=== PATIENT | female | born 1980 ===

== ENCOUNTER 2021-09-26 10:22 | Outpatient (REF) | payer MEDICAID, SELFPAY ==
--- NOTE | ~2021-09-26 | MM_ITS ---
EXAMINATION: MM SCREENING DIGITAL BREAST TOMOSYNTHESIS, BILATERAL CLINICAL INFORMATION: Screening. Asymptomatic. The lifetime risk of breast cancer based on the Tyrer-Cuzick Model is 7%. COMPARISON: Mammography: 10/28/2018, 10/14/2017 TECHNIQUE: Digital breast tomosynthesis is performed in both the craniocaudal and mediolateral oblique views along with computer-aided detection (CAD). Synthesized 2D images are generated from the tomosynthesis. FINDINGS: There are scattered areas of fibroglandular density (ACR BI-RADS breast composition Category b). There are no significant masses, abnormal calcifications, or other abnormalities. Breast tissue composition borders on heterogeneously dense. The skin contours are smooth. No significant changes. MM/MM tomosynthesis screening BI IMPRESSION: No mammographic evidence of malignancy. ASSESSMENT: BI-RADS 1: Negative RECOMMENDATION: Routine annual mammography screening. This patient's information was entered into a reminder system with a target due date for their next mammogram.
== END 2021-09-26 10:23 | disposition home or self-care (01) ==
LOC: HO.MAMMO 10:22
PROVIDERS: Visit Provider Family Medicine
DX: Z12.31 Encounter for screening mammogram for malignant neoplasm of breast (principal)
CPT/HCPCS: 77063; 77067

== ENCOUNTER 2022-04-20 09:22 | Outpatient (REF) | payer MEDICAID, SELFPAY ==
--- NOTE | ~2022-04-20 | XR_ITS ---
EXAMINATION: RIGHT FOOT AND RIGHT ANKLE. CLINICAL INFORMATION: Pain. COMPARISON: None TECHNIQUE: 3 views right foot and 2 views right ankle: FINDINGS: RIGHT FOOT: There is no visible acute fracture, dislocation or subluxation seen. No bony erosive changes. The soft tissues are normal. RIGHT ANKLE: The ankle mortise and subtalar joints are normal. No visible acute fracture or dislocation seen. The soft tissues are normal. XR/XR ankle RT min 3V IMPRESSION: Unremarkable right foot exam. Unremarkable right ankle exam.
--- NOTE | ~2022-04-20 | XR_ITS ---
EXAMINATION: RIGHT FOOT AND RIGHT ANKLE. CLINICAL INFORMATION: Pain. COMPARISON: None TECHNIQUE: 3 views right foot and 2 views right ankle: FINDINGS: RIGHT FOOT: There is no visible acute fracture, dislocation or subluxation seen. No bony erosive changes. The soft tissues are normal. RIGHT ANKLE: The ankle mortise and subtalar joints are normal. No visible acute fracture or dislocation seen. The soft tissues are normal. XR/XR foot RT min 3V IMPRESSION: Unremarkable right foot exam. Unremarkable right ankle exam.
== END 2022-04-20 09:23 | disposition home or self-care (01) ==
LOC: HO.XRAY 09:22
PROVIDERS: Absent Provider Internal Medicine; PCP Internal Medicine; Visit Provider Family Medicine
DX: M77.41 Metatarsalgia, right foot (principal)
CPT/HCPCS: 73610; 73630

== ENCOUNTER 2022-06-01 15:54 | Outpatient (REF) | payer MEDICAID, SELFPAY ==
--- NOTE | ~2022-06-01 | MR_ITS ---
MR LUMBAR SPINE WITHOUT CONTRAST CLINICAL INFORMATION: Lumbago with right-sided sciatica. COMPARISON: None available. TECHNIQUE: MRI of the lumbar spine was obtained using routine sequences without contrast. FINDINGS: There are 5 nonrib-bearing lumbar-type vertebral bodies. Lumbar alignment is normal. The vertebral body heights are maintained. There is moderate disc volume loss and there is disc desiccation at L5-S1. There is no bone marrow edema. There are no acute fractures. Modic type II endplate signal changes at L5-S1. Small chronic opposing endplate Schmorl's nodes at L1-L2. Conus terminates at the T12-L1 level. No significant extraspinal soft tissue findings. L1-L2: Disc contour is normal. No central canal stenosis and no foraminal stenosis. L2-L3: Disc contour is normal. Mild bilateral facet arthropathy. No central canal stenosis and no foraminal stenosis. L3-L4: Disc contour is normal. Mild bilateral facet arthropathy. No central canal stenosis and no foraminal stenosis. L4-L5: Small annular disc bulge and moderate bilateral facet arthropathy and ligamentum flavum thickening. No central canal stenosis and no foraminal stenosis. L5-S1: Diffuse disc osteophyte complex and mild bilateral hypertrophic facet arthropathy. A shallow right paracentral disc protrusion results in slight posterior deflection of the traversing right S1 nerve root within the right subarticular zone. Disc osteophyte and facet arthropathy result in mild to moderate bilateral foraminal encroachment with disc osteophyte contacting the extraforaminal right L5 nerve root as well. MR/MR lumbar spine wo con IMPRESSION: - At L5-S1, a shallow right paracentral disc protrusion results in slight posterior deflection of the traversing right S1 nerve root within the right subarticular zone. Disc osteophyte and facet arthropathy result in mild to moderate bilateral foraminal encroachment with disc osteophyte contacting the extraforaminal right L5 nerve root as well. - Additional degenerative findings as discussed above.
== END 2022-06-01 15:55 | disposition home or self-care (01) ==
LOC: HO.MRI 15:54
PROVIDERS: Visit Provider Internal Medicine
DX: M54.41 Lumbago with sciatica, right side (principal)
CPT/HCPCS: 72148

== ENCOUNTER 2022-10-21 15:18 | Outpatient (REF) | payer MEDICAID, SELFPAY ==
[2022-10-21 18:00] LABS: Urine Cytology See Pathology rpt
== END 2022-10-21 15:19 | disposition home or self-care (01) ==
LOC: HO.LAB 15:18
PROVIDERS: Visit Provider Nurse Practitioner Family
DX: R31.29 Other microscopic hematuria (principal); N39.0 Urinary tract infection, site not specified
CPT/HCPCS: 88112; 99202

== ENCOUNTER 2022-10-28 11:15 | Outpatient (REF) | payer MEDICAID, SELFPAY | END 2022-10-28 11:16 | disposition home or self-care (01) | LOC: HO.HMGCX 11:15 | PROVIDERS: Visit Provider Nurse Practitioner Family | DX: R31.29 Other microscopic hematuria (principal); N39.0 Urinary tract infection, site not specified | CPT/HCPCS: 76770; 76775 ==

== ENCOUNTER 2022-10-29 08:34 | Emergency (ER) | payer MEDICAID, SELFPAY ==
[2022-10-29 08:41] VITALS: BP 121/81; PULSE 106; RESP 20; TEMP 36.8; O2SAT 95; BMI 30.2
--- NOTE | 2022-10-29 08:51 | ED.GENADULT ---
HPI - General Adult General Chief complaint: Upper Respiratory Symptoms Stated complaint: sore throat, body aches, cough Time Seen by Provider: 10/29/22 08:50 Source: patient Mode of arrival: ambulatory Limitations: no limitations History of Present Illness HPI narrative: Patient is a 42 year old assigned female at with no reported medical history presenting to the emergency department today with a cough and body aches. Patient states that since Wednesday, she has had a cough and body aches. Patient denies any dizziness, lightheadedness, abdominal pain, nausea, vomiting, fever, chills, blurry vision, double vision, loss of vision, chest pain, difficulty breathing, shortness of breath, back pain, night sweats, pain with urination, increased urinary frequency, increased urinary urgency, blood in her urine or stool, syncope or a near syncopal episode, recent trauma or falls, bowel incontinence, bladder incontinence, bowel retention, bladder retention, or any other complaints at this time. Onset (ago): day(s) (3) Severity: mild Severity scale (1-10): 2 Relieving factors: none Exacerbating factors: none Associated symptoms: cough Treatments prior to arrival: none Related Data Home Medications Medication Instructions Recorded Confirmed gabapentin 100 mg capsule 100 mg PO BID 10/21/22 10/21/22 meloxicam 15 mg tablet 15 mg PO DAILY 10/21/22 10/21/22 paroxetine HCl 20 mg tablet 20 mg PO DAILY 10/21/22 10/21/22 Allergies Allergy/AdvReac Type Severity Reaction Status Date / Time Motrin Allergy Unknown Unknown Uncoded 10/21/22 20:57 Review of Systems Constitutional: Constitutional: Reports no additional constitutional complaints, Denies chills, Denies fever(s) and Denies night sweats Eyes: Eyes: Reports no additional eye complaints, Denies blurry vision, Denies change in vision, Denies diplopia, Denies eye discharge, Denies loss of vision and Denies eye pain ENT: Denies dizziness Cardiovascular: Cardiovascular: Reports no additional cardiovascular complaints, Denies chest pain, Denies lightheadedness, Denies Loss of Consciousness and Denies dyspnea Respiratory: Respiratory: Reports no additional respiratory complaints, Reports cough and Denies dyspnea Gastrointestinal: Gastrointestinal: Reports no additional gastrointestinal complaints, Denies abdominal pain, Denies melena, Denies hematochezia, Denies change in bowel habits and Denies change in stool character Genitourinary: Genitourinary: Denies hematuria, Denies urinary frequency, Denies dysuria, Denies urinary incontinence, Denies urinary hesitancy and Denies urinary urgency Musculoskeletal: Musculoskeletal: Reports no additional musculoskeletal complaints, Denies numbness and Denies tingling Neurologic: Denies dizziness, Denies loss of vision, Denies numbness and Denies tingling Psychiatric: Psychiatric: Reports no additional psychiatric complaints Endocrine: Endocrine: Reports no additional endocrine complaints Hematologic/Lymphatic: Hematologic/Lymphatic: Reports no additional hematologic/lymphatic complaints Allergic/Immunologic: Allergic/Immunologic: Reports no additional allergic/immunologic complaints FOR[facility] Past Medical History Attestation statement: The following information was validated with the patient. Source: old records reviewed and nursing notes reviewed Medical History Chronic back pain Recurrent UTI Social History Social History Advance Directives: No Physical Exam ED Vital Signs: Vital Signs - 24 hr 10/29/22 08:41 Temperature 98.3 F Pulse Rate 106 H Respiratory Rate 20 Blood Pressure 121/81 Pulse Oximetry 95 Oxygen Delivery Method Room Air BMI result Body Mass Index 30.2 Const General: cooperative, no acute distress, alert and awake Nutritional Appearance: well nourished Orientation/consciousness: patient oriented x3 Limitations: no limitations [facility] Head: Yes normal to inspection and Yes atraumatic Ears: hearing grossly normal bilaterally and external ears normal General nose exam: Normal external nose present, no nasal discharge noted and no epistaxis Face and sinus: Yes normal facial exam, No abrasion and No laceration Mouth: Normal oral and palatal mucosa present, no drooling and no muffled voice Eyes General: appearance normal, both eyes and all related structures Periorbital: periorbital findings normal Eyelids: Yes eyelids normal Conjunctivae: conjunctivae normal Pupils: Equal, round and reactive pupils present EOM: EOMs intact bilaterally Neck Neck: Yes normal visual inspection, Yes full ROM and Yes no lymphadenopathy Chest Chest palpation & inspection: normal inspection of the chest Resp Effort & Inspection: normal respiratory effort and able to speak in complete sentences Auscultation: clear to auscultation bilaterally Cardio Rate: regular rate Rhythm: regular rhythm GI Inspection: Yes normal to inspection Palpation (GI): Soft to palpation, not firm, nontender and no guarding Neuro General: patient oriented x3 and moves all extremities Cranial nerves: Yes Equal, round and reactive pupils present Cognition (Neuro): normal cognition Motor exam (neuro): 5/5 motor strength present throughout Sensory Exam: Normal double simultaneous stimulation for sensation Coordination: [id number] test normal Extrem General: Yes normal to inspection, Yes full ROM and Yes capillary refill normal Psych Appearance: grossly normal Mental Status: mental status grossly normal Affect: normal affect Attitude: cooperative Thought process: Normal thought process present Thought content: Normal thought content present Insight: Good insight present (Psych) Medical Decision Making Medical Decision Making MDM Narrative: Patient is a 42 year old assigned female at with no reported medical history presenting to the emergency department today with a cough and body aches. Patient's physical exam was unremarkable. Patient's COVID-19 test was positive. I explained my physical exam findings as well as all test results to the patient. I answered all questions asked by the patient. I stressed the importance of the patient taking her medication as prescribed. I stressed the importance of the patient following up with her primary care provider. I stressed the importance of the patient returning to the emergency department immediately if her symptoms were to worsen or if she were to develop any dizziness, shortness of breath, difficulty breathing, chest pain, blurry vision, loss of vision, nausea, vomiting, abdominal pain, fever, chills, back pain, or any other complaints. Patient verbalized agreement and understanding with this treatment plan and discharge, Differential Diagnosis Differential Diagnoses: The differential diagnosis associated with the presentation includes COVID-19 Lab Data [facility] Lab Attestation statement: I reviewed the patient's lab results. Labs: Lab Results 10/29/22 Range/Units 09:22 Influenza Type A (PCR) NEGATIVE (Negative) Influenza Type B (PCR) NEGATIVE (Negative) RSV RNA Qual (PCR) NEGATIVE (Negative) SARS-CoV-2 RNA (RT-PCR) POSITIVE A (Negative) Discharge Plan Discharge Clinical Impression: COVID-19 Patient Disposition: Home, Self-Care Instructions: COVID-19 (Coronavirus Disease 2019) (ED) Additional Instructions: Follow up with your primary care provider. Return to the emergency department immediately if your symptoms worsen or if you develop any dizziness, shortness of breath, difficulty breathing, chest pain, blurry vision, loss of vision, nausea, vomiting, abdominal pain, fever, chills, back pain, or any other complaints. Olaf un seguimiento con thorne proveedor de atenci?n primaria. Regrese al departamento de emergencias de inmediato si jos s?ntomas empeoran o si presenta mareos, falta de aire, dificultad para respirar, dolor de pecho, visi?n borrosa, p?rdida de la visi?n, n?useas, v?mitos, dolor abdominal, fiebre, escalofr?os, dolor de espalda o cualquier otras quejas. Prescriptions: No Action gabapentin 100 mg capsule 100 mg PO BID paroxetine HCl 20 mg tablet 20 mg PO DAILY meloxicam 15 mg tablet 15 mg PO DAILY Referrals: Musa Borges MD [Primary Care Provider] - Stand Alone Forms: Work/School Release Interventions: ED Discharge Assessment Last Done: 10/29/22 10:50 Discharge Date/Time: 10/29/22 10:56 Print Language: Faroese
--- OUTSIDE RECORDS SUMMARY | 2022-10-29 08:59 | XMS_ITS | Continuity of Care Document ---
:1980 Author Organization [facility] Address [address] [place] [address]- Care Team Providers Name Role Phone Lexx Oviedo MD, Musa Primary Care Physician Encounter [facility] Date(s): 07/12/20 - 08/11/20 [facility] [address] [place] [id number] [facility] Allergies, Adverse Reactions, Alerts No Known Medication Allergies Medications Ibuprohm = 200 mg, By Mouth, Every 6 hours, 0 Refills, Maintenance, 07/09/20 16:24:00 EDT Start Date: 07/09/20 Status: OrderedLidoderm 5% film 1 patch, Topically, Daily, # 30 patch, 0 Refills, Maintenance, 11/10/16 10:23:00 Start Date: 11/10/16 Status: Ordered
--- OUTSIDE RECORDS SUMMARY | 2022-10-29 08:59 | XMS_ITS | Continuity of Care Document ---
:1980 Author Organization [facility] Address [address] [place] [address]- Care Team Providers Name Role Phone Lexx Oviedo MD, Musa Primary Care Physician Encounter [facility] Date(s): 09/30/20 - 10/30/20 [facility] [address] [place] [id number] Allergies, Adverse Reactions, Alerts No Known Medication Allergies Medications Ibuprohm = 200 mg, By Mouth, Every 6 hours, 0 Refills, Maintenance, 07/09/20 16:24:00 EDT Start Date: 07/09/20 Status: OrderedLidoderm 5% film 1 patch, Topically, Daily, # 30 patch, 0 Refills, Maintenance, 11/10/16 10:23:00 Start Date: 11/10/16 Status: Ordered
--- OUTSIDE RECORDS SUMMARY | 2022-10-29 08:59 | XMS_ITS | Continuity of Care Document ---
:1980 Author Organization [facility] Address [address] [place] [address]- Care Team Providers Name Role Phone Lexx Oviedo MD, Musa Primary Care Physician Encounter [facility] Date[place]s): 07/09/20 - 08/08/20 [facility] [address] [place] [id number] [facility] Attending Physician: Josefa Saeed Admitting Physician: Josefa Saeed Referring Physician: AdmJosefa lugo Allergies, Adverse Reactions, Alerts No Known Medication Allergies Medications Ibuprohm = 200 mg, By Mouth, Every 6 hours, 0 Refills, Maintenance, 07/09/20 16:24:00 EDT Start Date: 07/09/20 Status: OrderedLidoderm 5% film 1 patch, Topically, Daily, # 30 patch, 0 Refills, Maintenance, 11/10/16 10:23:00 Start Date: 11/10/16 Status: Ordered
--- OUTSIDE RECORDS SUMMARY | 2022-10-29 08:59 | XMS_ITS | Continuity of Care Document ---
:1980 Author Organization [facility] Address [address] [place] [id number]- Care Team Providers Name Role Phone Lexx Oviedo MD, Musa Primary Care Physician [phone] [id number] Date(s): [facility]09[facility]20 - 07[facility]16/20 [facility] [address] [place] [id number] [facility] Encounter Diagnosis Chronic low back pain (Discharge Diagnosis) - 07/09/20 Sacroiliac joint dysfunction of right side (Discharge Diagnosis) - 07/09/20 Strain of right piriformis muscle (Discharge Diagnosis) - 07/09/20 Greater trochanteric bursitis of both hips (Discharge Diagnosis) - 07/09/20 Attending Physician: Omar Ortiz MD Referring Physician: Musa Borges MD Allergies, Adverse Reactions, Alerts No Known Medication Allergies Medications Ibuprohm = 200 mg, By Mouth, Every 6 hours, 0 Refills, Maintenance, 07/09/20 16:24:00 EDT Start Date: 07/09/20 Status: OrderedLidoderm 5% film 1 patch, Topically, Daily, # 30 patch, 0 Refills, Maintenance, 11/10/16 10:23:00 Start Date: 11/10/16 Status: Ordered Problem List Diagnosis Diagnosis Type Effective Dates Health Clinical Infor [facility] Status Service Chronic low back Discharge 07/09/20 pain Diagnosis Sacroiliac joint Discharge 07/09/20 dysfunction of Diagnosis right side Strain of right Discharge 07/09/20 piriformis muscle Diagnosis Greater Discharge 07/09/20 trochanteric Diagnosis bursitis of both hips Vital Signs Most recent to oldest [Reference Range]: 1 Weight 74.4 kg (07/09/20 4:21 PM) Oxygen Saturation [94-100 %] 100 % (07/09/20 4:21 PM) Pulse Rate [55-90 bpm] 86 bpm (07/09/20 4:21 PM) Blood Pressure [90-138/55-84 mm Hg] 106/73 mm Hg (07/09/20 4:21 PM) Temperature [96.8-100.4 DegF] 98.3 DegF (07/09/20 4:21 PM) Blood pressure sites Arm, left (07/09/20 4:21 PM) Temperature Route Temporal (07/09/20 4:21 PM)
[2022-10-29 10:12] LABS: Influenza A PCR NEGATIVE (Negative); Influenza B PCR NEGATIVE (Negative); Resp Syncy Virus RNA Qual PCR NEGATIVE (Negative); SARS COV2 PCR INHOUSE POSITIVE (Negative)
== END 2022-10-29 10:56 | disposition home or self-care (01) ==
PROVIDERS: Emergency Provider Emergency Medicine Emergency Medical Services; PCP Internal Medicine
DX: U07.1 COVID-19 (principal); J02.9 Acute pharyngitis, unspecified
CPT/HCPCS: 0241U; 99283

== ENCOUNTER → 2022-12-23 09:36 | Outpatient (BNVA) | payer MEDICAID, SELFPAY | PROVIDERS: PCP Internal Medicine; Visit Provider Nurse Practitioner Family | DX: N39.0 Urinary tract infection, site not specified (principal); R31.29 Other microscopic hematuria | CPT/HCPCS: 51798; 99212 ==

== ENCOUNTER 2023-01-01 08:16 | Outpatient (REF) | payer MEDICAID, SELFPAY ==
--- NOTE | ~2023-01-01 | MM_ITS ---
EXAMINATION: MM SCREENING DIGITAL BREAST TOMOSYNTHESIS, BILATERAL CLINICAL INFORMATION: Screening. Asymptomatic. The lifetime risk of breast cancer based on the Tyrer-Cuzick Model is 8%. COMPARISON: Mammography: 09/26/2021, 10/28/2018, 10/14/2017 (baseline) TECHNIQUE: Digital breast tomosynthesis is performed in both the craniocaudal and mediolateral oblique views along with computer-aided detection (CAD). Synthesized 2D images are generated from the tomosynthesis. FINDINGS: There are scattered areas of fibroglandular density (ACR BI-RADS breast composition Category b). There are no significant masses, abnormal calcifications, or other abnormalities. Parenchymal pattern is similar to prior studies. There is no developing density or architectural abnormality. The skin contours are unremarkable. No significant changes. MM/MM tomosynthesis screening BI IMPRESSION: No mammographic evidence of malignancy. ASSESSMENT: BI-RADS 1: Negative RECOMMENDATION: Routine annual mammography screening. This patient's information was entered into a reminder system with a target due date for their next mammogram.
== END 2023-01-01 08:17 | disposition home or self-care (01) ==
LOC: HO.MAMMO 08:16
PROVIDERS: PCP Internal Medicine; Visit Provider Internal Medicine
DX: Z12.31 Encounter for screening mammogram for malignant neoplasm of breast (principal)
CPT/HCPCS: 77063; 77067

== ENCOUNTER 2023-04-13 13:25 | Outpatient (REF) | payer MEDICAID, SELFPAY ==
--- NOTE | ~2023-04-13 | XR_ITS ---
EXAMINATION: XR CHEST CLINICAL INFORMATION: 1 week productive cough. COMPARISON: None available. TECHNIQUE: 2 views of the chest were obtained. FINDINGS: No significant abnormality is noted involving the heart, lungs, mediastinum, bony thorax or soft tissues. XR/XR chest 2V IMPRESSION: No acute cardiopulmonary process.
== END 2023-04-13 13:26 | disposition home or self-care (01) ==
LOC: HO.HHCX 13:25
PROVIDERS: Visit Provider Emergency Medicine
DX: R68.89 Other general symptoms and signs (principal)
CPT/HCPCS: 71046

== ENCOUNTER 2023-05-26 16:11 | Emergency (ER) | payer MEDICAID, SELFPAY ==
[2023-05-26 16:33] VITALS: BP 110/73; PULSE 95; RESP 18; TEMP 36.3; O2SAT 98; BMI 29.9
--- NOTE | 2023-05-26 16:35 | ED.ABDPAIN ---
HPI - Abdominal Pain General Chief Complaint: Nausea/Vomiting/Diarrhea Stated Complaint: body aches, abd. pain, D/V t-1, weakness Time Seen by Provider: 05/26/23 18:33 Source: patient, RN notes reviewed and employment educational coord Mode of arrival: ambulatory Limitations: language barrier History of Present Illness HPI narrative: 42-year-old female presents for evaluation of weakness. She reports that she had some vomiting and diarrhea yesterday that has since subsided. She reports some generalized body aches. Denies any fevers or chills. She reports that her granddaughter had similar symptoms. Reports a history of tubal ligation but no other abdominal surgeries She reports not eating or drinking today due to the vomiting and diarrhea she had yesterday No other complaints or concerns at this time Related Data Home Medications Medication Instructions Recorded Confirmed gabapentin 100 mg capsule 100 mg PO BID 10/21/22 10/21/22 meloxicam 15 mg tablet 15 mg PO DAILY 10/21/22 10/21/22 paroxetine HCl 20 mg tablet 20 mg PO DAILY 10/21/22 10/21/22 Previous Rx's Medication Instructions Recorded ondansetron 4 mg disintegrating 4 mg PO Q8H PRN nausea and 05/26/23 tablet vomiting #20 tabs Allergies Allergy/AdvReac Type Severity Reaction Status Date / Time No Known Allergies Allergy Verified 05/26/23 16:33 Review of Systems Constitutional: Reports as per HPI, Denies chills, Denies fever(s), Denies headache(s) and Reports weakness Denies headache(s) Cardiovascular: Denies chest pain and Denies dyspnea Respiratory: Denies cough and Denies dyspnea Gastrointestinal: Denies abdominal pain, Denies constipation, Reports diarrhea, Reports nausea and Reports vomiting Genitourinary: Denies dysuria Denies headache(s), Denies focal weakness and Reports weakness PMFSH Past Medical History Medical History Chronic back pain Recurrent UTI Social History Social History Advance Directives: No Advance Directives Information Provided: Yes Physical Exam ED Vital Signs: Vital Signs - 24 hr 05/26/23 16:33 05/26/23 19:24 Temperature 97.3 F 97.1 F Pulse Rate 95 83 Respiratory Rate 18 17 Blood Pressure 110/73 114/72 Pulse Oximetry 98 98 Oxygen Delivery Method Room Air Room Air BMI result Body Mass Index 29.9 Const General: healthy appearing, comfortable, no acute distress, alert and awake Nutritional Appearance: well nourished Orientation/consciousness: patient oriented x3 HENMT Head: Yes normocephalic and Yes atraumatic Eyes Eyelids: Yes eyelids normal Conjunctivae: conjunctivae normal Sclerae: sclerae normal Corneas: corneas normal Pupils: Equal, round and reactive pupils present EOM: EOMs intact bilaterally Neck Neck: Yes full ROM Resp Effort & Inspection: normal respiratory effort, able to speak in complete sentences and not labored Cardio Rate: regular rate Rhythm: regular rhythm GI Inspection: No distended Palpation (GI): Soft to palpation, not firm, nontender, no guarding and not rigid Skin General skin exam: no rashes or lesions noted and elasticity normal Neuro General: patient oriented x3 Cranial nerves: Yes Equal, round and reactive pupils present and Yes Bilaterally intact EOM present Cognition (Neuro): normal cognition Extrem Other: Moving all extremities well without any obvious deformities Course Course Course Narrative: RME - 42 yo Bulgarian speaking female presenting to the ER for evaluation of epigastric abdominal pain, N/V/D and generalized weakness since last night. VSS. Epigastgric tenderness only on exam, no RUQ tenderness. Plan: basic lab workup Medical Decision Making Medical Decision Making [facility] Narrative: 42-year-old female presents for evaluation of generalized weakness. She had some nausea and vomiting yesterday but no abdominal pain nausea or vomiting today. Her physical exam is benign. Labs are without any significant abnormalities. The patient likely has a viral gastroenteritis as her granddaughter had similar symptoms. Will treat her symptomatically with Zofran and sucralfate. The patient can be discharged to follow-up with PCP Differential Diagnosis Gastroenteritis Peptic ulcer disease Gastritis Cholelithiasis Acute cholecystitis Lab Data [facility] Lab Attestation statement: I reviewed the patient's lab results. (No leukocytosis or significant anemia. Patient's electrolytes are within normal limits. BUN is slightly low at 8 but a creatinine is normal at 0.79. LFTs within normal limits) UA does not show any evidence of infection 05/26/23 16:44 05/26/23 16:44 Labs: Lab Results 05/26/23 05/26/2305/26/23 Range/Units 16:44 16:44 16:47 WBC 6.7 (4.8-10.8) X10*3/uL RBC 4.18 L (4.20-5.50) X10*6/uL Hgb 12.9 (12.0-16.0) g/dl Hct 39.3 (37.0-47.0) % MCV 94.0 (80.0-98.0) fL MCH 30.9 (27.0-33.0) pg MCHC 32.8 (31.0-35.0) g/dl RDW 12.6 (11.0-16.0) % Plt Count 168 (160-400) X10*3/uL MPV 12.1 (9.4-12.3) fL Immature Gran % (Auto) 0.5 H (0.0-0.4) % Neut % (Auto) 86.2 H (45-73) % Lymph % (Auto) 8.7 L (20-40) % Custer % (Auto) 4.1 (2-11) % Eos % (Auto) 0.2 (0-4) % Baso % (Auto) 0.3 (0-2) % Lymph # (Auto) 0.6 L (1.2-4.9) X10*3/uL Custer # (Auto) 0.3 (0.1-1.2) X10*3/uL Eos # (Auto) 0.0 (0.0-0.4) X10*3/uL Baso # (Auto) 0.0 (0.0-0.2) X10*3/uL Abs Immat Gran (auto) 0.03 (0.00-0.03) X10*3/uL Absolute Neuts (auto) 5.8 (2.0-8.3) x10*3/uL Absolute Nucleated RBC 0.000 (0.0-0.012) X10*3/uL Nucleated RBC % (auto) 0.0 (0.0-0.2) /100WBC Sodium 140 (135-145) mmol/L Potassium 3.4 (3.3-5.1) mmol/L Chloride 107 (96-108) mmol/L BUN 8 L (9-16) mg/dL Creatinine 0.79 (0.5-1.4) mg/dL Estim Creat Clear Calc 90.0 Estimated GFR > 60 Random Glucose 93 (60-115) mg/dL Calcium 8.6 (8.4-10.2) mg/dL Magnesium 1.8 (1.6-2.6) mg/dL Total Bilirubin 0.2 (0.0-1.0) mg/dL Direct Bilirubin < 0.2 (0.0-0.5) mg/dL AST 16 (5-31) U/L ALT 10 (0-31) U/L Alkaline Phosphatase 79 (39-117) U/L Total Protein 7.1 (6.5-8.0) g/dL Albumin 4.0 (3.5-5.0) g/dL Lipase 15 (8-78) U/L Urine Color Yellow Urine Appearance Clear Urine pH 5.5 (5.0-9.0) Ur Specific Fountain 1.010 (1.005-1.025) Urine Protein Negative (Neg-Trace) mg/dL Urine Glucose (UA) Negative (Negative) mg/dL Urine Ketones Negative (Negative) mg/dL Urine Blood Negative (Negative) Urine Nitrite Negative (Negative) Ur Leukocyte Esterase Small (1+) H (Negative) Urine RBC 0-2 (0-2) /HPF Urine WBC 0-5 (0-5) /HPF Ur Squamous Epith Cells 0-2 (0-2) /HPF Urine Bacteria None Seen (None Seen) Hyaline Casts 3-5 (0-2) /LPF Urine Test (NEGATIVE) COVID-19 (LINDA) (Negative) COVID-19 Clin Com Influenza Type A (GABRIELLE) (Negative) Influenza Type B (GABRIELLE) (Negative) Influenza A & B Note S. pyogenes GrpA GABRIELLE (Negative) 05/26/23 05/26/23 05/26/23 Range/Units 16:47 17:56 17:56 WBC (4.8-10.8) X10*3/uL RBC (4.20-5.50) X10*6/uL Hgb (12.0-16.0) g/dl Hct (37.0-47.0) % MCV (80.0-98.0) fL MCH (27.0-33.0) pg MCHC (31.0-35.0) g/dl RDW (11.0-16.0) % Plt Count (160-400) X10*3/uL MPV (9.4-12.3) fL Immature Gran % (Auto) (0.0-0.4) % Neut % (Auto) (45-73) % Lymph % (Auto) (20-40) % Custer % (Auto) (2-11) % Eos % (Auto) (0-4) % Baso % (Auto) (0-2) % Lymph # (Auto) (1.2-4.9) X10*3/uL Custer # (Auto) (0.1-1.2) X10*3/uL Eos # (Auto) (0.0-0.4) X10*3/uL Baso # (Auto) (0.0-0.2) X10*3/uL Abs Immat Gran (auto) (0.00-0.03) X10*3/uL Absolute Neuts (auto) (2.0-8.3) x10*3/uL Absolute Nucleated RBC (0.0-0.012) X10*3/uL Nucleated RBC % (auto) (0.0-0.2) /100WBC Sodium (135-145) mmol/L Potassium (3.3-5.1) mmol/L Chloride (96-108) mmol/L BUN (9-16) mg/dL Creatinine (0.5-1.4) mg/dL Estim Creat Clear Calc Estimated GFR Random Glucose (60-115) mg/dL Calcium (8.4-10.2) mg/dL Magnesium (1.6-2.6) mg/dL Total Bilirubin (0.0-1.0) mg/dL Direct Bilirubin (0.0-0.5) mg/dL AST (5-31) U/L ALT (0-31) U/L Alkaline Phosphatase (39-117) U/L Total Protein (6.5-8.0) g/dL Albumin (3.5-5.0) g/dL Lipase (8-78) U/L Urine Color Urine Appearance Urine pH (5.0-9.0) Ur Specific Fountain (1.005-1.025) Urine Protein (Neg-Trace) mg/dL Urine Glucose (UA) (Negative) mg/dL Urine Ketones (Negative) mg/dL Urine Blood (Negative) Urine Nitrite (Negative) Ur Leukocyte Esterase (Negative) Urine RBC (0-2) /HPF Urine WBC (0-5) /HPF Ur Squamous Epith Cells (0-2) /HPF Urine Bacteria (None Seen) Hyaline Casts (0-2) /LPF Urine Test NEGATIVE (NEGATIVE) COVID-19 (LINDA) (Negative) COVID-19 Clin Com Influenza Type A (GABRIELLE) Negative (Negative) Influenza Type B (GABRIELLE) Negative (Negative) Influenza A & B Note See Note S. pyogenes GrpA GABRIELLE Negative (Negative) 05/26/23 Range/Units 17:56 WBC (4.8-10.8) X10*3/uL RBC (4.20-5.50) X10*6/uL Hgb (12.0-16.0) g/dl Hct (37.0-47.0) % MCV (80.0-98.0) fL MCH (27.0-33.0) pg MCHC (31.0-35.0) g/dl RDW (11.0-16.0) % Plt Count (160-400) X10*3/uL MPV (9.4-12.3) fL Immature Gran % (Auto) (0.0-0.4) % Neut % (Auto) (45-73) % Lymph % (Auto) (20-40) % Custer % (Auto) (2-11) % Eos % (Auto) (0-4) % Baso % (Auto) (0-2) % Lymph # (Auto) (1.2-4.9) X10*3/uL Custer # (Auto) (0.1-1.2) X10*3/uL Eos # (Auto) (0.0-0.4) X10*3/uL Baso # (Auto) (0.0-0.2) X10*3/uL Abs Immat Gran (auto) (0.00-0.03) X10*3/uL Absolute Neuts (auto) (2.0-8.3) x10*3/uL Absolute Nucleated RBC (0.0-0.012) X10*3/uL Nucleated RBC % (auto) (0.0-0.2) /100WBC Sodium (135-145) mmol/L Potassium (3.3-5.1) mmol/L Chloride (96-108) mmol/L BUN (9-16) mg/dL Creatinine (0.5-1.4) mg/dL Estim Creat Clear Calc Estimated GFR Random Glucose (60-115) mg/dL Calcium (8.4-10.2) mg/dL Magnesium (1.6-2.6) mg/dL Total Bilirubin (0.0-1.0) mg/dL Direct Bilirubin (0.0-0.5) mg/dL AST (5-31) U/L ALT (0-31) U/L Alkaline Phosphatase (39-117) U/L Total Protein (6.5-8.0) g/dL Albumin (3.5-5.0) g/dL Lipase (8-78) U/L Urine Color Urine Appearance Urine pH (5.0-9.0) Ur Specific Fountain (1.005-1.025) Urine Protein (Neg-Trace) mg/dL Urine Glucose (UA) (Negative) mg/dL Urine Ketones (Negative) mg/dL Urine Blood (Negative) Urine Nitrite (Negative) Ur Leukocyte Esterase (Negative) Urine RBC (0-2) /HPF Urine WBC (0-5) /HPF Ur Squamous Epith Cells (0-2) /HPF Urine Bacteria (None Seen) Hyaline Casts (0-2) /LPF Urine Test (NEGATIVE) COVID-19 (LINDA) Negative (Negative) COVID-19 Clin Com See Note Influenza Type A (GABRIELLE) (Negative) Influenza Type B (GABRIELLE) (Negative) Influenza A & B Note S. pyogenes GrpA GABRIELLE (Negative) Independent Interpretation I performed an independent interpretation of an: Plain X-Ray (No acute pathology) Medications Administered Discontinued Medications Generic Name Dose Route Start Last Admin Trade Name Freq PRN Reason Stop Dose Admin Lidocaine/Diphenhydr/Alum/Mg/Simeth 10 ml 05/26/23 18:55 05/26/23 19:23 Mag&Al/Sim/Diphenhyd/Lidocaine 10 Ml Oral.Susp PO 05/26/23 18:56 10 ml ONCE ONE Administration Protocol Ondansetron HCl 4 mg 05/26/23 18:55 05/26/23 19:23 Ondansetron Odt 4 Mg Tab.Rapdis TRANSLINGU 05/26/23 18:56 4 mg ONCE ONE Administration Sucralfate 1 gm 05/26/23 18:55 05/26/23 19:23 Sucralfate Oral Suspension 1 Gm/10 Ml Oral.Susp PO 05/26/23 18:56 1 gm ONCE ONE Administration Discharge Plan Discharge Clinical Impression: Gastroenteritis Patient Disposition: Home, Self-Care Instructions: Gastroenteritis (ED) Additional Instructions: Your workup in the emergency department today was reassuring. Your symptoms are most likely related to a stomach virus Drink lots of fluids, small sips at a time due to the nausea. Take Zofran as needed for nausea or vomiting Follow-up with your primary doctor Prescriptions: New ondansetron 4 mg tablet,disintegrating 4 mg PO Q8H PRN (Reason: nausea and vomiting) Qty: 20 0RF No Action gabapentin 100 mg capsule 100 mg PO BID paroxetine HCl 20 mg tablet 20 mg PO DAILY meloxicam 15 mg tablet 15 mg PO DAILY Stand Alone Forms: Work/School Release
[2023-05-26 16:50] LABS: MANUAL DIFF FLAG NO
[2023-05-26 16:56] LABS: Basophils Percent Auto 0.3 % (0-2); Eosinophils Percent Auto 0.2 % (0-4); Hematocrit 39.3 % (37.0-47.0); Hemoglobin 12.9 g/dl (12.0-16.0); Imm Gran Abs Auto 0.03 X10*3/uL (0.00-0.03); Imm Gran Pct Auto 0.5 % (0.0-0.4); Lymphocytes Absolute Auto 0.6 X10*3/uL (1.2-4.9); Lymphocytes Percent Auto 8.7 % (20-40); Mean Corpuscular HGB Conc 32.8 g/dl (31.0-35.0); Mean Corpuscular Hemoglobin 30.9 pg (27.0-33.0); Mean Platelet Volume 12.1 fL (9.4-12.3); Monocytes Absolute Auto 0.3 X10*3/uL (0.1-1.2); Monocytes Percent Auto 4.1 % (2-11); Neutrophils Absolute Auto 5.8 x10*3/uL (2.0-8.3); Neutrophils Percent Auto 86.2 % (45-73); Platelet Count 168 X10*3/uL (160-400); Red Blood Count 4.18 X10*6/uL (4.20-5.50); Red Cell Distribution Width 12.6 % (11.0-16.0); White Blood Count 6.7 X10*3/uL (4.8-10.8)
[2023-05-26 16:58] LABS: UPreg QC Valid YES; Urine Pregnancy NEGATIVE (NEGATIVE)
[2023-05-26 17:00] LABS: Appearance Urine Clear; Color Urine Yellow; Glucose Urine UA Negative (Negative); Leukocyte Esterase Urine Small (1+) (Negative); Nitrite Urine Negative (Negative); PH 5.5 (5.0-9.0); UMIC TRIGGER UACC YES; Urine Blood Negative (Negative); Urine Ketones Negative (Negative); Urine Protein Negative (Neg-Trace)
[2023-05-26 17:13] LABS: Bacteria Urine None Seen (None Seen); RBC Urine 0-2 /HPF (0-2); Squamous Epithelial Cell Urine 0-2 /HPF (0-2); UACC Culture Trigger YES; WBC Urine 0-5 /HPF (0-5)
[2023-05-26 17:27] LABS: Alanine Aminotransferase 10 U/L (0-31); Alkaline Phosphatase 79 U/L (39-117); Aspartate Amino Transferase 16 U/L (5-31); Bilirubin Direct < 0.2 mg/dL (0.0-0.5); Bilirubin Total 0.2 mg/dL (0.0-1.0); Blood Urea Nitrogen 8 mg/dL (9-16); Calcium 8.6 mg/dL (8.4-10.2); Chloride 107 mmol/L (96-108); Estimated Glomerular Filt Rate > 60; Glucose Random 93 mg/dL (60-115); Lipase 15 U/L (8-78); Magnesium 1.8 mg/dL (1.6-2.6); Potassium 3.4 mmol/L (3.3-5.1); Sodium 140 mmol/L (135-145); Total Protein 7.1 g/dL (6.5-8.0)
[2023-05-26 18:27] LABS: IDNOW Serial# 08D9AD1C; Influenza A Negative (Negative); Influenza B2 Negative (Negative)
[2023-05-26 18:30] LABS: COVID-19 Test Negative (Negative); IDNOW Serial# 9DB6401D
[2023-05-26 18:32] LABS: IDNOW Serial# 08D9AD1C; Strep A Nucleic Acid Negative (Negative)
[2023-05-26] MEDS: Sucralfate Oral Suspension 1 GM/10 ML ORAL.SUSP PO (19:23)
[2023-05-26] MEDS: Ondansetron ODT 4 MG TAB.RAPDIS TRANSLINGU (19:23)
[2023-05-26] MEDS: Mag&Al/Sim/Diphenhyd/Lidocaine 10 ML ORAL.SUSP PO (19:23)
--- NOTE | 2023-05-26 19:23 | PC.NURSE ---
pt medicated per MAR
[2023-05-26 19:24] VITALS: BP 114/72; PULSE 83; RESP 17; TEMP 36.2; O2SAT 98
[2023-05-27 05:33] LABS: Carbon Dioxide 25 mmol/L (22-29)
[2023-05-27 05:34] LABS: Anion Gap 11 (12-20)
== END 2023-05-26 20:26 | disposition home or self-care (01) ==
PROVIDERS: Physician Assistant; Physician Assistant Medical; Emergency Provider Internal Medicine; PCP Internal Medicine
DX: K52.9 Noninfective gastroenteritis and colitis, unspecified (principal); R11.2 Nausea with vomiting, unspecified; Z20.822 Contact with and (suspected) exposure to COVID-19; Z79.899 Other long term (current) drug therapy; Z87.440 Personal history of urinary (tract) infections
CPT/HCPCS: 36415; 80048; 80076; 81001; 81003; 81025; 83690; 83735; 85025; 87086; 87502; 87635; 87651; 99283

== ENCOUNTER 2023-07-09 10:43 | Outpatient (AMB) | payer MEDICAID, SELFPAY ==
--- NOTE | 2023-07-09 10:46 | A.OFFVIS_ITS ---
Intake Intake Visit Reasons: 6m follow up/PVR Intake Note: Patient is present for follow up recurrent uti/microscopic hematuria Urology Medications: none Blood Thinner: none PVR: 0ml's Fiber Technician Required: Yes Fiber Technician Name: Gregg Accompanied by: Self / Same As Patient Allergies No Known Allergies Allergy (Verified 07/09/23 11:13) Medication List - Last Reconciled 07/09/23 by Yoanna Thurston, [employer]-BC gabapentin 100 mg PO BID meloxicam 15 mg PO DAILY ondansetron 4 mg PO Q8H PRN paroxetine HCl 20 mg PO DAILY HPI HPI Comments History of Present Illness Details Shira is a 43-year-old Korean-speaking female patient of Dr. Hallman. She presents to the office today for a follow up of her recurrent UTIs. When asked reports to be doing well. She denies any UTI like symptoms or having had any UTI since her last visit in office here 6 months ago. She discusses her recent vacation to [place]. When asked she denies urinary urgency, urinary frequency, incontinence, hematuria, flank pain, dysuria, fever and or chills. She reports an endorses to drinking adequate amount of fluid da olive since her last visit and has found this to be helpful for her. She offers no complaints or concerns at this time. In office urinalysis results reviewed with the patient today. PVR 0 mL. She does report noting abnormal menses. Discussed at length potentially premenopausal. However, she does report she would like to be referred to cq developer for further assessment evaluation. She otherwise offers no other issues or concerns at this time. [facility] Medical History Chronic back pain Recurrent UTI Review of Systems Const All systems reviewed & are unremarkable except as noted in HPI and below Reports as per HPI Eyes Reports as per HPI ENT Reports no additional complaints Card Reports as per HPI Resp Reports as per HPI GI Reports as per HPI Reports as per HPI Musc Reports back pain (chronic) Skin/Breast Reports system reviewed and no additional complaints, except as documented Neuro Reports no additional complaints Psych Reports no additional complaints Endo Reports no additional complaints Alvarez/Lymph Reports no additional complaints Aller/Immun Reports no additional complaints Physical Exam Const General: cooperative, healthy appearing, comfortable, no acute distress, well developed, alert and awake Nutritional Appearance: well nourished Orientation/consciousness: patient oriented x3 Limitations: no limitations HEENT Head: Yes normal to inspection and Yes normocephalic Eyes General: appearance normal, both eyes and all related structures Neck Neck: Yes normal visual inspection and Yes trachea midline Chest Chest palpation & inspection: normal inspection of the chest Resp Effort & Inspection: normal respiratory effort and able to speak in complete sentences Cardio Jugular venous distension: no JVD GI Inspection: Yes normal to inspection General: Yes no CVA tenderness Back/Spine/Pelvis Back: no CVA tenderness Skin General skin exam: no rashes or lesions noted Neuro General: patient oriented x3 Extrem General: Yes normal to inspection and Yes full ROM Psych Appearance: grossly normal and well kempt Mental Status: mental status grossly normal Speech and movement: Normal speech and movement present and Clear speech present Affect: normal affect Attitude: cooperative Thought process: Normal thought process present Thought content: Normal thought content present Insight: Good insight present (Psych) Judgement: Good judgement present (Psych) Office Procedures Post Void Residual Post Residual Void Post Void Residual (PVR): 0 [id number] Void Residual by ultrasound Results AMB Urinalysis, Automated UA Leukoctes 0 Jaren/uL Last Edit by [email or web address] on 07/09/23 11:05 UA Nitrite Last Edit by [email or web address] on 07/09/23 11:05 UA Urobilinogen 0.2 mg/dL Last Edit by [email or web address] on 07/09/23 11:05 UA Protein 0 mg/dL Last Edit by [email or web address] on 07/09/23 11:05 UA pH 7.0 Last Edit by [email or web address] on 07/09/23 11:05 UA Blood 0 Yariel/uL Last Edit by [email or web address] on 07/09/23 11:05 UA Specific Wolford 1.015 Last Edit by [email or web address] on 07/09/23 11:05 UA Ketone Last Edit by [email or web address] on 07/09/23 11:05 UA Bilirubin 0 mg/dL Last Edit by [email or web address] on 07/09/23 11:05 UA Glucose 0 mg/dL Last Edit by [email or web address] on 07/09/23 11:05 Results Reviewed Results Reviewed: Laboratory Last Values Urine pH (Auto) 7.0 07/09/23 10:50 Specific Wolford (Auto) 1.015 07/09/23 10:50 Urine Protein (Auto) 0 mg/dL 07/09/23 10:50 Glucose (UA)(Auto) 0 mg/dL 07/09/23 10:50 Urine Blood (Auto) 0 Yariel/uL 07/09/23 10:50 Urine Bilirubin (Auto) 0 mg/dL 07/09/23 10:50 Urine Urobilinogen (Auto) 0.2 mg/dL 07/09/23 10:50 Leukocyte Esterase (Auto) 0 Jaren/uL 07/09/23 10:50 Assessment & Plan Assessment & Plan (1) Recurrent UTI: Code(s): N39.0 - Urinary tract infection, site not specified (2) Microscopic hematuria: Code(s): R31.29 - Other microscopic hematuria Plan In office urinalysis results reviewed with the patient today; as noted above. PVR 0 mL. Patient denies any bothersome urinary issues or concerns at this time. Discussed and educated on the importance of continuing to drink plenty of water daily. Discussed UTI prevention with D mannose supplement, vitamin-C, increasing fluid intake, behavioral therapy with timed voiding, perineal hygiene and postcoital voiding, and management of constipation with stool softeners and increased fiber intake. Will refer to cq developer as requested by patient Follow-up in 1 year with PVR; or sooner with any issues, concenrs, or questions. Orders: Orders AMB Urinalysis Automated Today Z13.9 - Encounter for screening, unspecified AMB Post Void Residual by ultrasound Today N39.0 - Urinary tract infection, site not specified Referrals [facility] Referral N93.9 - Abnormal uterine and vaginal bleeding, unspecified Patient Instructions: The patient had an opportunity to ask questions regarding the treatment plan. All questions were answered. Physical exam, labs, and imaging were discussed and reviewed in detail. As well as risks, benefits, and discussion of treatment choices. No major barriers to understanding were identified. The patient expressed understanding and agreement with the above treatment plan. The patient was made aware they should contact our office by phone for worsening of their current condition, the appearance of new symptoms, or with any questions or concerns. Compliance is encouraged with any medications and follow up testing that is ordered. It is a privilege to be allowed the opportunity to participate in? your urological care.? Again, if you have any questions or concerns If you have any questions or concerns please do not hesitate to contact me. The office is [phone]. This note is constructed using voice recognition software. While every effort has been made to ensure accuracy shade classifier errors may have been included. Yours sincerely, SANTA Asencio-CHEPE Coding Level of Care Code Est Pt Level 3 (59484) Diagnoses Recurrent UTI N39.0 Microscopic hematuria R31.29 CPT Codes Post Residual Void - PVR CPT Code: 11277-Ncqa Void Residual by ultrasound ([id number])
== END 2023-07-09 11:15 | disposition home or self-care (01) ==
PROVIDERS: PCP Internal Medicine; Visit Provider Nurse Practitioner Family
DX: N39.0 Urinary tract infection, site not specified (principal); R31.29 Other microscopic hematuria; Z13.9 Encounter for screening, unspecified
CPT/HCPCS: 99213

== ENCOUNTER → 2023-07-09 10:43 | Outpatient (BNVA) | payer MEDICAID, SELFPAY | PROVIDERS: Visit Provider Nurse Practitioner Family | DX: N39.0 Urinary tract infection, site not specified (principal); R31.29 Other microscopic hematuria | CPT/HCPCS: 51798; 81003; 99212 ==

== ENCOUNTER 2023-09-01 10:39 | Outpatient (AMB) | payer MEDICAID, SELFPAY ==
--- NOTE | 2023-09-01 11:06 | A.OFFVIS_ITS ---
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 Required: Yes Structural Steel Engineer Language: Divehi Information Interpreted: non-clinical & clinical High Frequency Mill Operator: High Frequency Mill Operator Present Allergies No Known Allergies Allergy (Verified 09/01/23 11:07) Medication List - Last Reconciled 09/01/23 by Karen Holbrook CNM gabapentin 100 mg PO BID meloxicam 15 mg PO DAILY ondansetron 4 mg PO Q8H PRN paroxetine HCl 20 mg PO DAILY Is last menstrual period known: Yes Last menstrual period: 08/23/23 HPI INSTALLER AUB/PCP Ref HPI Details Patient states she is here to discuss irregular bleeding and urinary issues and was referred here from Urology to discuss both of these. She said her primary care provider referred her to urology she says she has been having periods a little bit more irregular and sometimes skipping a month and sometimes heavier with clots. Her last menstrual period came on August 23 but she did not get 1 in July and the previous period was in June. She had a tubal ligation done 23 years ago when she was 18 years old she has 3 children she does not think she ever had an abnormal Pap smear but she is very worried about cervical cancer because family members have come down with it. [facility] Medical History Chronic back pain Recurrent UTI Family History (Updated 09/01/23 @ 11:11 by VIDAL Leigh) Maternal Grandfather Throat cancer Social History (Updated 09/01/23 @ 11:11 by VIDAL Leigh) Alcohol intake: never Patient Tobacco Use Status: Never used Tobacco Female Reproductive History Menstrual Duration of menses: 6-7 days Date of last menstrual period: 08/23/23 Total pregnancies: 3 Full term: 3 Number of Living Children: 3 Physical Exam Vital Signs: Last Vital Signs BP 110/70 09/01/23 11:12 Const General: healthy appearing, comfortable, no acute distress, well developed and alert Nutritional Appearance: average body habitus Orientation/consciousness: patient oriented x3 Limitations: no limitations HEENT Head: Yes normocephalic Neck Neck: Yes normal visual inspection Chest Chest palpation & inspection: normal inspection of the chest Breast/axilla inspection: normal inspection of the breasts and normal inspection of the axillae Breast/axilla palpation: normal palpation of the breasts and normal palpation of the axillae Resp Effort & Inspection: normal respiratory effort GI Inspection: Yes normal to inspection, No Abdominal wall edema and No distended Palpation (GI): Soft to palpation and nontender Other: There are some areas of epithelium that are slightly deep pigmented consistent with concerns cyst and use of panty liners which she does wear. Vagina is pink and moist and healthy cervix pink moist tightly closed at os consistent with previous procedures to cervix slightly friable with Pap patient denies previous abnormals or procedures uterus is small firm mobile nontender cervix is also nontender and mobile. Adnexa nontender and mobile. Good tone with Kegel. Patient has of pink swollen tender lesion right groin consistent with a folliculitis that is coming to a head-recommend warm soaks General: Yes bladder normal to palpation External Female Exam: normal external appearance and normal appearance of the urethra Speculum Exam - Vagina: normal appearance of the vagina, normal palpation and normal vaginal discharge Speculum Exam - Cervix: normal appearance of the cervix, normal palpation and nontender Bimanual exam- vagina & uterus: normal bimanual exam, normal palpation, uterine size normal, bladder normal to palpation, consistency normal, normal palpation, uterine mobility normal, uterine shape normal, No Cervical tenderness present, non-tender and no cervical motion tenderness Bimanual Exam- Adnexa, other: normal adnexae, no masses, normal and No adnexal tenderness Neuro General: patient oriented x3 Results AMB Test Urine AMB Test Urine Negative Last Edit by Destinee Prasad CMA on 11:53 Results Reviewed Results Reviewed: Laboratory Last Values Tst Clinic Negative 09/01/23 11:53 Assessment & Plan Assessment & Plan (1) Abnormal vaginal bleeding: Code(s): N93.9 - Abnormal uterine and vaginal bleeding, unspecified (2) Cervical cancer screening: Code(s): Z12.4 - Encounter for screening for malignant neoplasm of cervix (3) History of irregular menstrual cycles: Code(s): Z87.42 - Personal history of other diseases of the female genital tract Plan -----Discussed in this visit the following: healthy balanced diet, regular and consistent exercise, getting recommended health screens, doing the best she can for her particular health concerns, kegel exercises, pap smear screening and followup recommendations, mammography screening and SBE, normal changes in cycles in her life stage--- . Says her primary care provider did a breast exam so is deferred . she also says she just had a mammogram . Discussed that for any urinary tract concerns or urinary it in she is she should continue with Urology and that this was not necessarily the focus for this visit here Additionally she should continue with primary care for primary care issues but in terms of evaluating her abnormal bleeding pattern I asked her to keep a close record of exactly when she bled how long and the characterization of the bleeding and clots etc.. I am ordering a pelvic ultrasound and she and I will have a visit to review both her menstrual record and the bleeding pattern additionally I did a Pap smear. And testing for gonorrhea chlamydia trichomoniasis Gardnerella and Hattie she declined blood work for STIs. Orders: Orders CT NG by PCR Today N93.9 - Abnormal uterine and vaginal bleeding, unspecified AMB HCG Urine Test Today Z32.02 - Encounter for test, result negative Pap Smear Today N93.9 - Abnormal uterine and vaginal bleeding, unspecified Bacterial Vaginosis Panel Today N93.9 - Abnormal uterine and vaginal bleeding, unspecified US pelvic and transvaginal Today N93.9 - Abnormal uterine and vaginal bleeding, unspecified, Z12.4 - Encounter for screening for malignant neoplasm of cervix, Z87.42 - Personal history of other diseases of the female genital tract Coding Level of Care Code New Pt Prev Care 40-64y(42897) Diagnoses Abnormal vaginal bleeding N93.9 Cervical cancer screening Z12.4 History of irregular menstrual cycles Z87.42
[2023-09-01 11:12] VITALS: BP 110/70
== END 2023-09-01 12:13 | disposition home or self-care (01) ==
PROVIDERS: PCP Internal Medicine; Visit Provider Advanced Practice Midwife
DX: N93.9 Abnormal uterine and vaginal bleeding, unspecified (principal); Z12.4 Encounter for screening for malignant neoplasm of cervix; Z87.42 Personal history of other diseases of the female genital tract; Z32.02 Encounter for pregnancy test, result negative
CPT/HCPCS: 99386

== ENCOUNTER 2023-09-01 10:39 | Outpatient (REF) | payer MEDICAID, SELFPAY ==
[2023-09-02 13:38] LABS: BV Int Neg Control Negative (Negative); BV Int Pos Control Positive (Positive)
[2023-09-02 16:35] LABS: CT PCR NOT DETECTED (Not Detect.); NG PCR NOT DETECTED (Not Detect.)
[2023-09-03 21:13] LABS: HPV mRNA E6/E7 rflx Not Detected (Not Detected)
== END 2023-09-01 10:40 | disposition home or self-care (01) ==
LOC: HO.LNP 10:39
PROVIDERS: PCP Internal Medicine; Visit Provider Advanced Practice Midwife
DX: N93.9 Abnormal uterine and vaginal bleeding, unspecified (principal); Z87.42 Personal history of other diseases of the female genital tract; Z32.02 Encounter for pregnancy test, result negative; Z12.4 Encounter for screening for malignant neoplasm of cervix; Z79.899 Other long term (current) drug therapy
CPT/HCPCS: 0353U; 81025; 87480; 87510; 87624; 87660; 88142; 99386

== ENCOUNTER 2023-09-03 11:04 | Outpatient (REF) | payer MEDICAID, SELFPAY ==
[2023-09-03 15:02] LABS: Appearance Urine Clear; Color Urine Yellow; Glucose Urine UA Negative (Negative); Leukocyte Esterase Urine Trace (Negative); Nitrite Urine Negative (Negative); PH 6.5 (5.0-9.0); Specific Gravity - Urine <= 1.005 (1.005-1.025); UMIC TRIGGER UA YES; Urine Blood Negative (Negative); Urine Ketones Negative (Negative); Urine Protein Negative (Neg-Trace)
[2023-09-03 15:05] LABS: Bacteria Urine Trace (None Seen); Hyaline Casts Urine 0-2 /LPF (0-2); RBC Urine 0-2 /HPF (0-2); Squamous Epithelial Cell Urine 0-2 /HPF (0-2); WBC Urine 0-5 /HPF (0-5)
== END 2023-09-03 11:05 | disposition home or self-care (01) ==
LOC: HO.CHCLDS 11:04
PROVIDERS: Visit Provider Internal Medicine
DX: R30.0 Dysuria (principal)
CPT/HCPCS: 81001; 81003; 87086

== ENCOUNTER 2023-10-15 11:03 | Outpatient (REF) | payer MEDICAID, SELFPAY ==
--- NOTE | ~2023-10-15 | US_ITS ---
EXAMINATION: US PELVIS CLINICAL INFORMATION: Pelvic pain. COMPARISON: None available. TECHNIQUE: Ultrasound of the pelvis is performed using both transabdominal and transvaginal transducers along with Doppler. Transvaginal imaging is performed due to inadequate visualization transabdominally. FINDINGS: The uterus measures 7.5 x 4.4 x 5.0 cm. Uterus is heterogeneous. A 2.1 x 1.4 x 1.6 cm complex lesion of mixed echogenicity within the myometrium, possibly representing an atypical fibroid. Endometrial thickness is 0.8 cm. No significant free fluid. Right ovary measures 2.0 x 2.1 x 1.6 cm, volume 3.5 mL. Right ovarian 1.5 x 1.2 x 1.7 cm cyst is likely physiologic, possibly a dominant follicle. There is no indication for follow-up imaging. Left ovary measures 3.7 x 2.6 x 2.1 cm, volume 10.6 mL. Left ovarian 1.9 x 1.7 x 1.6 cm complex cyst with multiple septations and complex internal echoes. Left ovarian 1.3 x 1.4 x 1.3 cm cyst is likely simple. US/US pelvic and transvaginal IMPRESSION: 1. A 2.1 cm complex lesion of mixed echogenicity within the myometrium, possibly representing an atypical fibroid. 2. Left ovarian 1.9 cm complex cyst with multiple septations and complex internal echoes. Recommend follow-up ultrasound in 6-8 weeks. 3. Endometrial thickness is 0.8 cm.
== END 2023-10-15 11:04 | disposition home or self-care (01) ==
LOC: HO.US 11:03
PROVIDERS: PCP Internal Medicine; Visit Provider Advanced Practice Midwife
DX: N93.9 Abnormal uterine and vaginal bleeding, unspecified (principal); Z87.42 Personal history of other diseases of the female genital tract
CPT/HCPCS: 76830; 76856

== ENCOUNTER 2023-10-26 09:48 | Outpatient (AMB) | payer MEDICAID, SELFPAY ==
--- NOTE | 2023-10-26 09:48 | MHC.OFFVIS ---
Intake Intake Visit Reasons: US follow up Exterior Interior Specialist Required: No Information Interpreted: clinical only Allergies No Known Allergies Allergy (Verified 10/26/23 09:49) Medication List - Last Reconciled 10/26/23 by Karen Holbrook CNM gabapentin 100 mg PO BID meloxicam 15 mg PO DAILY ondansetron 4 mg PO Q8H PRN paroxetine HCl 20 mg PO DAILY Is last menstrual period known: Yes Last menstrual period: 10/22/23 (Patient told JAYRO Andrade 8, but she told the CNM ) [facility] US follow up HPI Details This is a tele visit to review patient's ultrasound results. Please see the results of the ultrasound which I reviewed with the patient in detail the patient is in [place] and was able to do of video visit though there was a delay on the signal at times. She tells me she did not get a period in September at all and she got a period in October on October 22 and she still has a little bit it is a heavier period Than her usual. [facility] Medical History Chronic back pain Recurrent UTI Family History (Updated 09/01/23 @ 11:11 by VIDAL Leigh) Maternal Grandfather Throat cancer Social History (Updated 09/01/23 @ 11:11 by VIDAL Leigh) Alcohol intake: never Patient Tobacco Use Status: Never used Tobacco Female Reproductive History Menstrual Date of last menstrual period: 10/22/23 (Patient told JAYRO 12 8, but she told the TYRONE ) Date of last pap smear: 09/01/23 Results Reviewed Results Reviewed: [address] [address] Ultrasound Report Signed Patient: Shira Aragon MR#: [id number] : 1980 Acct:[id number] Age/Sex: 43 / F ADM Date: 10/15/23 Loc: HO. Attending Dr: Karen Holbrook CNM Ordering Physician: Karen Holbrook CNM Date of Service: 10/15/23 Procedure(s): US pelvic and transvaginal Accession Number(s): [id number] cc: Musa Borges MD; Karen Holbrook CNM~ EXAMINATION: US PELVIS CLINICAL INFORMATION: Pelvic pain. COMPARISON: None available. TECHNIQUE: Ultrasound of the pelvis is performed using both transabdominal and transvaginal transducers along with Doppler. Transvaginal imaging is performed due to inadequate visualization transabdominally. FINDINGS: The uterus measures 7.5 x 4.4 x 5.0 cm. Uterus is heterogeneous. A 2.1 x 1.4 x 1.6 cm complex lesion of mixed echogenicity within the myometrium, possibly representing an atypical fibroid. Endometrial thickness is 0.8 cm. No significant free fluid. Right ovary measures 2.0 x 2.1 x 1.6 cm, volume 3.5 mL. Right ovarian 1.5 x 1.2 x 1.7 cm cyst is likely physiologic, possibly a dominant follicle. There is no indication for follow-up imaging. Left ovary measures 3.7 x 2.6 x 2.1 cm, volume 10.6 mL. Left ovarian 1.9 x 1.7 x 1.6 cm complex cyst with multiple septations and complex internal echoes. Left ovarian 1.3 x 1.4 x 1.3 cm cyst is likely simple. US/US pelvic and transvaginal IMPRESSION: 1. A 2.1 cm complex lesion of mixed echogenicity within the myometrium, possibly representing an atypical fibroid. 2. Left ovarian 1.9 cm complex cyst with multiple septations and complex internal echoes. Recommend follow-up ultrasound in 6-8 weeks. 3. Endometrial thickness is 0.8 cm. Dictated By: Betzaida Frank MD Signed By: <Electronically signed by Betzaida Frank MD in OV> 10/19/23 0657 DD/ 1132 TD/TT: Hourly Shift Manager: me: Shira Aragon Age/Sex: 43/F Attending: Karen Holbrook CNM : 1980 Submitted by: Karen Holbrook CNM Copies to: Musa Borges MD MR #: [id number] Status: DEP REF Collected: 09/01/23 Location: [facility] Received: 09/02/23 Interpretation Satisfactory for evaluation. Coccobacilli consistent with shift in vaginal bushra. Negative for intraepithelial lesion or malignancy. HPV mRNA E6/E7: NOT DETECTED This assay detects E6/E7 viral messenger RNA (mRNA) from 14 high-risk HPV types (16, 18, 31, 33, 35, 39, 45, 51, 52, 56, 58, 59, 66, 68) HPV testing performed by [facility], [place], [place]. See reference laboratory pion of the EMR for entire report. Clinical Information LMP: 07/21/23 Previous PAP test: Unknown date/findings Other history: Abnormal uterine and vaginal bleeding, unspecified. Material Received ThinPrep-Cervical Copies To Musa Borges MD [address] [place] [address] [id number] Karen Holbrook [address] Woo [address] [place] [address] [phone] Electronically Signed By: Claudia David MD 09/07/23 2506 The Pap Test is a screening procedure with the inherent possibility of both false negative and false positive results. Results should be interpreted in the context of historic and current clinical findings. Reliability of the Pap Test is enhanced by performing the test on a regular repetitive basis. Patient: Shira Aragon Age/Sex: 43/F MR#: [id number] Page 1 of 1 Assessment & Plan Assessment & Plan (1) Ovarian cyst, complex: Code(s): N83.299 - Other ovarian cyst, unspecified side (2) History of irregular menstrual cycles: Code(s): Z87.42 - Personal history of other diseases of the female genital tract (3) Fibroid uterus: Comment: 'atypical' Code(s): D25.9 - Leiomyoma of uterus, unspecified (4) Cervical cancer screening: Comment: 09/01/23 pap = neg w neg hpv. Code(s): Z12.4 - Encounter for screening for malignant neoplasm of cervix Plan Reviewed the ultrasound with her including the fibroid and a simple cyst likely a follicle and the more complex cyst on the left-hand side I have ordered a repeat ultrasound and she already has it scheduled in December and we will have a visit after that to review the results I asked her to keep careful track of her periods until then. She is feeling fine now finishing up her. In [place] and is enjoying her visit there and will be returning after the new year. Coding Level of Care Code Tele Est Pt Level 3 (07511) Diagnoses Ovarian cyst, complex N83.299 History of irregular menstrual cycles Z87.42 Fibroid uterus D25.9 Cervical cancer screening Z12.4 Time Spent (min) 16 Comment 1cr/9 video w pt/6 CHARTING
== END 2023-10-26 10:31 | disposition home or self-care (01) ==
LOC: HO.HWSM 09:48
PROVIDERS: PCP Internal Medicine; Visit Provider Advanced Practice Midwife
DX: N83.299 Other ovarian cyst, unspecified side (principal); Z87.42 Personal history of other diseases of the female genital tract; D25.9 Leiomyoma of uterus, unspecified; Z12.4 Encounter for screening for malignant neoplasm of cervix
CPT/HCPCS: 99213

== ENCOUNTER → 2023-10-26 09:48 | Outpatient (BNVA) | payer MEDICAID, SELFPAY | PROVIDERS: PCP Internal Medicine; Visit Provider Advanced Practice Midwife ==

== ENCOUNTER 2023-12-02 11:24 | Outpatient (REF) | payer MEDICAID, SELFPAY ==
[2023-12-02 13:53] LABS: Appearance Urine Clear; Color Urine Yellow; Glucose Urine UA Negative (Negative); Leukocyte Esterase Urine Negative (Negative); Nitrite Urine Negative (Negative); Specific Gravity - Urine 1.025 (1.005-1.025); UMIC TRIGGER UA YES; Urine Blood Trace (Negative); Urine Ketones Negative (Negative); Urine Protein Negative (Neg-Trace)
[2023-12-02 13:56] LABS: Bacteria Urine None Seen (None Seen); Hyaline Casts Urine 0-2 /LPF (0-2); RBC Urine 0-2 /HPF (0-2); Squamous Epithelial Cell Urine 0-2 /HPF (0-2); WBC Urine 0-5 /HPF (0-5)
== END 2023-12-02 11:25 | disposition home or self-care (01) ==
LOC: HO.10HDLNP 11:24
PROVIDERS: Visit Provider Nurse Practitioner Family
DX: N39.0 Urinary tract infection, site not specified (principal)
CPT/HCPCS: 81001; 87086

== ENCOUNTER 2024-01-07 08:27 | Outpatient (REF) | payer MEDICAID, SELFPAY | END 2024-01-07 08:28 | disposition home or self-care (01) | LOC: HO.MAMMO 08:27 | PROVIDERS: PCP Internal Medicine; Visit Provider Internal Medicine | DX: Z12.31 Encounter for screening mammogram for malignant neoplasm of breast (principal) | CPT/HCPCS: 77063; 77067 ==

== ENCOUNTER → 2024-01-07 08:30 | Outpatient (BNV) | payer MEDICAID, SELFPAY | PROVIDERS: PCP Internal Medicine; Visit Provider Radiology Diagnostic Radiology | DX: Z12.31 Encounter for screening mammogram for malignant neoplasm of breast (principal) | CPT/HCPCS: 77063; 77067 ==

== ENCOUNTER 2024-01-26 12:34 | Outpatient (REF) | payer MEDICAID, SELFPAY ==
--- NOTE | 2024-01-26 12:37 | EMG_ITS ---
Chief complaint: Bilateral hand numbness Reason for referral: Evaluate for Carpal Tunnel Syndrome Referred by: Dr. Oviedo Procedure done: Bilateral upper extremities NCS/EMG Precautions and/or limitations: None Seen with open developer operator. The limb temperature was monitored continuously and remained between 32-36 degrees C during the performance of the NCS. Nerve Conduction Studies Anti Sensory Summary Table ?Stim Site NR Onset (ms) Norm Onset (ms) Peak (ms) Norm Peak (ms) O-P Amp (?V) Norm O-P Amp Site1 Site2 Delta-0 (ms) Dist (cm) Jose Antonio (m/s) Norm Jose Antonio (m/s) Left Median Anti Sensory (2nd Digit) Wrist ? 2.3 2.9 <3.6 77.3 >10 Wrist 2nd Digit 2.3 14.0 61 Right Median Anti Sensory (2nd Digit) Wrist ? 2.3 3.0 <3.6 71.0 >10 Wrist 2nd Digit 2.3 14.0 61 Left Ulnar Anti Sensory (5th Digit) Wrist ? 2.2 2.9 <3.7 82.7 >15.0 Wrist 5th Digit 2.2 14.0 64 Right Ulnar Anti Sensory (5th Digit) Wrist ? 2.1 2.8 <3.7 52.5 >15.0 Wrist 5th Digit 2.1 14.0 67 Motor Summary Table ?Stim Site NR Onset (ms) Norm Onset (ms) O-P Amp (mV) Norm O-P Amp iAmp (mV) Amp (1st) (%) Site1 Site2 Delta-0 (ms) Dist (cm) Jose Antonio (m/s) Norm Jose Antonio (m/s) Left Median Motor (Abd Poll Brev) Wrist ? 3.3 <3.9 9.5 >4.5 11.5 100.0 Elbow Wrist 3.3 22.0 67 >45 Elbow ? 6.6 8.6 10.7 90.5 Right Median Motor (Abd Poll Brev) Wrist ? 2.7 <3.9 13.1 >4.5 15.8 100.0 Elbow Wrist 4.6 24.0 52 >45 Elbow ? 7.3 14.8 17.9 113.0 Left Ulnar Motor (Abd Dig Minimi) Wrist ? 2.5 <3.0 8.4 >5 9.9 100.0 B Elbow Wrist 3.4 20.0 59 >45 B Elbow ? 5.9 7.5 8.8 89.3 A Elbow B Elbow 1.2 0.0 >45 A Elbow ? 7.1 7.1 8.1 84.5 Right Ulnar Motor (Abd Dig Minimi) Wrist ? 2.8 <3.0 9.1 >5 10.8 100.0 B Elbow Wrist 3.5 21.0 60 >45 B Elbow ? 6.3 9.5 11.1 104.4 A Elbow B Elbow 1.2 10.0 83 >45 A Elbow ? 7.5 9.5 11.3 104.4 Comparison Summary Table ?Stim Site NR Peak (ms) Norm Peak (ms) P-T Amp (?V) Site1 Site2 Delta-P (ms) Norm Delta (ms) Right Median/Radial Dig I Comparison (Digit 1 - 10cm) Median ? 2.6 <2.9 38.2 Median Radial 0.2 Radial ? 2.8 <2.8 19.1 EMG ?Side Muscle Nerve Root Ins Act Fibs Psw Amp Dur Poly Recrt Int Pat Comment Right 1stDorInt Ulnar C8-T1 Nml Nml Nml Nml Nml 0 Nml Complete Right FlexCarRad Median C6-7 Nml Nml Nml Nml Nml 0 Nml Complete Right Biceps Musculocut C5-6 Nml Nml Nml Nml Nml 0 Nml Complete Right Triceps Radial C6-7-8 Nml Nml Nml Nml Nml 0 Nml Complete Right Deltoid Axillary C5-6 Nml Nml Nml Nml Nml 0 Nml Complete Left 1stDorInt Ulnar C8-T1 Nml Nml Nml Nml Nml 0 Nml Complete Left FlexCarRad Median C6-7 Nml Nml Nml Nml Nml 0 Nml Complete Left Biceps Musculocut C5-6 Nml Nml Nml Nml Nml 0 Nml Complete Left Triceps Radial C6-7-8 Nml Nml Nml Nml Nml 0 Nml Complete Left Deltoid Axillary C5-6 Nml Nml Nml Nml Nml 0 Nml Complete FINDINGS: All motor and sensory nerves tested showed normal latencies, amplitudes and conduction velocities. Concentric needle EMG was performed in selected muscles of the bilateral upper extremities. Study did not reveal signs of electric abnormalities as shown in the table below. IMPRESSION: 1. This is a normal study. 2. There is no electrodiagnostic evidence for median neuropathy, ulnar neuropathy, brachial plexopathy, or cervical radiculopathy. Thank you for your kind referral. Debra Law MD, DUNIA Board Certified, [place] Board [employer] and Rehabilitation (ABPMR) Board Certified, [place] Board of Electrodiagnostic Medicine (ABEM) CODIN 33303 x 2 MTDD
== END 2024-01-26 12:35 | disposition home or self-care (01) ==
LOC: HO.NEURO 12:34
PROVIDERS: PCP Internal Medicine; Visit Provider Internal Medicine
DX: G56.03 Carpal tunnel syndrome, bilateral upper limbs (principal)
CPT/HCPCS: 95886; 95911

== ENCOUNTER → 2024-01-26 12:37 | Outpatient (BNV) | payer MEDICAID, SELFPAY | PROVIDERS: PCP Internal Medicine; Visit Provider Physical Medicine & Rehabilitation | DX: M79.641 Pain in right hand (principal); M79.642 Pain in left hand; R20.2 Paresthesia of skin | CPT/HCPCS: 95886; 95911 ==

== ENCOUNTER 2024-02-08 10:39 | Outpatient (REF) | payer MEDICAID, SELFPAY ==
--- NOTE | ~2024-02-08 | US_ITS ---
EXAMINATION: US PELVIS CLINICAL INFORMATION: Follow-up left ovarian cyst; the last menstrual period was on 01/24/2024. COMPARISON: Pelvic ultrasound dated 10/15/2023. TECHNIQUE: Ultrasound of the pelvis is performed using both transabdominal and transvaginal transducers along with Doppler. Transvaginal imaging is performed due to inadequate visualization transabdominally. FINDINGS: The uterus is of normal size and echogenicity, measuring 7.3 x 4.4 x 5.5 cm. The uterus is anteverted and anteflexed. A regular homogeneous endometrium is identified measuring 0.7 cm. Nabothian cysts are seen within the cervix FIBROIDS: There is 1 fibroid seen. 1. Location: Anterior upper body, myometrial. Size: 1.2 x 1.3 x 1.4 cm. Prior: 2.1 x 1.4 x 1.6 cm. Fibroid characteristics: Heterogeneously hypoechoic. Both ovaries are of normal size and echogenicity. The ovaries show normal doppler flow. The right ovary measures 2.1 x 1.6 x 1.2 cm for a volume of 2.1 mL. The left ovary measures 2.6 x 1.7 x 1.6 cm for a volume of 3.6 mL. The left ovary contains a 1.5 x 1.3 x 1.3 cm corpus luteum cyst. There is a small amount of simple pelvic free fluid. No adnexal mass is seen. US/US pelvic and transvaginal IMPRESSION: 1. The previously noted 1.9 cm complex left ovarian cyst is not presently appreciated. A 1.5 cm left ovarian corpus luteum cyst is presently seen, for which no imaging follow-up is recommended. 2. A uterine fibroid is seen, as detailed. 3. Nabothian cysts are seen within the cervix. 4. There is a small amount nonspecific free fluid in the cul-de-sac.
== END 2024-02-08 10:40 | disposition home or self-care (01) ==
LOC: HO.US 10:39
PROVIDERS: PCP Internal Medicine; Visit Provider Advanced Practice Midwife
DX: N83.299 Other ovarian cyst, unspecified side (principal); N93.9 Abnormal uterine and vaginal bleeding, unspecified; Z87.42 Personal history of other diseases of the female genital tract
CPT/HCPCS: 76830; 76856

== ENCOUNTER 2024-02-25 10:18 | Outpatient (REF) | payer MEDICAID, SELFPAY ==
[2024-02-26 13:08] LABS: BV Int Neg Control Negative (Negative); BV Int Pos Control Positive (Positive)
== END 2024-02-25 10:19 | disposition home or self-care (01) ==
LOC: HO.LNP 10:18
PROVIDERS: PCP Internal Medicine; Visit Provider Advanced Practice Midwife
DX: N89.8 Other specified noninflammatory disorders of vagina (principal); D25.9 Leiomyoma of uterus, unspecified; N83.299 Other ovarian cyst, unspecified side; B37.9 Candidiasis, unspecified; L73.9 Follicular disorder, unspecified; Z87.42 Personal history of other diseases of the female genital tract; Z12.4 Encounter for screening for malignant neoplasm of cervix
CPT/HCPCS: 87480; 87510; 87660; 99212

== ENCOUNTER 2024-02-25 10:18 | Outpatient (AMB) | payer MEDICAID, SELFPAY ==
[2024-02-25 10:26] VITALS: BP 112/68; BMI 30.1
--- NOTE | 2024-02-25 10:26 | A.OFFVIS_ITS ---
Vital Signs 3 02/25/24 10:26 Height 5 ft 3 in Weight 170 lb BMI 30.1 BP 112/68 Intake Visit Reasons: Ultrasound follow up Intake Note: Has been having vaginal itching Lead Vulcanizing Operator Required: No Information Interpreted: non-clinical & clinical Sales Estimator: Sales Estimator Present (Noy) Allergies No Known Allergies Allergy (Verified 02/25/24 10:29) Is last menstrual period known: Yes Last menstrual period: 02/11/24 Post menopausal: No HPI HPI Ultrasound follow up: Details: Patient is here for an ultrasound follow-up but she also has vaginal itching she uses pads she does not like tampons periods also she has babs nacido that she saw her doctor for at the she could be [facility] and she was given an antibiotic until to use warm soaks for she gets them periodically. She has not currently sexually active for the last 2 years she had her tubes tied so she would need control. She does note her periods a little heavier. She has been putting warm soaks the cysts they are improving and she was given antibiotic cream to put on it. [facility] Medical History Recurrent UTI Chronic back pain Family History Maternal Grandfather Throat cancer Social History Alcohol intake: never Patient Tobacco Use Status: Never used Tobacco Female Reproductive History Menstrual Date of last menstrual period: 02/11/24 control method: none Physical Exam Vital Signs: Last Vital Signs BP 112/68 02/25/24 10:26 BMI result Body Mass Index 30.1 Other: External and speculum exam normal vulva however there is dusky pink appearance to the vulva and introitus consistent with had use I did show this to the patient in addition in right groin area she has a reddened epithelialized 2 cm oblong healing folliculitis as well as a fairly well healed swollen folliculitis at mons pubis near clitoris. Female genitals images: 2 1. One inflamed [id number] cm 2. Swollen area from previous folliculitis. 3. Dusky pink area from chronic moisture from pad use. 4. 1 cm round large inclusion cyst which patient states is from an obstetrical tear years ago in [place]. non tender. Results Reviewed Results Reviewed: Patient: Shira Aragon MR#: [id number] : 1980 Acct:[id number] Age/Sex: 43 / F ADM Date: 02/08/24 Loc: HO.US Attending Dr: Karen Holbrook CNM Ordering Physician: Karen Holbrook CNM Date of Service: 02/08/24 Procedure(s): US pelvic and transvaginal Accession Number(s): [id number] cc: Musa Borges MD; Karen Holbrook CNM~ EXAMINATION: US PELVIS CLINICAL INFORMATION: Follow-up left ovarian cyst; the last menstrual period was on 01/24/2024. COMPARISON: Pelvic ultrasound dated 10/15/2023. TECHNIQUE: Ultrasound of the pelvis is performed using both transabdominal and transvaginal transducers along with Doppler. Transvaginal imaging is performed due to inadequate visualization transabdominally. FINDINGS: The uterus is of normal size and echogenicity, measuring 7.3 x 4.4 x 5.5 cm. The uterus is anteverted and anteflexed. A regular homogeneous endometrium is identified measuring 0.7 cm. Nabothian cysts are seen within the cervix FIBROIDS: There is 1 fibroid seen. 1. Location: Anterior upper body, myometrial. Size: 1.2 x 1.3 x 1.4 cm. Prior: 2.1 x 1.4 x 1.6 cm. Fibroid characteristics: Heterogeneously hypoechoic. Both ovaries are of normal size and echogenicity. The ovaries show normal doppler flow. The right ovary measures 2.1 x 1.6 x 1.2 cm for a volume of 2.1 mL. The left ovary measures 2.6 x 1.7 x 1.6 cm for a volume of 3.6 mL. The left ovary contains a 1.5 x 1.3 x 1.3 cm corpus luteum cyst. There is a small amount of simple pelvic free fluid. No adnexal mass is seen. US/US pelvic and transvaginal IMPRESSION: 1. The previously noted 1.9 cm complex left ovarian cyst is not presently appreciated. A 1.5 cm left ovarian corpus luteum cyst is presently seen, for which no imaging follow-up is recommended. 2. A uterine fibroid is seen, as detailed. 3. Nabothian cysts are seen within the cervix. 4. There is a small amount nonspecific free fluid in the cul-de-sac. Dictated By: Chuy Hernandez MD Signed By: <Electronically signed by Chuy Hernandez MD in [place]> 02/14/24 1512 DD/ 1058 Name: Shira Aragon Age/Sex: 43/F Attending: Karen Holbrook CNM : 1980 Submitted by: Karen Holbrook CNM Copies to: Musa Borges MD MR #: [id number] Status: DEP REF Collected: 09/01/23 Location: [facility] Received: 09/02/23 Interpretation Satisfactory for evaluation. Coccobacilli consistent with shift in vaginal bushra. Negative for intraepithelial lesion or malignancy. HPV mRNA E6/E7: NOT DETECTED This assay detects E6/E7 viral messenger RNA (mRNA) from 14 high-risk HPV types (16, 18, 31, 33, 35, 39, 45, 51, 52, 56, 58, 59, 66, 68) HPV testing performed by [facility], [place], [place]. See reference laboratory pion of the EMR for entire report. Clinical Information LMP: 07/21/23 Previous PAP test: Unknown date/findings Other history: Abnormal uterine and vaginal bleeding, unspecified. Material Received ThinPrep-Cervical Copies To Musa Borges MD [address] [place] [id number] Karen Holbrook [address] [place] [address] Electronically Signed By: Claudia David MD 09/07/23 4389 The Pap Test is a screening procedure with the inherent possibility of both false negative and false positive results. Results should be interpreted in the context of historic and current clinical findings. Reliability of the Pap Test is enhanced by performing the test on a regular repetitive basis. Patient: Shira Aragon Age/Sex: 43/F MR#: [id number] Page 1 of 1 Assessment & Plan Assessment & Plan (1) Fibroid uterus: Comment: Most recent ultrasound shows that it is now smaller. Code(s): D25.9 - Leiomyoma of uterus, unspecified Category: Medical (2) Ovarian cyst, complex: Comment: No longer seen. Normal physiological findings currently. Code(s): N83.299 - Other ovarian cyst, unspecified side Category: Medical (3) History of irregular menstrual cycles: Code(s): Z87.42 - Personal history of other diseases of the female genital tract Category: Medical (4) Cervical cancer screening: Comment: 09/01/23 pap = neg w neg hpv. Code(s): Z12.4 - Encounter for screening for malignant neoplasm of cervix Category: Medical (5) Yeast infection: Code(s): B37.9 - Candidiasis, unspecified Category: Medical (6) Folliculitis: Code(s): L73.9 - Follicular disorder, unspecified Category: Medical Plan Will treat yeast with Monistat cream that she can use p.r.n. recommend that she use some inside and thereafter she can just use a little bit externally more importantly though I invited her to think about switching from pad use which is encouraging moisture at her vulva and perineum and therefore promotes growth of yeast I showed her dusky areas of pink which were resultant from chronic covering of the skin mucosa discussed that it almost does not matter too much what brand she switches to from. Discussed tampons and menstrual cups. Recommend that she continue exactly what her nurse practitioner told her to do the health center which is used a warm soaks to her perineum where the folliculitis is. Discussed that when they get really really that she would need to call her primary and if they recommend that she go to urgent care or a surgeon for further treatment to follow their advice. She has not sexually active and has not shaved recently so that does not appear to be contributing factors but this largest newest inflamed 1 which is resolving with her treatment is right in the panty line. Discussed that these are extremely common unfortunately end any where there is pressure on hair follicles they can appear because of bacteria in the hair follicle. I reviewed her ultrasound which now shows a smaller fibroid and the previously seen complex cyst was no longer seen as complex and essentially other normal physiological findings. Orders: Orders 2 Bacterial Vaginosis Panel Today N89.8 - Other specified noninflammatory disorders of vagina Medications: New 2 miconazole nitrate 2% (Miconazole-7) use prn for yeast infections 1 appful vaginal BEDTIME 7 days 45 grams 2RF
== END 2024-02-25 11:11 | disposition home or self-care (01) ==
LOC: HO.HWSM 10:18
PROVIDERS: PCP Internal Medicine; Visit Provider Advanced Practice Midwife
DX: D25.9 Leiomyoma of uterus, unspecified (principal); N83.299 Other ovarian cyst, unspecified side; Z87.42 Personal history of other diseases of the female genital tract; Z12.4 Encounter for screening for malignant neoplasm of cervix; B37.9 Candidiasis, unspecified; L73.9 Follicular disorder, unspecified
CPT/HCPCS: 99213

== ENCOUNTER 2024-05-17 09:08 | Outpatient (REF) | payer MEDICAID, SELFPAY ==
[2024-05-17 14:41] LABS: Alanine Aminotransferase 14 U/L (0-31); Albumin Level 3.9 g/dL (3.5-5.0); Alkaline Phosphatase 73 U/L (39-117); Anion Gap 11 (12-20); Aspartate Amino Transferase 18 U/L (5-31); Bilirubin Total 0.5 mg/dL (0.0-1.0); Blood Urea Nitrogen 11 mg/dL (9-16); Carbon Dioxide 25 mmol/L (22-29); Chloride 108 mmol/L (96-108); Cholesterol 151 mg/dL (<200); Estimated Glomerular Filt Rate > 60; Glucose Random 82 mg/dL (60-115); HDL Cholesterol 52 mg/dL (>40); LDL Cholesterol Calculated 88 mg/dL (<100); Potassium 3.6 mmol/L (3.3-5.1); Sodium 140 mmol/L (135-145); Total Protein 7.1 g/dL (6.5-8.0); Triglycerides 58 mg/dL (<150)
== END 2024-05-17 09:09 | disposition home or self-care (01) ==
LOC: HO.CHCLDS 09:08
PROVIDERS: Visit Provider Internal Medicine
DX: R03.0 Elevated blood-pressure reading, without diagnosis of hypertension (principal)
CPT/HCPCS: 36415; 80053; 80061

== ENCOUNTER 2024-07-14 13:06 | Outpatient (AMB) | payer MEDICAID, SELFPAY ==
--- NOTE | 2024-07-14 13:20 | A.OFFVIS_ITS ---
Intake Visit Reasons: 1 yr follow up Intake Note: Patient is present for follow up recurrent uti/microscopic hematuria Urology Medications: none Blood Thinner: none PVR: 0ml's Director Funeral Required: Yes Director Funeral Services: Director Funeral Present Director Funeral Name: BROWN [id number] Accompanied by: Self / Same As Patient Allergies No Known Allergies Allergy (Verified 07/14/24 13:59) Medication List - Last Reconciled 07/14/24 by TORRI Asencio gabapentin 100 mg PO BID gabapentin 300 mg PO BEDTIME meloxicam 15 mg PO DAILY metronidazole 0.75%(37.5mg/5gram) 1 appful vaginal BEDTIME 5 days miconazole nitrate 2% (Miconazole-7) 1 appful vaginal BEDTIME 7 days ondansetron 4 mg PO Q8H PRN paroxetine HCl 20 mg PO DAILY HPI Comments Details: Shira is a 44-year-old Divehi-speaking female patient of Dr. Hallman. She presents to the office today for a follow up of her recurrent UTIs. In discuss ion with the patient today she reports since her last office visit here 1 year ago she continues to experience episodes of urinary urgency, urinary frequency, and bladder pressure. She otherwise denies incontinence, hematuria, flank pain, dysuria, fever and or chills. She reports having followed up with field service technician poultry and having a pelvic ultrasound done and was noted to have fibroids. We discussed at length potential causes of lower urinary tract symptoms she is experiencing. In office urinalysis results reviewed with the patient today 1+ leukocytes negative nitrates negative microscopic hematuria. PH 6.0. We discussed importance of adequate hydration in relation to lower urinary tract symptoms as well as overall health and well-being. PVR 0 mL. Previous workup has included a retroperitoneal ultrasound 10/29 noting bilateral kidneys no calculi, lesions, and or hydronephrosis. The bladder was within normal limits. She otherwise offers no other issues or concerns at this time. [facility] Medical History Recurrent UTI Chronic back pain Family History Maternal Grandfather Throat cancer Social History Alcohol intake: never Patient Tobacco Use Status: Never used Tobacco Review of Systems Const All systems reviewed & are unremarkable except as noted in HPI and below Reports as per HPI Eyes Reports as per HPI ENT Reports no additional complaints Card Reports as per HPI Resp Reports as per HPI GI Reports as per HPI Reports as per HPI Musc Reports back pain (chronic) Skin/Breast Reports system reviewed and no additional complaints, except as documented Neuro Reports no additional complaints Psych Reports no additional complaints Endo Reports no additional complaints Alvarez/Lymph Reports no additional complaints Aller/Immun Reports no additional complaints Physical Exam Const General: cooperative, healthy appearing, comfortable, no acute distress, well developed, alert and awake Nutritional Appearance: well nourished Orientation/consciousness: patient oriented x3 Limitations: no limitations HEENT Head: Yes normal to inspection and Yes normocephalic Eyes General: appearance normal, both eyes and all related structures Neck Neck: Yes normal visual inspection and Yes trachea midline Chest Chest palpation & inspection: normal inspection of the chest Resp Effort & Inspection: normal respiratory effort and able to speak in complete sentences Cardio Jugular venous distension: no JVD GI Inspection: Yes normal to inspection General: Yes no CVA tenderness Back/Spine/Pelvis Back: no CVA tenderness Skin General skin exam: no rashes or lesions noted Neuro General: patient oriented x3 Extrem General: Yes normal to inspection and Yes full ROM Psych Appearance: grossly normal and well kempt Mental Status: mental status grossly normal Speech and movement: Normal speech and movement present and Clear speech present Affect: normal affect Attitude: cooperative Thought process: Normal thought process present Thought content: Normal thought content present Insight: Fair insight present (Psych) Judgement: Fair judgement present (Psych) Office Procedures Post Void Residual Post Residual Void Post Void Residual (PVR): 0 [id number] Void Residual by ultrasound Results AMB Urinalysis, Automated UA Leukoctes 15 Jaren/uL Last Edit by weipass on 07/14/24 13:34 UA Nitrite Negative Last Edit by weipass on 07/14/24 13:34 UA Urobilinogen 0.2 mg/dL Last Edit by weipass on 07/14/24 13:34 UA Protein 15 mg/dL Last Edit by weipass on 07/14/24 13:34 UA pH 6.0 Last Edit by weipass on 07/14/24 13:34 UA Blood 0 Yariel/uL Last Edit by Aurelio Pradosharif on 07/14/24 13:34 UA Specific [place]enda 1.015 Last Edit by Aurelio Pradosharif on 07/14/24 13:34 UA Ketone Negative Last Edit by Aurelio Pradosharif on 07/14/24 13:34 UA Bilirubin 0 mg/dL Last Edit by Aurelio Pradosharif on 07/14/24 13:34 UA Glucose 0 mg/dL Last Edit by Alejandrosamaria Evesharif on 07/14/24 13:34 Results Reviewed Results Reviewed: Laboratory Last Values Urine pH (Auto) 6.0 07/14/24 13:33 Specific Agenda (Auto) 1.015 07/14/24 13:33 Urine Protein (Auto) 15 mg/dL 07/14/24 13:33 Glucose (UA)(Auto) 0 mg/dL 07/14/24 13:33 Urine Ketones (Auto) Negative 07/14/24 13:33 Urine Blood (Auto) 0 Yariel/uL 07/14/24 13:33 Urine Nitrite (Auto) Negative 07/14/24 13:33 Urine Bilirubin (Auto) 0 mg/dL 07/14/24 13:33 Urine Urobilinogen (Auto) 0.2 mg/dL 07/14/24 13:33 Leukocyte Esterase (Auto) 15 Jaren/uL 07/14/24 13:33 Assessment & Plan Assessment & Plan (1) Recurrent UTI: Code(s): N39.0 - Urinary tract infection, site not specified Category: Medical (2) Dysuria: Code(s): R30.0 - Dysuria Category: Medical Plan In office urinalysis results reviewed with the patient today; as noted above. PVR 0 mL. Discussed at length potential causes of dysuria. Discussed bladder triggers/irritants. Discussed, educated, and stressed the importance of adequate hydration relation to dysuria as well as overall health and well-being. Discussed possible near future microgen and or in office cystoscopy for further assessment evaluation. Will continue with lifestyle modifications at this time per patient request. Follow-up in 3 months with PVR; or sooner with any issues, concerns, and or questions. Orders: Orders AMB Urinalysis Automated Today Z13.9 - Encounter for screening, unspecified AMB Post Void Residual by ultrasound Today N39.0 - Urinary tract infection, site not specified Patient Instructions: The patient had an opportunity to ask questions regarding the treatment plan. All questions were answered. Physical exam, labs, and imaging were discussed and reviewed in detail. As well as risks, benefits, and discussion of treatment choices. No major barriers to understanding were identified. The patient expressed understanding and agreement with the above treatment plan. The patient was made aware they should contact our office by phone for worsening of their current condition, the appearance of new symptoms, or with any questions or concerns. Compliance is encouraged with any medications and follow up testing that is ordered. It is a privilege to be allowed the opportunity to participate in? your urological care.? Again, if you have any questions or concerns If you have any questions or concerns please do not hesitate to contact me. The office is [phone]. This note is constructed using voice recognition software. While every effort has been made to ensure accuracy forming press operator errors may have been included. Yours sincerely, TORRI Asencio Coding Level of Care Code Est Pt Level 4 (40827) Diagnoses Recurrent UTI N39.0 Dysuria R30.0 CPT Codes Post Residual Void - PVR CPT Code: 36235-Owzo Void Residual by ultrasound ([id number]) Time Spent (min) 25
== END 2024-07-14 14:02 | disposition home or self-care (01) ==
PROVIDERS: PCP Internal Medicine; Visit Provider Nurse Practitioner Family
DX: N39.0 Urinary tract infection, site not specified (principal); R30.0 Dysuria; Z13.9 Encounter for screening, unspecified
CPT/HCPCS: 99214

== ENCOUNTER → 2024-07-14 13:06 | Outpatient (BNVA) | payer MEDICAID, SELFPAY | PROVIDERS: PCP Internal Medicine; Visit Provider Nurse Practitioner Family | DX: R31.29 Other microscopic hematuria (principal); N39.0 Urinary tract infection, site not specified; R30.0 Dysuria | CPT/HCPCS: 51798; 81003; 99212 ==

== ENCOUNTER 2024-08-14 08:08 | Outpatient (REF) | payer MEDICAID, SELFPAY ==
[2024-08-14 11:23] LABS: MANUAL DIFF FLAG NO
[2024-08-14 11:32] LABS: Basophils Percent Auto 0.6 % (0-2); Eosinophils Absolute Auto 0.2 X10*3/uL (0.0-0.4); Eosinophils Percent Auto 3.2 % (0-4); Hematocrit 38.2 % (37.0-47.0); Hemoglobin 12.7 g/dl (12.0-16.0); Imm Gran Abs Auto 0.02 X10*3/uL (0.00-0.03); Imm Gran Pct Auto 0.3 % (0.0-0.4); Lymphocytes Absolute Auto 2.2 X10*3/uL (1.2-4.9); Lymphocytes Percent Auto 31.3 % (20-40); Mean Corpuscular HGB Conc 33.2 g/dl (31.0-35.0); Mean Corpuscular Hemoglobin 30.7 pg (27.0-33.0); Mean Corpuscular Volume 92.3 fL (80.0-98.0); Mean Platelet Volume 13.3 fL (9.4-12.3); Monocytes Absolute Auto 0.4 X10*3/uL (0.1-1.2); Monocytes Percent Auto 6.1 % (2-11); Neutrophils Percent Auto 58.5 % (45-73); Platelet Count 193 X10*3/uL (160-400); Red Blood Count 4.14 X10*6/uL (4.20-5.50); Red Cell Distribution Width 12.7 % (11.0-16.0); White Blood Count 6.9 X10*3/uL (4.8-10.8)
[2024-08-14 12:13] LABS: TSH reflex Free T4 3.28 uIU/mL (0.32-4.0)
== END 2024-08-14 08:09 | disposition home or self-care (01) ==
LOC: HO.HHCL 08:08
PROVIDERS: Visit Provider Internal Medicine
DX: Z00.00 Encounter for general adult medical examination without abnormal findings (principal)
CPT/HCPCS: 36415; 84443; 85025

== ENCOUNTER 2024-10-19 10:05 | Outpatient (AMB) | payer MEDICAID, SELFPAY ==
--- NOTE | 2024-10-19 10:14 | MHC.OFFVIS ---
Intake Visit Reasons: 3 month follow up Intake Note: Patient is present for follow up recurrent uti/microscopic hematuria Urology Medications: none Blood Thinner: none PVR: 0ml's Ruby On Rails Consultant Required: Yes Ruby On Rails Consultant Name: BRENT QUINONESMONIKA Accompanied by: Self / Same As Patient Allergies No Known Allergies Allergy (Verified 10/19/24 10:50) Medication List - Last Reconciled 10/19/24 by TORRI Asencio gabapentin 100 mg PO BID gabapentin 300 mg PO BEDTIME meloxicam 15 mg PO DAILY ondansetron 4 mg PO Q8H PRN paroxetine HCl 20 mg PO DAILY solifenacin (Vesicare) 5 mg PO DAILY 30 days HPI Comments Details: Shira is a 44-year-old [place] Korean-speaking female patient of Dr. Hallman. She presents to the office today for a follow up of her ongoing lower urinary tract symptoms. In discussion with the patient today she continues to report episodes of urinary urgency, urinary frequency, and bladder pressure. She also discusses feeling lower urinary tract symptoms are exacerbated when she is on her menses. In office urinalysis results reviewed with the patient today pH 5.5. We discussed again at length importance of adequate hydration relation to lower urinary tract symptoms. Previous workup has included a retroperitoneal ultrasound 10/29 noting bilateral kidneys no calculi, lesions, and or hydronephrosis. The bladder was within normal limits. She denies incontinence, nocturia, hematuria, foul smelling urine, changes to urinary stream, flank pain, fever, and or chills. We discussed further treatment options to include pelvic floor therapy and or trial of medication. We also discussed in office cystoscopy versus urodynamics for further assessment evaluation. PVR 0 mL. She otherwise offers no other issues or concerns at this time. [facility] Medical History Recurrent UTI Chronic back pain Family History Maternal Grandfather Throat cancer Social History Alcohol intake: never Patient Tobacco Use Status: Never used Tobacco Review of Systems Const All systems reviewed & are unremarkable except as noted in HPI and below Physical Exam Const General: cooperative, healthy appearing, comfortable, no acute distress, well developed, alert and awake Nutritional Appearance: well nourished Orientation/consciousness: patient oriented x3 Limitations: no limitations HEENT Head: Yes normal to inspection and Yes normocephalic Eyes General: appearance normal, both eyes and all related structures Neck Neck: Yes normal visual inspection and Yes trachea midline Chest Chest palpation & inspection: normal inspection of the chest Resp Effort & Inspection: normal respiratory effort and able to speak in complete sentences Cardio Jugular venous distension: no JVD GI Inspection: Yes normal to inspection General: Yes no CVA tenderness Back/Spine/Pelvis Back: no CVA tenderness Skin General skin exam: no rashes or lesions noted Neuro General: patient oriented x3 Extrem General: Yes normal to inspection and Yes full ROM Psych Appearance: grossly normal and well kempt Mental Status: mental status grossly normal Speech and movement: Normal speech and movement present and Clear speech present Affect: normal affect Attitude: cooperative Thought process: Normal thought process present Thought content: Normal thought content present Insight: Fair insight present (Psych) Judgement: Fair judgement present (Psych) Office Procedures Post Void Residual Post Residual Void Post Void Residual (PVR): 0 [id number] Void Residual by ultrasound Results AMB Urinalysis, Automated UA Leukoctes 0 Jaren/uL Last Edit by [employer] on 10/19/24 10:50 UA Nitrite Last Edit by [employer] on 10/19/24 10:50 UA Urobilinogen 0.2 mg/dL Last Edit by [employer] on 10/19/24 10:50 UA Protein 15 mg/dL Last Edit by [employer] on 10/19/24 10:50 UA pH 5.5 Last Edit by [employer] on 10/19/24 10:50 UA Blood 0 Yariel/uL Last Edit by [employer] on 10/19/24 10:50 UA Specific [place] 1.030 Last Edit by [employer] on 10/19/24 10:50 UA Ketone Negative Last Edit by [employer] on 10/19/24 10:50 UA Bilirubin 0 mg/dL Last Edit by [employer] on 10/19/24 10:50 UA Glucose 0 mg/dL Last Edit by [employer] on 10/19/24 10:50 Assessment & Plan Assessment & Plan (1) Sensation of pressure in bladder area: Code(s): R39.89 - Other symptoms and signs involving the genitourinary system Category: Medical (2) Urinary urgency: Code(s): R39.15 - Urgency of urination Category: Medical (3) Dysuria: Code(s): R30.0 - Dysuria Category: Medical Plan In office urinalysis results reviewed with the patient today; as noted above. We discussed at length importance of adequate hydration relation to lower urinary tract symptoms as pH today 5.5. We discussed further workup to include pelvic floor therapy, in office cystoscopy and or urodynamics for further assessment evaluation. Discussed bladder triggers/irritants. Start VESIcare as discussed and prescribed. Follow-up in 1-3 months with PVR; or sooner with any issues, concerns, and or questions. Orders: Orders AMB Urinalysis Automated Today Z13.9 - Encounter for screening, unspecified AMB Post Void Residual by ultrasound Today N39.0 - Urinary tract infection, site not specified Medications: New solifenacin (Vesicare) 5 mg PO DAILY 30 days 30 tabs 3RF Patient Instructions: The patient had an opportunity to ask questions regarding the treatment plan. All questions were answered. Physical exam, labs, and imaging were discussed and reviewed in detail. As well as risks, benefits, and discussion of treatment choices. No major barriers to understanding were identified. The patient expressed understanding and agreement with the above treatment plan. The patient was made aware they should contact our office by phone for worsening of their current condition, the appearance of new symptoms, or with any questions or concerns. Compliance is encouraged with any medications and follow up testing that is ordered. It is a privilege to be allowed the opportunity to participate in? your urological care.? Again, if you have any questions or concerns If you have any questions or concerns please do not hesitate to contact me. The office is [phone]. This note is constructed using voice recognition software. While every effort has been made to ensure accuracy administrative support associate errors may have been included. Yours sincerely, TORRI Asencio Coding Level of Care Code Est Pt Level 4 (77653) Diagnoses Sensation of pressure in bladder area R39.89 Urinary urgency R39.15 Dysuria R30.0 CPT Codes Post Residual Void - PVR CPT Code: 16687-Udun Void Residual by ultrasound ([id number])
== END 2024-10-19 10:45 | disposition home or self-care (01) ==
PROVIDERS: PCP Internal Medicine; Visit Provider Nurse Practitioner Family
DX: R39.89 Other symptoms and signs involving the genitourinary system (principal); R39.15 Urgency of urination; R30.0 Dysuria; Z13.9 Encounter for screening, unspecified
CPT/HCPCS: 99214

== ENCOUNTER → 2024-10-19 10:05 | Outpatient (BNVA) | payer MEDICAID, SELFPAY | PROVIDERS: PCP Internal Medicine; Visit Provider Nurse Practitioner Family | DX: R39.89 Other symptoms and signs involving the genitourinary system (principal); R39.15 Urgency of urination; R30.0 Dysuria | CPT/HCPCS: 51798; 81003; 99212 ==

== ENCOUNTER 2025-02-10 09:59 | Outpatient (REF) | payer MEDICAID, SELFPAY ==
--- OUTSIDE RECORDS SUMMARY | 2025-02-10 10:01 | XMS_ITS | Encounter Summary ---
Author Organization [employer] Address [address] [facility] 7t [place] [address] Care Team Providers Care Lunchroom Worker Name Role Phone Musa Borges MD Primary Care Prov ider Reason for Visit * Reason Onset Date Comments Medication Question 10/08/2023 Encounter Details Date Type Department Care Team ([facility] st Contact Info) Description 10/08/2023 Telephone [facility] MEDICINE [address] [place] [address] Musa Borges MD [address] [place] [phone] Medication Question Social History Tobacco Use Types Packs/Day Years Used Date Smoking Tobacco: Never Smokeless Tobacco: Never Depression Answer Date Recorded Patient Health Questionnaire-9 Score 0 12/23/2022 Housing Stability Answer Date Recorded What is your housing situation today? I have alex hernández 08/31/[address] you li ve. Do you have problems with any of the following? None of the above 08/31/2023 Food Insecurity Answer Date Recorded Within the past 12 months, y ou worried that your food would run out before you got money to buy more: Never True 08/31/2023 Within the past 12 months,th e food you bought just didn't last and you didn't have enough money to get more: Never True Transportation Answer Date Recorded In the past 12 months, has l ack of transportation kept you from medical appts, meetings, work or from getting things needed for daily living? No 08/31/2023 Utilities Answer Date Recorded In the past 12 months, has t he electric, gas, oil or water [employer] threatened to shut off services in your home? No 08/31/2023 Depression Answer Date Recorded Patient Health Questionnaire-2 Score 0 12/23/2022 Comments Unknown Sex and Gender Information Value Date Recorded Sex Assigned at Female 09/07/2022 10:19 AM EDT Legal Sex Female 10:19 AM EDT Gender Identity Female 09/07/2022 10:19 AM EDT Sexual Orientation Straight 09/07/2022 10 :19 AM EDT documented as of this encounter Miscellaneous Notes * Telephone Encounter - Carl Rosenthal - 10/08/2023 8:32 AM EST TC from patient calling in regards to tele appt on 10/05 states PCP was suppose to prescribe medication for neck pain however freelance copywriter does not see anything on file please clarify. documented in this encounter Plan of Treatment Upcoming Encounters Date Type Department Care Team (Late st Contact Info) Description 05/24/2025 8:00 AM EDT Office Visit [facility] DENTAL [address] [place], [place] [phone] Elaina Che [address] [place], [place] [phone] documented as of this encounter Visit Diagnoses Not on filedocumented in this encounter Additional Health Concerns Assessment Noted Time PHQ-9 Depression Total Score: 0 12/23/19 23 8:59 AM EST documented as of this encounter Care Teams Lunchroom Worker Relationship Specialty Start Date End Date Musa Borges MD [address] [place] [id number] PCP - General Internal Medicine 04/02/20 documented as of this encounter
--- OUTSIDE RECORDS SUMMARY | 2025-02-10 10:01 | XMS_ITS | Encounter Summary ---
Author Organization [employer] Address [address] [facility] [address] 7t [place] [address] Care Team Providers Care Drafter Directional Survey Name Role Phone Musa Borges MD Primary Care Prov ider Encounter Details Date Type Department Care Team (Late st Contact Info) Description 12/01/2023 Orders Only [facility]C MED & PEDS [address] [place], [place] [phone] Musa Borges MD [address] [place] [address] Social History Tobacco Use Types Packs/Day Years [...] t he electric, gas, oil or water company threatened to shut off services in your home? No 08/31/2023 Depression Answer Date Recorded Patient Health Questionnaire-2 Score 0 12/23/2022 Comments Unknown Sex and Gender Information Value Date Recorded Sex Assigned at Female 09/07/2022 10:19 AM EDT Legal Sex Female 10:19 AM EDT Gender Identity Female 09/07/2022 10:19 AM EDT Sexual Orientation Straight 09/07/2022 10 :19 AM EDT documented as of this encounter Plan of Treatment Upcoming Encounters Date Type Department Care Team (Late st Contact Info) Description 05/24/2025 8:00 AM EDT Office Visit [facility] DENTAL [address] [place], [place] [phone] Elaina Che [address] [place], [place] [phone] documented as of this encounter Visit Diagnoses Not on filedocumented in this encounter Additional Health Concerns Assessment Noted Time PHQ-9 Depression Total Score: 0 12/23/19 23 8:59 AM EST documented as of this encounter Care Teams Drafter Directional Survey Relationship Specialty Start Date End Date Musa Borges MD [address] [place] [id number] PCP - General Internal Medicine 04/02/20 documented as of this encounter
--- OUTSIDE RECORDS SUMMARY | 2025-02-10 10:02 | XMS_ITS | Encounter Summary ---
Author Organization [employer] Address 75 [facility] 7t [place] [address] Care Team Providers Care Maintenance Mechanic Supervisor Name Role Phone Musa Borges MD Primary Care Prov ider Reason for Visit * Reason Onset Date Comments Nurse Triage 02/23/2024 Encounter Details Date Type Department Care Team ([facility] st Contact Info) Description 02/23/2024 Telephone C [facility] MED & PEDS [address] [place], [place] [phone] Musa Borges MD [address] [place] [address] Nurse Triage Social History Tobacco Use Types Packs/Day Years [...] encounter Miscellaneous Notes * Telephone Encounter - Stefany Hernandez RN - 02/23/2024 10:22 AM EDT Triage call with [employer] [id number] Pt reports skin lump in area between right upper thigh and vulva. Pt reports this started 2 months ago. Pt popped it the first time just using hand. Pt reports it has returned, reddened , painful. Pt is given home care advice and agrees. Pt is advised to come to [facility] if unable to find relief with home care advised. Pt agrees with this plan and disposition. Hours of [facility] given, open till 8pm today , tomorrow 830am-400pm. Insurance is verified as active . Protocol Used: Boil (Skin Abscess) (Adult) Protocol-Based Disposition: See in Office or Video Visit Today or Tomorrow Video visit not offered Positive Triage Question: * Patient wants to be seen * All higher-acuity triage questions were negative Care Advice Discussed: * Reassurance and Education - Boil * Treatment - General * Treatment for a Boil - Apply Moist Heat * Treatment - Apply Antibiotic Ointment * Treatment for a Boil - Incision and Drainage by a Healthcare Provider * Pain Medicines * Preventing Spread to Yourself and Others * Reasons To Call Back - Severe pain or fever occurs - Widespread rash occurs - You become worse * Telephone Encounter - Matilde Powell - 02/23/2024 9:32 AM EDT Symptom: Skin Lump Outcome: Schedule an appointment to be seen within 3 days Reason: Caller denied all higher acuity questions The caller accepted this outcome Please contact pt at [phone] (Polish) documented in this encounter Plan of Treatment Upcoming Encounters Date Type Department Care Team (Late st Contact Info) Description 05/24/2025 8:00 AM EDT Office Visit [facility] DENTAL [address] [place] [address] Elaina Che [address] [place] [address] documented as of this encounter Visit Diagnoses Not on filedocumented in this encounter Additional Health Concerns Assessment Noted Time PHQ-9 Depression Total Score: 0 12/23/19 23 8:59 AM EST documented as of this encounter Care Teams Maintenance Mechanic Supervisor Relationship Specialty Start Date End Date Musa Borges MD [address] [place] [address] PCP - General Internal Medicine 04/02/20 documented as of this encounter
--- OUTSIDE RECORDS SUMMARY | 2025-02-10 10:02 | XMS_ITS | Encounter Summary ---
Author Organization [facility] Address [address] [facility] 7t [place] [address] Care Team Providers Care Print Decorator Name Role Phone Musa Borges MD Primary Care Prov ider Encounter Details Date Type Department Care Team (Late st Contact Info) Description 10/13/2022 Telephone [facility] ADULT DENTAL [address] [place] [address] Dental, Provider, DDS Social History Tobacco Use Types Packs/Day Years Used Date Smoking Tobacco: Never Assessed Comments Unknown Sex and Gender Information Value [...] Description 05/24/2025 8:00 AM EDT Office Visit [facility] [address] [place] [address] Elaina Che [address] [place] [address] documented as of this encounter Visit Diagnoses Not on filedocumented in this encounter Care Teams Print Decorator Relationship Specialty Start Date End Date Musa Borges MD [address] [place] [id number] PCP - General Internal Medicine 04/02/20 documented as of this encounter
--- OUTSIDE RECORDS SUMMARY | 2025-02-10 10:02 | XMS_ITS | Encounter Summary ---
Author Organization [facility] Address [address] [facility] 7 [place] [address] Care Team Providers Care Customer Servicer Name Role Phone Musa Borges MD Primary Care Prov ider Encounter Details Date Type Department Care Team (Latest Contact Info) Description 08/04/2021 Abstract [facility] CONVERSIONS Dental, Provider, DDS Social History Tobacco Use [...] Description 05/24/2025 8:00 AM EDT Office Visit [facility] DENTAL [address] [place], [place] [phone] Elaina Che [address] [place], [place] [phone] documented as of this encounter Visit Diagnoses Not on filedocumented in this encounter Care Teams Customer Servicer Relationship Specialty Start Date End Date Musa Borges MD [address] [place] [address] PCP - General Internal Medicine 04/02/20 documented as of this encounter
--- OUTSIDE RECORDS SUMMARY | 2025-02-10 10:02 | XMS_ITS | Encounter Summary ---
Author Organization [employer] Address 75 [facility] 7t [place] [address] Care Team Providers Care Smoke And Flame Specialist Name Role Phone Musa Borges MD Primary Care Prov ider Encounter Details Date Type Department Care Team ([facility] st Contact Info) Description 12/06/2024 Telephone [facility] CHC MED & PEDS [address] [place], [place] [phone] Musa Borges MD [address] [place] [address] Social History Tobacco Use Types Packs/Day Years Used Date Smoking Tobacco: Never Passive Smoke Exposure: Never Smokeless Tobacco: Never Depression Answer Date Recorded Patient Health Questionnaire-9 Score 4 08/24/2024 Patient Health Questionnaire-9 Score 4 08/24/2024 Last PHQ-9: Questionnaire Data Not on file 1 Housing Stability Answer Date Recorded What is your housing situation today? I have alex hernández 04/05/[address] you li ve. Do you have problems with any of the following? None of the above 04/05/2024 Food Insecurity Answer Date Recorded Within the past 12 months, y ou worried that your food would run out before you got money to buy more: Never True 04/05/2024 Within the past 12 months,th e food you bought just didn't last and you didn't have enough money to get more: Never True Transportation Answer Date Recorded In the past 12 months, has l ack of transportation kept you from medical appts, meetings, work or from getting things needed for daily living? No 04/05/2024 Utilities Answer Date Recorded In the past 12 months, has t he electric, gas, oil or water company threatened to shut off services in your home? No 04/05/2024 Depression Answer Date Recorded Patient Health Questionnaire-2 Score 1 08/24/2024 Comments Unknown Sex and Gender Information Value Date Recorded Sex Assigned at Female 09/07/2022 10:19 AM EDT Legal Sex Female 10:19 AM EDT Gender Identity Female 09/07/2022 10:19 AM EDT Sexual Orientation Straight 09/07/2022 10 :19 AM EDT documented as of this encounter Miscellaneous Notes * Telephone Encounter - Joanie Piper - 12/06/2024 9:02 AM EST Tc from pt requesting to switch pcp. States feels like her medical needs are not being exceeded. documented in this encounter Plan of Treatment Upcoming Encounters Date Type Department Care Team (Late st Contact Info) Description 05/24/2025 8:00 AM EDT Office Visit [facility] DENTAL [address] [place], [place] [phone] Elaina Che [address] [place], [place] [phone] documented as of this encounter Visit Diagnoses Not on filedocumented in this encounter Additional Health Concerns Assessment Noted Time PHQ-9 Depression Total Score: 4 08/24/20 24 1:09 PM EDT documented as of this encounter Care Teams Smoke And Flame Specialist Relationship Specialty Start Date End Date Musa Borges MD [address] [place] [address] PCP - General Internal Medicine 04/02/20 documented as of this encounter
--- OUTSIDE RECORDS SUMMARY | 2025-02-10 10:02 | XMS_ITS | Encounter Summary ---
Author Organization [employer] Address 75 [facility] 7t [place] [address] Care Team Providers Care Machine Design Teacher Name Role Phone Musa Borges MD Primary Care Prov ider Encounter Details Date Type Department Care Team ([facility] st Contact Info) Description 02/09/2025 11:15 AM EDT Office Visit [facility] [address] [place], [place] [phone] TarkaMary, OD [address] [place] [address] Regular astigmatism, bilateral (Primary Dx); Dry eyes, bilateral Social History Tobacco Use Types Packs/Day Years Used Date Smoking Tobacco: Never Passive Smoke Exposure: Never Smokeless Tobacco: Never Alcohol Use Standard Drinks/Week Comments Yes 0 (1 standard drink = 0.6 oz pur e alcohol) Depression Answer Date Recorded Patient Health Questionnaire-9 Score 4 08/24/2024 Patient Health Questionnaire-9 Score 4 08/24/2024 Last PHQ-9: Questionnaire Data Not on file 1 Housing Stability Answer Date Recorded What is your housing situation today? I have alexrosio hernández 04/05/[address] you [...] AM EDT documented as of this encounter Progress Notes * Mary Abreu, OD - 02/09/2025 11:15 AM EDT Eye Care Progress Note Patient ID: Shira Aragon is a 44 y.o. female. HPI Patient reports blurry vision both eyes (OU) at distance and near. Patient feels she has to force vision for near and gets headaches from reading. Patient used to have glasses but lost them. Patient complains of itching both eyes (OU). Patient has not used any eyedrops. DONAVAN: 2011 Last edited by Mary Abreu, OD on 02/09/2025 11:24 AM. Current Outpatient Medications Medication Sig Dispense Refill albuterol 108 (90 Base) MCG/ACT inhaler Inhale 2 puffs every 4 (four) hours if needed for wheezing.18 g 0 dextran 70-hypromellose (artificial tears) 0.1-0.3 % ophthalmic solution Administer 1 drop into both eyes if needed in the morning, at noon, and at bedtime for dry eyes. 15 mL 6 Fluocinolone Acetonide Scalp ([place]-Smoothe/FS Scalp) 0.01 % oil To apply to the affected area onceor twice a week. 118 mL 1 gabapentin (Neurontin) 300 MG capsule Take 1 capsule (300 mg) by mouth at bedtime. 90 capsule 3 ketoconazole (Nizoral) 2 % shampoo Apply topically 2 (two) times a week. 120 mL 3 meloxicam (Mobic) 15 MG tablet Take 1 tablet (15 mg) by mouth Once per day. 30 tablet 1 solifenacin (VESIcare) 5 MG tablet Take 5 mg by mouth Once per day. Spacer/Aero-Holding Chambers (OptiChamber Elsa) misc 1 each every 4 (four) hours if needed (asthma). 1 each 0 No current facility-administered medications for this visit. Past Medical History: Diagnosis Date Back problem Chronic back pain 11/30/2018 Elevated BP without diagnosis of hypertension 10/26/2023 Knee pain 11/30/2018 Past Surgical History: Procedure Laterality Date PROSTHODONTIC PROCEDURE Family History Problem Relation Name Age of Onset Diabetes Father Tobacco Use: Low Risk (02/09/2025) Tobacco Smoking Tobacco Use: Never Smokeless Tobacco Use: Never Passive Exposure: Never No Known Allergies ROS Positive for: Eyes Negative for: Constitutional, Gastrointestinal, Neurological, Skin, Genitourinary, Musculoskeletal,HENT, Endocrine, Cardiovascular, Respiratory, Psychiatric, Allergic/Imm, Heme/Lymph Last edited by Mary Abreu OD on 02/09/2025 11:09 AM. Base Eye Exam Visual Acuity (Snellen - Linear) Right Left Dist sc 20/25-2 20/40 Tonometry ([facility] , 11:20 AM) Right Left Pressure 16 15 Pupils Pupils APD Right PERRL None Left PERRL None Visual Ryan (Counting fingers) Left Right Full Full Extraocular Movement Right Left Full Full Neuro/Psych Oriented x3: Yes Mood/Affect: Normal Dilation Both eyes: 1.0% tropicamide @ 11:23 AM Slit Lamp and Fundus Exam External Exam Right Left External Normal Normal Slit Lamp Exam Right Left Lids/Lashes Clean and clear Clean and clear Conjunctiva/Sclera White and quiet White and quiet Cornea Clear Clear Anterior Chamber Deep and quiet, angles open gr 3 T&N Deep and quiet, angles open gr 3 T&N Iris Flat, round Flat, round Lens Clear Clear Fundus Exam Right Left Vitreous Clear Clear Disc [place] and healthy [place] and healthy C/D Ratio Vertical 0.30 0.20 C/D Ratio Horizontal 0.30 0.20 Macula Flat, even pigmentation Flat, even pigmentation Vessels AV 2/3, normal course and caliber AV 2/3, normal course and caliber Periphery No holes/tears/detachments 360 No holes/tears/detachments 360 Refraction Manifest Refraction (Subjective) Sphere Cylinder [place] Dist VA Add Right +0.25 -0.50 070 20/20 +1.25 Left +0.25 -1.25 114 20/20 +1.25 Near VA Both: 20/20 Comments: Trial frame demo'd Rx, pt reports clear and comfortable vision Final Rx Sphere Cylinder [place] Add Right +0.25 -0.50 070 +1.25 Left +0.25 -1.25 114 +1.25 Expiration Date: 02/09/2027 Assessment and Plan Diagnoses and all orders for this visit: Regular astigmatism, bilateral - Dispensed updated spec Rx Dry eyes, bilateral - Recommended the use of artificial tears in both eyes 1gtt 2-4x/day - dextran 70-hypromellose (artificial tears) 0.1-0.3 % ophthalmic solution; Administer 1 drop into both eyes if needed in the morning, at noon, and at bedtime for dry eyes. RTC in 2 years for comprehensive eye exam or sooner as needed Mary Abreu, ELIJAH 02/09/2025, 11:46 AM Spinning Lathe Operator Source: __ None _x_ Bilingual Staff __ Qualified Staff Strainer Tender __ Telephone Spinning Lathe Operator; ID# __ Spinning Lathe Operator brought by patient (family member, friend, TELEVISION PICTURE TUBE REBUILDER, etc) __ In person library clerk talking books __ Ipad Spinning Lathe Operator; ID#: Language Spoken During Exam: Italian documented in this encounter Plan of Treatment Upcoming Encounters Date Type Department Care Team (Late st Contact Info) Description 05/24/2025 8:00 AM EDT Office Visit [facility] DENTAL [address] [place] [address] Elaina Che [address] [place] [address] documented as of this encounter Visit Diagnoses Diagnosis Regular astigmatism, bilateral- Primary Dry eyes, bilateral documented in this encounter Additional Health Concerns Assessment Noted Time PHQ-9 Depression Total Score: 4 08/24/20 24 1:09 PM EDT documented as of this encounter Care Teams Machine Design Teacher Relationship Specialty Start Date End Date Musa Borges MD [address] [place] [id number] PCP - General Internal Medicine 04/02/20 documented as of this encounter
--- OUTSIDE RECORDS SUMMARY | 2025-02-10 10:02 | XMS_ITS | Clinical Summary ---
Author Organization [employer] Address [address] [facility] [address] [place] [address] Care Team Providers Care Fur Feeder Name Role Phone Musa Borges MD Primary Care Prov ider Allergies No known active allergies Medications * This document contains information received from the source organization and may not represent a complete record from that organization. Fluocinolone Acetonide Scalp (Harlem-Smoothe/F S Scalp) 0.01 % oilIndications:S eborrheic dermatitis To apply to the affected area once or twice a week. 118 mL 1 03/30/20 23 Active ketoconazole (Nizoral) 2 % shampooIndicatio ns:Seborrheic dermatitis Apply topically 2 (two) times a week. 120 mL 3 04/01/20 23 Active Spacer/Aero-Hold ing Chambers (OptiChamber Elsa) miscIndications: Influenza-like symptoms 1 each every 4 (four) hours if needed (asthma). 1 each 04/13/20 23 Active albuterol 108 (90 Base) MCG/ACT inhaler Inhale 2 puffs every 4 (four) hours if needed for wheezing. 18 g 12/27/19 25 2025 Active solifenacin (VESIcare) 5 MG tablet Take 5 mg by mouth Once per day. 12/19/19 25 Active meloxicam (Mobic) 15 MG tabletIndication s:Right lateral epicondylitis Take 1 tablet (15 mg) by mouth Once per day. 30 tablet 1 01/17/20 25 Active gabapentin (Neurontin) 300 MG capsule Take 1 capsule (300 mg) by mouth at bedtime. 90 capsule 3 01/17/20 25 2025 Active dextran 70-hypromellose (artificial tears) 0.1-0.3 % ophthalmic solutionIndicati ons:Dry eyes, bilateral Administer 1 drop into both eyes if needed in the morning, at noon, and at bedtime for dry eyes. 15 mL 6 02/10/20 25 2025 Active gabapentin (Neurontin) 300 MG capsule Take 1 capsule (300 mg) by mouth at bedtime. 90 capsule 3 04/12/20 24 2024 Discontinued(R eorder (will not trigger notification to Pharmacy)) cyclobenzaprine (Flexeril) 10 MG tablet Take 1 tablet (10 mg) by mouth 3 times daily for 10 days. 30 tablet 10/20/20 24 2024 Discontinued(T herapy completed) meloxicam (Mobic) 15 MG tabletIndication s:Right lateral epicondylitis TAKE ONE TABLET ONCE DAILY 30 tablet 1 12/19/19 25 2024 Discontinued(R eorder (will not trigger notification to Pharmacy)) azithromycin (Zithromax) 250 MG tablet Take 2 tabs day and then 1 tab daily 6 tablet 12/27/19 25 2024 Discontinued(T herapy completed) cefadroxil (Duricef) 500 MG capsule Take 1 capsule (500 mg) by mouth 2 times daily for 7 days. 14 capsule 02/01/20 25 2024 Active Problems Problem Noted Date Diagnosed Date Dermoid cyst 01/31/2025 Assessment & Plan (01/31/2025 7:14 PM EDT): On pubic area, recurrent infection Rx Duricef x 7 days and referred to general surgeon for excision. Advised to avoid shaving of the pubic area, apply Vaseline or Desitin ointment to affected area Reconsult as needed until she is seen by surgeon Major depressive disorder with single episode Assessment & Plan (01/16/2025 10:35 AM EDT): Patient lost follow up with therapist, she has her phone number told to follow up, no suicidal/homicidal ideas Assessment & Plan (08/24/2024 1:18 PM EDT): During [facility] Consult Shira presenting with depressed mood, irritable mood, loss of interests/pleasure , sense of isolation/loneliness , isolating, change in appetite or weight reduce appetite, fatigue/loss of energy; for a period of 18+ mo, for most or all symptoms in the context of divorce/separation. Shira has been living with depression over the last years on and off. She prefers to be alone and isolates from others. Positive support received from family and friend. Due to current symptoms pt avoids social events. clinician provided emphatic listening and used open-ended questions through session. Pt explored activities that can be incorporated into her daily routine. Reviewed and assessed for risk, current stressors and protective factors. Pt declined OP referral at this time. Information given for [facility] programs; pt prefers to be self-referred in the future. clinician will be available if needed to provide additional support. Assessment & Plan (07/26/2024 9:04 AM EDT): During IBH Consult Shira presenting with depressed mood, crying spells , hopelessness, loss of interests/pleasure , sense of isolation/loneliness , isolating, changes in sleep difficulty falling asleep and difficulty staying asleep , psychomotor retardation, fatigue/loss of energy, difficulty concentrating; for a period of 18+ mo, for most or all symptoms in the context of divorce/separation. Shira has been living with depression over the last years on and off. She is now reporting her depression is stopping her from doing regular activities. She prefers to be alone and isolates from others. Positive support receive from family and friends and due to her symptoms she avoids social events. clinician provided emphatic listening and used open-ended questions through session. Pt explored activities that can be incorporated into her daily routine. Reviewed and assessed for risk, current stressors and protective factors. Pt prefers to utilize same-day appointments due to increase of sxs. clinician will be available if needed to provide additional support. Assessment & Plan (07/18/2024 1:13 PM EDT): Patient seen during today visit by therapist, no suicidal/homicidal ideas Assessment & Plan (04/21/2023 9:54 AM EDT): Resolved, no suicidal/homicidal ideas Assessment & Plan (02/24/2023 12:47 PM EDT): Symptoms improved, denied suicidal/homicidal ideas, she refer not taking paroxetine for over a month, will discontinue Assessment & Plan (12/23/2022 9:31 AM EST): Patient on Paxil, followed by therapist, refers feeling much better, PHq-9 score improved, no suicidal/homicidal ideas, will leave on current medication for additional 3 months and will reevaluate Screening for colon cancer 07/18/2024 Assessment & Plan (01/16/2025 10:34 AM EDT): Scheduled for February, will follow up results Assessment & Plan (07/18/2024 1:07 PM EDT): Will place referral for screening colonoscopy Vaginal cyst 07/18/2024 Assessment & Plan (07/18/2024 1:10 PM EDT): Will refer to jason, she prefers to be seen at [facility] Ear itching 07/18/2024 Assessment & Plan (07/18/2024 1:13 PM EDT): Will prescribe drop to aid with iching, told to aviod using q-tips Bilateral carpal tunnel syndrome 12/15/2023 Assessment & Plan (12/15/2023 3:14 PM EST): Will order a EMG to evaluate severity Elevated BP without diagnosis of hypertension Assessment & Plan (07/18/2024 1:06 PM EDT): Slightly elevated, continue low sodium diet and exercise, keep bp log, target <140/90 Assessment & Plan (03/01/2024 11:58 AM EDT): Controlled, today was 125/85, oral medications not needed, continue low sodium diet and exercise as tolerated Assessment & Plan (12/15/2023 3:13 PM EST): Controlled, reinforced low sodium diet and exercise as tolerated, continue bp monitoring, target <140/90 Assessment & Plan (10/26/2023 7:19 AM EST): Blood pressure has remained stable, <140/90, reinforced low sodium diet and exercise as tolerated, keep daily bp monitoring, encouraged weight loss BV (bacterial vaginosis) 09/04/2023 Assessment & Plan (09/04/2023 2:47 PM EDT): Found on pap smear done by ob-printer apprentice on 09/01 with bv, complains of itching, no discharge, will treat with metronidazole x 7 days Dysuria 09/04/2023 Assessment & Plan (09/04/2023 2:45 PM EDT): Patient complains of dysuria, no fever/chills, hematuria, could be related to bv, will order u/a with culture if >100,000 colonies will treat Gastroenteritis 06/25/2023 Assessment & Plan (06/25/2023 11:41 AM EDT): Patient seen at er, found with gastroenteritis, she is feeling much better, told to maintain well hydrated, avoid spicy/greasy food, watch for bleeding, abdominal distention, nausea/vomiting. Annual physical exam 02/24/2023 Assessment & Plan (02/24/2023 12:48 PM EDT): Physical examination was unremarkable, Patient had her mammogram done which was negative, pap smear done in 2020 good for 5 years, will place order for new labs. Itching 02/24/2023 Assessment & Plan (02/24/2023 12:52 PM EDT): Patient with facial itching, refers gets red rash when active, mostly around her eyes, will refer to dermatology for evaluation Chronic back pain 11/30/2018 Assessment & Plan (01/16/2025 10:34 AM EDT): Home remedies have not improved pain, she has a upcoming appointment with ortho, will follow up reccomendations Assessment & Plan (10/20/2024 2:23 PM EST): Patient has tried pt and home remedies without improvement in symtoms will refer to ortho for evaluation, will provide prednisone and cyclobenzaprine, er precautions discussed Assessment & Plan (04/21/2023 9:54 AM EDT): Followed by pain management, continue meloxicam PRN, encouraged stretching exercises, avoid heavy lifting Knee pain 11/30/2018 12/15/2023 Encounters Date Type Department Care Team Description 02/09/2025 11:15 AM EDT Office Visit [facility] [address] [place] [address] Tarka, Mary, OD Regular astigmatism, bilateral (Primary Dx); Dry eyes, bilateral 02/09/2025 Travel 02/06/2025 8:30 AM EDT Office Visit [facility] [address] [place] [address] Peewee Juarez DMD 02/06/2025 Travel 01/31/2025 6:20 PM EDT Office Visit [facility] [address] [place] [address] Joyce Kwong MD Dermoid cyst (Primary Dx) 01/23/2025 8:30 AM EDT Office Visit [facility] [address] [place] [address] Peewee Juarez DMD 01/22/2025 Travel 01/19/2025 Population Health Risk Score [facility] [address] [phone] Provider, Population Health Generic 01/18/2025 Telephone [facility] [address] [place] [address] Musa Borges MD Referral 01/16/2025 9:00 AM EDT Telemedicine [facility] [address] [place], [place] [phone] Musa Borges MD 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); Right lateral epicondylitis; Screening for colon cancer; Major depressive disorder with single episode, remission status unspecified 01/16/2025 Travel 01/15/2025 Telephone [facility] [address] [place] [address] Musa Borges MD chart prep 01/09/2025 11:00 AM EST Office Visit [facility] [address] [place] [phone] Peewee Juarez DMD 01/08/2025 Travel 12/27/2024 9:00 AM EST Office Visit [facility] [address] [place] [phone] Lily Stokes MD Influenza A 12/15/2024 Refill [facility] [address] [place] [phone] Musa Borges MD Right lateral epicondylitis 12/07/2024 Orders Only [facility] [address] [place] [address] Musa Borges MD 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); Right lateral epicondylitis 12/06/2024 Telephone [facility] [address] [place] [address] Musa Borges MD 12/06/2024 Telephone [facility] [address] [place] [address] Musa Borges MD Nurse Triage 11/22/2024 8:00 AM EST Office Visit [facility] [address] [place] [phone] Elaina Che 11/21/2024 Travel from Last 3 Months Immunizations Name Administration Dates Next Due Hep A, Adult 05/03/2008,12/13/2007 Hep B, adult 03/19/2009,05/03/2008,12/13/2007 Influenza injectable quadriv alent IIV4 with preservative 09/28/2017 Influenza injectable quadriv alent preservative free 08/14/2021 Influenza, seasonal, injecta ble, preservative free 08/04/2011 MMR 12/13/2007 TD (adult), 2 Lf tetanus tox oid, preservative free, adsorbed 12/13/2007 Tdap 09/28/2017 Family History Medical History Relation Name Comments Diabetes Father Relation Name Status Comments Father Social History Tobacco Use Types Packs/Day Years Used Date Smoking Tobacco: Never Passive Smoke Exposure: Never Smokeless Tobacco: Never Tobacco Cessation:Counseling Given: Not Answered Alcohol Use Standard Drinks/Week Comments Yes 0 [...] Orientation Straight 09/07/2022 10 :19 AM EDT Last Filed Vital Signs Vital Sign Reading Time Taken Comments Blood Pressure 130/88 02/06/2025 9:05 AM EDT Pulse 64 02/06/2025 9:05 AM EDT Temperature 37.8 ??C (100.1 ??F) 12/27/2024 8:[address] Respiratory Rate 16 01/31/2025 6:36 PM EDT Oxygen Saturation 98% 12/27/2024 8:58 AM EST Inhaled Oxygen Concentration - - Weight 84.4 kg (186 lb) 01/31/2025 6:36 PM EDT Height 167.6 cm (5' 6 ) 01/31/2025 6:36 PM EDT Body Mass Index 30.02 01/31/2025 6:36 PM EDT Plan of Treatment Upcoming Encounters Date Type Department Care Team (Late st Contact Info) Description 05/24/2025 8:00 AM EDT Office Visit [facility] [address] [place] [phone] Elaina Che [address] [place] [address] Health Maintenance Due Date Last Done Comments CT Colonography 1979 Colonoscopy 1979 Colorectal Cancer Screening 1979 Dental X-Ray: Full Mouth 1979 FIT DNA/Cologuard 1979 FIT 1979 FOBT 1979 Sigmoidoscopy 1979 Alcohol/Substance Use Screening 1991 Family Planning (PISQ) 1994 COVID-19 Vaccine ( season) 2024 09/26/2021, 02/17/2021, 01/20/2021 Influenza Vaccine (#1) 2024 , 09/28/2017, 08/04/2011 Dental Oral Exam 10/08/2024 04/06/2024 SDOH Screening 04/05/2025 04/05/2024 Dental X-Ray: Bitewings 04/07/2025 04/06/2024 Dental Prophylaxis 05/23/2025 11/22/2024, 0 04/06/2024, 03/08/2023 Depression Screening 08/24/2025 08/24/2024, 08/24/20 24 Mammogram 01/06/2026 01/07/2024, 02/02/2023, 09/26/2021, Additional history exists Tobacco Screening 02/09/2026 02/09/2025 Pap Smear 09/01/2026 09/01/2023, 08/14/2021 DTaP/Tdap/Td Vaccines (2 - Td or Tdap) 09/28/2027 09/28/2017, 12/13/2007 Cervical Cancer Screening 09/01/2028 HPV/Cotest 09/01/2028 09/01/2023, 08/14/2021 Zoster Vaccines (1 of 2) 2029 RSV Patients and Patients Aged 60 years or older (1 - 1-dose 75+ series) 2054 Hepatitis A Vaccines Aged Out 05/03/2008, 12/13/19 08 No longer eligible based on patient's age to complete this topic Hepatitis B Vaccines Completed 03/19/2009, 05/03/2008, 12/13/2007 HIV Screening Completed 04/12/2023 Hepatitis C Screening Completed 04/12/2023 HIB Vaccines Aged Out No longer eligi ble based on patient's age to complete this topic HPV Vaccines Aged Out No longer eligi ble based on patient's age to complete this topic IPV Vaccines Aged Out No longer eligi ble based on patient's age to complete this topic Meningococcal Vaccine Aged Out No kelsie solomon eligible based on patient's age to complete this topic Pneumococcal Vaccine: Pediatrics (0 to 5 Years) and At-Risk Patients (6 to 49) Years) Aged Out No longer eligible based on patient's age to complete this topic RSV under 20 months Aged Out No longe r eligible based on patient's age to complete this topic Rotavirus Vaccines Aged Out No longer eligible based on patient's age to complete this topic Procedures Procedure Name Priority Date/Time Associated Diagnosis Comments CASE PRESENTATION, DETAILED AND EXTENSIVE TREATMENT PLANNING Routine 02/06/2025 8:30 AM EDT 7,8,9,10,13,14 MAXILLARY PARTIAL DENTURE - RESIN BASE (INCLUDING, RETENTIVE/CLASPING MATERIALS, RESTS, AND TEETH) Routine 02/06/2025 8:30 AM EDT WAX TRY IN Routine 01/23/2025 8:30 AM EDT DENTURE IMPRESSION Routine 01/09/2025 11 :00 AM EST POCT INFLUENZA B (ID NOW RAPID MOLECULAR) Routine 12/27/2024 9:08 AM EST Influenza A POCT INFLUENZA A (ID NOW RAPID MOLECULAR) Routine 12/27/2024 9:08 AM EST Influenza A AMB REFERRAL TO ORTHOPAEDIC SURGERY Routine 12/05/2024 Chronic midline low back pain with right-sided sciatica CASE PRESENTATION, DETAILED AND EXTENSIVE TREATMENT PLANNING Routine 11/22/2024 8:00 AM EST PROPHYLAXIS - ADULT Routine 11/22/2024 8 :00 AM EST BITEWINGS - 4 RADIOGRAPHIC IMAGES Routine 04/06/2024 10:00 AM EDT PERIODIC ORAL EVALUATION - ESTABLISHED PATIENT Routine 04/06/2024 10:00 AM EDT BI MAMMOGRAM SCREENING TOMOSYNTHESIS BILATERAL Routine 01/07/2024 8:41 AM EST HPV MRNA E6/E7 REFLEX TO HPV 16, 18/45 Routine 09/01/2023 12:12 PM EDT PAP SMEAR Routine 09/01/2023 12:12 PM EDT HEPATITIS C AB W/REFL TO HCV RNA, QN, PCR Routine 04/12/2023 8:32 AM EDT Annual physical exam HIV 1 RNA, QN PCR W/RFL RAMESH (RTI,PI,INTEGRASE) Routine 04/12/2023 8:32 AM EDT Annual physical exam from Last 3 Months or Most Recently Relevant to Health Maintenance Results * POCT Rapid Influenza B JONES ID NOW (12/27/2024 9:08 AM EST) Influenza B Negative Negative, Indeterminate [facility] Swab 12/27/2024 9:08 AM EST Lily Stokes MD POINT OF CARE TEST ENTER/EDIT OR DERABLES Final Result [facility] [address] [place] [phone] * (ABNORMAL) POCT Rapid Influenza A JONES ID NOW (12/27/2024 9:08 AM EST) Influenza A Positive( A) Negative, Indeterminate [facility] Swab 12/27/2024 9:08 AM EST us Lily Stokes MD POINT OF CARE TEST ENTER/EDIT OR DERABLES Final Result [facility] [address] [facility] [place] [address] [phone] * Referral to Orthopaedic Surgery (12/05/2024) us Musa Oviedo MD OUTPATIENT REFERRA L ORDERABLES Final Result * BI Mammogram Screening Tomosynthesis Bilateral (01/07/2024 8:41 AM EST) Anatomical Region Laterality Modality Breast Bilateral Mammography 01/07/2024 8:41 AM EST Narrative 01/24/2024 4:00 AM EDT ? [facility] ? [address] ?[place] [address] ? Mammography Report ? Signed ? Patient: Shira Aragon ?MR#: [id number] ?? 14 ? : 1980 ?Acct:[id number] ? Age/Sex: 43 / F ?ADM Date: 01/07/24 ? Loc: HO.MAMMO ? Attending Dr: Musa Oviedo MD ? Ordering Physician: Musa Borges MD ?Res ?? ults: 1Negative ? Date of Service: 01/07/24 ?Follow Up: 1 Year From Orig ?? inal Mammogram ? Procedure(s): MM tomosynthesis screening BI ?? Accession Number(s): [id number] ? cc: Musa Borges MD ? EXAMINATION: ?? MM SCREENING DIGITAL BREAST TOMOSYNTHESIS, BILATERAL ? CLINICAL INFORMATION: ? Screening. Asymptomatic. ? COMPARISON: ?? Mammography: This study is compared with prior exams dating back to ?? 2018. ? TECHNIQUE: ?? Digital breast tomosynthesis is performed in both the craniocaudal and ?? mediolateral oblique views along with computer-aided detection (CAD). ?? Synthesized 2D images are generated from the tomosynthesis. ? FINDINGS: ?? The breasts are heterogeneously dense, which may obscure small masses ?? (ACR BI-RADS breast composition Category c). ? There are no significant masses, abnormal calcifications, or other ?? abnormalities. ? MM/MM tomosynthesis screening BI ?? IMPRESSION: ?? No mammographic evidence of malignancy. ? ASSESSMENT: ? BI-RADS BI-RADS 1 - Negative ? RECOMMENDATION: ?? Routine annual mammography screening. ? 1 year F/U ? This examination should not preclude the clinical evaluation of a ?? suspicious palpable abnormality. ? This patient's information was entered into a reminder system with a ?? target due date for their next mammogram. ? Dictated By: ?Nicolasa Maxwell MD ? Signed By: ?<Electronically signed by Nicolasa Maxwell MD in OV> ? 01/24/24 0356 ? DD/ 0841 ? TD/TT: ? Inbound Call Center Agent: ? Procedure Note Josué, Glo - 01/24/2024 [facility] [address] [place] [address] Mammography Report Signed Patient: Shira Aragon#: [id number] 14 : 1980Acct:[id number] Age/Sex: 43 / FADM Date: 01/07/24 Loc: HO.MAMMO Attending Dr: Musa Oviedo MD Ordering Physician: Musa Borges ults: 1Negative Date of Service: 01/07/24Follow Up: 1 Year From Orig inal Mammogram Procedure(s): MM tomosynthesis screening BI Accession Number(s): [id number] cc: Musa Borges MD EXAMINATION: MM SCREENING DIGITAL BREAST TOMOSYNTHESIS, BILATERAL CLINICAL INFORMATION: Screening. Asymptomatic. COMPARISON: Mammography: This study is compared with prior exams dating back to 2018. TECHNIQUE: Digital breast tomosynthesis is performed in both the craniocaudal and mediolateral oblique views along with computer-aided detection (CAD). Synthesized 2D images are generated from the tomosynthesis. FINDINGS: The breasts are heterogeneously dense, which may obscure small masses (ACR BI-RADS breast composition Category c). There are no significant masses, abnormal calcifications, or other abnormalities. MM/MM tomosynthesis screening BI IMPRESSION: No mammographic evidence of malignancy. ASSESSMENT: BI-RADS BI-RADS 1 - Negative RECOMMENDATION: Routine annual mammography screening. 1 year F/U This examination should not preclude the clinical evaluation of a suspicious palpable abnormality. This patient's information was entered into a reminder system with a target due date for their next mammogram. Dictated By: Nicolasa Maxwell MD Signed By: <Electronically signed by Nicolasa Maxwell MD in OV> 01/24/24 0356 DD/ 0841 TD/TT: Inbound Call Center Agent: Musa Oviedo MD IMG BI PROCEDURES Final Result * HPV mRNA E6/E7 w/Reflex to HPV Genotypes 16, 18/45 (09/01/2023 12:12 PM EDT) HPV nRNA E6/E7 Not Detected Not Detected [facility] Comment:Methodology: Transcr iption-Mediated AmplificationThis assay detects E6/E7 viral messenger RNA (mRNA) from 14high-risk HPV types (16,18,31,33,35,39,45,51,52,56,58,59,66,68).Cervical sources are required for HPV testing.If a vaginal source from a patient who has had atotal hysterectomy with removal of cervix wassubmitted, please contact the testing laboratoryfor alternative testing options.For additional information, please refer [email or web address].[email or web address]/faq/VFR934d2(This link if provided for information/educational purposes only.)THIS TEST WAS PERFORMED AT:[facility] [place] [phone] WOODY MD HPV mRNA E6/E7 [facility] HPV 16 RNA [facility] HPV 18/45 RNA [facility] 09/01/2023 12:1 2 PM EDT 09/02/2023 7:00 AM EDT [facility] External Provider LAB CYT OLOGY ORDERABLES Final Result [facility] [address] [place] [address] [phone] * Pap Smear (09/01/2023 12:12 PM EDT) 09/01/2023 12:1 2 PM EDT 09/02/2023 7:00 AM EDT Narrative [facility] - 09/07/2023 2:16 PM EDT ----- ------- Name: AragonShira ? Age/Sex: 43/F ? : 1980 Unit#: [id number] ?? Attend Dr: Karen Holbrook CNM ?Re09/01/23 ?Status: DEP REF ? Location: HO.LNP ?Disch: ? ----- ------- SPEC : [id number] ?RECD: 09/02/23 ? STATUS: ??SOUT ? REQ NUM: [id number] ? HERMILO: 09/01/23-1211 ? SUBM DR: Karen Holbrook CNM ? ENTERED: ??09/02/23 ?SP TYPE: Pap Smr ?OTHR DR: Musa Borges MD ORDERED: ??Pap Smear ? Interpretation ?? Satisfactory for evaluation. ?? Coccobacilli consistent with shift in vaginal bushra. ?? Negative for intraepithelial lesion or malignancy. ?HPV mRNA E6/E7: ?NOT DETECTED ? This assay detects E6/E7 viral messenger RNA (mRNA) from 14 high-risk HPV types (16, 18, ?? 31, 33, 35, 39, 45, 51, 52, 56, 58, 59, 66, 68) ?? HPV testing performed by [employer], [place], [place]. ??See reference laboratory ?? pion of the EMR for entire report. ?Clinical Information LMP: 07/21/23 Previous PAP test: Unknown date/findings Other history: Abnormal uterine and vaginal bleeding, unspecified. ? Material Received ?? ThinPrep-Cervical Copies To: ?? Musa Borges MD ?? [address] ?? [place] [address] ?? [phone] ?? Karen Holbrook ?? [address] ?? [place] [address] ?? [phone] ----- ------- Signed (signature on file) Claudia David MD 09/07/23 1416 ? ----- ------- ? END OF REPORT ? us [facility] External Provider LAB CYT OLOGY ORDERABLES Final Result Performing Organization Address City/[facility]/ZIP Co de Phone Number [facility] [address] [place] [address] [phone] * HIV-1 RNA, Quantitative, Real-Time PCR with Reflex to Genotype (RTI, PI, Integrase) (04/12/2023 8:32 AM EDT) Pathologist [facility] HIV 1 RNA, QN PCR NOT DETECTED copies/mL [facility], HIV 1 RNA, QN PCR NOT DETECTED Log copies/mL [facility], Comment: REFERENCE RANGE: NOT DETECTED copies/mL ?NOT DETECTED ??Log copies/mL This test was performed using Real-Time Polymerase Chain Reaction. Reportable range is 20 to 10,000,000 copies/mL (1.30-7.00 Log copies/mL). 04/12/2023 8:32 AM EDT 04/12/2023 8:32 AM EDT Narrative [facility] - 04/16/2023 3:00 PM EDT FASTING:YES FASTING: YES Result [facility] Musa Oviedo MD LAB BLOOD ORDERABL ES Final Result Performing Organization Address City/[facility] Co de Phone Number [facility] [address], [place] [address] [facility], [address] [place] [address] * Hepatitis C Antibody with Reflex to HCV, RNA, Quantitative, Real-Time PCR (04/12/2023 8:32 AM EDT) Pathologist [facility] Hepatitis C Antibody NON-REACT SARABJIT NON-REACT SARABJIT [employer] [place] [employer] Index 0.15 <1.00 [employer] [place] Immediately Comment: HCV antibody was non-reactive. There is no laboratory evidence of HCV infection. In most cases, no further action is required. However, if recent HCV exposure is suspected, a test for HCV RNA (test code 96219) is suggested. For additional information please refer to http://education.Sproutkin/faq/BUT33p4 (This link is being provided for informational/ educational purposes only.) Blood Venous blood specimen / Unknown 04/12/2023 8:32 AM EDT 04/12/2023 8:32 AM EDT Narrative [facility] - 04/16/2023 3:00 PM EDT FASTING:YES FASTING: YES us Musa Oviedo MD LAB BLOOD ORDERABL ES Final Result [facility] [address], [place] [address] [employer] [facility] [address] [place] [address] from Last 3 Months or Most Recently Relevant to Health Maintenance Insurance [facility] C[facility] DENTAL-[facility] MEDICAID STAND ADULT Care Teams Fur Feeder Relationship Specialty Start Date End Date Musa Borges MD [address] [place] [address] PCP - General Internal Medicine 04/02/20
--- OUTSIDE RECORDS SUMMARY | 2025-02-10 10:02 | XMS_ITS | Encounter Summary ---
Author Organization [employer] Address 75 [facility] 7t [place] [address] Care Team Providers Care Brick Wheeler Name Role Phone Musa Borges MD Primary Care Prov ider Encounter Details Date Type Department Care Team (Latest Contact Info) Description 02/09/2025 Travel Social History Tobacco Use Types Packs/Day Years [...] Description 05/24/2025 8:00 AM EDT Office Visit [facility] DENTAL 91 [place], [place] [phone] Elaina Che 91 [place], [place] [phone] documented as of this encounter Visit Diagnoses Not on filedocumented in this encounter Additional Health Concerns Assessment Noted Time PHQ-9 Depression Total Score: 4 08/24/20 24 1:09 PM EDT documented as of this encounter Care Teams Brick Wheeler Relationship Specialty Start Date End Date Musa Borges MD [address] [place] [address] PCP - General Internal Medicine 04/02/20 documented as of this encounter
--- OUTSIDE RECORDS SUMMARY | 2025-02-10 10:02 | XMS_ITS | Encounter Summary ---
Author Organization [employer] Address [address] [facility] 7t [place] [address] Care Team Providers Care Chemist Steroids Name Role Phone Musa Borges MD Primary Care Prov ider Reason for Visit * Reason Comments Dentures Encounter Details Date Type Department Care Team ([facility] st Contact Info) Description 02/06/2025 8:30 AM EDT Office Visit [facility] DENTAL 91 [place], [place] [phone] Peewee Juarez, DMD [address] [place] [address] Social History Tobacco Use Types Packs/Day Years [...] AM EDT documented as of this encounter Last Filed Vital Signs Vital Sign Reading Time Taken Comments Blood Pressure 130/88 02/06/2025 9:05 AM EDT Pulse 64 02/06/2025 9:05 AM EDT Temperature - - Respiratory Rate - - Oxygen Saturation - - Inhaled Oxygen Concentration - - Weight - - Height - - Body Mass Index - - documented in this encounter Progress Notes * Peewee Juarez DMD - 02/06/2025 8:30 AM EDT Delivery of P/. Pt likes it and feels fine NV: adjustment if needed Javy documented in this encounter Plan of Treatment Upcoming Encounters Date Type Department Care Team (Late st Contact Info) Description 05/24/2025 8:00 AM EDT Office Visit [facility] DENTAL [address] [place] [address] Elaina Che 91 [place] [address] documented as of this encounter Procedures Procedure Name Priority Date/Time Associated Diagnosis Comments 7,8,9,10,13,14 MAXILLARY PARTIAL DENTURE - RESIN BASE (INCLUDING, RETENTIVE/CLASPING MATERIALS, RESTS, AND TEETH) Routine 02/06/2025 8:30 AM EDT CASE PRESENTATION, DETAILED AND EXTENSIVE TREATMENT PLANNING Routine 02/06/2025 8:30 AM EDT documented in this encounter Visit Diagnoses Not on filedocumented in this encounter Additional Health Concerns Assessment Noted Time PHQ-9 Depression Total Score: 4 10/17/20 24 1:09 PM EDT documented as of this encounter Care Teams Chemist Steroids Relationship Specialty Start Date End Date Musa Borges MD [address] [place] [address] PCP - General Internal Medicine 04/02/20 documented as of this encounter
--- OUTSIDE RECORDS SUMMARY | 2025-02-10 10:02 | XMS_ITS | Encounter Summary ---
Author Organization [employer] Address 75 [facility] 7 [place] [address] Care Team Providers Care Sewer Contractor Name Role Phone Musa Borges MD Primary Care Prov ider Reason for Visit * Reason Comments Med Refill Encounter Details Date Type Department Care Team (Late st Contact Info) Description 11/14/2022 Refill [facility] MEDICINE [address] [place], [place] [phone] Musa Borges MD [address] [place] [address] Current mild episode of major depressive disorder without prior episode (CMS/HCC) (Primary Dx) Social History Tobacco Use Types Packs/Day Years [...] Description 05/24/2025 8:00 AM EDT Office Visit [facility] D[facility] 91 [place], [place] [phone] Eliana Che 91 [place], [place] [phone] documented as of this encounter Visit Diagnoses Diagnosis Current mild episode of major depressive disorder without prior episode (CMS/HCC)- Primary documented in this encounter Care Teams Sewer Contractor Relationship Specialty Start Date End Date Musa Borges MD [address] [place] [address] PCP - General Internal Medicine 04/02/20 documented as of this encounter
--- OUTSIDE RECORDS SUMMARY | 2025-02-10 10:02 | XMS_ITS | Encounter Summary ---
Author Organization [facility] [employer] Address 75 [facility] 7t [place] [address] Care Team Providers Care Claim Manager Name Role Phone Musa Borges MD Primary Care Prov ider Encounter Details Date Type Department Care Team (Latest Contact Info) Description 02/06/2025 Travel Social History Tobacco Use Types Packs/Day [...] Description 05/24/2025 8:00 AM EDT Office Visit [facility] DENTAL 91 [place], [place] [phone] Elaina Che 91 [place], [place] [phone] documented as of this encounter Visit Diagnoses Not on filedocumented in this encounter Additional Health Concerns Assessment Noted Time PHQ-9 Depression Total Score: 4 08/24/20 24 1:09 PM EDT documented as of this encounter Care Teams Claim Manager Relationship Specialty Start Date End Date Musa Borges MD [address] [place] [address] PCP - General Internal Medicine 04/02/20 documented as of this encounter
--- OUTSIDE RECORDS SUMMARY | 2025-02-10 10:02 | XMS_ITS | Encounter Summary ---
Author Organization [employer] Address 75 [facility] 7t [place] [address] Care Team Providers Care Re Etcher Name Role Phone Musa Borges MD Primary Care Prov ider Reason for Visit * Reason Onset Date Comments Med Refill 04/10/2024 Encounter Details Date Type Department Care Team ([facility] st Contact Info) Description 04/10/2024 Refill [facility] CHC MED & PEDS [address] [place], [place] [phone] Dyan Miller MD [address] [place] [address] Social History Tobacco Use Types Packs/Day Years Used Date Smoking Tobacco: Never Passive Smoke Exposure: Never Smokeless Tobacco: Never Depression Answer Date Recorded Patient Health Questionnaire-9 Score 0 04/12/2024 Patient Health Questionnaire-9 Score 0 04/12/2024 Last PHQ-9: Questionnaire Data Not on file 0 04/12/2024 Housing Stability Answer Date Recorded What is [...] Date Recorded Patient Health Questionnaire-2 Score 0 04/12/2024 Comments Unknown Sex and Gender Information Value [...] Description 05/24/2025 8:00 AM EDT Office Visit [facility] DENTAL 91 [place], [place] [phone] Elaina Che 91 [place], [place] [phone] documented as of this encounter Visit Diagnoses Not on filedocumented in this encounter Additional Health Concerns Assessment Noted Time PHQ-9 Depression Total Score: 0 12/23/19 23 8:59 AM EST documented as of this encounter Care Teams Re Etcher Relationship Specialty Start Date End Date Musa Borges MD [address] [place] [address] PCP - General Internal Medicine 04/02/20 documented as of this encounter
== END 2025-02-10 10:00 | disposition home or self-care (01) ==
LOC: HO.MAMMO 09:59
PROVIDERS: PCP Internal Medicine; Visit Provider Internal Medicine
DX: Z12.31 Encounter for screening mammogram for malignant neoplasm of breast (principal)
CPT/HCPCS: 77063; 77067

== ENCOUNTER → 2025-02-10 10:15 | Outpatient (BNV) | payer MEDICAID, SELFPAY | PROVIDERS: PCP Internal Medicine; Visit Provider Internal Medicine | DX: Z12.31 Encounter for screening mammogram for malignant neoplasm of breast (principal) | CPT/HCPCS: 77063; 77067 ==

== ENCOUNTER 2025-02-15 13:22 | Outpatient (AMB) | payer MEDICAID, SELFPAY ==
--- NOTE | 2025-02-15 13:23 | A.OFFVIS_ITS ---
Vital Signs 3 02/15/25 13:31 Height 5 ft 3 in Weight 184 lb BMI 32.6 BP 131/73 Blood Pressure Location Lt brachial Position Sitting Pulse 88 Intake Visit Reasons: Dermoid cyst Intake Note: Patient is seen in office for evaluation of a dermoid cyst of the right inguinal area. Pt c/o: onset 2 yrs, increase/decrease, was on antibiotics 2 wks ago did not discharge but decrease in size, currently a bit red, painful to the touch Clinic Physician Director Required: Yes Clinic Physician Director Language: Load Out Supervisor Services: Clinic Physician Director Present Clinic Physician Director Name: Mary DRAKE Information Interpreted: non-clinical & clinical Chart Calculator: Chart Calculator Present Accompanied by: Self / Same As Patient Allergies No Known Allergies Allergy (Verified 02/15/25 13:24) Medication List - Last Reviewed 02/15/25 by VIDAL Alaniz gabapentin 300 mg PO BEDTIME HPI Comments Details: 44-year-old female patient presenting with a recurring history of an infected cyst in the right pubic area. She reports multiple episodes of infection most recently occurring within the past week. She was able to squeeze the lesion and produce some bloody purulent material. The lesion has decreased to some degree in size and pain since then. She presents today to discuss possible excision. She denies any fever or chills. She denies any previous surgical excision at this site. [facility] Medical History Recurrent UTI Chronic back pain Surgical History Hx of tubal ligation Family History Maternal Grandfather Throat cancer Social History Alcohol intake: never Patient Tobacco Use Status: Never used Tobacco Review of Systems Const All systems reviewed & are unremarkable except as noted in HPI and below Physical Exam Vital Signs: Last Vital Signs Pulse 88 02/15/25 13:31 BP 131/73 02/15/25 13:31 BMI result Body Mass Index 32.6 Const General: cooperative and no acute distress Nutritional Appearance: well nourished Orientation/consciousness: patient oriented x3 Limitations: no limitations HEENT Head: Yes normocephalic and Yes atraumatic Ears: hearing grossly normal bilaterally Resp Effort & Inspection: normal respiratory effort, no audible wheezes, no cough and no respiratory distress Cardio Jugular venous distension: no JVD GI Inspection: Yes normal to inspection Female genitals images: 2 1. 1 cm right labial cyst which is red and tender to palpation. No discharge is noted. Lesion is not fluctuant to palpation. Skin Other: Warm, dry, no rash Neuro General: patient oriented x3 Extrem General: Yes no clubbing, cyanosis or edema Office Procedures Excision Details: Preoperative diagnosis: Right labial cyst Postoperative diagnosis: Same Procedure: Excision of right labial cyst Surgeon: Chuy Quesada MD Dairy Store Manager: None Anesthesia: Lidocaine 1% with epinephrine Indications for procedure: 44-year-old female with a recurring infected right labial cyst Operative findings: 1.5 cm right labial cyst Specimen: Cyst right labia Estimated blood loss: Less than 2 mL Complications: None Procedure details: Patient was brought to the procedure room placed in a supine position. The patient confirmed the site of surgery in the right labia. After assuring informed consent the skin was prepped with Betadine and draped in a sterile fashion. Local anesthesia was then infiltrated around the lesion. Elliptical incision was then oriented longitudinally and carried out through subcutaneous tissue and around the cyst wall. The lesion was passed off the table and sent to pathology for further examination. Hemostasis was assured using light pressure. Skin was then closed using interrupted 4-0 nylon sutures. Sterile dressings consisting of 4 x 4 gauze and paper tape was then applied. The patient tolerated the procedure well was discharged to home in stable condition. [id number] scalp/neck/hands/feet/genitalia 1.1cm-2cm Procedure code (CPT) selection complete Assessment & Plan Assessment & Plan (1) Epidermoid cyst of labia majora: Code(s): N90.7 - Vulvar cyst Category: Medical Plan Patient underwent excision of the right labial cyst in the office today. She tolerated the procedure well. She will return in the office approximately 1 week for suture removal. Orders: Orders 2 Surgical Today D36.9 - Benign neoplasm, unspecified site Coding Level of Care Code Est Pt Level 3 (85480) Diagnoses Epidermoid cyst of labia majora N90.7 CPT Codes Scalp/Neck/Hands/Feet/Genetalia - CPT: 38536-Iplwfkux scalp/neck/hands/feet/genitalia 1.1cm-2cm ([id number])
[2025-02-15 13:31] VITALS: BP 131/73; PULSE 88; BMI 32.6
--- OUTSIDE RECORDS SUMMARY | 2025-02-15 16:10 | XMS_ITS | Encounter Summary ---
Author Organization [employer] Address 75 [facility] 7t [place] [address] Care Team Providers Care Aerosol Supervisor Name Role Phone Musa Borges MD Primary Care Prov ider Encounter Details Date Type Department Care Team ([facility] st Contact Info) Description 12/06/2024 Telephone [facility] CHC MED & PEDS [address] [place], [place] [phone] Musa Borges MD 505 [place] [address] Social History Tobacco Use Types Packs/Day Years [...] Description 05/24/2025 8:00 AM EDT Office Visit [facility] DENTAL 91 [place], [place] [phone] Elaina Che 91 [place], [place] [phone] documented as of this encounter Visit Diagnoses Not on filedocumented in this encounter Additional Health Concerns Assessment Noted Time PHQ-9 Depression Total Score: 4 08/24/20 24 1:09 PM EDT documented as of this encounter Care Teams Aerosol Supervisor Relationship Specialty Start Date End Date Musa Borges MD [address] [place] [address] PCP - General Internal Medicine 04/02/20 documented as of this encounter
--- OUTSIDE RECORDS SUMMARY | 2025-02-15 16:10 | XMS_ITS | Encounter Summary ---
Author Organization [employer] Address 75 [facility] 7t [place] [address] Care Team Providers Care Admissions Clerk Name Role Phone Musa Borges MD Primary Care Prov ider Reason for Visit * Reason Onset Date Comments Nurse Triage 02/23/2024 Encounter Details Date Type Department Care Team ([facility] st Contact Info) Description 02/23/2024 Telephone [facility] MED [facility] PEDS 505 [place], [place] [phone] Musa Borges MD 505 [place] [address] Nurse Triage Social History Tobacco Use Types [...] 02/23/2024 10:22 AM EDT Triage call with [address] Education Intern [place] [id number] Pt reports skin lump in area between right upper thigh and vulva. Pt reports this started 2 months ago. Pt popped it the first time just using hand. Pt reports it has returned, reddened , painful. Pt is given home care advice and agrees. Pt is advised to come to [facility] if unable to find relief with home care advised. Pt agrees with this plan and disposition. Hours of [facility] given, open till 8pm today , [...] accepted this outcome Please contact pt at [phone] (Kyrgyz) documented in this encounter Plan of Treatment Upcoming Encounters Date Type Department Care Team (Late st Contact Info) Description 05/24/2025 8:00 AM EDT Office Visit [facility] DENTAL 91 [place] [address] Elaina Che 91 [place] [address] documented as of this encounter Visit Diagnoses Not on filedocumented in this encounter Additional Health Concerns Assessment Noted Time PHQ-9 Depression Total Score: 0 12/23/19 23 8:59 AM EST documented as of this encounter Care Teams Admissions Clerk Relationship Specialty Start Date End Date Musa Borges MD [address] [place] [address] PCP - General Internal Medicine 04/02/20 documented as of this encounter
--- OUTSIDE RECORDS SUMMARY | 2025-02-15 16:10 | XMS_ITS | Encounter Summary ---
Author Organization [employer] [facility] Address 75 [facility] 7 [place] [address] Care Team Providers Care Manager Product Name Role Phone Musa Borges MD Primary Care Prov ider Encounter Details Date Type Department Care Team (Latest Contact Info) Description 08/04/2021 Abstract [facility] CONVERSIONS Dental, Provider, DDS Social History Tobacco [...] Description 05/24/2025 8:00 AM EDT Office Visit [facility] DENTAL 91 [place], [place] [phone] Elaina Che 91 [place], [place] [phone] documented as of this encounter Visit Diagnoses Not on filedocumented in this encounter Care Teams Manager Product Relationship Specialty Start Date End Date Musa Borges MD [address] [place] [address] PCP - General Internal Medicine 04/02/20 documented as of this encounter
--- OUTSIDE RECORDS SUMMARY | 2025-02-15 16:10 | XMS_ITS | Encounter Summary ---
Author Organization [employer] Address [address] [facility] [address] 7t [place] [address] Care Team Providers Care Sap Ppm Consultant Name Role Phone Musa Borges MD Primary Care Prov ider Encounter Details Date Type Department Care Team (Late st Contact Info) Description 12/01/2023 Orders Only [facility] CHC MED & PEDS [address] [place], [place] [phone] Musa Borges MD [address] [place] [address] Social History Tobacco Use Types Packs/Day Years [...] Description 05/24/2025 8:00 AM EDT Office Visit [facility] DENTAL 91 [place], [place] [phone] Elaina Che 91 [place], [place] [phone] documented as of this encounter Visit Diagnoses Not on filedocumented in this encounter Additional Health Concerns Assessment Noted Time PHQ-9 Depression Total Score: 0 12/23/19 23 8:59 AM EST documented as of this encounter Care Teams Sap Ppm Consultant Relationship Specialty Start Date End Date Musa Borges MD [address] [place] [address] PCP - General Internal Medicine 04/02/20 documented as of this encounter
--- OUTSIDE RECORDS SUMMARY | 2025-02-15 16:10 | XMS_ITS | Encounter Summary ---
Author Organization [employer] [facility] Address 75 [facility] 7t [place] [address] Care Team Providers Care Five Piece Expansion Maker Hand Name Role Phone Musa Borges MD Primary Care Prov ider Encounter Details Date Type Department Care Team (Late st Contact Info) Description 10/13/2022 Telephone [facility] DENTAL [address] [place] [address] Dental, Provider, DDS Social History Tobacco Use [...] Description 05/24/2025 8:00 AM EDT Office Visit [facility] 91 [place] [address] Elaina Che 91 [place] [address] documented as of this encounter Visit Diagnoses Not on filedocumented in this encounter Care Teams Five Piece Expansion Maker Hand Relationship Specialty Start Date End Date Musa Borges MD [address] [place] [address] PCP - General Internal Medicine 04/02/20 documented as of this encounter
--- OUTSIDE RECORDS SUMMARY | 2025-02-15 16:10 | XMS_ITS | Encounter Summary ---
Author Organization [employer] Address 75 [facility] 7t [place] [address] Care Team Providers Care Machine Tracer Name Role Phone Musa Borges MD Primary Care Prov ider Reason for Visit * Reason Onset Date Comments Medication Question 10/08/2023 Encounter Details Date Type Department Care Team ([facility] st Contact Info) Description 10/08/2023 Telephone [facility] MEDICINE [address] [place] [address] Musa Borges MD [address] [place] [address] Medication Question Social History Tobacco Use Types [...] t he electric, gas, oil or water [employer] threatened to shut off services in your [...] to prescribe medication for neck pain however typewriter ribbon winder does not see anything on file please clarify. documented in this encounter Plan of Treatment Upcoming Encounters Date Type Department Care Team (Late st Contact Info) Description 05/24/2025 8:00 AM EDT Office Visit [facility] 91 [place], [place] [phone] Elaina Che 91 [place], [place] [phone] documented as of this encounter Visit Diagnoses Not on filedocumented in this encounter Additional Health Concerns Assessment Noted Time PHQ-9 Depression Total Score: 0 12/23/19 23 8:59 AM EST documented as of this encounter Care Teams Machine Tracer Relationship Specialty Start Date End Date Musa Borges MD [address] [place] [address] PCP - General Internal Medicine 04/02/20 documented as of this encounter
--- OUTSIDE RECORDS SUMMARY | 2025-02-15 16:10 | XMS_ITS | Clinical Summary ---
Author Organization [employer] Address [address] [facility] [address] [place] [address] Care Team Providers Care Specimen Accessioner Name Role Phone Musa Borges MD Primary Care Prov ider Allergies No known active allergies Medications * This document contains information received from the source organization and may not represent a complete record from that organization. Fluocinolone Acetonide Scalp (Ladd-Smoothe/FS Scalp) 0.01 % oilIndications:Se borrheic dermatitis To apply to the affected area once or twice a week. 118 mL 1 3 Active ketoconazole (Nizoral) 2 % shampooIndication s:Seborrheic dermatitis Apply topically 2 (two) times a week. 120 mL 3 3 Active Spacer/Aero-Holdi ng Chambers (OptiChamber Elsa) miscIndications:I nfluenza-like symptoms 1 each every 4 (four) hours if needed (asthma). 1 each 3 Active albuterol 108 (90 Base) MCG/ACT inhaler Inhale 2 puffs every 4 (four) hours if needed for wheezing. 18 g 5 026 Active solifenacin (VESIcare) 5 MG tablet Take 5 mg by mouth Once per day. 5 Active meloxicam (Mobic) 15 MG tabletIndications :Right lateral epicondylitis Take 1 tablet (15 mg) by mouth Once per day. 30 tablet 1 5 Active gabapentin (Neurontin) 300 MG capsule Take 1 capsule (300 mg) by mouth at bedtime. 90 capsule 3 5 026 Active dextran 70-hypromellose (artificial tears) 0.1-0.3 % ophthalmic solutionIndicatio ns:Dry eyes, bilateral Administer 1 drop into both eyes if needed in the morning, at noon, and at bedtime for dry eyes. 15 mL 6 5 026 Active cefadroxil (Duricef) 500 MG capsule Take 1 capsule (500 mg) by mouth 2 times daily for 7 days. 14 capsule 5 025 Active Problems Problem Noted Date Diagnosed Date [...] (07/18/2024 1:10 PM EDT): Will refer to obgykirt, she prefers to be seen at [facility] Ear itching 07/18/2024 Assessment & Plan (07/18/2024 [...] EDT): Found on pap smear done by ob-billing analyst on 09/01 with bv, complains of itching, [...] Description 02/09/2025 11:15 AM EDT Office Visit [facility] [address] [place] [phone] Mary Abreu, OD Regular astigmatism, bilateral (Primary Dx); Dry eyes, bilateral 02/09/2025 Travel 02/06/2025 8:30 AM EDT Office Visit [facility] [address] [place] [phone] Peewee Juarez DMD 02/06/2025 Travel 01/31/2025 6:20 PM EDT Office Visit [facility] [address] [place] [address] Joyce Kwong MD Dermoid cyst (Primary Dx) 01/23/2025 8:30 AM EDT Office Visit [address] [address] Peewee Juarez DMD 01/22/2025 Travel 01/19/2025 Population Health Risk Score Community Care [facility] () [address] [phone] Provider, Population Health Generic 01/18/2025 Telephone [facility] [address] [place] [address] Musa Borges MD Referral 01/16/2025 9:00 AM EDT Telemedicine [facility] [address] [place] [address] Musa Borges MD 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 [address] [place], [place] [phone] Elaina Che 11/21/2024 Travel from Last 3 [...] Description 05/24/2025 8:00 AM EDT Office Visit [facility] [address] [place] [address] Elaina Che [address] [place] [address] Health Maintenance Due Date Last Done Comments [...] 08/24/2025 08/24/2024, 08/24/20 24 Mammogram 01/06/2026 01/07/2024, 12/10, 09/26/2021, Additional history exists Tobacco Screening 02/09/2026 [...] AM EST) Influenza B Negative Negative, Indeterminate [facility] Swab 12/27/2024 9:08 AM EST Lily Stokes MD POINT OF CARE TEST ENTER/EDIT OR DERABLES Final Result Performing Organization Address [facility]/ZIP Co de Phone Number [facility] [address] [place] [address] [phone] * (ABNORMAL) POCT Rapid Influenza A JONES ID NOW (12/27/2024 9:08 AM EST) Influenza A Positive( A) Negative, Indeterminate [facility] Swab 12/27/2024 9:08 AM EST Lily Stokes MD POINT OF CARE TEST ENTER/EDIT OR DERABLES Final Result Performing Organization Address [facility]/ZIP Co de Phone Number [facility] [address] [place] [phone] * Referral to Orthopaedic Surgery (12/05/2024) Musa Oivedo MD OUTPATIENT REFERRA L ORDERABLES Final Result * BI Mammogram Screening Tomosynthesis Bilateral (01/07/2024 8:41 AM EST) Anatomical Region Laterality Modality Breast Bilateral Mammography 01/07/2024 8:41 AM EST Narrative 01/24/2024 4:00 AM EDT ? [facility] ? [address] ?[place] [address] ? Mammography Report ? Signed ? Patient: Aragon,Shira ?MR#: [id number] ?? 14 ? : 1980 ?Acct:[id number] ? Age/Sex: 43 / F ?ADM Date: 01/07/24 ? Loc: HO.MAMMO ? Attending Dr: Musa Oviedo MD ? Ordering Physician: Musa Borges MD ?Res ?? ults: 1Negative ? Date of Service: 01/07/24 ?Follow Up: 1 Year From Orig ?? inal Mammogram ? Procedure(s): MM tomosynthesis screening BI ?? Accession Number(s): [id number] ? cc: Musa Borges MD ? EXAMINATION: [...] 0356 ? DD/ 0841 ? TD/TT: ? Shift Leader: ? Procedure Note Donnayater, Image - 01/24/2024 [facility] [address] [place] [address] Mammography Report Signed Patient: Kenia Aragon#: [id number] 14 : 1980Acct:[id number] Age/Sex: 43 / FADM Date: 01/07/24 Loc: HO.MAMMO Attending Dr: Musa Oviedo MD Ordering Physician: Musa Borges ults: 1Negative Date of Service: 01/07/24Follow Up: 1 Year From Orig inal Mammogram Procedure(s): MM tomosynthesis screening BI Accession Number(s): [id number] cc: Musa Borges MD EXAMINATION: MM SCREENING [...] in OV> 01/24/24 0356 DD/ 0841 TD/TT: Shift Leader: [facility] Lexx Oviedo MD IM BI PROCEDURES Final Result * HPV mRNA E6/E7 w/Reflex to HPV Genotypes 16, 18/45 (09/01/2023 12:12 PM EDT) HPV nRNA E6/E7 Not Detected Not Detected [facility] Comment:Methodology: Transcr iption-Mediated AmplificationThis assay detects E6/E7 viral messenger RNA (mRNA) from 14high-risk HPV types (16,18,31,33,35,39,45,51,52,56,58,59,66,68).Cervical sources are required for HPV testing.If a vaginal source from a patient who has had atotal hysterectomy with removal of cervix wassubmitted, please contact the testing laboratoryfor alternative testing options.For additional information, please refer tohttp://education.Eneedo/faq/CYH313m6(This link if provided for information/educational purposes only.)THIS TEST WAS PERFORMED AT:[facility] [place] [phone] WOODY MD HPV mRNA E6/E7 [facility] HPV 16 RNA [facility] HPV 18/45 RNA [facility] 09/01/2023 12:1 2 PM EDT 09/02/2023 7:00 AM EDT [facility] External Provider LAB CYT OLOGY ORDERABLES Final Result [facility] [address] [place] [address] [phone] * Pap Smear (09/01/2023 12:12 PM EDT) 09/01/2023 12:1 2 PM EDT 09/02/2023 7:00 AM EDT Narrative [facility] - 09/07/2023 2:16 PM EDT ----- ------- Name: Shira Aragon ? Age/Sex: 43/F ? : 1980 Unit#: [id number] ?? Attend Dr: Karen Holbrook CNM ?Re09/01/23 ?Status: DEP REF ? Location: HO.LNP ?Disch: ? ----- ------- SPEC : [id number] ?RECD: 09/02/23 ? STATUS: ??SOUT ? REQ NUM: [id number] ? HERMILO: 09/01/23 ? SUBM DR: Karen Holbrook CNM ? [...] 66, 68) ?? HPV testing performed by [facility], [place], [place]. ??See reference laboratory ?? pion of the EMR for entire report. ?Clinical Information LMP: 07/21/23 Previous PAP test: Unknown date/findings Other history: Abnormal uterine and vaginal bleeding, unspecified. ? Material Received ?? ThinPrep-Cervical Copies To: ?? Musa Borges MD ?? [address] ?? [place] [address] ?? [phone] ?? Karen Holbrook CNM ?? [address] [facility] ?? [place] [address] ?? [phone] ----- ------- Signed (signature on file) Claudia David MD 09/07/23 1186 ? ----- ------- ? END OF REPORT ? [facility] External Provider LAB CYT [facility] ORDERABLES Final Result [facility] [address] [facility] [place] [phone] * HIV-1 RNA, Quantitative, Real-Time PCR with Reflex to Genotype (RTI, PI, Integrase) (04/12/2023 8:32 AM EDT) Pathologist [facility] HIV 1 RNA, QN PCR NOT DETECTED copies/mL [facility], HIV 1 RNA, QN PCR NOT DETECTED Log copies/mL [facility], Comment: REFERENCE RANGE: NOT DETECTED copies/mL ?NOT DETECTED ??Log copies/mL This test was performed using Real-Time Polymerase Chain Reaction. Reportable range is 20 to 10,000,000 copies/mL (1.30-7.00 Log copies/mL). 04/12/2023 8:32 AM EDT 04/12/2023 8:32 AM EDT Narrative [facility] - 04/16/2023 3:00 PM EDT FASTING:YES FASTING: YES Musa Oviedo MD LAB BLOOD ORDERABL ES Final Result Performing Organization Address [facility] Co de Phone Number [facility] [address] [place] [address], [facility] [place] [phone] [facility], [phone] [place] [phone] * Hepatitis C Antibody with Reflex to HCV, RNA, Quantitative, Real-Time PCR (04/12/2023 8:32 AM EDT) Hepatitis C Antibody NON-REACT SARABJIT NON-REACT SARABJIT [facility] Index 0.15 <1.00 [facility] Comment: HCV antibody was non-reactive. There is no laboratory evidence of HCV infection. In most cases, no further action is required. However, if recent HCV exposure is suspected, a test for HCV RNA (test code 71865) is suggested. For additional information please refer to http://education.Plango.BizBrag/faq/ZRW03n7 (This link is being provided for informational/ educational purposes only.) Blood Venous blood specimen / Unknown 04/12/2023 8:32 AM EDT 04/12/2023 8:32 AM EDT Narrative [facility] - 04/16/2023 3:00 PM EDT FASTING:YES FASTING: YES Musa Oviedo MD LAB BLOOD ORDERABL ES Final Result Performing Organization Address [facility] Co de Phone Number [address], [place] [address] [facility] [address] [place] [phone] from Last 3 Months or Most Recently Relevant to Health Maintenance Insurance [place] [facility] MEDICAID STAND ADULT Care Teams Specimen Accessioner Relationship Specialty Start Date End Date Musa Borges, MD [address] [place] [phone] PCP - General Internal Medicine 04/02/20
--- OUTSIDE RECORDS SUMMARY | 2025-02-15 16:10 | XMS_ITS | Encounter Summary ---
Author Organization [employer] Address [address] [facility] 7 [place] [address] Care Team Providers Care Metal Hardener Name Role Phone Musa Borges MD Primary Care Prov ider Reason for Visit * Reason Comments Med Refill Encounter Details Date Type Department Care Team (Late st Contact Info) Description 11/14/2022 Refill [facility] [address] [place], [place] [phone] Musa Borges MD [address] [place] [phone] Current mild episode of major depressive disorder [...] Description 05/24/2025 8:00 AM EDT Office Visit [facility] [address] [place], [place] [phone] Elaina Che [address] [place], [place] [phone] documented as of this encounter Visit Diagnoses Diagnosis Current mild episode of major depressive disorder without prior episode (CMS/HCC)- Primary documented in this encounter Care Teams Metal Hardener Relationship Specialty Start Date End Date Musa Borges MD [address] [place] [phone] PCP - General Internal Medicine 04/02/20 documented as of this encounter
--- OUTSIDE RECORDS SUMMARY | 2025-02-15 16:10 | XMS_ITS | Encounter Summary ---
Author Organization [employer] Address [address] [facility] [address]t [place] [address] Care Team Providers Care Plate Put In Worker Name Role Phone Musa Borges MD Primary Care Prov ider Reason for Visit * Reason Onset Date Comments Med Refill 04/10/2024 Encounter Details Date Type Department Care Team ([facility] st Contact Info) Description 04/10/2024 Refill [facility] [address] [place], [place] [phone] Dyan Miller MD [address] [place] [address] Social History Tobacco Use Types Packs/Day Years [...] Description 05/24/2025 8:00 AM EDT Office Visit [facility] [address] [place], [place] [phone] Elaina Che [address] [place], [place] [phone] documented as of this encounter Visit Diagnoses Not on filedocumented in this encounter Additional Health Concerns Assessment Noted Time PHQ-9 Depression Total Score: 0 12/23/19 23 8:59 AM EST documented as of this encounter Care Teams Plate Put In Worker Relationship Specialty Start Date End Date Musa Borges MD [address] [place] [address] PCP - General Internal Medicine 04/02/20 documented as of this encounter
== END 2025-02-15 14:02 | disposition home or self-care (01) ==
LOC: HO.HGS 13:23
PROVIDERS: PCP Internal Medicine; Referring Provider Internal Medicine; Visit Provider Surgery
DX: N90.7 Vulvar cyst (principal)
CPT/HCPCS: 11422; 99213

== ENCOUNTER 2025-02-15 13:22 | Outpatient (REF) | payer MEDICAID, SELFPAY ==
--- OUTSIDE RECORDS SUMMARY | 2025-02-15 17:04 | XMS_ITS | Clinical Summary ---
Author Organization [employer] Address 75 [facility] 7t [place] [address] Care Team Providers Care Desktop Administrator Name Role Phone Musa Borges MD Primary Care Prov ider Allergies No known active allergies Medications * This document contains information received from the source organization and may not represent a complete record from that organization. Fluocinolone Acetonide Scalp ([place]-Smoothe/FS Scalp) 0.01 % oilIndications:Se borrheic dermatitis To [...] obgykirt, she [facility] Ear itching 07/18/2024 Assessment & Plan (07/18/2024 [...] EDT): Found on pap smear done by ob-integrated circuits inspector on 09/01 with bv, complains of itching, [...] Description 02/09/2025 11:15 AM EDT Office Visit [facility] [address] [place] [address] Mary Abreu, OD Regular astigmatism, bilateral (Primary Dx); Dry eyes, bilateral 02/09/2025 Travel 02/06/2025 8:30 AM EDT Office Visit [facility] [address] [place] [address] Peewee Juarez DMD 02/06/2025 Travel 01/31/2025 6:20 PM EDT Office Visit [facility] [address] [place] [address] Joyce Kwong MD Dermoid cyst (Primary Dx) 01/23/2025 8:30 AM EDT Office Visit [address] [address] Peewee Juarez DMD 01/22/2025 Travel 01/19/2025 Population Health Risk Score Community [facility] () [address] [phone] Provider, Population Health Generic 01/18/2025 Telephone [facility] [address] [place] [address] Musa Borges MD Referral 01/16/2025 9:00 AM EDT Telemedicine [facility] [address] [place] [address] Musa Borges MD 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); Right lateral epicondylitis; Screening for colon cancer; Major depressive disorder with single episode, remission status unspecified 01/16/2025 Travel 01/15/2025 Telephone [facility] [address] [place] [address] Musa Borges MD chart prep 01/09/2025 11:00 AM EST Office Visit [facility] [address] [place] [address] Peewee Juarez DMD 01/08/2025 Travel 12/27/2024 9:00 AM EST Office Visit [facility] [address] [place] [address] Lily Stokes MD Influenza A 12/15/2024 Refill [facility] [address] [place] [address] Musa Borges MD Right lateral epicondylitis 12/07/2024 Orders Only [facility] [address] [place], [place] [phone] Musa Borges MD 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); Right lateral epicondylitis 12/06/2024 Telephone [facility] [address] [place], [place] [phone] Musa Borges MD 12/06/2024 Telephone [facility] [address] [place], [place] [phone] Musa Borges MD Nurse Triage 11/22/2024 8:00 AM EST Office Visit [facility] [address] [place], [place] [phone] Elaina Che 11/21/2024 Travel from Last 3 [...] Description 05/24/2025 8:00 AM EDT Office Visit [facility] [address] [place] [address] Elaina Che [address] [place] [address] Health Maintenance Due Date Last Done Comments [...] AM EST) Influenza B Negative Negative, Indeterminate [facility] Swab 12/27/2024 9:08 AM EST Lily Stokes MD POINT OF CARE TEST ENTER/EDIT OR DERABLES Final Result Performing Organization Address [facility]/ZIP Co de Phone Number [facility] [address] [place] [phone] * (ABNORMAL) POCT Rapid Influenza A JONES ID NOW (12/27/2024 9:08 AM EST) Influenza A Positive( A) Negative, Indeterminate [facility] Swab 12/27/2024 9:08 AM EST Lily Stokes MD POINT OF CARE TEST ENTER/EDIT OR DERABLES Final Result Performing Organization Address [facility]/ZIP Co de Phone Number [facility] [address] [place] [phone] * Referral to Orthopaedic Surgery (12/05/2024) Musa Oviedo MD OUTPATIENT REFERRA L ORDERABLES Final Result * BI Mammogram Screening Tomosynthesis Bilateral (01/07/2024 8:41 AM EST) Anatomical Region Laterality Modality Breast Bilateral Mammography 01/07/2024 8:41 AM EST Narrative 01/24/2024 4:00 AM EDT ? [facility] ? [address] ?[place] [address] ? Mammography Report ? Signed ? Patient: Aragon,Shira ?MR#: [id number] ?? 14 ? : 1980 ?Acct:[id number] ? Age/Sex: 43 / F ?ADM Date: 01/07/24 ? Loc: HO.MAMMO ? Attending Dr: Musa Oviedo MD ? Ordering Physician: Musa Borges MD ?Res ?? ults: 1Negative ? Date of Service: 01/07/24 ?Follow Up: 1 Year From Orig ?? inal Mammogram ? Procedure(s): MM tomosynthesis screening BI ?? Accession Number(s): [id number] ? cc: Musa Borges MD ? EXAMINATION: [...] 0356 ? DD/ 0841 ? TD/TT: ? Fsr: ? Procedure Note Donnayater, Image - 01/24/2024 [facility] [address] [place] [address] Mammography Report Signed Patient: Kenia Aragon#: [id number] 14 : 1980Acct:[id number] Age/Sex: 43 / FADM Date: 01/07/24 Loc: HO.MAMMO Attending Dr: Musa Oviedo MD Ordering Physician: Musa Borges ults: 1Negative Date of Service: 01/07/24Follow Up: 1 Year From Orig inal Mammogram Procedure(s): MM tomosynthesis screening BI Accession Number(s): [id number] cc: Musa Borges MD EXAMINATION: MM SCREENING [...] in OV> 01/24/24 0356 DD/ 0841 TD/TT: Fsr: [facility] Lexx Oviedo MD IM BI PROCEDURES Final Result * HPV mRNA E6/E7 w/Reflex to HPV Genotypes 16, 18/45 (09/01/2023 12:12 PM EDT) HPV nRNA E6/E7 Not Detected Not Detected [facility] Comment:Methodology: Transcr iption-Mediated AmplificationThis assay detects E6/E7 viral messenger RNA (mRNA) from 14high-risk HPV types (16,18,31,33,35,39,45,51,52,56,58,59,66,68).Cervical sources are required for HPV testing.If a vaginal source from a patient who has had atotal hysterectomy with removal of cervix wassubmitted, please contact the testing laboratoryfor alternative testing options.For additional information, please refer tohttp://education.RTF Logic/faq/CEN625x3(This link if provided for information/educational purposes only.)THIS TEST WAS PERFORMED AT:[facility] [place] [phone] WOODY MD HPV mRNA E6/E7 [facility] HPV 16 RNA [facility] HPV 18/45 RNA [facility] 09/01/2023 12:1 2 PM EDT 09/02/2023 7:00 AM EDT [facility] External Provider LAB CYT OLOGY ORDERABLES Final Result [facility] [address] [place] [address] [phone] * Pap Smear (09/01/2023 12:12 PM EDT) 09/01/2023 12:1 2 PM EDT 09/02/2023 7:00 AM EDT Narrative [facility] - 09/07/2023 2:16 PM EDT ----- ------- Name: Shira Aragon ? Age/Sex: 43/F ? : 1980 Unit#: [id number] ?? Attend Dr: Karen Holbrook CNM ?Re09/01/23 ?Status: DEP REF ? Location: HO.LNP ?Disch: ? ----- ------- SPEC : [id number] ?RECD: 09/02/23 ? STATUS: ??SOUT ? REQ NUM: [id number] ? HERMILO: 09/01/23 ? SUBM DR: Karen [...] 66, 68) ?? HPV testing performed by [facility], [place], [place]. ??See reference laboratory ?? pion of the EMR for entire report. ?Clinical Information LMP: 07/21/23 Previous PAP test: Unknown date/findings Other history: Abnormal uterine and vaginal bleeding, unspecified. ? Material Received ?? ThinPrep-Cervical Copies To: ?? Musa Borges MD ?? [address] ?? [place] [address] ?? [phone] ?? Karen Holbrook CNM ?? [address] [facility] [address] [facility] ?? [place] [address] ?? [phone] ----- ------- Signed (signature on file) Claudia David MD 09/07/23 0986 ? ----- ------- ? END OF REPORT ? [facility] External Provider LAB CYT [facility] ORDERABLES Final Result [facility] [address] [facility] [place] [phone] * HIV-1 RNA, Quantitative, Real-Time PCR with Reflex to Genotype (RTI, PI, Integrase) (04/12/2023 8:32 AM EDT) Pathologist [facility] HIV 1 RNA, QN PCR NOT DETECTED copies/mL [facility], HIV 1 RNA, QN PCR NOT DETECTED Log copies/mL [facility], Comment: REFERENCE RANGE: NOT DETECTED copies/mL ?NOT DETECTED ??Log copies/mL This test was performed using Real-Time Polymerase Chain Reaction. Reportable range is 20 to 10,000,000 copies/mL (1.30-7.00 Log copies/mL). 04/12/2023 8:32 AM EDT 04/12/2023 8:32 AM EDT Narrative [facility] - 04/16/2023 3:00 PM EDT FASTING:YES FASTING: YES Musa Oviedo MD LAB BLOOD ORDERABL ES Final Result Performing Organization Address [facility] Co de Phone Number [facility] [address] [place] [address], [facility] [place] [address] [facility], [address] [place] [phone] * Hepatitis C Antibody with Reflex to HCV, RNA, Quantitative, Real-Time PCR (04/12/2023 8:32 AM EDT) Hepatitis C Antibody NON-REACT SARABJIT NON-REACT SARABJIT [facility] Index 0.15 <1.00 [facility] Comment: HCV antibody was non-reactive. There is no laboratory evidence of HCV infection. In most cases, no further action is required. However, if recent HCV exposure is suspected, a test for HCV RNA (test code 45083) is suggested. For additional information please refer to http://education.gdgt.Localler/faq/JGS72a6 (This link is being provided for informational/ educational purposes only.) Blood Venous blood specimen / Unknown 04/12/2023 8:32 AM EDT 04/12/2023 8:32 AM EDT Narrative [facility] - 04/16/2023 3:00 PM EDT FASTING:YES FASTING: YES Musa Oviedo MD LAB BLOOD ORDERABL ES Final Result Performing Organization Address [facility] Co de Phone Number [address], [place] [address] [facility] [address] [place] [address] from Last 3 Months or Most Recently Relevant to Health Maintenance Insurance [place] [facility] MEDICAID STAND ADULT Care Teams Desktop Administrator Relationship Specialty Start Date End Date Musa Borges, MD [address] [place] [phone] PCP - General Internal Medicine 04/02/20
--- OUTSIDE RECORDS SUMMARY | 2025-02-15 17:04 | XMS_ITS | Encounter Summary ---
Author Organization [employer] Address 75 [facility] 7t [place] [address] Care Team Providers Care Coin Machine Supervisor Name Role Phone Musa Borges MD Primary Care Prov ider Reason for Visit * Reason Onset Date Comments Medication Question 10/08/2023 Encounter Details Date Type Department Care Team ([facility] st Contact Info) Description 10/08/2023 Telephone [facility] [address] [place] [address] Musa Borges MD [address] [place] [address] Medication Question Social History Tobacco Use Types [...] t he electric, gas, oil or water [employer] threatened to shut off services in your [...] to prescribe medication for neck pain however business writer does not see anything on file please clarify. documented in this encounter Plan of Treatment Upcoming Encounters Date Type Department Care Team (Late st Contact Info) Description 05/24/2025 8:00 AM EDT Office Visit [facility] [address] [place], [place] [phone] Elaina Che [address] [place], [place] [phone] documented as of this encounter Visit Diagnoses Not on filedocumented in this encounter Additional Health Concerns Assessment Noted Time PHQ-9 Depression Total Score: 0 12/23/19 23 8:59 AM EST documented as of this encounter Care Teams Coin Machine Supervisor Relationship Specialty Start Date End Date Musa Borges MD [address] [place] [address] PCP - General Internal Medicine 04/02/20 documented as of this encounter
--- OUTSIDE RECORDS SUMMARY | 2025-02-15 17:04 | XMS_ITS | Encounter Summary ---
Author Organization [employer] Address 75 [facility] 7t [place] [address] Care Team Providers Care Intelligence Clerk Name Role Phone Musa Borges MD Primary Care Prov ider Reason for Visit * Reason Onset Date Comments Med Refill 04/10/2024 Encounter Details Date Type Department Care Team ([facility] st Contact Info) Description 04/10/2024 Refill [facility] [address] [place], [place] [phone] Dyan Miller MD [address] [place] [address] Social History Tobacco Use Types Packs/Day Years [...] Description 05/24/2025 8:00 AM EDT Office Visit [facility] [address] [place], [place] [phone] Elaina Che [address] [place], [place] [phone] documented as of this encounter Visit Diagnoses Not on filedocumented in this encounter Additional Health Concerns Assessment Noted Time PHQ-9 Depression Total Score: 0 12/23/19 23 8:59 AM EST documented as of this encounter Care Teams Intelligence Clerk Relationship Specialty Start Date End Date Musa Borges MD [address] [place] [address] PCP - General Internal Medicine 04/02/20 documented as of this encounter
--- OUTSIDE RECORDS SUMMARY | 2025-02-15 17:04 | XMS_ITS | Encounter Summary ---
Author Organization [employer] Address 75 [facility] 7t [place] [address] Care Team Providers Care Burring Wheel Operator Name Role Phone Musa Borges MD Primary Care Prov ider Encounter Details Date Type Department Care Team ([facility] st Contact Info) Description 12/06/2024 Telephone [facility] [address] [place], [place] [phone] Musa Borges MD [address] [place] [address] Social History Tobacco Use Types Packs/Day Years [...] Description 05/24/2025 8:00 AM EDT Office Visit [facility] [address] [place], [place] [phone] Elaina Che [address] [place], [place] [phone] documented as of this encounter Visit Diagnoses Not on filedocumented in this encounter Additional Health Concerns Assessment Noted Time PHQ-9 Depression Total Score: 4 08/24/20 24 1:09 PM EDT documented as of this encounter Care Teams Burring Wheel Operator Relationship Specialty Start Date End Date Musa Borges MD [address] [place] [phone] PCP - General Internal Medicine 04/02/20 documented as of this encounter
--- OUTSIDE RECORDS SUMMARY | 2025-02-15 17:04 | XMS_ITS | Encounter Summary ---
Author Organization [employer] Address 75 [facility] 7 [place] [address] Care Team Providers Care Outsole Cutter Machine Name Role Phone Musa Borges MD Primary Care Prov ider Reason for Visit * Reason Comments Med Refill Encounter Details Date Type Department Care Team (Late st Contact Info) Description 11/14/2022 Refill [facility] [address] [place], [place] [phone] Musa Borges MD [address] [place] [phone] Current mild episode of major depressive disorder [...] 8:00 AM EDT Office Visit [facility] [address] [place], [place] [phone] Elaina Che [address] [place], [place] [phone] documented as of this encounter Visit Diagnoses Diagnosis Current mild episode of major depressive disorder without prior episode (CMS/HCC)- Primary documented in this encounter Care Teams Outsole Cutter Machine Relationship Specialty Start Date End Date Musa Borges MD [address] [place] [phone] PCP - General Internal Medicine 04/02/20 documented as of this encounter
--- OUTSIDE RECORDS SUMMARY | 2025-02-15 17:04 | XMS_ITS | Encounter Summary ---
Author Organization [employer] Address 75 [facility] 7t [place] [address] Care Team Providers Care Hoisting Engineer Pile Driving Name Role Phone Musa Borges MD Primary Care Prov ider Reason for Visit * Reason Onset Date Comments Nurse Triage 02/23/2024 Encounter Details Date Type Department Care Team ([facility] st Contact Info) Description 02/23/2024 Telephone [facility] [address] [place], [place] [phone] Musa Borges MD [address] [place] [address] Nurse Triage Social History Tobacco Use Types [...] 02/23/2024 10:22 AM EDT Triage call with [employer] C[employer] [place] [id number] Pt reports skin lump in area between right upper thigh and vulva. Pt reports this started 2 months ago. Pt popped it the first time just using hand. Pt reports it has returned, reddened , painful. Pt is given home care advice and agrees. Pt is advised to come to [facility] if unable to find relief with home care advised. Pt agrees with this plan and disposition. Hours of [facility] given, open till 8pm today , tomorrow [...] accepted this outcome Please contact pt at [phone] (Filipino) documented in this encounter Plan of Treatment Upcoming Encounters Date Type Department Care Team (Late st Contact Info) Description 05/24/2025 8:00 AM EDT Office Visit [facility] [address] [place] [address] Elaina Che [address] [place] [address] documented as of this encounter Visit Diagnoses Not on filedocumented in this encounter Additional Health Concerns Assessment Noted Time PHQ-9 Depression Total Score: 0 12/23/19 23 8:59 AM EST documented as of this encounter Care Teams Hoisting Engineer Pile Driving Relationship Specialty Start Date End Date Musa Borges MD [address] [place] [address] PCP - General Internal Medicine 04/02/20 documented as of this encounter
--- OUTSIDE RECORDS SUMMARY | 2025-02-15 17:04 | XMS_ITS | Encounter Summary ---
Author Organization [employer] Address [address] [facility] [address] 7t [place] [address] Care Team Providers Care Greens Cutter Name Role Phone Musa Borges MD Primary Care Prov ider Encounter Details Date Type Department Care Team (Late st Contact Info) Description 12/01/2023 Orders Only [facility] [address] [place], [place] [phone] Musa Borges MD [address] [place] [address] Social History Tobacco Use Types Packs/Day Years [...] Description 05/24/2025 8:00 AM EDT Office Visit [facility] [address] [place], [place] [phone] Elaina Che 91 [place], [place] [phone] documented as of this encounter Visit Diagnoses Not on filedocumented in this encounter Additional Health Concerns Assessment Noted Time PHQ-9 Depression Total Score: 0 12/23/19 23 8:59 AM EST documented as of this encounter Care Teams Greens Cutter Relationship Specialty Start Date End Date Musa Borges MD [address] [place] [address] PCP - General Internal Medicine 04/02/20 documented as of this encounter
--- OUTSIDE RECORDS SUMMARY | 2025-02-15 17:05 | XMS_ITS | Encounter Summary ---
Author Organization [employer] [facility] Address 75 [facility] 7 [place] [address] Care Team Providers Care Tape Recording Machine Operator Name Role Phone Musa Borges MD Primary Care Prov ider Encounter Details Date Type Department Care Team (Latest Contact Info) Description 08/04/[address] [facility] Dental, Provider, DDS Social History [...] Description 05/24/2025 8:00 AM EDT Office Visit [facility] [address] [place], [place] [phone] Elaina Che 91 [place], [place] [phone] documented as of this encounter Visit Diagnoses Not on filedocumented in this encounter Care Teams Tape Recording Machine Operator Relationship Specialty Start Date End Date Musa Borges MD [address] [place] [address] PCP - General Internal Medicine 04/02/20 documented as of this encounter
--- OUTSIDE RECORDS SUMMARY | 2025-02-15 17:05 | XMS_ITS | Encounter Summary ---
Author Organization [employer] [facility] Address [address] [facility] 7t [place] [address] Care Team Providers Care Spot Man Name Role Phone Musa Borges MD Primary Care Prov ider Encounter Details Date Type Department Care Team (Late st Contact Info) Description 10/13/2022 Telephone [facility] [address] [place] [address] Dental, Provider, DDS Social History Tobacco Use [...] Description 05/24/2025 8:00 AM EDT Office Visit [facility] [address] [place] [address] Elaina Che [address] [place] [address] documented as of this encounter Visit Diagnoses Not on filedocumented in this encounter Care Teams Spot Man Relationship Specialty Start Date End Date Musa Borges MD [address] [place] [address] PCP - General Internal Medicine 04/02/20 documented as of this encounter
== END 2025-02-15 13:23 | disposition home or self-care (01) ==
LOC: HO.LAB 13:22
PROVIDERS: PCP Internal Medicine; Referring Provider Internal Medicine; Visit Provider Surgery
DX: N90.7 Vulvar cyst (principal); D36.9 Benign neoplasm, unspecified site
CPT/HCPCS: 11422; 88304; 88305; 99212

== ENCOUNTER 2025-02-22 15:41 | Outpatient (AMB) | payer MEDICAID, SELFPAY ==
--- NOTE | 2025-02-22 15:43 | A.OFFVIS_ITS ---
Vital Signs 02/22/25 15:51 Height 5 ft 3 in Weight 184 lb 1.376 oz BMI 32.6 BP 120/70 Blood Pressure Location Lt brachial Position Sitting Intake Visit Reasons: post dermoid cyst Intake Note: Patient is seen in office for follow up visit, post excision of cyst. Pt c/o:admits to some minimal discharge in the area, denies any other concerns Section Leader Screen Printing Required: Yes Section Leader Screen Printing Language: [employer] Entertainer Services: Section Leader Screen Printing Present Section Leader Screen Printing Name: Mary DRAKE Information Interpreted: non-clinical & clinical Finance Business Partner: Finance Business Partner Present Accompanied by: Self / Same As Patient Allergies No Known Allergies Allergy (Verified 02/15/25 13:24) HPI Comments Details: 44-year-old female patient with a right labial cyst, status post excision 1 week ago returning today for wound check and suture removal. She denies any problems after the surgery but does have some soreness from the sutures. [facility] Medical History Recurrent UTI Chronic back pain Surgical History Hx of tubal ligation Family History Maternal Grandfather Throat cancer Social History Alcohol intake: never Patient Tobacco Use Status: Never used Tobacco Physical Exam Vital Signs: Last Vital Signs BP 120/70 02/22/25 15:51 BMI result Body Mass Index 32.6 Const General: comfortable Nutritional Appearance: well nourished Orientation/consciousness: patient oriented x3 Limitations: no limitations Resp Effort & Inspection: normal respiratory effort Other: Right labial incision is clean, dry, and intact. Three sutures removed and the wounds found to be well healed. Neuro General: patient oriented x3 Extrem Other: No edema Assessment & Plan Assessment & Plan (1) Epidermoid cyst of labia majora: Code(s): N90.7 - Vulvar cyst Category: Medical Plan Patient returns 1 week following excision of a right labial cyst. She tolerated the procedure well and her wounds are healing nicely. She should follow up as needed. Coding Level of Care Code Global (73610) Diagnoses Epidermoid cyst of labia majora N90.7
[2025-02-22 15:51] VITALS: BP 120/70; BMI 32.6
--- OUTSIDE RECORDS SUMMARY | 2025-02-22 18:09 | XMS_ITS | Encounter Summary ---
Author Organization [employer] Address [address] [facility] 7t [place] [address] Care Team Providers Care Hydraulic Jack Adjuster Name Role Phone Musa Borges MD Primary Care Prov ider Encounter Details Date Type Department Care Team ([facility] st Contact Info) Description 02/10/2025 Orders Only [facility] CHC MED & PEDS [address] [place], [place] [phone] Musa Borges MD [address] [place] [address] Social History Tobacco Use Types Packs/Day Years [...] Description 05/24/2025 8:00 AM EDT Office Visit [facility] ADULT DENTAL [address] [facility] [place] [address] Elaina Che [address] [place] [address] [phone] documented as of this encounter Procedures Procedure Name Priority Date/Time Associated Diagnosis Comments BI MAMMOGRAM SCREENING TOMOSYNTHESIS BILATERAL Routine 02/10/2025 10:01 AM EDT documented in this encounter Results * BI Mammogram Screening Tomosynthesis Bilateral (02/10/2025 10:01 AM EDT) Anatomical Region Laterality Modality Breast Bilateral Mammography 02/10/2025 10:0 1 AM EDT Narrative 02/17/2025 7:16 PM EDT ? [facility]'s [place] ? [address] ?[place] [address] ?[phone] ? Mammography Report ? Signed ? Patient: Aragon,Shira ?MR#: [id number] ?? 14 ? : 1980 ?Acct:[id number] ? Age/Sex: 44 / F ?ADM Date: 04/05/25 ? Loc: HO.MAMMO ? Attending Dr: Musa Oviedo MD ? Ordering Physician: Musa Borges MD ?Res ?? ults: 1Negative ? Date of Service: 02/10/25 ?Follow Up: 1 Year From Orig ?? inal Mammogram ? Procedure(s): MM tomosynthesis screening BI ?? Accession Number(s): [id number] ? cc: Musa Borges MD ? EXAMINATION: ?? MM SCREENING DIGITAL BREAST TOMOSYNTHESIS, BILATERAL ? CLINICAL INFORMATION: ? Screening. Asymptomatic. ? COMPARISON: ?? Mammography: Comparison is made with available priors ? TECHNIQUE: ?? Digital breast mammography with tomosynthesis is performed in both the ?? craniocaudal and mediolateral oblique views along with computer-aided ?? detection (CAD). ? FINDINGS: ?? The breasts are heterogeneously [...] due date for their next mammogram. ? Electronically signed by: ??Irais Hodge DO ??02/17/2025 07:13 PM EDT ?? RP ? Dictated By: ?Irais Hodge DO ? Signed By: ?<Electronically signed by Irais Hodge, DO in OV> ? 02/17/25 1913 ? DD/ 1001 ? TD/TT: 02/10/25 1015 ? Dynamics Ax Solution Architect: ? Procedure Note Donotuseinterpreter, Image - 02/17/2025 [place] [facility]'s [address] [place] [address] Mammography Report Signed Patient: Shira AragonMR#: [id number] 14 : 1980Acct:[id number] Age/Sex: 44 / FADM Date: 02/10/25 Loc: HO.MAMMO Attending Dr: Musa Oviedo MD Ordering Physician: Musa Borges ults: 1Negative Date of Service: 02/10/25Follow Up: 1 Year From Orig ina Mammogram Procedure(s): MM tomosynthesis screening BI Accession Number(s): [id number] cc: Musa Borges MD EXAMINATION: MM SCREENING DIGITAL BREAST TOMOSYNTHESIS, BILATERAL CLINICAL INFORMATION: Screening. Asymptomatic. COMPARISON: Mammography: Comparison is made with available priors TECHNIQUE: Digital breast mammography with tomosynthesis is performed in both the craniocaudal and mediolateral oblique views along with computer-aided detection (CAD). FINDINGS: The breasts are heterogeneously dense, which [...] target due date for their next mammogram. Electronically signed by: Irais Hodge DO 02/17/2025 07:13 PM EDT Dictated By: Tyminski,Irais DO Signed By: <Electronically signed by Irais Hodge DO in OV> 02/17/25 1913 DD/ 1001 TD/TT: 02/10/25 1015 Dynamics Ax Solution Architect: us Musa Oviedo MD IMG BI PROCEDURES Final Result documented in this encounter Visit Diagnoses Not on filedocumented in this encounter Additional Health Concerns Assessment Noted Time PHQ-9 Depression Total Score: 4 08/24/20 24 1:09 PM EDT documented as of this encounter Care Teams Hydraulic Jack Adjuster Relationship Specialty Start Date End Date Musa Borges MD [address] [place] [phone] PCP - General Internal Medicine 04/02/20 documented as of this encounter
--- OUTSIDE RECORDS SUMMARY | 2025-02-22 18:09 | XMS_ITS | Encounter Summary ---
Author Organization [employer] Address [address] [facility] [address] 7t [place] [address] Care Team Providers Care Gravity Prospecting Observer Name Role Phone Musa Borges MD Primary Care Prov ider Encounter Details Date Type Department Care Team (Late st Contact Info) Description 12/01/2023 Orders Only [facility] CHC MED & PEDS [address] [place], [place] [phone] Musa Borges MD 505 [place] [address] Social History Tobacco Use Types Packs/Day Years [...] 8:00 AM EDT Office Visit [facility] ADULT DENTAL [address] [place] [address] Elaina Che [address] [place] [address] [phone] documented as of this encounter Visit Diagnoses Not on filedocumented in this encounter Additional Health Concerns Assessment Noted Time PHQ-9 Depression Total Score: 0 12/23/19 23 8:59 AM EST documented as of this encounter Care Teams Gravity Prospecting Observer Relationship Specialty Start Date End Date Musa Borges MD [address] [place] [phone] PCP - General Internal Medicine 04/02/20 documented as of this encounter
--- OUTSIDE RECORDS SUMMARY | 2025-02-22 18:09 | XMS_ITS | Encounter Summary ---
Author Organization [employer] Address [address] [facility] 7t [place] [address] Care Team Providers Care Programmer Analyst Health It Name Role Phone Musa Borges MD Primary Care Prov ider Reason for Visit * Reason Onset Date Comments Medication Question 10/08/2023 Encounter Details Date Type Department Care Team ([facility] st Contact Info) Description 10/08/2023 Telephone [facility] [address] [place] [address] Musa Borges MD [address] [place] [phone] Medication Question Social History Tobacco Use Types [...] t he electric, gas, oil or water [employer] threatened to shut off services in your [...] to prescribe medication for neck pain however fiction and nonfiction writer prose does not see anything on file please clarify. documented in this encounter Plan of Treatment Upcoming Encounters Date Type Department Care Team (Late st Contact Info) Description 05/24/2025 8:00 AM EDT Office Visit [facility] ADULT DENTAL [address] [place] [address] Elaina Che [address] [place], [place] [phone] documented as of this encounter Visit Diagnoses Not on filedocumented in this encounter Additional Health Concerns Assessment Noted Time PHQ-9 Depression Total Score: 0 12/23/19 23 8:59 AM EST documented as of this encounter Care Teams Programmer Analyst Health It Relationship Specialty Start Date End Date Musa Borges MD [address] [place] [phone] PCP - General Internal Medicine 04/02/20 documented as of this encounter
--- OUTSIDE RECORDS SUMMARY | 2025-02-22 18:09 | XMS_ITS | Clinical Summary ---
Author Organization [employer] Address [address] [facility] 7t [place] [address] Care Team Providers Care Sunday [employer] Missionary Name Role Phone Musa Borges MD Primary Care Prov ider Allergies No known active allergies Medications * This document contains information received from the source organization and may not represent a complete record from that organization. Fluocinolone Acetonide Scalp ([place]-Smoothe/FS Scalp) 0.01 % oilIndications:Se borrheic dermatitis To [...] obgykirt, she prefers to be seen at [facility] Ear itching 07/18/2024 Assessment & Plan [...] EDT): Found on pap smear done by ob-deburring and tooling machine operator on 09/01 with bv, complains of itching, [...] Encounters Date Type Department Care Team Description 02/15/2025 Orders Only GENERIC EXTERNAL DATA DEPARTMENT Provider, Generic External Data 02/10/2025 Orders Only [facility] MED [facility] PEDS [address] [place] [address] Musa Borges MD 02/09/2025 11:15 AM EDT Office Visit [facility] [address] [place] [address] Mary Abreu, OD Regular astigmatism, bilateral (Primary Dx); Dry eyes, bilateral 02/09/2025 Travel 02/06/2025 8:30 AM EDT Office Visit [facility] DENTAL [address] [place] [address] Peewee Juarez DMD 02/06/2025 Travel 01/31/2025 6:20 PM EDT Office Visit [facility] [address] [place] [address] Joyce Kwong MD Dermoid cyst (Primary Dx) 01/23/2025 8:30 AM EDT Office Visit [facility] DENTAL [address] [place] [phone] Peewee Juarez DMD 01/22/2025 Travel 01/19/2025 Population Health Risk Score [facility] Department [address] [place] [phone] Provider, Population Health Generic 01/18/2025 Telephone [facility] MED & PEDS [address] [place] [address] Musa Borges MD Referral 01/16/2025 9:00 AM EDT Telemedicine [facility] MED & PEDS [address] [place] [address] Musa Borges MD 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); Right lateral epicondylitis; Screening for colon cancer; Major depressive disorder with single episode, remission status unspecified 01/16/2025 Travel 01/15/2025 Telephone [facility] MED & PEDS [address] [place] [address] Musa Borges MD chart prep 01/09/2025 11:00 AM EST Office Visit [facility] DENTAL [address] [place] [address] Peewee Juarez DMD 01/08/2025 Travel 12/27/2024 9:00 AM EST Office Visit [facility] [address] [place] [address] Lily Stokes MD Influenza A 12/15/2024 Refill [facility] [address] [place] [address] Musa Borges MD Right lateral epicondylitis 12/07/2024 Orders Only [facility] MED & PEDS [address] [place] [address] Musa Borges MD 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 I have alex sing 04/05/[address] you li [...] Description 05/24/2025 8:00 AM EDT Office Visit [facility] ADULT DENTAL [address] [place] [address] Elaina Che [address] [place] [phone] Health Maintenance Due Date Last Done Comments [...] 04/06/2024, 03/08/2023 Depression Screening 08/24/2025 08/24/2024, 08/24/20 Tobacco Screening 02/09/2026 02/09/2025 Pap Smear 09/01/2026 09/01/2023, 08/14/2021 Mammogram 02/10/2027 02/10/2025, 03/0 11/2023, 01/01/2023, Additional history exists DTaP/Tdap/Td Vaccines (2 - Td or Tdap) [...] Procedure Name Priority Date/Time Associated Diagnosis Comments GROSS AND MICROSCOPIC LEVEL 3 Routine 02/15/2025 1:30 PM EDT BI MAMMOGRAM SCREENING TOMOSYNTHESIS BILATERAL Routine 02/10/2025 10:01 AM EDT CASE PRESENTATION, DETAILED AND EXTENSIVE [...] midline low back pain with right-sided sciatica PROPHYLAXIS - ADULT Routine 11/22/2024 8 :00 AM EST BITEWINGS - 4 RADIOGRAPHIC IMAGES Routine 04/06/2024 10:00 AM EDT PERIODIC ORAL EVALUATION - ESTABLISHED PATIENT Routine 04/06/2024 10:00 AM EDT HPV MRNA E6/E7 REFLEX TO HPV 16, [...] Recently Relevant to Health Maintenance Results * Gross and Microscopic Level 3 (02/15/2025 1:30 PM EDT) 02/15/2025 1:30 PM EDT 02/16/2025 8:17 AM EDT [facility] - 02/19/2025 11:07 AM EDT ----- ------- Name: Shira Aragon ? Age/Sex: 44/F ? : 1980 Unit#: [id number] ?? Attend Dr: Chuy Quesada MD ?Re02/15/25 ?Status: DEP REF ? Location: .LAB ?Disch: ? ----- ------- SPEC : [id number] ? RECD: 02/16/25 ? STATUS: ??SOUT ? REQ NUM: [id number] ? HERMILO: 02/15/25 ? SUBM DR: Chuy Quesada MD ? ENTERED: ??02/16/25 ?SP TYPE: Surgical ? OTHR DR: Musa Borges MD ORDERED: ??Gross Micro L3 ? Diagnosis ?? Skin, right inguinal cyst, excision: ??Benign skin with epidermal hyperplasia, ?? inflammation and abscess, granulation tissue, fibrosis, and foreign body giant cell ?? reaction to fragments of hair shaft. ?Clinical History Dermoid cyst of the right inguinal area ?Microscopic Description Microscopic sections reviewed. ? Material Received ?? Dermoid cyst of the right inguinal area ? Gross Description Received in formalin labeled ?dermoid cyst of the right inguinal area? is an unoriented ellipse of skin measuring 1.8 x 1.2 cm in greatest dimension which has been excised to a depth of 0.9 cm. ??The skin surface is meza and wrinkled. ??There is a raised, meza-white area on the skin surface measuring 0.7 x 0.5 cm in greatest dimension. ??The underside is white and unremarkable with yellow adipose tissue at the deep margin measuring 0.2-0.4 cm in thickness. ??The margins of excision are inked blue. ??The longitudinal poles are submitted for microscopic examination, 2 pieces in cassette A1. ??The remainder of the specimen is serially sectioned across the short axis revealing a white cut surface with a cavity measuring 0.7 cm in diameter that is filled with firm yellow meza material. ??The specimen is entirely submitted for microscopic examination, 4 pieces in cassette A2 and 3 pieces in cassette A3. ??([facility]) Copies To: ?? Musa Borges MD ?? [facility] ?? [address] [place] [address] ?? [place] [address] ?? [phone] ?? Chuy Quesada MD ?? [facility] ?? [address] [place] [address] ??[address] ?? [place] [address] ?? [phone] ? CONTINUED ON NEXT PAGE ----- ------- Name: Shira Aragon ? Age/Sex: 44/F ? : 1980 Unit#: [id number] ?? Attend Dr: Chuy Quesada MD ?Re02/15/25 ?Status: DEP REF ? Location: .LAB ?Disch: ? ----- ------- SPEC : [id number] ? RECD: 02/16/25 ? STATUS: ??SOUT ? REQ NUM: [id number] ? HERMILO: 02/15/25-1329 ? SUBM DR: Chuy Quesada MD ? ENTERED: ??02/16/25 ?SP TYPE: Surgical ? OTHR : Musa Borges MD ORDERED: ??Gross Micro L3 ? ----- ------- Signed (signature on file) Brandy Soto 02/19/25 8688 ? ----- ------- ? END OF REPORT ? us Generic External Data Provider LAB CYTOLOGY BALTAE DOMINIQUE Final Result [facility] [address] [place] [address] [phone] * BI Mammogram Screening Tomosynthesis Bilateral (02/10/2025 10:01 AM EDT) Anatomical Region Laterality Modality Breast Bilateral Mammography 02/10/2025 10:0 1 AM EDT Narrative 02/17/2025 7:16 PM EDT ? [facility]'s [place] ? [address] ?[place] [address] ?[phone] ? Mammography Report ? Signed ? Patient: Shira Aragon ?MR#: [id number] ?? 14 ? : 1980 ?Acct:[id number] ? Age/Sex: 44 / F ?ADM Date: 04/05/25 ? Loc: HO.MAMMO ? Attending Dr: Musa Oviedo MD ? Ordering Physician: Musa Borges MD ?Res ?? ults: 1Negative ? Date of Service: 02/10/25 ?Follow Up: 1 Year From Orig ?? inal Mammogram ? Procedure(s): MM tomosynthesis screening BI ?? Accession Number(s): [id number] ? cc: Musa Borges MD ? EXAMINATION: [...] by Irais Hodge, DO in OV> ? 02/17/253 ? DD/ 1001 ? TD/TT: 02/10/25 1015 ? Nutrition Internship: ? Procedure Note Josué, Image - 02/17/2025 [place] [facility]'s [address] [place] [address] Mammography Report Signed Patient: Shira Aragon#: [id number] 14 : 1980Acct:[id number] Age/Sex: 44 / FADM Date: 02/10/25 Loc: HO.MAMMO Attending Dr: Musa Oviedo MD Ordering Physician: Musa Borges ults: 1Negative Date of Service: 02/10/25Follow Up: 1 Year From Orig ina Mammogram Procedure(s): MM tomosynthesis screening BI Accession Number(s): [id number] cc: Musa Borges MD EXAMINATION: MM SCREENING [...] DO 02/17/2025 07:13 PM EDT Dictated By: Irais Hodge DO Signed By: <Electronically signed by Irais Hodge DO in OV> 02/17/25 1913 DD/ 1001 TD/TT: 02/10/25 1015 Nutrition Internship: Musa Oviedo MD IMG BI PROCEDURES Final Result * POCT Rapid Influenza B JONES ID NOW (12/27/2024 9:08 AM EST) Influenza B Negative Negative, Indeterminate [facility] Swab 12/27/2024 9:08 AM EST Lily Stokes MD POINT OF CARE TEST ENTER/EDIT OR DERABLES Final Result Performing Organization Address City/[facility]/ZIP Co de Phone Number [facility] [address] [place] [address] [phone] * (ABNORMAL) POCT Rapid Influenza A JONES ID NOW (12/27/2024 9:08 AM EST) Influenza A Positive( A) Negative, Indeterminate [facility] Swab 12/27/2024 9:08 AM EST Lily Stokes MD POINT OF CARE TEST ENTER/EDIT OR DERABLES Final Result Performing Organization Address [facility] Co de Phone Number [facility] [address] [place] [address] [phone] * Referral to Orthopaedic Surgery (12/05/2024) Musa Oviedo MD OUTPATIENT REFERRA L ORDERABLES Final Result * HPV mRNA E6/E7 w/Reflex to HPV Genotypes 16, 18/45 (09/01/2023 12:12 PM EDT) HPV nRNA E6/E7 Not Detected Not Detected [facility] Comment:Methodology: Transcr iption-Mediated AmplificationThis assay detects E6/E7 viral messenger RNA (mRNA) from 14high-risk HPV types (16,18,31,33,35,39,45,51,52,56,58,59,66,68).Cervical sources are required for HPV testing.If a vaginal source from a patient who has had atotal hysterectomy with removal of cervix wassubmitted, please contact the testing laboratoryfor alternative testing options.For additional information, please refer tohttp://education.[employer] Learn/faq/AWS648x7(This link if provided for information/educational purposes only.)THIS TEST WAS PERFORMED AT:[facility] [address] [phone] WOODY MD HPV mRNA E6/E7 TNP [facility] HPV 16 RNA TNP [facility] HPV 18/45 RNA TNP [facility] 09/01/2023 12:1 2 PM EDT 09/02/2023 7:00 AM EDT us [facility] External Provider LAB CYT OLOGY ORDERABLES Final Result [facility] [address] [place] [address] [phone] * Pap Smear (09/01/2023 12:12 PM EDT) 09/01/2023 12:1 2 PM EDT 09/02/2023 7:00 AM EDT Narrative [facility] - 09/07/2023 2:16 PM EDT ----- ------- Name: Shira Aragon ? Age/Sex: 43/F ? : 1980 Unit#: [id number] ?? Attend Dr: Karen Holbrook CNM ?Re09/01/23 ?Status: DEP REF ? Location: HO.LNP ?Disch: ? ----- ------- SPEC : [id number] ?RECD: 09/02/23 ? STATUS: ??SOUT ? REQ NUM: [id number] ? HERMILO: 09/01/23 ? SUBM DR: Karen [...] 66, 68) ?? HPV testing performed by [facility], [place], [place]. ??See reference laboratory ?? pion of the EMR for entire report. ?Clinical Information LMP: 07/21/23 Previous PAP test: Unknown date/findings Other history: Abnormal uterine and vaginal bleeding, unspecified. ? Material Received ?? ThinPrep-Cervical Copies To: ?? Musa Borges MD ?? [address] ?? [place] [address] ?? [phone] ?? [facility] ?? [address] [place] ?? [place] [address] ?? [phone] ----- ------- Signed (signature on file) Claudia David MD 09/07/23 1416 ? ----- ------- ? END OF REPORT ? us [facility] External Provider LAB [facility] ORDERABLES Final Result [facility] [address] [place] [address] [phone] * HIV-1 RNA, Quantitative, Real-Time PCR with Reflex to Genotype (RTI, PI, Integrase) (04/12/2023 8:32 AM EDT) HIV 1 RNA, QN PCR NOT DETECTED copies/mL [facility]/Kirt pérez [facility], HIV 1 RNA, QN PCR NOT DETECTED Log copies/mL [facility], Comment: REFERENCE RANGE: NOT DETECTED copies/mL ?NOT DETECTED ??Log copies/mL This test was performed using Real-Time Polymerase Chain Reaction. Reportable range is 20 to 10,000,000 copies/mL (1.30-7.00 Log copies/mL). 04/12/2023 8:32 AM EDT 04/12/2023 8:32 AM EDT Narrative [facility] - 04/16/2023 3:00 PM EDT FASTING:YES FASTING: YES Musa Oviedo MD LAB BLOOD ORDERABL ES Final Result [facility] [address], [place] [address] [facility], [address] [place] [address] * Hepatitis C Antibody with Reflex to HCV, RNA, Quantitative, Real-Time PCR (04/12/2023 8:32 AM EDT) Hepatitis C Antibody NON-REACT SARABJIT NON-REACT SARABJIT [facility] Index 0.15 <1.00 [facility] Comment: HCV antibody was non-reactive. There is no laboratory evidence of HCV infection. In most cases, no further action is required. However, if recent HCV exposure is suspected, a test for HCV RNA (test code 84874) is suggested. For additional information please refer to http://education.[employer]/faq/PEX35r7 (This link is being provided for informational/ educational purposes only.) Blood Venous blood specimen / Unknown 04/12/2023 8:32 AM EDT 04/12/2023 8:32 AM EDT Narrative [facility] - 04/16/2023 3:00 PM EDT FASTING:YES FASTING: YES us Musa Oviedo MD LAB BLOOD ORDERABL ES Final Result [facility] [address] [facility], [place] [address] [facility] [address] [place] [address] from Last 3 Months or Most Recently Relevant to Health Maintenance Insurance [facility] C3 DENTAL-[facility] MEDICAID STAND ADULT Care Teams Sunday [employer] Missionary Relationship Specialty Start Date End Date Musa Borges MD [address] [place] [address] PCP - General Internal Medicine 04/02/20
--- OUTSIDE RECORDS SUMMARY | 2025-02-22 18:09 | XMS_ITS | Encounter Summary ---
Author Organization [employer] Address [address] [facility] 7t [place] [address] Care Team Providers Care Speech Language Pathologist Name Role Phone Musa Borges MD Primary Care Prov ider Reason for Visit * Reason Onset Date Comments Nurse Triage 02/23/2024 Encounter Details Date Type Department Care Team ([facility] st Contact Info) Description 02/23/2024 Telephone [facility] MED & PEDS [address] [place], [place] [phone] Musa Borges MD [address] [place] [address] Nurse Triage Social History Tobacco Use Types [...] 02/23/2024 10:22 AM EDT Triage call with [facility] Rn ID [id number] Pt reports skin lump in area between right upper thigh and vulva. Pt reports this started 2 months ago. Pt popped it the first time just using hand. Pt reports it has returned, reddened , painful. Ptis given home care advice and agrees. Pt is advised to come to [facility] if unable to find relief with home care advised. Pt agrees with this plan and disposition. Hours of [facility] given, open till 8pm today [...] accepted this outcome Please contact pt at [phone] (Romansh) documented in this encounter Plan of Treatment Upcoming Encounters Date Type Department Care Team (Late st Contact Info) Description 05/24/2025 8:00 AM EDT Office Visit [facility] ADULT DENTAL [address] [place] [address] Elaina Che [address] [place], [place] [phone] documented as of this encounter Visit Diagnoses Not on filedocumented in this encounter Additional Health Concerns Assessment Noted Time PHQ-9 Depression Total Score: 0 12/23/19 23 8:59 AM EST documented as of this encounter Care Teams Speech Language Pathologist Relationship Specialty Start Date End Date Musa Borges MD [address] [place] [phone] PCP - General Internal Medicine 04/02/20 documented as of this encounter
--- OUTSIDE RECORDS SUMMARY | 2025-02-22 18:09 | XMS_ITS | Encounter Summary ---
Author Organization [employer] Address [address] 7t [place] [address] Care Team Providers Care Engine Buildup Mechanic Name Role Phone Musa Borges MD Primary Care Prov ider Encounter Details Date Type Department Care Team (Late st Contact Info) Description 02/15/2025 Orders Only GENERIC EXTERNAL DATA DEPARTMENT Provider, Generic External Data Social History Tobacco Use Types Packs/Day Years [...] Description 05/24/2025 8:00 AM EDT Office Visit [facility]ULT [facility] [address] [place], [place] [phone] Elaina Che [address] [place] [address] [phone] documented as of this encounter Procedures Procedure Name Priority Date/Time Associated Diagnosis Comments GROSS AND MICROSCOPIC LEVEL 3 Routine 02/15/2025 1:30 PM EDT documented in this encounter Results * Gross and Microscopic Level 3 (02/15/2025 1:30 PM EDT) 02/15/2025 1:30 PM EDT 02/16/2025 8:17 AM EDT [facility] LABS - 02/19/2025 11:07 AM EDT ----- ------- Name: Shira Aragon ? Age/Sex: 44/F ? : 1980 Unit#: [id number] ?? Attend Dr: Chuy Quesada MD ?Re02/15/25 ?Status: DEP REF ? Location: HO.LAB ?Disch: ? ----- ------- SPEC : [id number] ? RECD: 02/16/25 ? STATUS: ??SOUT ? REQ NUM: [id number] ? HERMILO: 02/15/25 ? SUBM DR: Chuy [...] A2 and 3 pieces in cassette A3. ??([facility]) Copies To: ?? Musa Borges MD ?? [facility] ?? [address] [place] [address] ?? [place] [address] ?? [phone] ?? Chuy Quesada MD ?? [facility] ?? [address] [place] [address] ??Drive ?? [place] [address] ?? [phone] ? CONTINUED ON NEXT PAGE ----- ------- Name: Shira Aragon ? Age/Sex: 44/F ? : 1980 Unit#: [id number] ?? Attend Dr: Chuy Quesada MD ?Re02/15/25 ?Status: DEP REF ? Location: HO.LAB ?Disch: ? ----- ------- SPEC : [id number] ? RECD: 02/16/25 ? STATUS: ??SOUT ? REQ NUM: [id number] ? HERMILO: 02/15/25 ? SUBM DR: Chuy Quesada MD ? ENTERED: ??02/16/25 ?SP TYPE: Surgical ? OTHR : Musa Borges MD ORDERED: ??Gross Micro L3 ? ----- ------- Signed (signature on file) Brandy Soto 02/19/25 1107 ? ----- ------- ? END OF REPORT ? us Generic External Data Provider LAB CYTOLOGY ORDE DOMINIQUE Final Result [facility] [address] [place] [address] [phone] documented in this encounter Visit Diagnoses Not on filedocumented in this encounter Additional Health Concerns Assessment Noted Time PHQ-9 Depression Total Score: 4 08/24/20 24 1:09 PM EDT documented as of this encounter Care Teams Engine Buildup Mechanic Relationship Specialty Start Date End Date Musa Borges MD [address] [place] [phone] PCP - General Internal Medicine 04/02/20 documented as of this encounter
--- OUTSIDE RECORDS SUMMARY | 2025-02-22 18:10 | XMS_ITS | Encounter Summary ---
Author Organization [employer] Address [address] [facility] 7t [place] [address] Care Team Providers Care Missile And Missile Checkout Technician Name Role Phone Musa Borges MD Primary Care Prov ider Reason for Visit * Reason Onset Date Comments Med Refill 04/10/2024 Encounter Details Date Type Department Care Team ([facility] st Contact Info) Description 04/10/2024 Refill [facility] [address] [place], [place] [phone] Dyan Miller MD [address] [place] [address] Social History Tobacco Use Types Packs/Day Years [...] 8:00 AM EDT Office Visit [facility] [address] [place] [address] Elaina Che [address] [place], [place] [phone] documented as of this encounter Visit Diagnoses Not on filedocumented in this encounter Additional Health Concerns Assessment Noted Time PHQ-9 Depression Total Score: 0 12/23/19 23 8:59 AM EST documented as of this encounter Care Teams Missile And Missile Checkout Technician Relationship Specialty Start Date End Date Musa Borges MD [address] [place] [address] PCP - General Internal Medicine 04/02/20 documented as of this encounter
--- OUTSIDE RECORDS SUMMARY | 2025-02-22 18:10 | XMS_ITS | Encounter Summary ---
Author Organization [facility] Address [address] [facility] 7 [place] [address] Care Team Providers Care Lpn Home Health Name Role Phone Musa Borges MD Primary Care Prov ider Encounter Details Date Type Department Care Team (Latest Contact Info) Description 08/04/2021 Abstract [facility] CONVERSIONS Dental, Provider, DDS Social History [...] Description 05/24/2025 8:00 AM EDT Office Visit [facility] ADULT DENTAL [address] [place] [address] Elaina Che [address] [place] [address] documented as of this encounter Visit Diagnoses Not on filedocumented in this encounter Care Teams Lpn Home Health Relationship Specialty Start Date End Date Musa Borges MD [address] [place] [address] PCP - General Internal Medicine 04/02/20 documented as of this encounter
--- OUTSIDE RECORDS SUMMARY | 2025-02-22 18:10 | XMS_ITS | Encounter Summary ---
Author Organization [facility] Address [address] [place] [address] 7 [place] [address] Care Team Providers Care Counselor Aid Name Role Phone Musa Borges MD Primary Care Prov ider Encounter Details Date Type Department Care Team (Late st Contact Info) Description 10/13/2022 Telephone [facility] ADULT DENTAL [address] [place] [address] Dental, Provider, DDS Social History Tobacco Use [...] Description 05/24/2025 8:00 AM EDT Office Visit [facility] ADULT DENT[facility] [address] [place] [address] Elaina Che [address] [place] [address] documented as of this encounter Visit Diagnoses Not on filedocumented in this encounter Care Teams Counselor Aid Relationship Specialty Start Date End Date Musa Borges MD [address] [place] [address] PCP - General Internal Medicine 04/02/20 documented as of this encounter
--- OUTSIDE RECORDS SUMMARY | 2025-02-22 18:10 | XMS_ITS | Encounter Summary ---
Author Organization [employer] Address [address] [facility] 7t [place] [address] Care Team Providers Care Log Hauler Name Role Phone Musa Borges MD Primary Care Prov ider Encounter Details Date Type Department Care Team ([facility] st Contact Info) Description 12/06/2024 Telephone [facility] MED & PEDS [address] [place], [place] [phone] Musa Borges MD [address] [place] [address] Social History Tobacco Use Types Packs/Day Years [...] Description 05/24/2025 8:00 AM EDT Office Visit [facility] ADULT DENTAL [address] [place] [address] Elaina Che [address] [place], [place] [phone] documented as of this encounter Visit Diagnoses Not on filedocumented in this encounter Additional Health Concerns Assessment Noted Time PHQ-9 Depression Total Score: 4 08/24/20 24 1:09 PM EDT documented as of this encounter Care Teams Log Hauler Relationship Specialty Start Date End Date Musa Borges MD [address] [place] [phone] PCP - General Internal Medicine 04/02/20 documented as of this encounter
--- OUTSIDE RECORDS SUMMARY | 2025-02-22 18:10 | XMS_ITS | Encounter Summary ---
Author Organization [employer] Address [address] [facility] 7 [place] [address] Care Team Providers Care Shale Processing Technician Name Role Phone Musa Borges MD Primary Care Prov ider Reason for Visit * Reason Comments Med Refill Encounter Details Date Type Department Care Team (Late st Contact Info) Description 11/14/2022 Refill [facility] MEDICINE [address] [place], [place] [phone] Musa Borges MD [address] [place] [phone] Current mild episode of major depressive disorder [...] 05/24/2025 8:00 AM EDT Office Visit [facility] ADULT D[facility] [address] [place] [address] Elaina Che [address] [place] [address] [phone] documented as of this encounter Visit Diagnoses Diagnosis Current mild episode of major depressive disorder without prior episode (CMS/HCC)- Primary documented in this encounter Care Teams Shale Processing Technician Relationship Specialty Start Date End Date Musa Borges MD [address] [place] [address] PCP - General Internal Medicine 04/02/20 documented as of this encounter
== END 2025-02-22 15:59 | disposition home or self-care (01) ==
LOC: HO.HGS 15:41
PROVIDERS: PCP Internal Medicine; Visit Provider Surgery
DX: N90.7 Vulvar cyst (principal)
CPT/HCPCS: 99024

== ENCOUNTER → 2025-02-22 15:41 | Outpatient (BNVA) | payer MEDICAID, SELFPAY | PROVIDERS: PCP Internal Medicine; Visit Provider Surgery | DX: Z09 Encounter for follow-up examination after completed treatment for conditions other than malignant neoplasm (principal); Z87.2 Personal history of diseases of the skin and subcutaneous tissue; Z98.890 Other specified postprocedural states | CPT/HCPCS: 99212 ==

== ENCOUNTER 2025-02-27 10:25 | Outpatient (AMB) | payer MEDICAID, SELFPAY ==
--- NOTE | 2025-02-27 10:29 | MHC.OFFVIS ---
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 She has a history of tubal ligation so she does not need to worry about control. (I noted that in my dictated note of last year, the word not was omitted, altering the meaning of the sentence. Nevertheless she was not sexually active last year.) She has become sexually active in his last year she has no particular worries about STIs, but welcomes testing the exam today but declines blood work testing. She sees a primary care provider the [facility] I asked her to review blood work with me and we reviewed results that she had in her phone of her most recent CBC which indicated no anemia normal thyroid level and in addition serum glucose that was within normal limits. She had her mammogram done recently. She had an MRI for back pain recently and is awaiting a follow-up visit to discuss the results of that. She was on gabapentin for the back pain, and also another medication prescribed by the urologist to deal with urinary urgency with voiding small amounts. She said it is sort of helps but she has not been taking it too much because she wanted to have a discussion with them at the next appointment more about side effects. [facility] Medical History (Updated 02/27/25 @ 11:09 by Karen Holbrook CNM) Recurrent UTI Chronic back pain Surgical History (Updated 02/27/25 @ 11:09 by Karen Holbrook CNM) Hx of tubal ligation Family History Maternal Grandfather Throat cancer Social History Alcohol intake: never Patient Tobacco Use Status: Never used Tobacco Female Reproductive History Menstrual Age of Menarche: 11 Duration of menses: other (irregular) Date of last menstrual period: 01/25/25 control method: permanent sterilization Total pregnancies: 3 Full term: 3 Date of last pap smear: 09/01/23 (negative) Date of Mammogram: 02/10/25 (negative) Physical Exam Vital Signs: Last Vital Signs BP 120/80 02/27/25 10:34 BMI result Body Mass Index 32.8 Const General: healthy appearing, comfortable, no acute distress, well developed and alert Nutritional Appearance: average body habitus Orientation/consciousness: patient oriented x3 Limitations: no limitations HEENT Head: Yes normocephalic Neck Neck: Yes normal visual inspection Chest Chest palpation & inspection: normal inspection of the chest Breast/axilla inspection: normal inspection of the breasts and normal inspection of the axillae Breast/axilla palpation: normal palpation of the breasts and normal palpation of the axillae Resp Effort & Inspection: normal respiratory effort GI Inspection: Yes normal to inspection, No Abdominal wall edema and No distended Palpation (GI): Soft to palpation and nontender General: Yes bladder normal to palpation External Female Exam: normal external appearance and normal appearance of the urethra Speculum Exam - Vagina: normal appearance of the vagina, normal palpation and normal vaginal discharge Speculum Exam - Cervix: normal appearance of the cervix, normal palpation and nontender Bimanual exam- vagina & uterus: normal bimanual exam, normal palpation, uterine size normal, bladder normal to palpation, consistency normal, normal palpation, uterine mobility normal, uterine shape normal, No Cervical tenderness present, non-tender and no cervical motion tenderness Bimanual Exam- Adnexa, other: normal adnexae, no masses, normal and No adnexal tenderness Neuro General: patient oriented x3 Results Reviewed Results Reviewed: Name: Shira Aragon Age/Sex: 44/F : 1980 Unit#: [id number] Attend Dr: Musa Borges MD Re08/14/24 Status: DEP REF Location: [facility] Disch: SPEC : [id number] HERMILO: 08/14/24 STATUS: COMP REQ : [id number] RECD: 08/14/24-[address]: Musa Borges MD COMP: 08/14/24 ENTERED: 08/14/[address]: ORDERED: CBC Auto Diff Test Result Flag Reference WBC 6.9 4.8-10.8 X10*3/uL RBC 4.14 L 4.20-5.50 X10*6/uL HGB 12.7 12.0-16.0 g/dl HCT 38.2 37.0-47.0 % MCV 92.3 80.0-98.0 fL MCH 30.7 27.0-33.0 pg MCHC 33.2 31.0-35.0 g/dl RDW 12.7 11.0-16.0 % PLT 193 160-400 X10*3/uL MPV 13.3 H 9.4-12.3 fL Neut Pct Auto 58.5 45-73 % ImGran Pct Auto 0.3 0.0-0.4 % Lymp Pct Auto 31.3 20-40 % [place] Pct Auto 6.1 2-11 % Eos Pct Auto 3.2 0-4 % Baso Pct Auto 0.6 0-2 % NRBC Pct Auto 0.0 0.0-0.2 /100WBC ANC Neut Abs # 4.0 2.0-8.3 x10*3/uL ImGran Abs Auto 0.02 0.00-0.03 X10*3/uL Lymph Abs Auto 2.2 1.2-4.9 X10*3/uL [place] Abs Auto 0.4 0.1-1.2 X10*3/uL Eos Abs Auto 0.2 0.0-0.4 X10*3/uL Baso Abs Auto 0.0 0.0-0.2 X10*3/uL NRBC Abs Auto 0.000 0.0-0.012 X10*3/uL Name: Shira Aragon Age/Sex: 43/F : 1980 Unit#: [id number] Attend Dr: Musa Borges MD Re05/17/24 Status: DEP REF Location: [facility] Disch: SPEC : [id number] HERMILO: 05/17/24 STATUS: COMP REQ : [id number] RECD: 05/17/24-[address]: Musa Borges MD COMP: 05/17/24 ENTERED: 05/17/[address] [facility] DR: ORDERED: CMP, Lipid Panel Test Result Flag Reference Sodium 140 135-145 mmol/L Potassium 3.6 3.3-5.1 mmol/L CL 108 96-108 mmol/L CO2 25 22-29 mmol/L Gap 11 L 12-20 BUN 11 9-16 mg/dL Creat 0.75 0.5-1.4 mg/dL EGFR > 60 NOTE: For -German individuals, multiply the result by 1.210. Chronic Kidney Disease: Estimated GFR < 60 mL/min/1.73m2 Severe Kidney Disease: Estimated GFR < 15 mL/min/1.73m2 Glucose, Random 82 60-115 mg/dL CA 9.0 8.4-10.2 mg/dL Total Bili 0.5 0.0-1.0 mg/dL AST (GOT) 18 5-31 U/L ALT (GPT) 14 0-31 U/L Protein, Total 7.1 6.5-8.0 g/dL Alb 3.9 3.5-5.0 g/dL Triglyceride 58 <150 mg/dL Desirable Triglyceride: less than 150 mg/dL Borderline High Triglyceride 150-199 mg/dL High Triglyceride: 200-499 mg/dL Very High Triglyceride: greater than or equal to 5OO mg/dL Cholesterol 151 <200 mg/dL Desirable Cholesterol: less than 200 mg/dL Borderline High Cholesterol: 200-239 mg/dL High Cholesterol: greater than 239 mg/dL LDL Calculated 88 <100 mg/dL Desirable LDL: less than 100 mg/dL Near Optimal/Above Optimal LDL: 110-129 mg/dL Borderline High LDL: 130-159 mg/dL High LDL: 160-189 mg/dL Very High LDL: greater than or equal to 190 mg/dL HDL 52 >40 mg/dL Desirable HDL: greater than 40 mg/dL Note: This HDL assay may give artificially low results in patients with liver disease. Alk Phos 73 39-117 U/L Name: Shira Aragon Age/Sex: 44/F : 1980 Unit#: [id number] Attend Dr: Musa Borges MD Re08/14/24 Status: DEP REF Location: [facility] Disch: SPEC : [id number] HERMILO: 08/14/24 STATUS: COMP REQ : [id number] RECD: 08/14/24-[address]: Musa Borges MD COMP: 08/14/24 ENTERED: 08/14/[address]: ORDERED: TSH Rflx Test Result Flag Reference TSH [facility]'[address] [place] [address] Mammography Report Signed Patient: Shira Aragon MR#: [id number] : 1980 Acct:[id number] Age/Sex: 44 / F ADM Date: 02/10/25 [facility] Dr: Musa Oviedo MD Ordering Physician: Musa Borges MD Results: 1Negative Date of Service: 02/10/25 Follow Up: 1 Year From Original Mammogram Procedure(s): MM tomosynthesis screening BI Accession Number(s): [id number] cc: Musa Borges MD~ EXAMINATION: MM SCREENING DIGITAL BREAST TOMOSYNTHESIS, BILATERAL CLINICAL INFORMATION: Screening. Asymptomatic. COMPARISON: Mammography: Comparison is made with available priors TECHNIQUE: Digital breast mammography with tomosynthesis is performed in both the craniocaudal and mediolateral oblique views along with computer-aided detection (CAD). FINDINGS: The breasts are heterogeneously dense, which may obscure small masses (ACR BI-RADS breast composition Category c). There are no significant masses, abnormal calcifications, or other abnormalities. MM/MM tomosynthesis screening BI IMPRESSION: No mammographic evidence of malignancy. ASSESSMENT: BI-RADS BI-RADS 1 - Negative RECOMMENDATION: Routine annual mammography screening. 1 year F/U This examination should not preclude the clinical evaluation of a suspicious palpable abnormality. This patient's information was entered into a reminder system with a target due date for their next mammogram. Electronically signed by: Irais Hodge DO 02/17/2025 07:13 PM EDT Dictated By: Irais Hodge DO Signed By: <Electronically signed by Irais Hodge DO in OV> 02/17/25 1913 DD/ 1001 TD/TT: 02/10/25 1015 Cold Roll Inspector: nicole: Shira Aragon Age/Sex: 44/F Attending: Chuy Quesada MD : 1980 Submitted by: Chuy Quesada MD Copies to: Musa Borges MD MR #: [id number] Status: DEP REF Collected: 02/15/25 Location: .LAB Received: 02/16/25 Diagnosis Skin, right inguinal cyst, excision: Benign skin with epidermal hyperplasia, inflammation and abscess, granulation tissue, fibrosis, and foreign body giant cell reaction to fragments of hair shaft. Clinical History Dermoid cyst of the right inguinal area Microscopic Description Microscopic sections reviewed. Material Received Dermoid cyst of the right inguinal area Gross Description Received in formalin labeled ?dermoid cyst of the right inguinal area? is an unoriented ellipse of skin measuring 1.8 x 1.2 cm in greatest dimension which has been excised to a depth of 0.9 cm. The skin surface is meza and wrinkled. There is a raised, meza-white area on the skin surface measuring 0.7 x 0.5 cm in greatest dimension. The underside is white and unremarkable with yellow adipose tissue at the deep margin measuring 0.2-0.4 cm in thickness. The margins of excision are inked blue. The longitudinal poles are submitted for microscopic examination, 2 pieces in cassette A1. The remainder of the specimen is serially sectioned across the short axis revealing a white cut surface with a cavity measuring 0.7 cm in diameter that is filled with firm yellow meza material. The specimen is entirely submitted for microscopic examination, 4 pieces in cassette A2 and 3 pieces in cassette A3. ([facility]) Copies To Musa Borges MD [address] [address] Chuy Quesada MDName: Shira Aragon Age/Sex: 43/F Attending: Karen Holbrook CNM : 1980 Submitted by: Karen Holbrook CNM Copies to: Musa Borges MD MR #: [id number] Status: DEP REF Collected: 09/01/23 Location: [facility] Received: 09/02/23 Interpretation Satisfactory for evaluation. Coccobacilli consistent with shift in vaginal bushra. Negative for intraepithelial lesion or malignancy. HPV mRNA E6/E7: NOT DETECTED This assay detects E6/E7 viral messenger RNA (mRNA) from 14 high-risk HPV types (16, 18, 31, 33, 35, 39, 45, 51, 52, 56, 58, 59, 66, 68) HPV testing performed by [employer], [place], [place]. See reference laboratory pion of the EMR for entire report. Clinical Information LMP: 07/21/23 Previous PAP test: Unknown date/findings Other history: Abnormal uterine and vaginal bleeding, unspecified. Material Received ThinPrep-Cervical Copies To Musa Borges MD [address] [place] [phone] Karen Holbrook [address] [place] [phone] Electronically Signed By: Claudia David MD 09/07/23 9341 The Pap Test is a screening procedure with the inherent possibility of both false negative and false positive results. Results should be interpreted in the context of historic and current clinical findings. Reliability of the Pap Test is enhanced by performing the test on a regular repetitive basis. Patient: Shira Aragon Age/Sex: 43/F MR#: [id number] Page 1 of 1 [facility] [address] [place] [address] [place] [id number] Patient: Shira Aragon Age/Sex: 44/F MR#: [id number] Page 1 of 2 Assessment & Plan Assessment & Plan (1) Cervical cancer screening: Comment: 09/01/23 pap = neg w neg hpv. Code(s): Z12.4 - Encounter for screening for malignant neoplasm of cervix Category: Medical (2) History of irregular menstrual cycles: Code(s): Z87.42 - Personal history of other diseases of the female genital tract Category: Medical (3) Fibroid uterus: Comment: Most recent ultrasound shows that it is now smaller. Code(s): D25.9 - Leiomyoma of uterus, unspecified Category: Medical (4) Urinary urgency: Comment: sees urology.... Code(s): R39.15 - Urgency of urination Category: Medical (5) Well woman exam with routine gynecological exam: Code(s): Z01.419 - Encounter for gynecological examination (general) (routine) without abnormal findings Category: Medical (6) Encounter for screening examination for sexually transmitted disease: Code(s): Z11.3 - Encounter for screening for infections with a predominantly sexual mode of transmission Category: Medical (7) Epidermoid cyst of labia majora: Comment: 02/27/25- appears to be healing well p procedure... Code(s): N90.7 - Vulvar cyst Category: Medical Plan -----Discussed in this visit the following: healthy balanced diet, regular and consistent exercise, getting recommended health screens, doing the best she can for her particular health concerns, kegel exercises, pap smear screening and followup recommendations, mammography screening and SBE, normal changes in cycles in her life stage--- . Reviewed everything that we talked about in HPI including her menses which have some quality of irregularity to them discussed that this is common as 1 approaches menopause. Reviewed her blood work with her which indicates no anemia despite heavy periods and some blood clots with them. Discussed her other normal regular labs reviewed her negative mammogram past negative Pap smear. She is now sexually active declines blood work for STIs but accepted the the pelvic exam blood tests I reviewed that we did today testing for gonorrhea chlamydia trichomoniasis as well as bacterial vaginosis and yeast. Review that the last 2 are not of the too much consequence, but the 1st 3 are STIs in the event of positive finding, she and her partner would both need treatment, and I would recommend blood tests for STIs at that point. She will be speaking with urology again about the urinary issues and medication. She had a an excision of a lesion on her groin about 2 weeks ago and it appears to be healing very well. Discussed her overall good health. RTC 1 year ,This note is constructed using voice recognition software. While every effort has been made to ensure accuracy, offal roller errors may have been included. Orders: Orders CT NG by PCR Today N89.8 - Other specified noninflammatory disorders of vagina, Z20.2 - Contact with and (suspected) exposure to infections with a predominantly sexual mode of transmission Bacterial Vaginosis Panel Today Z20.2 - Contact with and (suspected) exposure to infections with a predominantly sexual mode of transmission Coding Level of Care Code Est Pt Prev Care 40-64y(46937) Diagnoses Cervical cancer screening Z12.4 History of irregular menstrual cycles Z87.42 Fibroid uterus D25.9 Urinary urgency R39.15 Well woman exam with routine gynecological exam Z01.419 Encounter for screening examination for sexually transmitted disease Z11.3 Epidermoid cyst of labia majora N90.7
[2025-02-27 10:34] VITALS: BP 120/80; BMI 32.8
--- OUTSIDE RECORDS SUMMARY | 2025-02-27 12:08 | XMS_ITS | Encounter Summary ---
Author Organization [employer] Address 75 [facility] 7t [place] [address] Care Team Providers Care Contact Center Analyst Name Role Phone Musa Borges MD Primary Care Prov ider Encounter Details Date Type Department Care Team ([facility] st Contact Info) Description 12/06/2024 Telephone [facility] CHC MED & PEDS [address] [place], [place] [phone] Musa Borges MD [address] [place] [address] Social History Tobacco Use Types Packs/Day Years [...] 05/24/2025 8:00 AM EDT Office Visit [facility] ADULT DENTAL [address] [place] [address] Elaina Che [address] [place], [place] [phone] documented as of this encounter Visit Diagnoses Not on filedocumented in this encounter Additional Health Concerns Assessment Noted Time PHQ-9 Depression Total Score: 4 08/24/20 24 1:09 PM EDT documented as of this encounter Care Teams Contact Center Analyst Relationship Specialty Start Date End Date Musa Borges MD [address] [place] [address] PCP - General Internal Medicine 04/02/20 documented as of this encounter
--- OUTSIDE RECORDS SUMMARY | 2025-02-27 12:08 | XMS_ITS | Clinical Summary ---
Author Organization [employer] Address 75 [facility] 7t [place] [address] Care Team Providers Care Environmental Test Technician Name Role Phone Musa Borges MD Primary Care Prov ider Allergies No known active allergies Medications * This document contains information received from the source organization and may not represent a complete record from that organization. Fluocinolone Acetonide Scalp ([place]-Smoothe/FS Scalp) 0.01 % oilIndications:Se borrheic dermatitis To [...] obgykirt, she prefers to be seen at [facility] Ear itching 07/18/2024 Assessment & Plan [...] EDT): Found on pap smear done by ob-lockstitch machine operator on 09/01 with bv, complains [...] CH[facility] MED & PEDS [address] [place] [address] Musa Borges MD 02/09/2025 11:15 AM EDT Office Visit [facility] OPTOM[facility] [address] [place] [address] Mary Abreu, OD Regular astigmatism, bilateral (Primary Dx); Dry eyes, bilateral 02/09/2025 Travel 02/06/2025 8:30 AM EDT Office Visit [facility] DENTAL [address] [place] [address] Peewee Juarez DMD 02/06/2025 Travel 01/31/2025 6:20 PM EDT Office Visit [facility] [address] [place] [address] Joyce Kwong MD Dermoid cyst (Primary Dx) 01/23/2025 8:30 AM EDT Office Visit [facility] DENTAL [address] [place] [address] Peewee Juarez DMD 01/22/2025 Travel 01/19/2025 Population Health Risk Score [facility] Department [address] [place] [address] [phone] Provider, Population Health Generic 01/18/2025 Telephone [facility] MED & PEDS [address] [place] [address] Musa Borges MD Referral 01/16/2025 9:00 AM EDT Telemedicine [facility] MED & PEDS [address] [place] [address] Musa Borges MD 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); Right lateral epicondylitis; Screening for colon cancer; Major depressive disorder with single episode, remission status unspecified 01/16/2025 Travel 01/15/2025 Telephone [facility] MED & PEDS [address] [place] [address] Musa Borges MD chart prep 01/09/2025 11:00 AM EST Office Visit [facility] DENTAL [address] [place] [address] Peewee Juarez DMD 01/08/2025 Travel 12/27/2024 9:00 AM EST Office Visit [facility] [address] [place] [address] Lily Stokes MD Influenza A 12/15/2024 Refill [facility] [address] [place] [address] Musa Borges MD Right lateral epicondylitis 12/07/2024 Orders Only [facility] MED & PEDS [address] [place] [address] Musa Borges MD 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); Right lateral epicondylitis 12/06/2024 Telephone [facility] MED & PEDS [address] [place] [address] Musa Borges MD 12/06/2024 Telephone [facility] MED & PEDS [address] [place] [address] Musa Borges MD Nurse Triage from Last [...] Description 05/24/2025 8:00 AM EDT Office Visit [facility] ADULT DENTAL [address] [place] [address] Elaina Che [address] [place] [address] Health Maintenance Due Date Last Done Comments [...] 1:30 PM EDT 02/16/2025 8:17 AM EDT [facility] LABS - 02/19/2025 11:07 AM EDT ----- ------- Name: Shira Aragon ? Age/Sex: 44/F ? : 1980 Unit#: [id number] ?? Attend Dr: Chuy Quesada MD ?Re02/15/25 ?Status: DEP REF ? Location: .LAB ?Disch: ? ----- ------- SPEC : [id number] ? RECD: 02/16/25 ? STATUS: ??SOUT ? REQ NUM: [id number] ? HERMILO: 02/15/25 ? SUBM DR: Chuy [...] A2 and 3 pieces in cassette A3. ??([facility]) Copies To: ?? Musa Borges MD ?? [facility] ?? [address] [place] [address] ?? [place] [address] ?? [phone] ?? Chuy Quesada MD ?? [facility] ?? [address] [place] [address] ??Drive ?? [place] [address] ?? [phone] ? CONTINUED ON NEXT PAGE ----- ------- Name: Shira Aragon ? Age/Sex: 44/F ? : 1980 Unit#: [id number] ?? Attend Dr: Chuy Quesada MD ?Re02/15/25 ?Status: DEP REF ? Location: .LAB ?Disch: ? ----- ------- SPEC : [id number] ? RECD: 02/16/25 ? STATUS: ??SOUT ? REQ NUM: [id number] ? HERMILO: 02/15/25-1329 ? SUBM DR: Chuy Quesada MD ? ENTERED: ??02/16/25 ?SP TYPE: Surgical ? OTHR : Musa Borges MD ORDERED: ??Gross Micro L3 ? ----- ------- Signed (signature on file) Brandy Soto 02/19/25 4587 ? ----- ------- ? END OF REPORT ? us Generic External Data Provider LAB CYTOLOGY BALTAE DOMINIQUE Final Result [facility] [address] [place] [address] [phone] * BI Mammogram Screening Tomosynthesis Bilateral (02/10/2025 10:01 AM EDT) Anatomical Region Laterality Modality Breast Bilateral Mammography 02/10/2025 10:0 1 AM EDT Narrative 02/17/2025 7:16 PM EDT ? [facility] ? [address] ?[place] [address] ?[phone] ? Mammography Report ? Signed ? Patient: Shira Aragon ?MR#: [id number] ?? 14 ? : 1980 ?Acct:[id number] ? Age/Sex: 44 / F ?ADM Date: 04/05/25 ? Loc: HO.MAMMO ? Attending Dr: Musa Oviedo MD ? Ordering Physician: Musa Borges MD ?Res ?? ults: 1Negative ? Date of Service: 02/10/25 ?Follow Up: 1 Year From Orig ?? inal Mammogram ? Procedure(s): MM tomosynthesis screening BI ?? Accession Number(s): [id number] ? cc: Musa Borges MD ? EXAMINATION: [...] DD/ 1001 ? TD/TT: 02/10/25 1015 ? Palliative Care Nurse: ? Procedure Note Josué, Image - 02/17/2025 [place] [facility] [address] [place] [address] Mammography Report Signed Patient: Shira Aragon#: [id number] 14 : 1980Acct:[id number] Age/Sex: 44 / FADM Date: 02/10/25 Loc: HO.MAMMO Attending Dr: Musa Oviedo MD Ordering Physician: Musa Borges ults: 1Negative Date of Service: 02/10/25Follow Up: 1 Year From Orig ina Mammogram Procedure(s): MM tomosynthesis screening BI Accession Number(s): [id number] cc: Musa Borges MD EXAMINATION: MM SCREENING [...] 02/17/25 1913 DD/ 1001 TD/TT: 02/10/25 1015 Palliative Care Nurse: Musa Oviedo MD IMG BI PROCEDURES Final Result * POCT Rapid Influenza B JONES ID NOW (12/27/2024 9:08 AM EST) Influenza B Negative Negative, Indeterminate [facility] Swab 12/27/2024 9:08 AM EST Lily Sotkes MD POINT OF CARE TEST ENTER/EDIT OR DERABLES Final Result Performing Organization Address City/[facility]/ZIP Co de Phone Number [facility] [address] [place] [address] [phone] * (ABNORMAL) POCT Rapid Influenza A JONES ID NOW (12/27/2024 9:08 AM EST) Influenza A Positive( A) Negative, Indeterminate [facility] Swab 12/27/2024 9:08 AM EST Lily Stokes MD POINT OF CARE TEST ENTER/EDIT OR DERABLES Final Result Performing Organization Address [facility] Co de Phone Number [facility] [address] [place] [address] [phone] * Referral to Orthopaedic Surgery (12/05/2024) Musa Oviedo MD OUTPATIENT REFERRA L ORDERABLES Final Result * HPV mRNA E6/E7 w/Reflex to HPV Genotypes 16, 18/45 (09/01/2023 12:12 PM EDT) HPV nRNA E6/E7 Not Detected Not Detected [facility] Comment:Methodology: Transcr iption-Mediated AmplificationThis assay detects E6/E7 viral messenger RNA (mRNA) from 14high-risk HPV types (16,18,31,33,35,39,45,51,52,56,58,59,66,68).Cervical sources are required for HPV testing.If a vaginal source from a patient who has had atotal hysterectomy with removal of cervix wassubmitted, please contact the testing laboratoryfor alternative testing options.For additional information, please refer tohttp://education.IDverge/faq/GPM386d5(This link if provided for information/educational purposes only.)THIS TEST WAS PERFORMED AT:[facility] [address] [phone] WOODY MD HPV mRNA E6/E7 TNP [facility] HPV 16 RNA TNP [facility] HPV 18/45 RNA TNP [facility] 09/01/2023 12:1 2 PM EDT 09/02/2023 7:00 AM EDT [facility] External [facility] LAB CYT OLOGY ORDERABLES Final Result [facility] [address] [place] [address] [phone] * Pap Smear (09/01/2023 12:12 PM EDT) 09/01/2023 12:1 2 PM EDT 09/02/2023 7:00 AM EDT Narrative [facility] - 09/07/2023 2:16 PM EDT ----- ------- Name: Shira Aragon ? Age/Sex: 43/F ? : 1980 Unit#: [id number] ?? Attend Dr: Karen Holbrook CNM ?Re09/01/23 ?Status: DEP REF ? Location: HO.LNP ?Disch: ? ----- ------- SPEC : [id number] ?RECD: 09/02/23 ? STATUS: ??SOUT ? REQ NUM: [id number] ? HERMILO: 09/01/23 ? SUBM DR: Karen [...] 66, 68) ?? HPV testing performed by [facility], [place], [place]. ??See reference laboratory ?? pion of the EMR for entire report. ?Clinical Information LMP: 07/21/23 Previous PAP test: Unknown date/findings Other history: Abnormal uterine and vaginal bleeding, unspecified. ? Material Received ?? ThinPrep-Cervical Copies To: ?? Musa Borges MD ?? [address] ?? [place] [address] ?? [phone] ?? YusefKaren [facility] ?? [address] [facility] ?? [place] [address] ?? [phone] ----- ------- Signed (signature on file) Claudia David MD 09/07/23 1416 ? ----- ------- ? END OF REPORT ? [facility] External [facility] LAB [facility] ORDERABLES Final Result [facility] [address] [place] [address] [phone] * HIV-1 RNA, Quantitative, Real-Time PCR with Reflex to Genotype (RTI, PI, Integrase) (04/12/2023 8:32 AM EDT) HIV 1 RNA, QN PCR NOT DETECTED copies/mL [facility]/Kirt p[facility]rez [facility], HIV 1 RNA, QN PCR NOT DETECTED Log copies/mL [facility], Comment: REFERENCE RANGE: NOT DETECTED copies/mL ?NOT DETECTED ??Log copies/mL This test was performed using Real-Time Polymerase Chain Reaction. Reportable range is 20 to 10,000,000 copies/mL (1.30-7.00 Log copies/mL). 04/12/2023 8:32 AM EDT 04/12/2023 8:32 AM EDT Narrative [facility] - 04/16/2023 3:00 PM EDT FASTING:YES FASTING: YES Musa Oviedo MD LAB BLOOD ORDERABL ES Final Result [facility] [address], [place] [address] [facility], [address] [place] [address] * Hepatitis C Antibody with Reflex to HCV, RNA, Quantitative, Real-Time PCR (04/12/2023 8:32 AM EDT) Hepatitis C Antibody NON-REACT SARABJIT NON-REACT SARABJIT [facility] Index 0.15 <1.00 [facility] Comment: HCV antibody was non-reactive. There is no laboratory evidence of HCV infection. In most cases, no further action is required. However, if recent HCV exposure is suspected, a test for HCV RNA (test code 61752) is suggested. For additional information please refer to http://education.Xoft.Streamix/faq/YQU98x8 (This link is being provided for informational/ educational purposes only.) Blood Venous blood specimen / Unknown 04/12/2023 8:32 AM EDT 04/12/2023 8:32 AM EDT Narrative [facility] - 04/16/2023 3:00 PM EDT FASTING:YES FASTING: YES us Musa Oviedo MD LAB BLOOD ORDERABL ES Final Result [facility] [address] [facility], [place] [address] [facility] [address] [place] [address] from Last 3 Months or Most Recently Relevant to Health Maintenance Insurance [facility] C3 DENTAL-[facility] MEDICAID STAND ADULT Care Teams Environmental Test Technician Relationship Specialty Start Date End Date Musa Borges MD [address] [place] [address] PCP - General Internal Medicine 04/02/20
--- OUTSIDE RECORDS SUMMARY | 2025-02-27 12:08 | XMS_ITS | Encounter Summary ---
Author Organization [employer] [facility] Address [address] [facility] 7 [place] [address] Care Team Providers Care Crts Name Role Phone Musa Borges MD Primary Care Prov ider Encounter Details Date Type Department Care Team (Latest Contact Info) Description 08/04/2021 Abstract [facility] CONVERSIONS Dental, Provider, DDS Social History [...] Description 05/24/2025 8:00 AM EDT Office Visit [facility] ADULT DENTAL [address] [place] [address] Elaina Che [address] [place] [address] documented as of this encounter Visit Diagnoses Not on filedocumented in this encounter Care Teams Crts Relationship Specialty Start Date End Date Musa Borges MD [address] [place] [address] PCP - General Internal Medicine 04/02/20 documented as of this encounter
--- OUTSIDE RECORDS SUMMARY | 2025-02-27 12:08 | XMS_ITS | Encounter Summary ---
Author Organization [employer] Address [address] 7t [place] [address] Care Team Providers Care Word Processor Technician Name Role Phone Musa Borges MD Primary Care Prov ider Encounter Details Date Type Department Care Team (Late st Contact Info) Description 12/01/2023 Orders Only [facility] CHC MED & PEDS [address] [place], [place] [phone] Musa Borges MD [address] [place] [address] Social History Tobacco Use Types Packs/Day Years [...] Description 05/24/2025 8:00 AM EDT Office Visit [facility] ADULT DENTAL [address] [place] [address] Elaina Che [address] [place] [address] [phone] documented as of this encounter Visit Diagnoses Not on filedocumented in this encounter Additional Health Concerns Assessment Noted Time PHQ-9 Depression Total Score: 0 12/23/19 23 8:59 AM EST documented as of this encounter Care Teams Word Processor Technician Relationship Specialty Start Date End Date Musa Borges MD [address] [place] [address] PCP - General Internal Medicine 04/02/20 documented as of this encounter
--- OUTSIDE RECORDS SUMMARY | 2025-02-27 12:08 | XMS_ITS | Encounter Summary ---
Author Organization [employer] Address [address] [facility] 7t [place] [address] Care Team Providers Care Want Ad Receiver Name Role Phone Musa Borges MD Primary Care Prov ider Reason for Visit * Reason Onset Date Comments Med Refill 04/10/2024 Encounter Details Date Type Department Care Team ([facility] st Contact Info) Description 04/10/2024 Refill [facility] CHC MED & PEDS [address] [place], [place] [phone] Dyan Miller MD [address] [place] [address] Social History Tobacco Use Types Packs/Day Years [...] Description 05/24/2025 8:00 AM EDT Office Visit [facility] ADULT DENTAL [address] [place] [address] Elaina Che [address] [place], [place] [phone] documented as of this encounter Visit Diagnoses Not on filedocumented in this encounter Additional Health Concerns Assessment Noted Time PHQ-9 Depression Total Score: 0 12/23/19 23 8:59 AM EST documented as of this encounter Care Teams Want Ad Receiver Relationship Specialty Start Date End Date Musa Borges MD [address] [place] [address] PCP - General Internal Medicine 04/02/20 documented as of this encounter
--- OUTSIDE RECORDS SUMMARY | 2025-02-27 12:08 | XMS_ITS | Encounter Summary ---
Author Organization [employer] [facility] Address [address] [place] [address] 7 [place] [address] Care Team Providers Care Guest Service Representative Name Role Phone Musa Borges MD Primary Care Prov ider Encounter Details Date Type Department Care Team (Late st Contact Info) Description 10/13/2022 Telephone [facility]ULT D[facility] [address] [place] [address] Dental, Provider, DDS Social History Tobacco Use [...] 8:00 AM EDT Office Visit [facility] [address] [place] [address] Elaina Che [address] [place] [address] documented as of this encounter Visit Diagnoses Not on filedocumented in this encounter Care Teams Guest Service Representative Relationship Specialty Start Date End Date Musa Borges MD [address] [place] [address] PCP - General Internal Medicine 04/02/20 documented as of this encounter
--- OUTSIDE RECORDS SUMMARY | 2025-02-27 12:08 | XMS_ITS | Encounter Summary ---
Author Organization [employer] Address 75 [facility] 7 [place] [address] Care Team Providers Care Glassware Maker Demonstrator Name Role Phone Musa Borges MD Primary Care Prov ider Reason for Visit * Reason Comments Med Refill Encounter Details Date Type Department Care Team (Late st Contact Info) Description 11/14/2022 Refill [facility] MEDICINE [address] [place], [place] [phone] Musa Borges MD [address] [place] [address] Current mild episode of major depressive disorder [...] 8:00 AM EDT Office Visit [facility] ADULT DENTAL [address] [place] [address] Elaina Che [address] [place] [address] [phone] documented as of this encounter Visit Diagnoses Diagnosis Current mild episode of major depressive disorder without prior episode (CMS/HCC)- Primary documented in this encounter Care Teams Glassware Maker Demonstrator Relationship Specialty Start Date End Date Musa Borges MD [address] [place] [address] PCP - General Internal Medicine 04/02/20 documented as of this encounter
--- OUTSIDE RECORDS SUMMARY | 2025-02-27 12:08 | XMS_ITS | Encounter Summary ---
Author Organization [email or web address] Address 75 [facility] 7t [place] [address] Care Team Providers Care Taxicab Starter Name Role Phone Musa Borges MD Primary Care Prov ider Reason for Visit * Reason Onset Date Comments Nurse Triage 02/23/2024 Encounter Details Date Type Department Care Team ([facility] st Contact Info) Description 02/23/2024 Telephone [facility] MED & PEDS [address] [place], [place] [phone] Musa Borges MD [address] [place] [address] Nurse Triage Social History Tobacco Use Types [...] 02/23/2024 10:22 AM EDT Triage call with [employer] [place] Technologist [place] [id number] Pt reports skin lump in area between right upper thigh and vulva. Pt reports this started 2 months ago. Pt popped it the first time just using hand. Pt reports it has returned, reddened , painful. Ptis given home care advice and agrees. Pt is advised to come to [facility] if unable to find relief with home care advised. Pt agrees with this plan and disposition. Hours of [facility] given, open till 8pm today , [...] accepted this outcome Please contact pt at [phone] (Syriac) documented in this encounter Plan of Treatment Upcoming Encounters Date Type Department Care Team (Late st Contact Info) Description 05/24/2025 8:00 AM EDT Office Visit [facility] ADULT DENTAL [address] [place] [address] Elaina Che [address] [place], [place] [phone] documented as of this encounter Visit Diagnoses Not on filedocumented in this encounter Additional Health Concerns Assessment Noted Time PHQ-9 Depression Total Score: 0 12/23/19 23 8:59 AM EST documented as of this encounter Care Teams Taxicab Starter Relationship Specialty Start Date End Date Musa Borges MD [address] [place] [address] PCP - General Internal Medicine 04/02/20 documented as of this encounter
--- OUTSIDE RECORDS SUMMARY | 2025-02-27 12:08 | XMS_ITS | Encounter Summary ---
Author Organization [employer] Address 75 [facility] 7t [place] [address] Care Team Providers Care Weight Reducing Technician Name Role Phone Musa Borges MD Primary Care Prov ider Reason for Visit * Reason Onset Date Comments Medication Question 10/08/2023 Encounter Details Date Type Department Care Team ([facility] st Contact Info) Description 10/08/2023 Telephone [facility] MEDICINE [address] [place] [address] Musa Borges MD [address] [place] [phone] Medication Question Social History Tobacco Use Types [...] t he electric, gas, oil or water [employer] threatened to shut off services in your [...] to prescribe medication for neck pain however ticket writer does not see anything on file please clarify. documented in this encounter Plan of Treatment Upcoming Encounters Date Type Department Care Team (Late st Contact Info) Description 05/24/2025 8:00 AM EDT Office Visit [facility] ADULT DENTAL [address] [place] [address] Elaina Che [address] [place], [place] [phone] documented as of this encounter Visit Diagnoses Not on filedocumented in this encounter Additional Health Concerns Assessment Noted Time PHQ-9 Depression Total Score: 0 12/23/19 23 8:59 AM EST documented as of this encounter Care Teams Weight Reducing Technician Relationship Specialty Start Date End Date Musa Borges MD [address] [place] [address] PCP - General Internal Medicine 04/02/20 documented as of this encounter
== END 2025-02-27 11:10 | disposition home or self-care (01) ==
LOC: HO.HWSM 10:25
PROVIDERS: PCP Internal Medicine; Visit Provider Advanced Practice Midwife
DX: Z01.419 Encounter for gynecological examination (general) (routine) without abnormal findings (principal); Z87.42 Personal history of other diseases of the female genital tract; D25.9 Leiomyoma of uterus, unspecified; R39.15 Urgency of urination; N90.7 Vulvar cyst
CPT/HCPCS: 99396; 99459

== ENCOUNTER 2025-02-27 10:25 | Outpatient (REF) | payer MEDICAID, SELFPAY ==
--- OUTSIDE RECORDS SUMMARY | 2025-02-27 13:12 | XMS_ITS | Encounter Summary ---
Author Organization [employer] Address 75 [facility] 7 [place] [address] Care Team Providers Care As400 Analyst Name Role Phone Musa Borges MD Primary Care Prov ider Reason for Visit * Reason Comments Med Refill Encounter Details Date Type Department Care Team (Late st Contact Info) Description 11/14/2022 Refill [facility] MEDICINE 230 [place], [place] [phone] Musa Borges MD [address] [place] [address] Current mild episode of major depressive disorder [...] Description 05/24/2025 8:00 AM EDT Office Visit [facility] ADULT DENTAL 230 [place] [address] Elaina Che [address] [place] [address] [phone] documented as of this encounter Visit Diagnoses Diagnosis Current mild episode of major depressive disorder without prior episode (CMS/HCC)- Primary documented in this encounter Care Teams As400 Analyst Relationship Specialty Start Date End Date Musa Borges MD [address] [place] [address] PCP - General Internal Medicine 04/02/20 documented as of this encounter
--- OUTSIDE RECORDS SUMMARY | 2025-02-27 13:12 | XMS_ITS | Encounter Summary ---
Author Organization [employer] Address [address] [facility] 7t [place] [address] Care Team Providers Care Code Enforcement Inspector Name Role Phone Musa Borges MD Primary Care Prov ider Reason for Visit * Reason Onset Date Comments Nurse Triage 02/23/2024 Encounter Details Date Type Department Care Team ([facility] st Contact Info) Description 02/23/2024 Telephone C [facility] [address] [place], [place] [phone] Musa Borges MD 505 [place] [address] Nurse Triage Social History Tobacco Use Types [...] 02/23/2024 10:22 AM EDT Triage call with [email or web address] Plant Attendant ID [id number] Pt reports skin lump in area between right upper thigh and vulva. Pt reports this started 2 months ago. Pt popped it the first time just using hand. Pt reports it has returned, reddened , painful. Ptis given home care advice and agrees. Pt is advised to come to [facility] if unable to find relief with home care advised. Pt agrees with this plan and disposition. Hours of [facility] given, open till 8pm today [...] accepted this outcome Please contact pt at [phone] (Amharic) documented in this encounter Plan of Treatment Upcoming Encounters Date Type Department Care Team (Late st Contact Info) Description 05/24/2025 8:00 AM EDT Office Visit [facility] ADULT DENTAL [address] [place] [address] Elaina Che [address] [place], [place] [phone] documented as of this encounter Visit Diagnoses Not on filedocumented in this encounter Additional Health Concerns Assessment Noted Time PHQ-9 Depression Total Score: 0 12/23/19 23 8:59 AM EST documented as of this encounter Care Teams Code Enforcement Inspector Relationship Specialty Start Date End Date Musa Borges MD [address] [place] [address] PCP - General Internal Medicine 04/02/20 documented as of this encounter
--- OUTSIDE RECORDS SUMMARY | 2025-02-27 13:12 | XMS_ITS | Clinical Summary ---
Author Organization [employer] Address [address] [facility] 7t [place] [address] Care Team Providers Care Door To Door Selling Distributor Name Role Phone Musa Borges MD Primary Care Prov ider Allergies No known active allergies Medications * This document contains information received from the source organization and may not represent a complete record from that organization. Fluocinolone Acetonide Scalp ([place]-Smoothe/FS Scalp) 0.01 % oilIndications:Se borrheic dermatitis To [...] obgykirt, she prefers to be seen at [facility] Ear itching 07/18/2024 Assessment & Plan [...] EDT): Found on pap smear done by ob-learning officer on 09/01 with bv, complains of itching, [...] [facility] [address] [place] [address] Musa Borges MD 02/09/2025 11:15 AM EDT Office Visit [facility] OPTOMETRY [address] [place] [address] Mary Abreu, OD Regular astigmatism, bilateral (Primary Dx); Dry eyes, bilateral 02/09/2025 Travel 02/06/2025 8:30 AM EDT Office Visit [facility] DENTAL [address] [place] [address] Peewee Juarez DMD 02/06/2025 Travel 01/31/2025 6:20 PM EDT Office Visit [facility] WALK[facility]IN CENTER [address] [place] [address] Joyce Kwong MD Dermoid cyst (Primary Dx) 01/23/2025 8:30 AM EDT Office Visit [facility] DENTAL [address] [place] [address] Peewee Juarez DMD 01/22/2025 Travel 01/19/2025 Population Health Risk Score [facility] Department [address] [place] [address] [phone] Provider, Population Health Generic 01/18/2025 Telephone [facility] [address] [place] [address] Musa Borges MD Referral 01/16/2025 9:00 AM EDT Telemedicine [facility] [address] [place] [address] Musa Borges MD 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); Right lateral epicondylitis; Screening for colon cancer; Major depressive disorder with single episode, remission status unspecified 01/16/2025 Travel 01/15/2025 Telephone [facility] [address] [place] [address] Musa Borges MD chart prep 01/09/2025 11:00 AM EST Office Visit [facility] DENTAL [address] [place] [address] Peewee Juarez DMD 01/08/2025 Travel 12/27/2024 9:00 AM EST Office Visit [facility] [address] [place] [address] Lily Stokes MD Influenza A 12/15/2024 Refill [facility] [address] [place] [address] Musa Borges MD Right lateral epicondylitis 12/07/2024 Orders Only [facility] [address] [place] [address] Musa Borges MD 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 Age/Sex: 44/F ? : 1980 Unit#: [id number] ?? Attend Dr: Chuy Quesada MD ?Re02/15/25 ?Status: DEP REF ? Location: .LAB ?Disch: ? ----- ------- SPEC : [id number] ? RECD: 02/16/25 ? STATUS: ??SOUT ? REQ NUM: [id number] ? HERMILO: 02/15/25 ? SUBM DR: Chuy [...] A2 and 3 pieces in cassette A3. ??([facility]) Copies To: ?? Musa Borges MD ?? [facility] ?? [address] [place] [address] ?? [place] [address] ?? [phone] ?? Chuy Quesada MD ?? [facility] ?? [address] [place] [address] ??Drive ?? [place] [address] ?? [phone] ? CONTINUED ON NEXT PAGE ----- ------- Name: Shira Aragon ? Age/Sex: 44/F ? : 1980 Unit#: [id number] ?? Attend Dr: Chuy Quesada MD ?Re02/15/25 ?Status: DEP REF ? Location: .LAB ?Disch: ? ----- ------- SPEC : [id number] ? RECD: 02/16/25 ? STATUS: ??SOUT ? REQ NUM: [id number] ? HERMILO: 02/15/25-1329 ? SUBM DR: Chuy Quesada MD ? ENTERED: ??02/16/25 ?SP TYPE: Surgical ? OTHR : Musa Borges MD ORDERED: ??[employer] L3 ? ----- ------- Signed (signature on file) Brandy Soto 02/19/25 1125 ? ----- ------- ? END OF REPORT ? us Generic External Data Provider LAB CYTOLOGY BALTAE DOMINIQUE Final Result [facility] [address] [place] [address] [phone] * BI Mammogram Screening Tomosynthesis Bilateral (02/10/2025 10:01 AM EDT) Anatomical Region Laterality Modality Breast Bilateral Mammography 02/10/2025 10:0 1 AM EDT Narrative 02/17/2025 7:16 PM EDT ? [facility] [place] ? [address] ?[place] [address] ?[phone] ? Mammography Report ? Signed ? Patient: Shira Aragon ?MR#: [id number] ?? 14 ? : 1980 ?Acct:[id number] ? Age/Sex: 44 / F ?ADM Date: 04/05/25 ? Loc: HO.MAMMO ? Attending Dr: Musa Oviedo MD ? Ordering Physician: Musa Borges MD ?Res ?? ults: 1Negative ? Date of Service: 02/10/25 ?Follow Up: 1 Year From Orig ?? inal Mammogram ? Procedure(s): MM tomosynthesis screening BI ?? Accession Number(s): [id number] ? cc: Musa Borges MD ? EXAMINATION: [...] DD/ 1001 ? TD/TT: 02/10/25 1015 ? Asphalt Still Operator: ? Procedure Note Josué, Image - 02/17/2025 [place] [facility] [address] [place] [address] Mammography Report Signed Patient: Shira Aragon#: [id number] 14 : 1980Acct:[id number] Age/Sex: 44 / FADM Date: 02/10/25 Loc: HO.MAMMO Attending Dr: Musa Oviedo MD Ordering Physician: Musa Borges ults: 1Negative Date of Service: 02/10/25Follow Up: 1 Year From Orig ina Mammogram Procedure(s): MM tomosynthesis screening BI Accession Number(s): [id number] cc: Musa Borges MD EXAMINATION: MM SCREENING [...] 02/17/25 1913 DD/ 1001 TD/TT: 02/10/25 1015 Asphalt Still Operator: Musa Oviedo MD IMG BI PROCEDURES Final Result * POCT Rapid Influenza B JONES ID NOW (12/27/2024 9:08 AM EST) Influenza B Negative Negative, Indeterminate [facility] Swab 12/27/2024 9:08 AM EST Lily Stokes MD POINT OF CARE TEST ENTER/EDIT OR DERABLES Final Result Performing Organization Address City/[facility]/ZIP Co de Phone Number [facility] [address] [place] [address] [phone] * (ABNORMAL) POCT Rapid Influenza A JONES ID NOW (12/27/2024 9:08 AM EST) Influenza A Positive( A) Negative, Indeterminate [facility] Swab 12/27/2024 9:08 AM EST Lily Stokes MD POINT OF CARE TEST ENTER/EDIT OR DERABLES Final Result Performing Organization Address [facility] Co de Phone Number [facility] [address] [place] [address] [phone] * Referral to Orthopaedic Surgery (12/05/2024) Musa Oviedo MD OUTPATIENT REFERRA L ORDERABLES Final Result * HPV mRNA E6/E7 w/Reflex to HPV Genotypes 16, 18/45 (09/01/2023 12:12 PM EDT) HPV nRNA E6/E7 Not Detected Not Detected [facility] Comment:Methodology: Transcr iption-Mediated AmplificationThis assay detects E6/E7 viral messenger RNA (mRNA) from 14high-risk HPV types (16,18,31,33,35,39,45,51,52,56,58,59,66,68).Cervical sources are required for HPV testing.If a vaginal source from a patient who has had atotal hysterectomy with removal of cervix wassubmitted, please contact the testing laboratoryfor alternative testing options.For additional information, please refer tohttp://education.Zoomaal/faq/WWC008m2(This link if provided for information/educational purposes only.)THIS TEST WAS PERFORMED AT:[facility] [address] [phone] WOODY MD HPV mRNA E6/E7 TNP [facility] HPV 16 RNA TNP [facility] HPV 18/45 RNA TNP [facility] 09/01/2023 12:1 2 PM EDT 09/02/2023 7:00 AM EDT us [facility] External Provider LAB CYT OLOGY ORDERABLES Final Result [facility] [address] [place] [address] [phone] * Pap Smear (09/01/2023 12:12 PM EDT) 09/01/2023 12:1 2 PM EDT 09/02/2023 7:00 AM EDT Narrative [facility] - 09/07/2023 2:16 PM EDT ----- ------- Name: Shira Aragon ? Age/Sex: 43/F ? : 1980 Unit#: [id number] ?? Attend Dr: Karen Holbrook CNM ?Re09/01/23 ?Status: DEP REF ? Location: HO.LNP ?Disch: ? ----- ------- SPEC : [id number] ?RECD: 09/02/23 ? STATUS: ??SOUT ? REQ NUM: [id number] ? HERMILO: 09/01/23 ? SUBM DR: Karen [...] 66, 68) ?? HPV testing performed by [facility], [place], [place]. ??See reference laboratory ?? pion of the EMR for entire report. ?Clinical Information LMP: 07/21/23 Previous PAP test: Unknown date/findings Other history: Abnormal uterine and vaginal bleeding, unspecified. ? Material Received ?? ThinPrep-Cervical Copies To: ?? Musa Borges MD ?? [address] ?? [place] [address] ?? [phone] ?? YusefKaren [facility] ?? [address] W[address] [facility] ?? [place] [address] ?? [phone] ----- ------- Signed (signature on file) Claudia David MD 09/07/23 1416 ? ----- ------- ? END OF REPORT ? us [facility] External Provider LAB [facility] ORDERABLES Final Result [facility] [address] [place] [address] [phone] * HIV-1 RNA, Quantitative, Real-Time PCR with Reflex to Genotype (RTI, PI, Integrase) (04/12/2023 8:32 AM EDT) HIV 1 RNA, QN PCR NOT DETECTED copies/mL [facility]/Kirt pérez [facility], HIV 1 RNA, QN PCR NOT DETECTED Log copies/mL [facility] [employer] [facility], Comment: REFERENCE RANGE: NOT DETECTED copies/mL ?NOT DETECTED ??Log copies/mL This test was performed using Real-Time Polymerase Chain Reaction. Reportable range is 20 to 10,000,000 copies/mL (1.30-7.00 Log copies/mL). 04/12/2023 8:32 AM EDT 04/12/2023 8:32 AM EDT Narrative [facility] - 04/16/2023 3:00 PM EDT FASTING:YES FASTING: YES Musa Oviedo MD LAB BLOOD ORDERABL ES Final Result [facility] [address], [place] [address] [facility], [address] [place] [address] * Hepatitis C Antibody with Reflex to HCV, RNA, Quantitative, Real-Time PCR (04/12/2023 8:32 AM EDT) Hepatitis C Antibody NON-REACT SARABJIT NON-REACT SARABJIT [facility] Index 0.15 <1.00 [facility] Comment: HCV antibody was non-reactive. There is no laboratory evidence of HCV infection. In most cases, no further action is required. However, if recent HCV exposure is suspected, a test for HCV RNA (test code 50119) is suggested. For additional information please refer to http://education.Intent HQ.AudioTrip/faq/KFM75t1 (This link is being provided for informational/ educational purposes only.) Blood Venous blood specimen / Unknown 04/12/2023 8:32 AM EDT 04/12/2023 8:32 AM EDT Narrative [facility] - 04/16/2023 3:00 PM EDT FASTING:YES FASTING: YES us Musa Oviedo MD LAB BLOOD ORDERABL ES Final Result [facility] [address] [facility], [place] [address] [facility] [address] [place] [address] from Last 3 Months or Most Recently Relevant to Health Maintenance Insurance [facility] C3 DENTAL-[facility] MEDICAID STAND ADULT Care Teams Door To Door Selling Distributor Relationship Specialty Start Date End Date Musa Borges MD [address] [place] [phone] PCP - General Internal Medicine 04/02/20
--- OUTSIDE RECORDS SUMMARY | 2025-02-27 13:12 | XMS_ITS | Encounter Summary ---
Author Organization [employer] Address [address] [facility] [address] 7t [place] [address] Care Team Providers Care Extension Division Director Name Role Phone Musa Borges MD Primary Care Prov ider Encounter Details Date Type Department Care Team (Late st Contact Info) Description 12/01/2023 Orders Only [facility] PEDS [address] [place], [place] [phone] Musa Borges MD 505 [place] [address] Social History Tobacco Use Types Packs/Day Years [...] Office Visit [facility] ADULT DENTAL [address] [place] [address] Elaina Che [address] [place] [address] [phone] documented as of this encounter Visit Diagnoses Not on filedocumented in this encounter Additional Health Concerns Assessment Noted Time PHQ-9 Depression Total Score: 0 12/23/19 23 8:59 AM EST documented as of this encounter Care Teams Extension Division Director Relationship Specialty Start Date End Date Musa Borges MD [address] [place] [address] PCP - General Internal Medicine 04/02/20 documented as of this encounter
--- OUTSIDE RECORDS SUMMARY | 2025-02-27 13:12 | XMS_ITS | Encounter Summary ---
Author Organization [employer] [facility] Address [address] [facility] 7 [place] [address] Care Team Providers Care Gang Miner Name Role Phone Musa Borges MD Primary Care Prov ider Encounter Details Date Type Department Care Team (Latest Contact Info) Description 08/04/2021 Abstract [facility] CONVERSIONS Dental, Provider, DDS Social History [...] Description 05/24/2025 8:00 AM EDT Office Visit [facility] ADULT DENTAL [address] [place] [address] Elaina Che [address] [place] [address] documented as of this encounter Visit Diagnoses Not on filedocumented in this encounter Care Teams Gang Miner Relationship Specialty Start Date End Date Musa Borges MD [address] [place] [address] PCP - General Internal Medicine 04/02/20 documented as of this encounter
--- OUTSIDE RECORDS SUMMARY | 2025-02-27 13:12 | XMS_ITS | Encounter Summary ---
Author Organization [employer] Address [address] [facility] 7t [place] [address] Care Team Providers Care Squaring Machine Operator Name Role Phone Musa Borges MD Primary Care Prov ider Reason for Visit * Reason Onset Date Comments Medication Question 10/08/2023 Encounter Details Date Type Department Care Team ([facility] st Contact Info) Description 10/08/2023 Telephone [facility] MEDICINE [address] [place] [address] Musa Borges MD [address] [place] [address] Medication Question Social History Tobacco Use Types [...] t he electric, gas, oil or water [employer] threatened to shut off services in your [...] to prescribe medication for neck pain however rewriter does not see anything on file please clarify. documented in this encounter Plan of Treatment Upcoming Encounters Date Type Department Care Team (Late st Contact Info) Description 05/24/2025 8:00 AM EDT Office Visit [facility] ADULT DENTAL [address] [place] [address] Elaina Che [address] [place], [place] [phone] documented as of this encounter Visit Diagnoses Not on filedocumented in this encounter Additional Health Concerns Assessment Noted Time PHQ-9 Depression Total Score: 0 12/23/19 23 8:59 AM EST documented as of this encounter Care Teams Squaring Machine Operator Relationship Specialty Start Date End Date Musa Borges MD [address] [place] [address] PCP - General Internal Medicine 04/02/20 documented as of this encounter
--- OUTSIDE RECORDS SUMMARY | 2025-02-27 13:12 | XMS_ITS | Encounter Summary ---
Author Organization [employer] Address [address] [facility] 7t [place] [address] Care Team Providers Care Exhauster Name Role Phone Musa Borges MD Primary Care Prov ider Encounter Details Date Type Department Care Team ([facility] st Contact Info) Description 12/06/2024 Telephone [facility]S [address] [place], [place] [phone] Musa Borges MD [address] [place] [address] Social History Tobacco Use Types Packs/Day Years [...] encounter Miscellaneous Notes * Telephone Encounter - Jaonie Piper - 12/06/2024 9:02 AM EST Tc from pt requesting to switch pcp. States feels like her medical needs are not being exceeded. documented in this encounter Plan of Treatment Upcoming Encounters Date Type Department Care Team (Late st Contact Info) Description 05/24/2025 8:00 AM EDT Office Visit [facility] ADULT DENTAL [address] [place] [address] Elaina Che [address] [place], [place] [phone] documented as of this encounter Visit Diagnoses Not on filedocumented in this encounter Additional Health Concerns Assessment Noted Time PHQ-9 Depression Total Score: 4 08/24/20 24 1:09 PM EDT documented as of this encounter Care Teams Exhauster Relationship Specialty Start Date End Date Musa Borges MD [address] [place] [address] PCP - General Internal Medicine 04/02/20 documented as of this encounter
--- OUTSIDE RECORDS SUMMARY | 2025-02-27 13:12 | XMS_ITS | Encounter Summary ---
Author Organization [employer] Address [address] [facility] 7t [place] [address] Care Team Providers Care Pricing Coordinator Name Role Phone Musa Borges MD Primary Care Prov ider Reason for Visit * Reason Onset Date Comments Med Refill 04/10/2024 Encounter Details Date Type Department Care Team ([facility] st Contact Info) Description 04/10/2024 Refill [facility] MED & PEDS [address] [place], [place] [phone] Dyan Miller MD [address] [place] [address] Social History Tobacco Use Types Packs/Day Years [...] Description 05/24/2025 8:00 AM EDT Office Visit [facility] ADULT DENTAL 230 [place] [address] Elaina Che [address] [place], [place] [phone] documented as of this encounter Visit Diagnoses Not on filedocumented in this encounter Additional Health Concerns Assessment Noted Time PHQ-9 Depression Total Score: 0 12/23/19 23 8:59 AM EST documented as of this encounter Care Teams Pricing Coordinator Relationship Specialty Start Date End Date Musa Borges MD [address] [place] [address] PCP - General Internal Medicine 04/02/20 documented as of this encounter
--- OUTSIDE RECORDS SUMMARY | 2025-02-27 13:12 | XMS_ITS | Encounter Summary ---
Author Organization [employer] [facility] Address [address] [place] [address] 7 [place] [address] Care Team Providers Care Commercial Intelligence Manager Name Role Phone Musa Borges MD Primary Care Prov ider Encounter Details Date Type Department Care Team (Late st Contact Info) Description 10/13/2022 Telephone [facility] ADULT DENTAL [address] [place] [address] Dental, Provider, DDS Social History Tobacco Use [...] 05/24/2025 8:00 AM EDT Office Visit [facility] ADULT DENTAL [address] [place] [address] Elaina Che [address] [place] [address] documented as of this encounter Visit Diagnoses Not on filedocumented in this encounter Care Teams Commercial Intelligence Manager Relationship Specialty Start Date End Date Musa Borges MD [address] [place] [address] PCP - General Internal Medicine 04/02/20 documented as of this encounter
[2025-02-28 10:45] LABS: Bacterial Vaginosis PCR POSITIVE (Negative); Candida Group PCR NOT DETECTED (Not Detect); Candida glab krusei PCR NOT DETECTED (Not Detect); Trichomonas vaginalis PCR NOT DETECTED (Not Detect)
[2025-02-28 11:14] LABS: CT PCR DETECTED (Not Detect.); NG PCR NOT DETECTED (Not Detect.)
== END 2025-02-27 10:26 | disposition home or self-care (01) ==
LOC: HO.LAB 10:25
PROVIDERS: PCP Internal Medicine; Visit Provider Advanced Practice Midwife
DX: Z01.419 Encounter for gynecological examination (general) (routine) without abnormal findings (principal); N89.8 Other specified noninflammatory disorders of vagina; Z20.2 Contact with and (suspected) exposure to infections with a predominantly sexual mode of transmission
CPT/HCPCS: 81515; 87491; 87591; 99396; 99459

== ENCOUNTER 2025-04-09 11:19 | Outpatient (AMB) | payer MEDICAID, SELFPAY ==
--- NOTE | 2025-04-09 11:32 | A.OFFVIS_ITS ---
Intake Visit Reasons: 3m follow up/ PVR Intake Note: Patient is present for follow up recurrent uti/microscopic hematuria Urology Medications: solifenacin Blood Thinner: none PVR: 0ml's Diesel Electrician Required: Yes Diesel Electrician Services: Diesel Electrician Present Accompanied by: Self / Same As Patient Allergies No Known Allergies Allergy (Verified 04/09/25 12:07) Medication List - Last Reconciled 04/09/25 by TORRI Asencio gabapentin 300 mg PO BEDTIME meloxicam 15 mg PO DAILY solifenacin (Vesicare) 5 mg PO DAILY 30 days HPI Comments Details: Shira is a 44-year-old Uzbek-speaking female patient of Dr. Hallman. She presents to the office today for a follow up of her ongoing lower urinary tract symptoms. In discussion with the patient today she continues to report episodes of urinary urgency, urinary frequency, and bladder pressure. However feels more recently has been experiencing issues with dysuria. She reports despite compliance with 5 mg of VESIcare daily she continues with these ongoing lower ur inary tract symptoms. 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 In office urinalysis results reviewed with the patient today negative leukocytes, negative nitrates, and negative microscopic hematuria. Previous workup has included a retroperitoneal ultrasound 10/29 noting bilateral kidneys no calculi, lesions, and or hydronephrosis. The bladder was within normal limits. She denies incontinence, nocturia, hematuria, foul smelling urine, changes to urinary stream, flank pain, fever, and or chills. We discussed potential causes of these lower urinary tract symptoms she is experiencing. We discussed sending urine today for microgen testing for further assessment and evalaution. We also discussed potential near future in office cystoscopy if symptoms arise and or persist. PVR 0 mL. We discussed further treatment options of these lower urinary tract symptoms and risks and benefits of these treatment options. She discusses her reluctancy in taking medications. All questions were answered. She otherwise offers no other issues or concerns at this time. [facility] Medical History Recurrent UTI Chronic back pain Surgical History Hx of tubal ligation Family History Maternal Grandfather Throat cancer Social History Alcohol intake: never Patient Tobacco Use Status: Never used Tobacco Female Reproductive History Menstrual Age of Menarche: 11 Review of Systems Const All systems reviewed & are unremarkable except as noted in HPI and below Physical Exam Const General: cooperative, healthy appearing, comfortable, no acute distress, well developed, alert and awake Nutritional Appearance: well nourished Orientation/consciousness: patient oriented x3 Limitations: no limitations HEENT Head: Yes normal to inspection and Yes normocephalic Eyes General: appearance normal, both eyes and all related structures Neck Neck: Yes normal visual inspection and Yes trachea midline Chest Chest palpation & inspection: normal inspection of the chest Resp Effort & Inspection: normal respiratory effort and able to speak in complete sentences Cardio Jugular venous distension: no JVD GI Inspection: Yes normal to inspection General: Yes no CVA tenderness Back/Spine/Pelvis Back: no CVA tenderness Skin General skin exam: no rashes or lesions noted Neuro General: patient oriented x3 Extrem General: Yes normal to inspection and Yes full ROM Psych Appearance: grossly normal and well kempt Mental Status: mental status grossly normal Speech and movement: Normal speech and movement present and Clear speech present Affect: normal affect Attitude: cooperative Thought process: Normal thought process present Thought content: Normal thought content present Insight: Fair insight present (Psych) Judgement: Fair judgement present (Psych) Office Procedures Post Void Residual Post Residual Void Post Void Residual (PVR): 0 75201-[id number] Void Residual by ultrasound Results AMB Urinalysis, Automated UA Leukoctes 15 Jaren/uL Last Edit by Eliecer Stoner on 04/09/25 11:51 UA Nitrite Negative Last Edit by Eliecer Stoner on 04/09/25 11:51 UA Urobilinogen 3.5 mg/dL Last Edit by Eliecer Stoner on 04/09/25 11:51 UA Protein 15 mg/dL Last Edit by Eliecer Stoner on 04/09/25 11:51 UA pH 7.5 Last Edit by Eliecer Stoner on 04/09/25 11:51 UA Blood 0 Yariel/uL Last Edit by Eliecer Stoner on 04/09/25 11:51 UA Specific [place] 1.010 Last Edit by Eliecer Stoner on 04/09/25 11:51 UA Ketone Negative Last Edit by Eliecer Stoner on 04/09/25 11:51 UA Bilirubin 0 mg/dL Last Edit by Eliecer Stoner on 04/09/25 11:51 UA Glucose 0 mg/dL Last Edit by Eliecer Stnoer on 04/09/25 11:51 Results Reviewed Results Reviewed: Laboratory Last Values Urine pH (Auto) 7.5 04/09/25 11:49 Specific [place] (Auto) 1.010 04/09/25 11:49 Urine Protein (Auto) 15 mg/dL 04/09/25 11:49 Glucose (UA)(Auto) 0 mg/dL 04/09/25 11:49 Urine Ketones (Auto) Negative 04/09/25 11:49 Urine Blood (Auto) 0 Yariel/uL 04/09/25 11:49 Urine Nitrite (Auto) Negative 04/09/25 11:49 Urine Bilirubin (Auto) 0 mg/dL 04/09/25 11:49 Urine Urobilinogen (Auto) 3.5 mg/dL 04/09/25 11:49 Leukocyte Esterase (Auto) 15 Jaren/uL 04/09/25 11:49 Assessment & Plan Assessment & Plan (1) Dysuria: Code(s): R30.0 - Dysuria Category: Medical (2) Sensation of pressure in bladder area: Code(s): R39.89 - Other symptoms and signs involving the genitourinary system Category: Medical (3) Recurrent UTI: Code(s): N39.0 - Urinary tract infection, site not specified Category: Medical Plan In office urinalysis results reviewed with the patient today; as noted above; will send for microgen for further assessment evaluation; will await results for potential treatment PVR 0 mL. We discussed at length potential causes of lower urinary tract symptoms patient is experiencing as well as further treatment options and risks and benefits of these treatment options. We discussed potential near future in office cystoscopy for further assessment evaluation. Will continue with surveillance monitoring at this time. We discussed bladder triggers/irritants. We discussed the importance of adequate hydration relation to lower urinary tract symptoms as well as overall health and well-being. Follow-up in 1-3 months with PVR; or sooner with any issues, concerns, and or questions. Orders: Orders AMB Urinalysis Automated Today Z13.9 - Encounter for screening, unspecified AMB Post Void Residual by ultrasound Today R39.15 - Urgency of urination Patient Instructions: The patient had an opportunity to ask questions regarding the treatment plan. All questions were answered. Physical exam, labs, and imaging were discussed and reviewed in detail. As well as risks, benefits, and discussion of treatment choices. No major barriers to understanding were identified. The patient expressed understanding and agreement with the above treatment plan. The patient was made aware they should contact our office by phone for worsening of their current condition, the appearance of new symptoms, or with any questions or concerns. Compliance is encouraged with any medications and follow up testing that is ordered. It is a privilege to be allowed the opportunity to participate in? your urological care.? Again, if you have any questions or concerns If you have any questions or concerns please do not hesitate to contact me. The office is [phone]. This note is constructed using voice recognition software. While every effort has been made to ensure accuracy manager of it errors may have been included. Yours sincerely, TORRI Asencio Coding Level of Care Code Est Pt Level 3 (68981) Diagnoses Dysuria R30.0 Sensation of pressure in bladder area R39.89 Recurrent UTI N39.0 CPT Codes Post Residual Void - PVR CPT Code: 27369-Vzif Void Residual by ultrasound ([id number])
--- OUTSIDE RECORDS SUMMARY | 2025-04-09 12:38 | XMS_ITS | Encounter Summary ---
Author Organization [employer] Address [address] [facility] [address] [place] [address] Care Team Providers Care Pipe Assembly Worker Name Role Phone Musa Borges MD Primary Care Prov ider Encounter Details Date Type Department Care Team ([facility] st Contact Info) Description 12/01/2023 Orders Only [facility] CHC MED & PEDS [address] [place], [place] [phone] Musa Borges MD [address] [place] [address] Social History Tobacco Use Types Packs/Day Years [...] Care Team (Late st Contact Info) Description 07/12/2025 8:00 AM EDT Office Visit [facility] [address] [place] [address] [phone] Elaina Che [address] [place], [place] [phone] documented as of this encounter Visit Diagnoses Not on filedocumented in this encounter Additional Health Concerns Assessment Noted Time PHQ-9 Depression Total Score: 0 12/23/19 23 8:59 AM EST documented as of this encounter Care Teams Pipe Assembly Worker Relationship Specialty Start Date End Date Musa Borges MD [address] [place] [id number] PCP - General Internal Medicine 04/02/20 documented as of this encounter
== END 2025-04-09 12:08 | disposition home or self-care (01) ==
LOC: HO.HUSH 11:20
PROVIDERS: PCP Internal Medicine; Visit Provider Nurse Practitioner Family
DX: R30.0 Dysuria (principal); R39.89 Other symptoms and signs involving the genitourinary system; N39.0 Urinary tract infection, site not specified; Z13.9 Encounter for screening, unspecified
CPT/HCPCS: 99213

== ENCOUNTER → 2025-04-09 11:19 | Outpatient (BNVA) | payer MEDICAID, SELFPAY | PROVIDERS: PCP Internal Medicine; Visit Provider Nurse Practitioner Family | DX: R30.0 Dysuria (principal); R39.89 Other symptoms and signs involving the genitourinary system; N39.0 Urinary tract infection, site not specified | CPT/HCPCS: 51798; 81003; 99212 ==

== ENCOUNTER 2025-04-18 12:47 | Outpatient (AMB) | payer MEDICAID, SELFPAY ==
--- NOTE | 2025-04-18 12:52 | A.OFFVIS_ITS ---
Vital Signs 04/18/25 12:53 Height 5 ft 3 in Weight 187 lb BMI 33.1 BP 96/64 Blood Pressure Location Rt brachial Position Sitting Intake Visit Reasons: ADELINE Follow up/Karen[facility] PT Nurse Private Duty Required: Yes Nurse Private Duty Services: Nurse Private Duty Present Nurse Private Duty Name: Geovanny [id number] Stamp Classifier: Stamp Classifier Present (Sabina) Allergies No Known Allergies Allergy (Verified 04/18/25 12:57) Medication List - Last Reconciled 04/18/25 by Litzy Dill LPN amoxicillin-pot clavulanate 500-125 mg (Augmentin) 1 tab PO TID 5 days gabapentin 300 mg PO BEDTIME levofloxacin 500 mg PO DAILY 5 days meloxicam 15 mg PO DAILY solifenacin (Vesicare) 5 mg PO DAILY 30 days HPI Comments Details: Patient is here today for test of cure, recently treated for chlamydia. She reports completing all her medication, partner was tested and was negative and not treated. She admits to external itching today. And does want to have STD blood work screening completed. [facility] Medical History Recurrent UTI Chronic back pain Surgical History Hx of tubal ligation Family History Maternal Grandfather Throat cancer Social History Alcohol intake: never Patient Tobacco Use Status: Never used Tobacco Female Reproductive History Menstrual Age of Menarche: 11 Review of Systems Const All systems reviewed & are unremarkable except as noted in HPI and below Physical Exam Vital Signs: Last Vital Signs BP 96/64 04/18/25 12:53 BMI result Body Mass Index 33.1 Const General: cooperative, healthy appearing and no acute distress Orientation/consciousness: patient oriented x3 GI Inspection: Yes normal to inspection Palpation (GI): Soft to palpation and Other GI palpation findings present (Nontender) Rectal Exam - Female: visual inspection normal General: Yes bladder normal to palpation External Female Exam: normal appearance of the urethra Speculum Exam - Vagina: normal appearance of the vagina, normal palpation and abnormal vaginal discharge (Thick white adherent discharge, clear mucousy discharge from cervical os) Speculum Exam - Cervix: normal appearance of the cervix and normal palpation Bimanual exam- vagina & uterus: normal bimanual exam, normal palpation, uterine size normal, bladder normal to palpation, normal palpation, uterine shape normal and non-tender Bimanual Exam- Adnexa, other: normal adnexae Neuro General: patient oriented x3 Assessment & Plan Assessment & Plan (1) Chlamydia contact, treated: Code(s): Z20.2 - Contact with and (suspected) exposure to infections with a predominantly sexual mode of transmission Plan Test of cure completed today. BV panel obtained. Blood work labs ordered patient instructed on how to obtain her blood work today. Await results for plan of care. Advised safe sex condoms consistently. Annual exam February 2026. The patient expressed understanding and agreement with the plan of care. All of her questions and concerns were addressed to the best of my ability. This note is constructed using voice recognition software. While every effort has been made to ensure accuracy, transformer assembly supervisor errors may have been included. Orders: Orders Hepatitis C Antibody Reflex Today Z20.2 - Contact with and (suspected) exposure to infections with a predominantly sexual mode of transmission Syphilis Screen Today Z20.2 - Contact with and (suspected) exposure to infections with a predominantly sexual mode of transmission Bacterial Vaginosis Panel Today N89.8 - Other specified noninflammatory disorders of vagina CT NG by PCR Today A74.9 - Chlamydial infection, unspecified, Z11.3 - Encounter for screening for infections with a predominantly sexual mode of transmission HIV Ab/Ag Today Z20.2 - Contact with and (suspected) exposure to infections with a predominantly sexual mode of transmission Hepatitis B Core Antibody Today Z20.2 - Contact with and (suspected) exposure to infections with a predominantly sexual mode of transmission Coding Level of Care Code Est Pt Level 3 (99348) Diagnoses Chlamydia contact, treated Z20.2
[2025-04-18 12:53] VITALS: BP 96/64; BMI 33.1
--- OUTSIDE RECORDS SUMMARY | 2025-04-18 14:13 | XMS_ITS | Encounter Summary ---
Author Organization [employer] Address [address] [facility] [address] [place] [address] Care Team Providers Care Trailer Mechanic Name Role Phone Musa Borges MD Primary Care Prov ider Encounter Details Date Type Department Care Team ([facility] st Contact Info) Description 12/01/2023 Orders Only [facility] CHC MED & PEDS [address] [place], [place] [phone] Musa Borges MD [address] [place] [address] Social History Tobacco Use Types Packs/Day Years [...] Description 07/12/2025 8:00 AM EDT Office Visit [facility] [address] [place] [address] [phone] Elaina Che [address] [place], [place] [phone] documented as of this encounter Visit Diagnoses Not on filedocumented in this encounter Additional Health Concerns Assessment Noted Time PHQ-9 Depression Total Score: 0 12/23/19 23 8:59 AM EST documented as of this encounter Care Teams Trailer Mechanic Relationship Specialty Start Date End Date Musa Borges MD [address] [place] [id number] PCP - General Internal Medicine 04/02/20 documented as of this encounter
== END 2025-04-19 07:40 | disposition home or self-care (01) ==
LOC: HO.HWS 12:47
PROVIDERS: PCP Internal Medicine; Visit Provider Advanced Practice Midwife
DX: Z20.2 Contact with and (suspected) exposure to infections with a predominantly sexual mode of transmission (principal)
CPT/HCPCS: 99213

== ENCOUNTER 2025-04-18 12:47 | Outpatient (REF) | payer MEDICAID, SELFPAY ==
[2025-04-18 16:19] LABS: Bacterial Vaginosis PCR NEGATIVE (Negative); Candida Group PCR NOT DETECTED (Not Detect); Candida glab krusei PCR NOT DETECTED (Not Detect); Trichomonas vaginalis PCR NOT DETECTED (Not Detect)
[2025-04-18 16:51] LABS: CT PCR NOT DETECTED (Not Detect.); NG PCR NOT DETECTED (Not Detect.)
[2025-04-19 07:57] LABS: Syphilis Screen Nonreactive (Nonreactive)
[2025-04-19 08:05] LABS: HBc Num1 0.27 S/CO (0.00-0.79); HIV AB/AG Nonreactive (Nonreactive); HIV Num 1 0.12 S/CO (0.00-0.99); Hepatitis B Core Antibody Nonreactive (Nonreactive); ~HepC Num1 0.16 S/CO (0.00-0.79); ~Hepatitis C Antibody Nonreactive (Nonreactive)
== END 2025-04-18 12:48 | disposition home or self-care (01) ==
LOC: HO.LAB 12:47
PROVIDERS: PCP Internal Medicine; Visit Provider Advanced Practice Midwife
DX: A74.9 Chlamydial infection, unspecified (principal); N89.8 Other specified noninflammatory disorders of vagina; Z20.2 Contact with and (suspected) exposure to infections with a predominantly sexual mode of transmission; Z11.3 Encounter for screening for infections with a predominantly sexual mode of transmission
CPT/HCPCS: 81515; 86704; 86780; 86803; 87389; 87491; 87591; 99212

== ENCOUNTER 2025-05-08 08:19 | Outpatient (AMB) | payer MEDICAID, SELFPAY ==
--- OUTSIDE RECORDS SUMMARY | 2025-05-08 08:24 | XMS_ITS | Encounter Summary ---
Author Organization [employer] Address [address] [facility] [address] [place] [address] Care Team Providers Care Clerical Adjudicator Name Role Phone Musa Borges MD Primary Care Prov ider Encounter Details Date Type Department Care Team ([facility] st Contact Info) Description 12/01/2023 Orders Only [facility] CH[facility] MED & PEDS [address] [place], [place] [phone] Musa Borges MD [address] [place] [address] Social History Tobacco Use Types Packs/Day Years [...] Care Team (Late st Contact Info) Description 07/04/2025 9:00 AM EDT Office Visit [facility] MED & PEDS [address] [place] [address] Lily Stokes MD [address] [place] [address] 07/12/2025 8:00 AM EDT Office Visit [facility] [address] [place], [place] [phone] Elaina Che [address] [place], [place] [phone] documented as of this encounter Visit Diagnoses Not on filedocumented in this encounter Additional Health Concerns Assessment Noted Time PHQ-9 Depression Total Score: 0 12/23/19 23 8:59 AM EST documented as of this encounter Care Teams Clerical Adjudicator Relationship Specialty Start Date End Date Musa Borges MD [address] [place] [address] PCP - General Internal Medicine 04/02/20 documented as of this encounter
--- OUTSIDE RECORDS SUMMARY | 2025-05-08 08:24 | XMS_ITS | Data Portability ---
Author Organization [facility] Ba Hernandez Caсергей [facility], [facility] Address [address] [place] [address] Care Team Providers Care Open Claims Representative Name Role Phone [facility] Primary Care Provider Assessment Encounter Date Assessment Date Assessment LastModified by Organization Details LastModified Time 01/05/2025 01/05/2025 44-year-old female returns today in follow-up for right elbow lateral epicondylitis with continued symptoms. I recommended physical therapy for eccentric strengthening exercises and a counterforce brace. Follow-up in 3 months time for recheck, sooner if required [email or web address] Not available 01/05/2025 14:30:42 Plan of Treatment Reminders Order Date Submit Date Provider Last Modified By Organization Details Last Modified Time Details Appointments MUST SEE [facility] 2024 03:45P Jade Paige MD Not available Not available Not available Lab None recorded. Referral physical therapist referral - DX: RIGHT LATERAL EPICONDYL ITIS EVAL AND TX: WRIST EXTENSOR ROM AND EXERCISES WITH MODALITIE S 2-3 times/wee k 4-6 weeks 2024 025 [email or web address] Not available 02/09/2025 10:23:08 Procedures None recorded. Surgeries None recorded. Imaging XR, lumbar spine, 2 view - rm 301 l spine 2v 2024 025 [email or web address] [facility], [address], [address], [place], [address], 02/19/2025 14:29:16 MRI, lumbar spine, w/o contrast - mri lumbar evaluate for stenosis 2024 025 [facility] ([place] [facility]), [address], [place], [address], 02/28/2025 18:01:26 XR, elbow, 3 or more view - new pt 3 views right elbow rm 107 2023 06 024 [facility] Office, [address], [address], [place], [address], 05/05/2024 12:45:02 Medication Orders None recorded. Patient TargetsNo targets recorded. Patient InstructionsNo instructions recorded. Reason for Referral Physical Therapist Referral for Lateral epicondylitis of right humerus DX: RIGHT LATERAL EPICONDYLITISEVAL AND TX: WRIST EXTENSOR ROM AND EXERCISES WITH MODALITIES 2-3 times/week4-6 weeks Referring Physician: Jaleel Nieves, Orthopedic Surgery, Encounter Date: 01/05/2025 Results Created Date Observation Date Name Description Value Unit Range Abnormal Flag Note LastModifiedBy Organization Detail LastModifiedTime 02/20/20 25 02/19/2025 XR, lumba r spine , 2 view http:/ [email or web address] ?Encry pted=s hAaTro YD8dLq bEUv6g %2BXZw aYqtaq 0bqfl% 2Fg9IQ a4ajBk vP9nXo QUaueC m3YtLR FvZlgJ JJ8mAn HZtai3 1k3492 AC0KqY 3uHUaq mKiQtr MwF INTERFACE [facility] [address], [place], [address], 02/19/2025 08:55:02 02/20/20 25 02/19/2025 XR, lumba r spine , 2 view http:/ [email or web address] ?Encry pted=s hAaTro YD8dLq bEUv6g %2BXZw aYqtaq 0bqfl% 2Fg9IQ a4ajBk vP9nXo QUaueC m3YtLR FvZlgJ JJ8mAn HZtai3 8v3259 AC0KqY 3uHUaq mKiQtr MwF INTERFACE [facility] Office [address] [facility] [address], [place], [address], 02/19/2025 08:55:04 02/29/2002/23/2025 MRI, lumba r spine , w/o contr ast [facility] Access ion Number : [id number] Patien t Name: Paras Aragon Record Number : [id number] Date of : 1979 Date of Exam: 2024 Referr ing Physic mattie: [facility] [address] [facility] , [address] [place] [address] Exam: MR Lumbar Spine (C-) CPT 32052 Room Descri ption: [facility] 3.0T HISTOR Y: Low back pain. Bilate ral leg pain. TECHNI QUE: Multip lanar multis equenc e MRI of the lumbar spine withou t contra st. COMPAR MARCELLA: No prior studie s are availa ble for compar marcella at [facility] . FINDIN GS: No sublux ation is presen t on the sagitt al images . The lumbar verteb ral bodies are normal in height . No spondy lolysi s. The L5-S1 disc is modera te-sev erely dimini shed in height with Modic type II endpla te change and margin al spurri ng. Schmor l's nodes are presen t at L1-L2. No marrow edema is noted. The visual ized lower thorac ic cord is normal in signal , and the conus termin ates at approx imatel y T12-L1 . There is no epidur al fluid collec tion or cauda equina compre ssion. The parasp inal soft tissue s and visual ized retrop eriton eal struct ures are unrema rkable . L1-L2: No centra l canal or forami nal stenos is. L2-L3: No centra l canal or forami nal stenos is. L3-L4: No centra l canal or forami nal stenos is. L4-L5: No centra l canal or forami nal stenos is. L5-S1: Concen tric disc-o steoph yte comple x. No centra l canal stenos is. Mild forami nal narrow ing. Crowdi ng of the exitin g L5 nerve roots. IMPRES RACHEL: Degene rative change s of the L5-S1 disc with a concen tric disc-o steoph yte comple x. Mild bilate ral L5-S1 forami nal narrow ing with crowdi ng of the L5 nerve roots. Electr onical ly Signed By: Unruly Gonzales MD [email or web address] [facility] ([facility]) [address], [place], [address], 03/06/2025 11:54:37 Result Notes Documentation Provider Name and Address Organization Details Recorded Time Xr, Lumbar Spine, 2 View : [email or web address] ncrypted=zuIpKvgVB8yGrcSAw 6g%1SKHbdEuxng8dguh%2Fg9IQ b1yaDvlS3wNaZPtkwEp7OdPFDb HtrVHQ9zYkLZuam87l9729GU8B nV0fXEubxMpWtxAoW Not Available [facility] 02/19/2025 08:55:03 Xr, Lumbar Spine, 2 View : [email or web address] ncrypted=taRqVdoJU0zEqoJLv 6g%5HWCmvPhzja7larm%2Fg9IQ l3oyLrxN3qOwDXgdkLf9XtYREg NbnMYW8yAaCGgkm27r7138LE0O zT1zDHcflWnRfkGgX Not Available [facility] 02/19/2025 08:55:05 Mri, Lumbar Spine, W/o Contrast : [facility] Accession Number: [id number] Patient Name: Shira Aragon Date of : 1980 Date of Exam: 02-23-2025 Referring Physician: Mary Grace Arora [facility] ([facility]) [address] [place] [address], [address] [place] [address] Exam: MR Lumbar Spine (C-) CPT 74486 Room Description: [facility] 3.0T HISTORY: Low back pain. Bilateral leg pain. TECHNIQUE: Multiplanar multisequence MRI of the lumbar spine without contrast. COMPARISON: No prior studies are available for comparison at [facility]. FINDINGS: No subluxation is present on the sagittal images. The lumbar vertebral bodies are normal in height. No spondylolysis. The L5-S1 disc is moderate-severely diminished in height with Modic type II endplate change and marginal spurring. Schmorl's nodes are present at L1-L2. No marrow edema is noted. The visualized lower thoracic cord is normal in signal, and the conus terminates at approximately T12-L1. There is no epidural fluid collection or cauda equina compression. The paraspinal soft tissues and visualized retroperitoneal structures are unremarkable. L1-L2: No central canal or foraminal stenosis. L2-L3: No central canal or foraminal stenosis. L3-L4: No central canal or foraminal stenosis. L4-L5: No central canal or foraminal stenosis. L5-S1: Concentric disc-osteophyte complex. No central canal stenosis. Mild foraminal narrowing. Crowding of the exiting L5 nerve roots. IMPRESSION: Degenerative changes of the L5-S1 disc with a concentric disc-osteophyte complex. Mild bilateral L5-S1 foraminal narrowing with crowding of the L5 nerve roots. Electronically Signed By: Unruly Arora PA-C [address] [facility], [place], [address], [facility] 03/06/2025 11:54:37 Problems Name Problem SNOMED Code Status Onset Date Resolution Date Notes Provider Name and Address Organization Details Recorded Time No complaints 535582705 Active Status : 'A'; Not Available [facility] 4 09:10:28 Lateral epicondyli tis of right humerus 6149994998289 07 Active 2024 Jaleel Nieves PA-C [address], [place], [address] , [facility] 5 12:25:54 Problem Notes None recorded. Procedures Surgical History Date Name Laterality Status Provider Name and Address Organization Details Recorded Time 04/14/20 24 Lateral Epicondylitis Celestone 1cc Injection, L/R completed Ronel Olea PA-C [address] [facility] [address], [place], [address], [facility] 04/14/2024 15:56:15 Imaging Results None recorded. Procedure Notes None recorded. Medical Equipment None Reported. Allergies No known drug allergies Medications Name Sig Start Date Stop Date Status Note LastModified by Organization Details LastModified Time cyclobenzap rine 10 mg tablet TAKE ONE TABLET THREE TIMES DAILY FOR 10 DAYS active Not Available Not Available No t Available dicloxacill in 500 mg capsule TAKE ONE CAPSULE EVERY 6 HOURS FOR SEVEN DAYS 01/05 completed Not Available Not Available Not Available ketoconazol e 2 % shampoo APPLY TO THE AFFECTED AREA(S) TWICE A WEEK 03/22 completed Not Available Not Available Not Available azithromyci n 250 mg tablet TAKE 2 TABLETS BY MOUTH ON DAY 1, THEN TAKE 1 TABLET DAILY ON DAYS 2-5 03/22 completed Not Available Not Available Not Available meloxicam 15 mg tablet TAKE ONE TABLET EVERY DAY active Not Available Not Available No t Available metronidazo le 0.75 % (37.5 mg/5 gram) vaginal gel INSERT ONE APPLICATO RFUL VAGINALLY AT BEDTIME FOR FIVE DAYS 01/05 completed Not Available Not Available Not Available Elidel 1 % topical cream APPLY TO THE AFFECTED AREA(S) TWICE DAILY 03/22 completed Not Available Not Available Not Available polyvinyl alcohol 1.4 % eye drops PLACE ONE DROP IN EACH EYE THREE TIMES DAILY IN THE MORNING, AT NOON, AND AT BEDTIME NEEDED active Not Available Not Available No t Available prednisone 20 mg tablet TAKE TWO TABLETS EVERY DAY FOR 5 DAYS 01/05 completed Not Available Not Available Not Available miconazole nitrate 2 % vaginal cream INSERT ONE APPLICATO RFUL VAGINALLY AT BEDTIME FOR SEVEN DAYS, USE NEEDED FOR INFECTION yeast 01/05 completed Not Available Not Available Not Available metronidazo le 500 mg tablet TAKE ONE TABLET TWICE DAILY WITH FOOD FOR SEVEN DAYS. Evite los productos con alcohol y vinagre 03/22 completed Not Available Not Available Not Available cefadroxil 500 mg capsule TAKE 1 CAPSULE TWICE DAILY UNTIL FINISHED 03/22 completed Not Available Not Available Not Available hydrocortis one-acetic acid 1 %-2 % ear drops INSTILL THREE DROPS IN BOTH EARS TWICE DAILY FOR 10 DAYS 01/05 completed Not Available Not Available Not Available oseltamivir 75 mg capsule TAKE ONE CAPSULE TWICE DAILY FOR 5 DAYS 01/05 completed Not Available Not Available Not Available gabapentin 300 mg capsule TAKE ONE CAPSULE EVERY NIGHT AT BEDTIME 03/22 completed Not Available Not Available Not Available gabapentin 100 mg capsule TAKE ONE CAPSULE TWICE DAILY active Not Available Not Available No t Available levofloxaci n 500 mg tablet TAKE ONE TABLET DAILY FOR FIVE DAYS active Not Available Not Available No t Available ondansetron 4 mg disintegrat ing tablet DISSOLVE ONE TABLET ON TONGUE EVERY 8 HOURS NEEDED FOR NAUSEA AND VOMITING 03/22 completed Not Available Not Available Not Available doxycycline hyclate 100 mg tablet TAKE ONE TABLET TWICE DAILY UNTIL FINISHED 03/22 completed Not Available Not Available Not Available amoxicillin 500 mg-potassiu m clavulanate 125 mg tablet TAKE ONE TABLET THREE TIMES DAILY FOR FIVE DAYS active Not Available Not Available No t Available Ventolin HFA 90 mcg/actuati on aerosol inhaler INHALE TWO PUFFS EVERY 4 HOURS NEEDED FOR WHEEZING active Not Available Not Available No t Available artificial tears(dextr an-hypromel -glycern) 0.1 %-0.3 %-0.2 % eye drops PLACE ONE DROP IN EACH EYE THREE TIMES DAILY IN THE MORNING, AT NOON, AND AT BEDTIME NEEDED 03/22 completed Not Available Not Available Not Available solifenacin 5 mg tablet TAKE ONE TABLET BY MOUTH ONCE DAILY active Not Available Not Available No t Available fluocinolon e 0.01 % scalp oil and shower cap APPLY TO THE AFFECTED AREA(S) ONE TO TWO TIMES PER WEEK 03/22 completed Not Available Not Available Not Available diclofenac 1 % topical gel APPLY 2 GRAM'S TO AFFECTED AREA(s) TWICE DAILY NEEDED 03/22 completed Not Available Not Available Not Available GaviLyte-G 236 gram-22.74 gram-6.74 gram-5.86 gram oral solution DRINK 240 ML EVERY 10 MINUTES UNTIL FINISHED OR HASTA QUE EL LQUIDO RECTAL EST LINNEA 03/22 completed Not Available Not Available Not Available Vitals Date Recorded Body height Body mass index (BMI) Body weight Provider Name and Address Organization Details Last Updated DateTime 01/05/2025 162.56 cm 27.5 kg/m2 26537.78 g Cheo Salazar [facility] 01/05/2025 14:22:22 Date Recorded Body height Body mass index (BMI) Body weight Provider Name and Address Organization Details Last Updated DateTime 02/19/2025 162.56 cm 27.5 kg/m2 47138.78 g Katrin Lechuga [facility] 02/19/2025 08:49:52 Date Recorded Body height Body mass index (BMI) Body weight Provider Name and Address Organization Details Last Updated DateTime 03/22/2025 162.56 cm 27.5 kg/m2 77668.78 g VENECIA ARRIETA [facility] 03/22/2025 13:28:29 Date Recorded Body height Body mass index (BMI) Body weight Provider Name and Address Organization Details Last Updated DateTime 04/14/2024 162.56 cm 27.5 kg/m2 53730.78 g Celine Holliday [facility] 04/14/2024 15:35:22 Social History None recorded. Functional Status None recorded. Mental Status None recorded. Family History Nothing Reported. Medical History No medical history recorded. Gynecological HistoryNo gynecological history recorded. Obstetrics History GPAL:G 0 P 0 0 0 0 Past Encounters Encounter ID Performer Location Encounter Start Date Encounter Closed Date Diagnosis/Indication Diagnosis SNOMED-CT Code Diagnosis ICD10 Code Diagnosis Note [id number] FR[facility] Rogers [address] [place] [address] 04/14/2024 15:23:54 05/05/2024 12:45:02 Pain of right elbow joint 3040260079 9312428 M25.521 Lateral epicondylitis 20 7681496 M77.11 [id number] FR[facility] Juan [address] [place] [address] 01/05/2025 14:10:26 01/22/2025 08:19:45 Lateral epicondylitis of right humerus 9672937997 78534 M77.11 The patient is ambulatory , but has weakness and/or instabilit y of their extremity which requires stabilizat ion from this semi-rigid /rigid orthosis to improve their function. Verbal and written instructio ns for their use and applicatio n of this item were given. patient was instructed that should the brace result in increased pain, decreased sensation, increased swelling or an overall worsening of their medical condition, to please contact our office immediatel y. [id number] FRANCK Calderon [address] [place] [address] 02/19/2025 08:40:57 03/11/2025 13:44:12 Low back pain 542250380 M54.50 [id number] [facility] [place] [address] [place] [address] 03/22/2025 13:10:48 04/04/2025 08:56:00 Lumbar radiculopathy 853253512 M54.16 Health Concerns Section Related Observation LastModified by Organization Detai ls LastModified Time None Recorded Concern Status LastModified by Organization Details LastModified Time None Recorded Advance Directives Directive None Recorded Payers Insurance Date Sequence Insurance Name Policy Number Policy Eduardo Covered Member ID Eduardo Member ID Guarantor Name 04/23/2025 1 [place] [facility] [id number] [facility] Notes Date Note Type Note Provider Name and Address Organization Details Recorded Time 04/14/2024 text/html I am seeing this patient under the supervision of Dr. Ivy] who was available but who did not see the patient.HPI: [Patient is a 43-year-old female presenting to office today for evaluation of right elbow pain. Localizes the pain to the lateral epicondyle. Reports it has been ongoing for a couple of months now and has been progressively worsening. Reports the pain is worse when carrying things. Denies recent falls or traumatic injury. She is here for orthopedic consultation.]Past family, medical, social history and review of systems has been reviewed, updated and is located in the patient's chart.Examination: [The patient is well appearing and in no apparent distress. Alert and oriented x 3. Nonantalgic gait. [Right] elbow reveals mild soft tissue swelling around the lateral epicondyle. Patient is tender about the lateral epicondyle. Very minimally tender about the medial epicondyle. Otherwise no soft tissue swelling or tenderness about the elbow. No evidence of varus/valgus instability. No evidence for effusion, no evidence of mechanical symptoms or locking. Patient gets pain around the lateral epicondyle with wrist extension. Full ROM. 5/5 strength. Intact median, radial and ulnar nerve both motor and sensory function. Peripheral, vascular, lymphatic examination, skin, neurological, coordination, reflexes, sensation are within normal limits.]X-rays ordered, obtained and reviewed independently today at [facility]: [[3 view x-rays of the right elbow reveal no acute fractures or dislocations.]]Impr ession: [[right elbow lateral epicondylitis]]Plan : [I discussed my findings and the situation with the patient. We discussed potential treatment options at this time. Patient would like to try exercises at home, wrist brace, and a cortisone injection today. She was provided with an exercise handout and a script for a wrist brace. We discussed the role of cortisone as well as its risks and benefits. Patient would like to proceed with an injection. Under sterile technique the patient's [right elbow lateral epicondyle] was injected with 1cc Lidocaine and 1cc Celestone. Patient tolerated the procedure well. Post procedure protocol was discussed with the patient. Patient will follow-up on an as-needed basis. If symptoms persist or things worsen or change, or if symptoms return and she would like another injection she will call the office. Patient agrees to this plan. All questions were answered.The patient has weakness and instability of their extremity which requires stabilization for this semi-rigid/rigid orthosis to improve their function. Verbal and written instructions for the use and application of this item were given. Patient was instructed that should the brace result in increased pain, decreased sensation, increased swelling or an overall worsening of their medical condition, to please contact our office immediately.Speech recognition naval engineer software was used to create portions of this document. An attempt at proofreading has been made to minimize errors. Please call for corrections. Ronel Olea PA-C [address] [facility] [address] [facility], [place], [address], [facility] 04/14/2024 16:12:11 01/05/2025 text/html I am seeing this patient under the supervision of Dr. Ren who was available but who did not see the patient Chief Complaint: Follow-up evaluation for right elbow lateral epicondylitis HPI: 44-year-old female returns today in follow-up for right elbow lateral epicondylitis. Her last evaluation was with Ronel Olea PA-C in April 2024. She has tried a home exercise program, wrist brace, and cortisone injection. She reports no significant improvements of her elbow. 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 Paige who was available but who did not see the patient. HPI: Patient is a 44 year old latvian speaking female who presents for evaluation of ongoing low back pain. Translation through her daughter on the phone today. Patient reports she now has intermittent radiating leg pain, paresthesias and weakness. Standing and walking worse than sitting. No clear etiology. Worsening over time. Pevious MRI was done many years ago. She was told that her disc was very arthritic. Rates pain moderate to severe. Denies bowel or bladder dysfunction. TREATMENTS: Bed rest, activity modification, home exercise core strengthening lumbar stabilization program over the past 3 months, and NSAIDs. Past family, medical, social history and review of systems has been reviewed, updated and signed by me and is located in the patient's chart. Examination: The patient is well appearing, alert and oriented x3 and in no acute distress. Gait is antalgic. Inspection of the spine reveals no step off, deformity or overlying skin changes. Range of motion of the lumbar spine is 60% of normal. Range of motion of the hip and knees full without discomfort. The spine is nontender over the paravertebral musculature. Nontender over the greater trochanters. Straight leg raise is positive on the affected side. Strength and sensation intact. Re exes normal. No ankle clonus. X-rays ordered, obtained and reviewed at [facility], 2 views of the lumbar spine reveals no fractures, instability or bony lesions. Advanced degenerative disc disease noted at L5-S1 with auto fusion. Impression/Plan: Low back pain/Lumbar DDD/Lumbar radiculitis. Discussed the nature of the problem with the patient. Recommend MRI lumbar spine to evaluate for high grade stenosis and follow up when complete. Discussed Follow-up will be arranged in 6 weeks. [facility] speech recognition naval engineer software was used to create portions of this document. An attempt at proofreading has been made to minimize errors. Please call for corrections. Mary Grace Arora PA-C [address] [facility] [address], [place], [address], [facility] 02/19/2025 10:20:10 03/22/2025 text/html I am seeing the patient today under the supervision of Dr. Paige who was available but who did not see the patient. HPI: Patient is a 44 year old latvian speaking female who presents for MRI review for further evaluation of ongoing low back pain. Patient reports radiating leg pain, paresthesias and weakness. Standing and walking worse than sitting. No clear etiology. Worsening over time. Previous MRI was done many years ago. She was told that her disc was very arthritic. Rates pain moderate to severe. Denies bowel or bladder dysfunction. TREATMENTS: Bed rest, activity modification, home exercise core strengthening lumbar stabilization program over the past 3 months, and NSAIDs. Has tried meloxicam with minimal effect. Takes gabapentin at night but cannot tolerate during the day due to side effects. Has failed injections in the past. Past family, medical, social history and review of systems has been reviewed, updated and signed by me and is located in the patient's chart. Examination: The patient is well appearing, alert and oriented x3 and in no acute distress. Gait is antalgic. Inspection of the spine reveals no step off, deformity or overlying skin changes. Range of motion of the lumbar spine is 60% of normal. Range of motion of the hip and knees full without discomfort. The spine is nontender over the paravertebral musculature. Nontender over the greater trochanters. Straight leg raise is positive on the affected side. Strength and sensation intact. Re exes normal. No ankle clonus. X-rays previously ordered, obtained and reviewed at [facility], 2 views of the lumbar spine reveals no fractures, instability or bony lesions. Advanced degenerative disc disease noted at L5-S1 with auto fusion. MRI lumbar spine reviewed independently by myself reveals advanced degenerative findings at L5-S1 with crowding of the exiting nerve roots. No high-grade stenosis. Impression/Plan: Low back pain/Lumbar DDD/Lumbar radiculitis. Discussed the nature of the problem with the patient. The patient has failed to improve over time with multiple conservative treatments as outlined above. I discussed alternative options for managing pain such as acupuncture but the patient declined this. She may be a candidate for ALIF. Will have follow-up with one of our spine surgeons. rn outpatient surgery utilized. [email or web address] speech recognition naval engineer software was used to create portions of this document. An attempt at proofreading has been made to minimize errors. Please call for corrections. Mary Grace Arora PA-C [address] [facility] [address], [place], [address], [facility] - [facility] 03/22/2025 14:14:32 OBGyn Episode No OBEpisode recorded.
--- NOTE | 2025-05-08 08:29 | A.OFFVIS_ITS ---
Intake Visit Reasons: 1m/PVR Intake Note: Patient is present for follow up recurrent uti, microscopic hematuria, and dysuria Urology Medications: solifenacin Blood Thinner: none PVR: 44ml's Administrative Hearing Officer Required: Yes Administrative Hearing Officer Services: Administrative Hearing Officer Present Administrative Hearing Officer Name: Debby Drummond406 Accompanied by: Self / Same As Patient Allergies No Known Allergies Allergy (Verified 05/08/25 09:26) Medication List - Last Reconciled 05/08/25 by TORRI Asencio gabapentin 300 mg PO BEDTIME meloxicam 15 mg PO DAILY solifenacin (Vesicare) 5 mg PO DAILY 30 days HPI Comments Details: Shira is a 44-year-old Northern Irish-speaking female patient of Dr. Hallman. She presents to the office today for a follow up of her ongoing lower urinary tract symptoms. Of note patient was last seen approximately 1 month ago at which time her urine was sent out for further mircogen testing. These results were reviewed and communicated with the patient today. Microgen 04/01 Citrobacter koseri, Raoultella ornithinolytica, Streptococcus agalactiae, Proteus mirabilis, Klebsiella aerogenes, Enterococcus faecalis, and gardneralla vaginalis. She has since Augmentin as prescribed. She reports feeling episodes of urinary urgency, urinary frequency, and bladder pressure she had been experiencing has since subsided. She does report being on her menses at this time. In office urinalysis results reviewed with the patient today. PVR 44 mL. She currently denies any bothersome urinary issues or concerns. Previous workup has included a retroperitoneal ultrasound 10/29 noting bilateral kidneys no calculi, lesions, and or hydronephrosis. The bladder was within normal limits. She denies incontinence, nocturia, hematuria, foul smelling urine, changes to urinary stream, flank pain, fever, and or chills. We discussed potential causes of these lower urinary tract symptoms she was experiencing. We discussed potential near future cystoscopy if symptoms arise. We discussed further treatment options of these lower urinary tract symptoms and risks and benefits of these treatment options. All questions were answered. She otherwise offers no other issues or concerns at this time. [facility] Medical History Recurrent UTI Chronic back pain Surgical History Hx of tubal ligation Family History Maternal Grandfather Throat cancer Social History Alcohol intake: never Patient Tobacco Use Status: Never used Tobacco Female Reproductive History Menstrual Age of Menarche: 11 Review of Systems Const All systems reviewed & are unremarkable except as noted in HPI and below Physical Exam Const General: cooperative, healthy appearing, comfortable, no acute distress, well developed, alert and awake Nutritional Appearance: well nourished Orientation/consciousness: patient oriented x3 Limitations: no limitations HEENT Head: Yes normal to inspection and Yes normocephalic Eyes General: appearance normal, both eyes and all related structures Neck Neck: Yes normal visual inspection and Yes trachea midline Chest Chest palpation & inspection: normal inspection of the chest Resp Effort & Inspection: normal respiratory effort and able to speak in complete sentences Cardio Jugular venous distension: no JVD GI Inspection: Yes normal to inspection General: Yes no CVA tenderness Back/Spine/Pelvis Back: no CVA tenderness Skin General skin exam: no rashes or lesions noted Neuro General: patient oriented x3 Extrem General: Yes normal to inspection and Yes full ROM Psych Appearance: grossly normal and well kempt Mental Status: mental status grossly normal Speech and movement: Normal speech and movement present and Clear speech present Affect: normal affect Attitude: cooperative Thought process: Normal thought process present Thought content: Normal thought content present Insight: Fair insight present (Psych) Judgement: Fair judgement present (Psych) Office Procedures Post Void Residual Post Residual Void Post Void Residual (PVR): 44 [id number] Void Residual by ultrasound Results AMB Urinalysis, Automated UA Leukoctes 15 Jaren/uL Last Edit by FIDELIA Keyes on 05/08/25 08:40 UA Nitrite Last Edit by FIDELIA Keyes on 05/08/25 08:40 UA Urobilinogen 0.2 mg/dL Last Edit by A[facility] Ulloa, [facility] on 05/08/25 08:4 0 UA Protein 0 mg/dL Last Edit by Aurelio Ulloa, [facility] on 05/08/25 08:40 UA pH 6.0 Last Edit by Aurelio Ulloa, [facility] on 05/08/25 08:40 UA Blood 200 Yariel/uL Last Edit by Aurelio Ulloa, [facility] on 05/08/25 08:40 UA Specific [place] 1.005 Last Edit by Aurelio Ulloa, [facility] on 05/08/25 08: 40 UA Ketone Last Edit by Aurelio Ulloa, [facility] on 05/08/25 08:40 UA Bilirubin 0 mg/dL Last Edit by Aurelio Ulloa, [facility] on 05/08/25 08:40 UA Glucose 0 mg/dL Last Edit by Aurelio Ulloa, [facility] on 05/08/25 08:40 Results Reviewed Results Reviewed: Laboratory Last Values Urine pH (Auto) 6.0 05/08/25 08:39 Specific [place] (Auto) 1.005 05/08/25 08:39 Urine Protein (Auto) 0 mg/dL 05/08/25 08:39 Glucose (UA)(Auto) 0 mg/dL 05/08/25 08:39 Urine Blood (Auto) 200 Yariel/uL 05/08/25 08:39 Urine Bilirubin (Auto) 0 mg/dL 05/08/25 08:39 Urine Urobilinogen (Auto) 0.2 mg/dL 05/08/25 08:39 Leukocyte Esterase (Auto) 15 Jaren/uL 05/08/25 08:39 Assessment & Plan Assessment & Plan (1) Microscopic hematuria: Code(s): R31.29 - Other microscopic hematuria Category: Medical (2) Dysuria: Code(s): R30.0 - Dysuria Category: Medical (3) Sensation of pressure in bladder area: Code(s): R39.89 - Other symptoms and signs involving the genitourinary system Category: Medical (4) Urinary urgency: Comment: sees urology.... Code(s): R39.15 - Urgency of urination Category: Medical (5) Recurrent UTI: Code(s): N39.0 - Urinary tract infection, site not specified Category: Medical Plan In office urinalysis results reviewed with the patient today; as noted above. PVR 44 mL. She currently denies any bothersome urinary issues or concerns. She reports be happy with current voiding parameters. Previous microgen results were reviewed with the patient today; as noted above. Will continue with surveillance monitoring. We discussed the importance of adequate hydration. Continue VESIcare as discussed and prescribed. Follow-up in 3 months with PVR; or sooner with any issues, concerns, and or questions. Orders: Orders AMB Urinalysis Automated Today Z13.9 - Encounter for screening, unspecified AMB Post Void Residual by ultrasound Today R39.15 - Urgency of urination Patient Instructions: The patient had an opportunity to ask questions regarding the treatment plan. All questions were answered. Physical exam, labs, and imaging were discussed and reviewed in detail. As well as risks, benefits, and discussion of treatment choices. No major barriers to understanding were identified. The patient expressed understanding and agreement with the above treatment plan. The patient was made aware they should contact our office by phone for worsening of their current condition, the appearance of new symptoms, or with any questions or concerns. Compliance is encouraged with any medications and follow up testing that is ordered. It is a privilege to be allowed the opportunity to participate in? your urological care.? Again, if you have any questions or concerns If you have any questions or concerns please do not hesitate to contact me. The office is [phone]. This note is constructed using voice recognition software. While every effort has been made to ensure accuracy design draftsman errors may have been included. Yours sincerely, TORRI Asencio Coding Level of Care Code Est Pt Level 3 (05535) Complex EM visit Add On G2211 Diagnoses Microscopic hematuria R31.29 Dysuria R30.0 Sensation of pressure in bladder area R39.89 Urinary urgency R39.15 Recurrent UTI N39.0 CPT Codes Post Residual Void - PVR CPT Code: 23965-Qeqs Void Residual by ultrasound ([id number])
== END 2025-05-08 08:57 | disposition home or self-care (01) ==
LOC: HO.HUSH 08:20
PROVIDERS: PCP Internal Medicine; Visit Provider Nurse Practitioner Family
DX: R31.29 Other microscopic hematuria (principal); R30.0 Dysuria; R39.89 Other symptoms and signs involving the genitourinary system; R39.15 Urgency of urination; N39.0 Urinary tract infection, site not specified; Z13.9 Encounter for screening, unspecified
CPT/HCPCS: 99213

== ENCOUNTER → 2025-05-08 08:19 | Outpatient (BNVA) | payer MEDICAID, SELFPAY | PROVIDERS: PCP Internal Medicine; Visit Provider Nurse Practitioner Family | DX: N90.7 Vulvar cyst (principal); L73.9 Follicular disorder, unspecified; R31.29 Other microscopic hematuria; R30.0 Dysuria; R39.89 Other symptoms and signs involving the genitourinary system; R39.15 Urgency of urination; N39.0 Urinary tract infection, site not specified | CPT/HCPCS: 51798; 81003; 99212 ==

== ENCOUNTER 2025-05-08 15:08 | Outpatient (AMB) | payer MEDICAID, SELFPAY ==
--- NOTE | 2025-05-08 15:19 | MHC.OFFVIS ---
Vital Signs 05/08/25 15:31 Height 5 ft 3 in Weight 184 lb BMI 32.6 BP 122/76 Blood Pressure Location Lt brachial Position Sitting Pulse 81 Intake Visit Reasons: recurrent labial cyst Intake Note: Patient is seen in office for recurrent cyst of the right labial. Pt c/o: recurrent cyst of the labial area, is red, lump, discharge, painful to the touch, has been the same since last visit, applied heating pads with no relief L.OV:02/22/25 Claim Benefit Specialist Required: No Accompanied by: Self / Same As Patient Allergies No Known Allergies Allergy (Verified 05/08/25 09:26) HPI Comments Details: 44-year-old female patient presenting with a recurring history of an infected cyst in the right pubic area. She reports multiple episodes of infection most recently occurring within the past week. She was able to squeeze the lesion and produce some bloody purulent material. The lesion has decreased to some degree in size and pain since then. She presents today to discuss possible excision. She denies any fever or chills. She denies any previous surgical excision at this site. [facility] Medical History (Updated 05/14/25 @ 08:08 by Chuy Quesada MD) Strain of right piriformis muscle (07/09/20) Sacroiliac joint dysfunction of right side (07/09/20) Greater trochanteric bursitis of both hips (07/09/20) Chronic low back pain (07/09/20) Recurrent UTI Chronic back pain Surgical History Hx of tubal ligation Family History Maternal Grandfather Throat cancer Social History Alcohol intake: never Patient Tobacco Use Status: Never used Tobacco Female Reproductive History Menstrual Age of Menarche: 11 Review of Systems Const All systems reviewed & are unremarkable except as noted in HPI and below Physical Exam Vital Signs: Last Vital Signs Pulse 81 05/08/25 15:31 BP 122/76 05/08/25 15:31 BMI result Body Mass Index 32.6 Const General: cooperative and no acute distress Nutritional Appearance: well nourished Orientation/consciousness: patient oriented x3 Limitations: no limitations HEENT Head: Yes normocephalic and Yes atraumatic Ears: hearing grossly normal bilaterally Resp Effort & Inspection: normal respiratory effort, no audible wheezes, no cough and no respiratory distress Cardio Jugular venous distension: no JVD GI Inspection: Yes normal to inspection Palpation (GI): Soft to palpation and nontender Other: Recurrent infected cyst located in the right labia/pubic region with overlying skin redness but no fluctuance consistent with a phlegmon. Skin Other: Warm, dry, no rash Neuro General: patient oriented x3 Extrem General: Yes no clubbing, cyanosis or edema Results AMB Urinalysis, Automated UA Leukoctes 15 Jaren/uL Last Edit by Aurelio Ulloa [facility] on 05/08/25 08:40 UA Nitrite Last Edit by Aurelio Ulloa [facility] on 05/08/25 08:40 UA Urobilinogen 0.2 mg/dL Last Edit by Aurelio Ulloa [facility] on 05/08/25 08:40 UA Protein 0 mg/dL Last Edit by Aurelio Ulloa [facility] on 05/08/25 08:40 UA pH 6.0 Last Edit by Aurelio Ulloa [facility] on 05/08/25 08:40 UA Blood 200 Yariel/uL Last Edit by Aurelio Ulloa [facility] on 05/08/25 08:40 UA Specific [place] 1.005 Last Edit by Aurelio Ulloa [facility] on 05/08/25 08:40 UA Ketone Last Edit by Aurelio Ulloa [facility] on 05/08/25 08:40 UA Bilirubin 0 mg/dL Last Edit by Aurelio Ulloa [facility] on 05/08/25 08:40 UA Glucose 0 mg/dL Last Edit by Aurelio Ulloa [facility] on 05/08/25 08:40 Assessment & Plan Assessment & Plan (1) Folliculitis: Code(s): L73.9 - Follicular disorder, unspecified Category: Medical Plan 44-year-old female patient presenting with a recurrent pubic infected cyst which may benefit from a course of oral antibiotics. She was started on doxycycline and will return in 2 weeks for repeat examination. If a residual cyst is still present at that time arrangements were made for an excision. Medications: New doxycycline hyclate 100 mg PO BID 20 tabs 0RF N90.7 - Vulvar cyst Coding Level of Care Code Est Pt Level 3 (61082) Diagnoses Folliculitis L73.9
[2025-05-08 15:31] VITALS: BP 122/76; PULSE 81; BMI 32.6
== END 2025-05-08 15:36 | disposition home or self-care (01) ==
LOC: HO.HGS 15:08
PROVIDERS: PCP Internal Medicine; Visit Provider Surgery
DX: L73.9 Follicular disorder, unspecified (principal)
CPT/HCPCS: 99213

== ENCOUNTER 2025-05-24 13:16 | Outpatient (AMB) | payer MEDICAID, SELFPAY ==
--- NOTE | 2025-05-24 13:23 | MHC.OFFVIS ---
Vital Signs 05/24/25 13:38 Height 5 ft 3 in Weight 186 lb BMI 32.9 Intake Visit Reasons: 2 weeks f/up, recurrent labial cyst Intake Note: Patient is seen in office for 2 weeks follow up visit, following recurrent cyst of the right labial. Pt c/o: all done with antibiotics, has minimize in size, still feels a lump Production Team Advisor Required: Yes Production Team Advisor Language: Package Designer Services: Production Team Advisor Present Production Team Advisor Name: Mary DRAKE Information Interpreted: non-clinical & clinical Mechanical Equipment Test Engineer: Mechanical Equipment Test Engineer Present Accompanied by: Self / Same As Patient Allergies No Known Allergies Allergy (Verified 05/24/25 13:41) Medication List - Last Reconciled 05/24/25 by Chuy Quesada MD gabapentin 300 mg PO BEDTIME meloxicam 15 mg PO DAILY solifenacin (Vesicare) 5 mg PO DAILY 30 days HPI Comments Details: 44-year-old female patient presenting with a recurring history of an infected cyst in the right pubic area. She reports multiple episodes of infection most recently occurring within the past week. She was able to squeeze the lesion and produce some bloody purulent material. She denies any fever or chills. She was treated with doxycycline for 10 days starting on 05/08/2025. She completed the antibiotic and does feel somewhat improved but continues to note some discharge from the cyst. [facility] Medical History Strain of right piriformis muscle (07/09/20) Sacroiliac joint dysfunction of right side (07/09/20) Greater trochanteric bursitis of both hips (07/09/20) Chronic low back pain (07/09/20) Recurrent UTI Chronic back pain Surgical History Hx of tubal ligation Family History Maternal Grandfather Throat cancer Social History Alcohol intake: never Patient Tobacco Use Status: Never used Tobacco Female Reproductive History Menstrual Age of Menarche: 11 Review of Systems Const All systems reviewed & are unremarkable except as noted in HPI and below Physical Exam Vital Signs: BMI result Body Mass Index 32.9 Const General: cooperative and no acute distress Nutritional Appearance: well nourished Orientation/consciousness: patient oriented x3 Limitations: no limitations HEENT Head: Yes normocephalic and Yes atraumatic Ears: hearing grossly normal bilaterally Resp Effort & Inspection: normal respiratory effort, no audible wheezes, no cough and no respiratory distress Cardio Jugular venous distension: no JVD GI Inspection: Yes normal to inspection Palpation (GI): Soft to palpation and nontender Other: Recurrent infected cyst located in the right labia/pubic region with overlying skin redness but no fluctuance consistent with a phlegmon. Female genitals images:  1. Palpable cyst with central punctum noted in the right pubis measuring approximately 2 cm in diameter. Skin Other: Warm, dry, no rash Neuro General: patient oriented x3 Extrem General: Yes no clubbing, cyanosis or edema Assessment & Plan Assessment & Plan (1) Epidermoid cyst of labia majora: Code(s): N90.7 - Vulvar cyst Category: Medical Plan 44-year-old female patient returning for re-evaluation of the right pubic/labial cyst after treatment with antibiotics. The cyst is still present but not as tender to palpation. I recommended excision of the cyst as a minor surgery under local anesthesia. After discussion of the procedure, risks, and alternatives, she consents to the excision right labial/pubic cyst. Coding Level of Care Code Est Pt Level 3 (44194) Diagnoses Epidermoid cyst of labia majora N90.7
[2025-05-24 13:38] VITALS: BMI 32.9
--- OUTSIDE RECORDS SUMMARY | 2025-05-24 13:43 | XMS_ITS | Data Portability ---
Author Organization [facility] Ba Hernandez Nmсергей [facility]geons [facility], [facility] Address [address] [place] [address] Care Team Providers Care Financial Intern Name Role Phone [facility] Primary Care Provider Assessment Encounter Date Assessment [...] 2-3 times/wee k 4-6 weeks 2024 025 [email or web address] Not available 02/09/2025 10:23:08 Procedures None recorded. Surgeries None recorded. Imaging XR, lumbar spine, 2 view - rm 301 l spine 2v 2024 025 [email or web address] [facility], [address], [address], [place], [address], 02/19/2025 14:29:16 MRI, lumbar spine, w/o contrast - mri lumbar evaluate for stenosis 2024 025 [facility] ([facility] [address], [place], [address], 02/28/2025 18:01:26 XR, elbow, 3 or more view - new pt 3 views right elbow rm 107 2023 06 024 [email or web address] [facility] [place] [facility], [address], [address], [place], [address], 05/05/2024 12:45:02 Medication Orders None recorded. Patient [...] a4ajBk vP9nXo QUaueC m3YtLR FvZlgJ JJ8mAn HZtai3 1e2840 AC0KqY 3uHUaq mKiQtr MwF INTERFACE [facility] [address], [place], [address], 02/19/2025 08:55:02 02/20/20 25 02/19/2025 XR, lumba r spine , 2 view http:/ [email or web address] ?Encry pted=s hAaTro YD8dLq bEUv6g %2BXZw aYqtaq 0bqfl% 2Fg9IQ a4ajBk vP9nXo QUaueC m3YtLR FvZlgJ JJ8mAn HZtai3 5d3846 AC0KqY 3uHUaq mKiQtr MwF INTERFACE [facility] [place] [facility] [address] [facility] [address], [place], [address], 02/19/2025 08:55:04 02/29/2002/23/2025 MRI, lumba r spine , w/o contr ast [facility] Access ion Number : [id number] Patien t Name: Paras Aragon Record Number : [id number] Date of : 1979 Date of Exam: 2024 Referr ing Physic mattie: [facility] [address] [facility] , [address] [place] [address] Exam: MR Lumbar Spine (C-) CPT 03710 Room Descri ption: [facility] 3.0T HISTOR Y: Low back pain. Bilate ral leg pain. TECHNI QUE: Multip lanar multis equenc e MRI of the lumbar spine withou t contra st. COMPAR MARCELLA: No prior studie s are availa ble for compar marcella at [facility] . FINDIN [...] ly Signed By: Unruly Gonzales MD [email or web address] [facility] ([facility]) [address], [place], [address], 03/06/2025 11:54:37 Result Notes Documentation Provider Name and Address Organization Details Recorded Time Xr, Lumbar Spine, 2 View : [email or web address]?E ncrypted=mqBvZmgAZ0fLufTUs 6g%0LYZbbIecit0tueo%2Fg9IQ o2lsVhkD5mRoIBalqVa8OeWCLl LaqEJF1cGbWFeaq81f1652ZX6N lV7eZMvfpVcMsmCqN Not Available [facility] 02/19/2025 08:55:03 Xr, Lumbar Spine, 2 View : [email or web address]?E ncrypted=jqSlYzeZI6bUnyKAq 6g%9WXKijTlzum6dqnl%2Fg9IQ t6atOesU3oVwJJckaQt5ClEVOi WpoDES7pFtKJhcw36t5154FT3I bW5qJJqefXfLvjFbX Not Available [facility] 02/19/2025 08:55:05 Mri, Lumbar Spine, W/o Contrast : [facility] Accession Number: [id number] Patient Name: Shira Aragon Date of : 1980 Date of Exam: 02-23-2025 Referring Physician: Mary Grace Arora [facility] ([facility]) [address] [place] [address], [address] [place] [address] Exam: MR Lumbar Spine (C-) CPT 60540 Room Description: [facility] 3.0T HISTORY: Low back pain. Bilateral leg pain. TECHNIQUE: Multiplanar multisequence MRI of the lumbar spine without contrast. COMPARISON: No prior studies are available for comparison at [facility]. FINDINGS: No subluxation [...] Electronically Signed By: Unruly Arora PA-C [address] [facility], [place], [address], [facility] 03/06/2025 11:54:37 Problems Name Problem SNOMED Code Status Onset Date Resolution Date Notes Provider Name and Address Organization Details Recorded Time No complaints 047252804 Active Status : 'A'; Not Available [facility] 4 09:10:28 Lateral epicondyli tis of right humerus 7463388464040 07 Active 2024 Jaleel Nieves PA-C [address], [place], [address] , [facility] 5 12:25:54 Problem Notes None recorded. Procedures Surgical History Date Name Laterality Status Provider Name and Address Organization Details Recorded Time 04/14/20 24 Lateral Epicondylitis Celestone 1cc Injection, L/R completed Ronel Olea PA-C [address] [facility] [address], [place], [address], [facility] 04/14/2024 15:56:15 Imaging Results None recorded. Procedure [...] Updated DateTime 01/05/2025 162.56 cm 27.5 kg/m2 62018.78 g Cheo Salazar [facility] 01/05/2025 14:22:22 Date Recorded Body height Body mass index (BMI) Body weight Provider Name and Address Organization Details Last Updated DateTime 02/19/2025 162.56 cm 27.5 kg/m2 75095.78 g Katrin Lechuga [facility] 02/19/2025 08:49:52 Date Recorded Body height Body mass index (BMI) Body weight Provider Name and Address Organization Details Last Updated DateTime 03/22/2025 162.56 cm 27.5 kg/m2 35329.78 g VENECIA ARRIETA [facility] 03/22/2025 13:28:29 Date Recorded Body height Body mass index (BMI) Body weight Provider Name and Address Organization Details Last Updated DateTime 04/14/2024 162.56 cm 27.5 kg/m2 59836.78 g Celine Holliday [facility] 04/14/2024 15:35:22 Social History None recorded. Functional Status None recorded. Mental Status None recorded. Family History Nothing Reported. Medical History No medical history recorded. Gynecological HistoryNo gynecological history recorded. Obstetrics History GPAL:G 0 P 0 0 0 0 Past Encounters Encounter ID Performer Location Encounter Start Date Encounter Closed Date Diagnosis/Indication Diagnosis SNOMED-CT Code Diagnosis ICD10 Code Diagnosis Note [id number] FRANCK Rogers [address] [place] [address] 04/14/2024 15:23:54 05/05/2024 12:45:02 Pain of right elbow joint [id number] 7436793 M25.521 Lateral epicondylitis 20 2361242 M77.11 [id number] FRANCK Juan [address] [place] [address] 01/05/2025 14:10:26 01/22/2025 08:19:45 Lateral epicondylitis of right humerus 3828924864 57759 M77.11 The patient is ambulatory , but [...] to please contact our office immediatel y. [id number] FRANCK Calderon [address] floor [address] [place] [address] 02/19/2025 08:40:57 03/11/2025 13:44:12 Low back pain 134820828 M54.50 [id number] FRANCK Calderon [facility] [place] [address] [place] [address] 03/22/2025 13:10:48 04/04/2025 08:56:00 Lumbar radiculopathy 073410726 M54.16 Health Concerns Section Related Observation LastModified by Organization Detai ls LastModified Time None Recorded Concern Status LastModified by Organization Details LastModified Time None Recorded Advance Directives Directive None Recorded Payers Insurance Date Sequence Insurance Name Policy Number Policy Eduardo Covered Member ID Eduardo Member ID Guarantor Name 04/23/2025 1 [place] [facility] PLAN [facility] [id number] [facility] Notes Date Note Type Note Provider Name [...] ordered, obtained and reviewed independently today at [facility]: [[3 view x-rays of the right [...] to please contact our office immediately.Speech recognition media operator software was used to create portions of this document. An attempt at proofreading has been made to minimize errors. Please call for corrections. Ronel Olea PA-C [address] [facility] [address] [facility], [place], [address], [facility] 04/14/2024 16:12:11 01/05/2025 text/html [...] elbow pain that worsens with use and carbonating stone cleaner related activity Jaleel Nieves PA-C [address] [facility] [address], [place], [address], [facility] 01/05/2025 14:31:02 02/19/2025 text/html I am seeing the patient today under the supervision of Dr. Paige who was available but who did not see the patient. HPI: Patient is a 44 year old anguillan speaking female who presents for evaluation of [...] clonus. X-rays ordered, obtained and reviewed at [facility], 2 views of the lumbar spine reveals no fractures, instability or bony lesions. Advanced degenerative disc disease noted at L5-S1 with auto fusion. Impression/Plan: Low back pain/Lumbar DDD/Lumbar radiculitis. Discussed the nature of the problem with the patient. Recommend MRI lumbar spine to evaluate for high grade stenosis and follow up when complete. Discussed Follow-up will be arranged in 6 weeks. [facility] speech recognition media operator software was used to create portions of this document. An attempt at proofreading has been made to minimize errors. Please call for corrections. Mary Grace Arora PA-C [address] [facility] [address], [place], [address], [facility] 02/19/2025 10:20:10 03/22/2025 text/html I am seeing the patient today under the supervision of Dr. Paige who was available but who did not see the patient. HPI: Patient is a 44 year old anguillan speaking female who presents for MRI review [...] X-rays previously ordered, obtained and reviewed at [facility], 2 views of the lumbar spine [...] follow-up with one of our spine surgeons. oem sales manager utilized. [employer] speech recognition media operator software was used to create portions of this document. An attempt at proofreading has been made to minimize errors. Please call for corrections. Mary Grace Arora PA-C [address] [facility] [address], [place], [address], [facility] 03/22/2025 14:14:32 OBGyn Episode No OBEpisode recorded.
--- OUTSIDE RECORDS SUMMARY | 2025-05-24 13:43 | XMS_ITS | Encounter Summary ---
Author Organization [employer] Address [address] [facility] [address] [place] [address] Care Team Providers Care Contact Lens Lathe Operator Name Role Phone Musa Borges MD Primary Care Prov ider Encounter Details Date Type Department Care Team ([facility] st Contact Info) Description 12/01/2023 Orders Only [facility] [address] [place], [place] [phone] Musa Borges MD [address] [place] [address] Social History Tobacco Use Types Packs/Day Years [...] Description 07/04/2025 9:00 AM EDT Office Visit [facility] [address] [place] [address] Lily Stokes MD [address] [place] [address] 07/12/2025 8:00 AM EDT Office Visit [facility] [address] [place], [place] [phone] Elaina Che [address] [place], [place] [phone] documented as of this encounter Visit Diagnoses Not on filedocumented in this encounter Additional Health Concerns Assessment Noted Time PHQ-9 Depression Total Score: 0 12/23/19 23 8:59 AM EST documented as of this encounter Care Teams Contact Lens Lathe Operator Relationship Specialty Start Date End Date Musa Borges MD [address] [place] [address] PCP - General Internal Medicine 04/02/20 documented as of this encounter
== END 2025-05-24 13:44 | disposition home or self-care (01) ==
LOC: HO.HGS 13:17
PROVIDERS: PCP Internal Medicine; Visit Provider Surgery
DX: N90.7 Vulvar cyst (principal)
CPT/HCPCS: 99213

== ENCOUNTER → 2025-05-24 13:16 | Outpatient (BNVA) | payer MEDICAID, SELFPAY | PROVIDERS: PCP Internal Medicine; Visit Provider Surgery | DX: N90.7 Vulvar cyst (principal) | CPT/HCPCS: 99212 ==

== ENCOUNTER 2025-06-13 12:17 | Outpatient (REF) | payer MEDICAID, SELFPAY ==
--- OUTSIDE RECORDS SUMMARY | 2025-06-13 12:58 | XMS_ITS | Encounter Summary ---
Author Organization [employer] Address [address] [facility] [address]t [place] [address] Care Team Providers Care Conference Specialist Name Role Phone Musa Borges MD Primary Care Prov ider Encounter Details Date Type Department Care Team ([facility] st Contact Info) Description 12/01/2023 Orders Only [facility] PEDS [address] [place], [place] [phone] Musa Borges MD [address] [place] [address] Social History Tobacco Use Types Packs/Day Years [...] Description 07/04/2025 9:00 AM EDT Office Visit [facility] [address] [place] [address] Lily Stokes MD [address] [place] [address] 07/12/2025 8:00 AM EDT Office Visit [facility] [address] [place], [place] [phone] Elaina Che [address] [place], [place] [phone] documented as of this encounter Visit Diagnoses Not on filedocumented in this encounter Additional Health Concerns Assessment Noted Time PHQ-9 Depression Total Score: 0 12/23/19 23 8:59 AM EST documented as of this encounter Care Teams Conference Specialist Relationship Specialty Start Date End Date Musa Borges MD [address] [place] [address] PCP - General Internal Medicine 04/02/20 documented as of this encounter
[2025-06-13 13:31] VITALS: BP 141/75; PULSE 75; RESP 18; O2SAT 100; BMI 33.1
--- NOTE | 2025-06-13 14:16 | W.PM.OPN ---
Operative Note Operative Note Date of Service: 06/13/25 Narrative: Preoperative diagnosis: Right labial cyst Postoperative diagnosis: Same Procedure: Excision right labial cyst Surgeon: Chuy Quesada MD Sales Data Analyst: JARVIS Waite Anesthesia: Local lidocaine 1% with epinephrine Indications for procedure: 45-year-old female presenting with an infected labial cyst of the right side which is now decreased in size after antibiotics. She presents for excision to prevent further infection. Operative findings: 2 cm labial cyst right side Specimen: Labial cyst right side Estimated blood loss: 2 mL Complications: None Procedure details: Patient was brought to the minor surgery suite and placed in a supine position frog-leg position. The site of surgery was confirmed with the patient in the right labia. After assuring informed consent the skin was prepped with Betadine and draped in a sterile fashion. Local anesthesia was infiltrated around the cyst. A 15 blade was used to create an elliptical incision around the cyst oriented longitudinally. This was carried down through subcutaneous tissue and around the cyst wall. The lesion was excised and sent to pathology for further examination. Hemostasis was assured using light pressure. Skin was then closed using interrupted 3-0 nylon sutures. Sterile dressings consisting of 2 x 2 gauze and paper tape was then applied. The patient tolerated the procedure well. She was discharged to home in stable condition.
== END 2025-06-13 12:18 | disposition home or self-care (01) ==
LOC: HO.MS 12:17
PROVIDERS: PCP Internal Medicine; Visit Provider Surgery
PROC: (CPT 11422; principal; 2025-06-13 14:00)
DX: N90.7 Vulvar cyst (principal)
CPT/HCPCS: 11422; 88304; J2004

== ENCOUNTER → 2025-06-13 12:17 | Outpatient (BNV) | payer MEDICAID, SELFPAY | PROVIDERS: PCP Internal Medicine; Visit Provider Surgery | DX: N90.7 Vulvar cyst (principal) | CPT/HCPCS: 11422 ==

== ENCOUNTER 2025-06-22 10:54 | Outpatient (AMB) | payer MEDICAID, SELFPAY ==
--- NOTE | 2025-06-22 10:57 | MHC.OFFVIS ---
Vital Signs 06/22/25 11:01 Height 5 ft 3 in Weight 185 lb 3.013 oz BMI 32.8 BP 130/82 Blood Pressure Location Lt brachial Position Sitting Intake Visit Reasons: s/p excision rt labial cyst Intake Note: Patient is seen in office for post op assessment post Excision right labial cyst. Pt c/o: surgery:06/13/25 Band Splicer Required: Yes Band Splicer Language: Manager Export Services: Band Splicer Present Band Splicer Name: Mary DRAKE Information Interpreted: non-clinical & clinical Rubber Mill Tender: Rubber Mill Tender Present Accompanied by: Self / Same As Patient Allergies No Known Allergies Allergy (Verified 06/22/25 11:01) Medication List - Last Reconciled 06/22/25 by Chuy Quesada MD gabapentin 300 mg PO BEDTIME meloxicam 15 mg PO DAILY solifenacin (Vesicare) 5 mg PO DAILY 30 days HPI Comments Details: 45-year-old female patient status post excision of a right labial cyst on 06/13/2025. This revealed skin and subcutaneous tissue with marked fibrosis, inflammation, granulation tissue, and features of ruptured epidermal inclusion cyst. No atypia or malignancy was identified. She reports soreness from the sutures but generally feels well. [facility] Medical History Strain of right piriformis muscle (07/09/20) Sacroiliac joint dysfunction of right side (07/09/20) Greater trochanteric bursitis of both hips (07/09/20) Chronic low back pain (07/09/20) Recurrent UTI Chronic back pain Surgical History Hx of removal of cyst (06/13/25) Hx of tubal ligation Family History Maternal Grandfather Throat cancer Social History Alcohol intake: never Patient Tobacco Use Status: Never used Tobacco Female Reproductive History Menstrual Age of Menarche: 11 Physical Exam Vital Signs: Last Vital Signs BP 130/82 06/22/25 11:01 BMI result Body Mass Index 32.8 Const General: comfortable Nutritional Appearance: well nourished Orientation/consciousness: patient oriented x3 Limitations: no limitations GI Other: Incision in the right groin is clean, dry and intact. Sutures removed wounds found to be well healed. Neuro General: patient oriented x3 Extrem General: No edema Assessment & Plan Assessment & Plan (1) Epidermoid cyst of labia majora: Code(s): N90.7 - Vulvar cyst Category: Medical Plan Status post excision of cyst right labia. She tolerated the procedure well and her wounds were healing nicely. She should follow up as needed. Coding Level of Care Code Global (03052) Diagnoses Epidermoid cyst of labia majora N90.7
--- OUTSIDE RECORDS SUMMARY | 2025-06-22 11:00 | XMS_ITS | Encounter Summary ---
Author Organization [employer] Address [address] [facility] [address] [place] [address] Care Team Providers Care Fashion Artist Name Role Phone Musa Borges MD Primary Care Prov ider Encounter Details Date Type Department Care Team ([facility] st Contact Info) Description 12/01/2023 Orders Only [facility] [address] [place], [place] [phone] Musa Borges MD [address] [place] [address] Social History Tobacco Use Types Packs/Day Years [...] Description 07/04/2025 9:00 AM EDT Office Visit [facility] [address] [place] [address] Lily Stokes MD [address] [place] [address] 07/12/2025 8:00 AM EDT Office Visit [facility] [address] [place], [place] [phone] Elaina Che [address] [place], [place] [phone] documented as of this encounter Visit Diagnoses Not on filedocumented in this encounter Additional Health Concerns Assessment Noted Time PHQ-9 Depression Total Score: 0 12/23/19 23 8:59 AM EST documented as of this encounter Care Teams Fashion Artist Relationship Specialty Start Date End Date Musa Borges MD [address] [place] [address] PCP - General Internal Medicine 04/02/20 documented as of this encounter
[2025-06-22 11:01] VITALS: BP 130/82; BMI 32.8
== END 2025-06-22 11:14 | disposition home or self-care (01) ==
LOC: HO.HGS 10:55
PROVIDERS: PCP Internal Medicine; Visit Provider Surgery
DX: N90.7 Vulvar cyst (principal)
CPT/HCPCS: 99024

== ENCOUNTER → 2025-06-22 10:54 | Outpatient (BNVA) | payer MEDICAID, SELFPAY | PROVIDERS: PCP Internal Medicine; Visit Provider Surgery | DX: N90.7 Vulvar cyst (principal) | CPT/HCPCS: 99212 ==

== ENCOUNTER 2025-07-05 10:38 | Outpatient (REF) | payer MEDICAID, SELFPAY ==
--- OUTSIDE RECORDS SUMMARY | 2025-07-05 09:15 | XMS_ITS | Encounter Summary ---
Author Organization [employer] Address [address] [place] [address] [address], [place] [address] Care Team Providers Care Tubing Mill Setter Name Role Phone Piyush Winkler CNP Primary Care Provider [phone] [phone] Reason for Referral * PFT (Routine) - Authorized Specialty Diagnoses / Procedures Referred By Idris rushing Referred To Contact Diagnoses Chronic cough Procedures Pulmonary Function Test Piyush Winkler CNP [address] [place] [address] Phone: tel: fax: [address] Phone: tel: fax: Referral ID Status Reason Start Date Expiration Date V isits Requested Visits Authorized [id number] Authorized 07/05/2025 07/05/2026 1 1 * Consultation (Routine) - Pending Review Specialty Diagnoses / Procedures Referred By Idris rushing Referred To Contact Allergy Diagnoses Seasonal allergies Piyush Winkler CNP [address] [place] [address] Phone: tel: fax: Referral ID Status Reason Start Date Expiration Date Visits Requested Visits Authorized [id number] Pending Review Specialty Services Required 07/05/2025 07/05/2026 1 1 Encounter Details Date Type Department Care Team (Late st Contact Info) Description 07/05/2025 9:15 AM EDT Office Visit [facility] [address] [place] [address] Piyush Winkler, MJ [address] [place], [place] [phone] Encounter to establish care (Primary Dx); Encounter for screening for malignant neoplasm of colon; Elevated BP without diagnosis of hypertension; Vaginal itching; Seasonal allergies; Chronic low back pain, unspecified back pain laterality, unspecified whether sciatica present; Chronic cough; Benign paroxysmal positional vertigo due to bilateral vestibular disorder; Acute otitis externa of both ears, unspecified type Social History Tobacco Use Types Packs/Day Years Used Date Smoking Tobacco: Never Passive Smoke Exposure: Never Smokeless Tobacco: Never Alcohol Use Standard Drinks/Week Comments Yes 0 (1 standard drink = 0.6 oz pur e alcohol) Alcohol Answer Date Recorded How often do you have a drink containing alcohol ? 1 07/05/2025 How many drinks containing a lcohol do you have on a typical day when you are drinking? 0 07/05/2025 How often do you have six or more drinks on one occasion? 0 07/05/2025 Depression Answer Date Recorded Patient Health Questionnaire-9 Score 4 08/24/2024 Patient Health Questionnaire-9 Score 4 08/24/2024 Last PHQ-9: Questionnaire Data Not on file 1 Housing Stability Answer Date Recorded What is your housing situation today? I have alexrosio hernández 06/27/[address] you li ve. Do you have problems with any of the following? None of the above 06/27/2025 Food Insecurity Answer Date Recorded Within the past 12 months, y ou worried that your food would run out before you got money to buy more: Never True 06/27/2025 Within the past 12 months,th e food you bought just didn't last and you didn't have enough money to get more: Never True Transportation Answer Date Recorded In the past 12 months, has l ack of transportation kept you from medical appts, meetings, work or from getting things needed for daily living? No 06/27/2025 Utilities Answer Date Recorded In the past 12 months, has t he electric, gas, oil or water company threatened to shut off services in your home? No 06/27/2025 Depression Answer Date Recorded Patient Health Questionnaire-2 Score 1 08/24/2024 Internet Access Answer Date Recorded Internet Access Q1 Yes 06/27/2025 Internet Access Q2 Not on file 06/27/2025 Comments Unknown Sex and Gender Information Value Date Recorded Sex Assigned at Female 09/07/2022 10:19 AM EDT Legal Sex Female 10:19 AM EDT Gender Identity Female 09/07/2022 10:19 AM EDT Sexual Orientation Straight 09/07/2022 10 :19 AM EDT documented as of this encounter Last Filed Vital Signs Vital Sign Reading Time Taken Comments Blood Pressure 138/88 07/05/2025 9:15 AM EDT Pulse 78 07/05/2025 9:15 AM EDT Temperature 36.7 C (98.1 F) 07/05/2025 9:15 AM EDT Respiratory Rate 14 07/05/2025 9:15 AM EDT Oxygen Saturation 98% 07/05/2025 9:15 AM EDT Inhaled Oxygen Concentration - - Weight 84.8 kg (187 lb) 07/05/2025 9:15 AM EDT Height 167.6 cm (5' 6 ) 07/05/2025 9:15 AM EDT Body Mass Index 30.18 07/05/2025 9:15 AM EDT documented in this encounter Progress Notes * Piyush Winkler CNP - 07/05/2025 9:15 AM EDT Subjective: Shira Aragon is a 45 y.o. female who presents to the office for a transfer patient visit. Previous PCP [facility] . Interim history: Pt seen by [facility] general surgery for excision of right labial cyst. She had post op appt 06/22/25 and pt is healing routinely. Pt seen by [facility] urology 05/08/2025 for recurrent UTIs. Previous workup has included a retroperitoneal ultrasound 10/29 noting bilateral kidneys no calculi, lesions, and or hydronephrosis. The bladder was within normal limits.Pt prescribed vesicare and to follow up in 3 months. Pt follows with [facility] for OBGYN care Pt follows with ortho for chronic lumbar spine pain last seen 03/2025. 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 Pt possible candidate for ALIF she plans to f/u with spine surgeon, she declines alt tx like acupuncture. Current concerns Seasonal allergies - Shira Aragon, 45-year-old female, reports ongoing itchy eyes and itchy ears. She was prescribedeye drops previously, but states they do not provide relief and are ineffective. Uncertain about having seasonal allergies but reports that symptoms of itchiness and allergy worsen every summer. She takes allergy pills during symptomatic periods and previously requested allergy testing from her last doctor to determine if symptoms are environmental or seasonal. She denies swimming, she denies fever, chills, otic discharge. 2. Dizziness - Describes experiencing dizziness, with episodes occurring suddenly and not consistently every day. Dizziness sometimes happens when turning around or moving quickly, and she feels it may be relatedto her vision. She is supposed to use glasses for reading and general use but prefers not to wear them. 3. Recurrent vaginitis - Reports vaginal itching, uncertain if it is related to underwear material. States she was previously diagnosed with a yeast infection and suspects recurrence. Notes a history of recurrent vaginal itching since childhood, with her mother advising the use of 100% cotton underwear, especially duringsummer months.Has a history of bacterial vaginosis and recurrent urinary issues, for which she follows a urologist. 4. Chronic back pain - Uses meloxicam for back pain and arthritis but finds it ineffective and reports it causes stomachdiscomfort. Previously used ibuprofen 800 mg, which also caused stomach pain. Takes gabapentin 300 mg at night for pain; previously experienced excessive drowsiness when taken during the day. Discontinued Flexeril due to adverse effects, specifically an unpleasant sensation in the chest. Denies new onset urinary incontinence or bowel incontinence. Denies any lower extremity weakness, numbness or tingling. 5.Chronic cough - Reports persistent, bothersome cough and wheezing since an influenza A infection. Uses albuterol inhaler about four times a week, especially when experiencing wheezing. States the cough has not resolved since the infection. 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 Sometimes cycles are regular for two months, then absent for two months, followed by a very heavy flow. Reports experiencing hot flashes in the face. States this pattern of irregular periods has persisted for about two years. She is [place] [facility]. Allergies[4] Review of Systems Constitutional: Negative for chills, diaphoresis, fatigue, fever and unexpected weight change. HENT: Negative for ear discharge, ear pain, hearing loss, sinus pressure, sinus pain, sneezing, sore throat and tinnitus. Eyes: Positive for itching. Negative for photophobia, pain, discharge, redness and visual disturbance. Respiratory: Positive for cough and wheezing. Negative for apnea, choking, chest tightness, shortness of breath and stridor. Cardiovascular: Negative for chest pain, palpitations and leg swelling. Gastrointestinal: Negative. Genitourinary: Positive for menstrual problem. Negative for decreased urine volume, difficulty urinating, dyspareunia, dysuria, flank pain, frequency, genital sores, hematuria, pelvic pain, urgency, vaginal bleeding, vaginal discharge and vaginal pain. +vaginal itching Musculoskeletal: Positive for back pain. Negative for gait problem. Skin: Negative. Neurological: Positive for dizziness. Negative for tremors, seizures, syncope, facial asymmetry, speech difficulty, weakness, light-headedness, numbness and headaches. Psychiatric/Behavioral: Negative. Vitals: 07/05/25 0915 BP: 138/88 BP Location: Left arm Patient Position: Sitting BP Cuff Size: Adult Pulse: 78 Resp: 14 Temp: 98.1 ??F (36.7 ??C) TempSrc: Oral SpO2: 98% Weight: 187 lb (84.8 kg) Height: 5' 6 (1.676 m) Physical Exam Constitutional: Appearance: Normal appearance. HENT: Head: Normocephalic and atraumatic. Comments: Head impulse test: positive for induced nystagmus when head turned quickly with fixed gaze Right Ear: Tympanic membrane normal. Left Ear: Tympanic membrane normal. Ears: Comments: Mild ear canal erythema Nose: No congestion or rhinorrhea. Eyes: Extraocular Movements: Extraocular movements intact. Pupils: Pupils are equal, round, and reactive to light. Comments: Horizontal nystagmus observed with EOM exam Cardiovascular: Rate and Rhythm: Normal rate and regular rhythm. Pulses: Normal pulses. Heart sounds: Normal heart sounds. Pulmonary: Effort: Pulmonary effort is normal. Breath sounds: Normal breath sounds. Abdominal: General: Bowel sounds are normal. There is no distension. Palpations: Abdomen is soft. There is no mass. Tenderness: There is no abdominal tenderness. There is no right CVA tenderness, left CVA tenderness, guarding or rebound. Hernia: No hernia is present. Musculoskeletal: General: Normal range of motion. Cervical back: Normal range of motion and neck supple. No rigidity or tenderness. Right lower leg: No edema. Left lower leg: No edema. Skin: General: Skin is warm and dry. Coloration: Skin is not jaundiced or pale. Neurological: General: No focal deficit present. Mental Status: She is alert and oriented to person, place, and time. Mental status is at baseline. Cranial Nerves: No cranial nerve deficit. Sensory: No sensory deficit. Motor: No weakness. Coordination: Coordination normal. Gait: Gait normal. Deep Tendon Reflexes: Reflexes normal. Psychiatric: Mood and Affect: Mood normal. Behavior: Behavior normal. Thought Content: Thought content normal. Judgment: Judgment normal. Problem List Items Addressed This Visit Chronic back pain Relevant Medications gabapentin (Neurontin) 300 MG capsule celecoxib (CeleBREX) 200 MG capsule - Discontinued previous ineffective pain medication for back pain. Prescribed Celebrex, a nonsteroidal anti-inflammatory drug, to be taken at a lower dose (200 mg twice daily) with food to minimize gastrointestinal side effects. Instructed to discontinue and notify provider if adverse effects occur. -consider PT, and referral to pain mgmt for persistent sx. Elevated BP without diagnosis of hypertension Relevant Medications Blood Pressure Monitoring kit - Ordered a blood pressure monitor for home use. Advised to regularly monitor blood pressure at home. - Provided lifestyle recommendations to support blood pressure control: increase water intake and limit added salt in diet. Other Visit Diagnoses Encounter to establish care - Primary Relevant Orders CBC auto differential Comprehensive Metabolic Panel Hemoglobin A1c TSH W/Reflex to FT4 Lipid Panel, Standard Routine Screening and Health Maintenance Optometry: Yes HERMAN 03/2025 Dentist: Yes HERMAN 01/2025 BMD: consider early screening in future as pt is perimenopausal at age 45. Lab Review: orders written for new lab studies as appropriate; see orders Routine Cancer Screening Breast CA: 02/2025 Bi RADS 1 neg, next due 02/2026 Cervical CA: 08/2023 NILM, HPV neg Colon CA: 03/2025 [facility]- will request records Lung CA: n/a - Ordered routine laboratory tests to be completed the same day. - Scheduled follow-up appointment in approximately four months for reassessment of blood pressure and overall health status. - Instructed to slate picker prescribed medications and complete laboratory tests as ordered. Encounter for screening for malignant neoplasm of colon Relevant Medications GaviLyte-G 236 g solution Vaginal itching Relevant Medications GaviLyte-G 236 g solution Other Relevant Orders Bacterial Vaginosis Panel - Ordered self-administered vaginal swabs to evaluate for possible infection in the genital area. Provided instructions for proper collection technique. Seasonal allergies Relevant Medications tetrahydrozoline (Visine Red Eye Comfort) 0.05 % ophthalmic solution meclizine (Antivert) 25 MG tablet acetic acid-hydrocortisone (Vosol-HC) otic solution - Prescribed new eye drops specifically formulated for relief of red, itchy eyes. Advised to use these until printer assistant evaluation is completed. - Prescribed ear drops to alleviate external ear itchiness. - Referred to an printer assistant for comprehensive allergy testing to determine environmental or seasonaltriggers for ocular symptoms. -advised adherence to eye glasses Other Relevant Orders Referral to Allergy Chronic cough Relevant Orders Pulmonary Function Test - Ordered pulmonary function tests to assess for possible asthma due to persistent cough and intermittent wheezing. Results to guide further management, including consideration of maintenance inhalerif indicated. Benign paroxysmal positional vertigo due to bilateral vestibular disorder Relevant Medications meclizine (Antivert) 25 MG tablet acetic acid-hydrocortisone (Vosol-HC) otic solution Based on horizontal nystagmus and positive head impulse test dizziness likely 2/2 BPPV - Prescribed meclizine for management of vertigo and dizziness. Advised to take only as needed whenexperiencing dizziness, as it does not cause drowsiness. Acute otitis externa of both ears, unspecified type Relevant Medications meclizine (Antivert) 25 MG tablet acetic acid-hydrocortisone (Vosol-HC) otic solution This note was drafted using Ambient (AI) technology. The patient/patient's guardian has been informed and has consented to the use of this technology: Yes [1] Patient Active Problem List Diagnosis Major depressive disorder with single episode Annual physical exam Chronic back pain Gastroenteritis Elevated BP without diagnosis of hypertension Knee pain Bilateral carpal tunnel syndrome Vaginal cyst Dermoid cyst Class 1 obesity Lateral epicondylitis of right elbow [2] Past Surgical History: Procedure Laterality Date PROSTHODONTIC PROCEDURE [3] Family History Problem Relation Name Age of Onset Diabetes Father [4] No Known Allergies documented in this encounter Plan of Treatment Upcoming Encounters Date Type Department Care Team (Late st Contact Info) Description 07/12/2025 8:00 AM EDT Office Visit [facility] D[facility] [address] [place] [address] Elaina Che [address] [place] [address] Scheduled Orders Name Type Priority Associated Diagnoses Orde r Schedule CBC auto differential Lab Routine Encounter to establish care Expected: 07/05/2025 (Approximate), Expires: 07/05/2026 Comprehensive Metabolic Panel Lab Routine Encounter to establish care Expected: 07/05/2025 (Approximate), Expires: 07/05/2026 Hemoglobin A1c Lab Routine Encounter to establish care Expected: 07/05/2025 (Approximate), Expires: 07/05/2026 TSH W/Reflex to FT4 Lab Routine Encounter to establish care Expected: 07/05/2025 (Approximate), Expires: 07/05/2026 Lipid Panel, Standard Lab Routine Encounter to establish care Expected: 07/05/2025 (Approximate), Expires: 07/05/2026 Bacterial Vaginosis Panel Microbiology Routine Vaginal itching Ordered: 07/05/2025 Pulmonary Function Test PFT Routine Chronic cough Expected: 07/05/2025, Expires: 01/05/2026 Scheduled Referrals Name Type Priority Associated Diagnoses Orde r Schedule Referral to Allergy Outpatient Referral Routine Seasonal allergies Expected: 07/05/2025 (Approximate), Expires: 07/05/2026 documented as of this encounter Visit Diagnoses Diagnosis Encounter to establish care- Primary Encounter for screening for malignant neoplasm of colon Elevated BP without diagnosis of hypertension Vaginal itching Pruritus of genital organs Seasonal allergies Allergic rhinitis, cause unspecified Chronic low back pain, unspecified back pain laterality, unspecified whether sciatica present Chronic cough Cough Benign paroxysmal positional vertigo due to bilateral vestibular disorder Acute otitis externa of both ears, unspecified type documented in this encounter Additional Health Concerns Assessment Noted Time PHQ-9 Depression Total Score: 4 08/24/20 24 1:09 PM EDT documented as of this encounter Care Teams Tubing Mill Setter Relationship Specialty Start Date End Date Piyush Winkler CNP [address] [place] [address] PCP - General Family Medicine 07/02/25 documented as of this encounter
--- OUTSIDE RECORDS SUMMARY | 2025-07-05 12:01 | XMS_ITS | Encounter Summary ---
Author Organization [employer] Address [address] [facility] 7 [place] [address] Care Team Providers Care Licensed Funeral Director And Embalmer Name Role Phone Musa Borges MD Primary Care Prov ider Piyush Winkler CNP Primary Care Provider [phone] [phone] Encounter Details Date Type Department Care Team ([facility] st Contact Info) Description 12/01/2023 Orders Only [facility] [address] [place], [place] [phone] Musa Borges MD [address] [place] [address] Social History Tobacco Use Types Packs/Day Years [...] Description 07/12/2025 8:00 AM EDT Office Visit [facility] [address] [place], [place] [phone] Elaina Che [address] [place], [place] [phone] documented as of this encounter Visit Diagnoses Not on filedocumented in this encounter Additional Health Concerns Assessment Noted Time PHQ-9 Depression Total Score: 0 12/23/19 23 8:59 AM EST documented as of this encounter Care Teams Licensed Funeral Director And Embalmer Relationship Specialty Start Date End Date Musa Borges MD [address] [place] [address] PCP - General Internal Medicine 04/02/20 07/01/25 Piyush Winkler CNP [address] [place] [address] PCP - General Family Medicine 07/02/25 documented as of this encounter
--- OUTSIDE RECORDS SUMMARY | 2025-07-05 12:01 | XMS_ITS | Encounter Summary ---
Author Organization [employer] Address [address] [place] [address] Care Team Providers Care Handy Man Name Role Phone Musa Borges MD Primary Care Prov ider Piyush Winkler CNP Primary Care Provider [phone] [phone] Encounter Details Date Type Department Care Team (Latest Contact Info) Description 08/04/2021 Abstract [facility] CONVERSIONS Dental, Provider, DDS Social History [...] Description 07/12/2025 8:00 AM EDT Office Visit [facility] D[facility] [address] [place], [place] [phone] Elaina Che [address] [place] [address] documented as of this encounter Visit Diagnoses Not on filedocumented in this encounter Care Teams Handy Man Relationship Specialty Start Date End Date Musa Borges MD [address] [place] [address] PCP - General Internal Medicine 04/02/20 07/01/25 Piyush Winkler CNP [address] [place] [address] PCP - General Family Medicine 07/02/25 documented as of this encounter
--- OUTSIDE RECORDS SUMMARY | 2025-07-05 12:01 | XMS_ITS | Encounter Summary ---
Author Organization [employer] Address [address] [place] [address] 7 [place] [address] Care Team Providers Care Guard Chief Name Role Phone Musa Borges MD Primary Care Prov ider Piyush Winkler CNP Primary Care Provider [phone] Reason for Visit * Reason Onset Date Comments Nurse Triage 02/23/2024 Encounter Details Date Type Department Care Team ([facility] Contact Info) Description 02/23/2024 Telephone [facility] MED & PEDS [address] [place], [place] [phone] Musa Borges MD [address] [place] [address] Nurse Triage Social History Tobacco Use Types [...] 02/23/2024 10:22 AM EDT Triage call with [employer] Telephone Interviewer ID [id number] Pt reports skin lump in area between right upper thigh and vulva. Pt reports this started 2 months ago. Pt popped it the first time just using hand. Pt reports it has returned, reddened , painful. Pt is given home care advice and agrees. Pt is advised to come to [facility] if unable to find relief with home care advised. Pt agrees with this plan and disposition. Hours of [facility] given, open till 8pm today , tomorrow [...] accepted this outcome Please contact pt at [phone] (Kyrgyz) documented in this encounter Plan of Treatment Upcoming Encounters Date Type Department Care Team (Late st Contact Info) Description 07/12/2025 8:00 AM EDT Office Visit [facility] [address] [place], [place] [phone] Elaina Che [address] [place], [place] [phone] documented as of this encounter Visit Diagnoses Not on filedocumented in this encounter Additional Health Concerns Assessment Noted Time PHQ-9 Depression Total Score: 0 12/23/19 23 8:59 AM EST documented as of this encounter Care Teams Guard Chief Relationship Specialty Start Date End Date Musa Borges MD [address] [place] [address] PCP - General Internal Medicine 04/02/20 07/01/25 Piyush Winkler CNP [address] [place] [address] PCP - General Family Medicine 07/02/25 documented as of this encounter
--- OUTSIDE RECORDS SUMMARY | 2025-07-05 12:01 | XMS_ITS | Encounter Summary ---
Author Organization [employer] Address [address] [facility] 7 [place] [address] Care Team Providers Care Children'S Tutor Name Role Phone Piyush Winkler CNP Primary Care Provider +1 -[phone] Reason for Visit * Reason Onset Date Comments chart prep 07/05/2025 Encounter Details Date Type Department Care Team ([facility] Contact Info) Description 07/05/2025 Telephone [facility] MED & PEDS [address] [place], [place] [phone] Piyush Winkler CNP 230 [place] [address] chart prep Social History Tobacco Use Types Packs/Day Years [...] housing situation today? I have alex hernández 06/27/[address] you [...] the past 12 months, has t he [employer], gas, oil or water company threatened to [...] encounter Miscellaneous Notes * Telephone Encounter - Ivet Robles [place] - 07/05/2025 9:01 AM EDT Chart Prep Labs: done Images: not applicable Referrals: not applicable Vaccines due: no updates and not applicable Screenings: colonoscopy Overdue care gaps: SBIRT documented in this encounter Plan of Treatment Upcoming Encounters Date Type Department Care Team (Late st Contact Info) Description 07/12/2025 8:00 AM EDT Office Visit [facility] DENTAL [address] [place] [address] [phone] Elaina Che [address] [place] [address] documented as of this encounter Visit Diagnoses Not on filedocumented in this encounter Additional Health Concerns Assessment Noted Time PHQ-9 Depression Total Score: 4 08/24/20 24 1:09 PM EDT documented as of this encounter Care Teams Children'S Tutor Relationship Specialty Start Date End Date Piyush Winkler CNP [address] [place] [address] PCP - General Family Medicine 07/02/25 documented as of this encounter
--- OUTSIDE RECORDS SUMMARY | 2025-07-05 12:01 | XMS_ITS | Encounter Summary ---
Author Organization [employer] Address [address] [place] [address] Care Team Providers Care Art Model Name Role Phone Musa Borges MD Primary Care Prov ider Piyush Winkler CNP Primary Care Provider +1 [phone] Encounter Details Date Type Department Care Team (Late st Contact Info) Description 10/13/2022 Telephone [facility] D[facility] [address] [place] [address] Dental, Provider, DDS Social History Tobacco Use [...] Encounters Date Type Department Care Team (Late Contact Info) Description 07/12/2025 8:00 AM EDT Office Visit [facility] 91 [place], [place] [phone] Elaina Che [address] [place], [place] [phone] documented as of this encounter Visit Diagnoses Not on filedocumented in this encounter Care Teams Art Model Relationship Specialty Start Date End Date Musa Borges MD 505 [place] [address] PCP - General Internal Medicine 04/02/20 07/01/25 Piyush Winkler CNP [address] [place] [address] PCP - General Family Medicine 07/02/25 documented as of this encounter
--- OUTSIDE RECORDS SUMMARY | 2025-07-05 12:01 | XMS_ITS | Encounter Summary ---
Author Organization [employer] Address [address] [place] [address] Care Team Providers Care Tick Inspector Name Role Phone Musa Borges MD Primary Care Prov ider Piyush Winkler CNP Primary Care Provider +1 -[phone] Reason for Visit * Reason Comments Med Refill Encounter Details Date Type Department Care Team (Late st Contact Info) Description 11/14/2022 Refill [facility] MEDICINE 230 [place] [address] Musa Borges MD 505 [place], [place] [phone] Current mild episode of major depressive disorder [...] Description 07/12/2025 8:00 AM EDT Office Visit [facility] 91 [place], [place] [phone] Elaina Che 91 [place], [place] [phone] documented as of this encounter Visit Diagnoses Diagnosis Current mild episode of major depressive disorder without prior episode (CMS/HCC)- Primary documented in this encounter Care Teams Tick Inspector Relationship Specialty Start Date End Date Musa Borges MD 505 [place] [address] PCP - General Internal Medicine 04/02/20 07/01/25 Piyush Winkler CNP 230 [place] [address] PCP - General Family Medicine 07/02/25 documented as of this encounter
--- OUTSIDE RECORDS SUMMARY | 2025-07-05 12:01 | XMS_ITS | Encounter Summary ---
Author Organization [employer] Address [address] [facility] 7 [place] [address] Care Team Providers Care Clinical Services Professional Name Role Phone Piyush Winkler CNP Primary Care Provider +1 [phone] Reason for Visit * Reason Onset Date Comments Colonoscopy 07/05/2025 Encounter Details Date Type Department Care Team ([facility] Contact Info) Description 07/05/2025 Telephone [facility] MED & PEDS [address] [place], [place] [phone] Piyush Winkler CNP 230 [place] [address] Colonoscopy Social History Tobacco Use Types Packs/Day Years [...] Encounter - Ivet Robles [place] - 07/05/2025 10:50 AM EDT Colonoscopy report has been requested by Erinn Fernandez RN. Pt. Had it done at [facility] back in Feb or March. documented in this encounter Plan of Treatment Upcoming Encounters Date Type Department Care Team (Late st Contact Info) Description 07/12/2025 8:00 AM EDT Office Visit [facility] DENTAL [address] [place] [address] Elaina Che 91 [place], [place] [phone] documented as of this encounter Visit Diagnoses Not on filedocumented in this encounter Additional Health Concerns Assessment Noted Time PHQ-9 Depression Total Score: 4 08/24/20 24 1:09 PM EDT documented as of this encounter Care Teams Clinical Services Professional Relationship Specialty Start Date End Date Piyush Winkler CNP [address] [place] [address] PCP - General Family Medicine 07/02/25 documented as of this encounter
--- OUTSIDE RECORDS SUMMARY | 2025-07-05 12:01 | XMS_ITS | Encounter Summary ---
Author Organization [employer] Address [address] [facility] 7 [place] [address] Care Team Providers Care Mental Health Nurse Practitioner Name Role Phone Piyush Winkler CNP Primary Care Provider [phone] [phone] Reason for Visit * Reason Onset Date Comments chart prep 07/04/2025 Encounter Details Date Type Department Care Team ([facility] Contact Info) Description 07/04/2025 Telephone [facility] MED & PEDS 505 [place], [place] [phone] Piyush Winkler CNP 230 [place] [address] chart prep Social History Tobacco Use Types [...] encounter Miscellaneous Notes * Telephone Encounter - Naomie Orozco RN - 07/04/2025 4:08 PM EDT Chart Prep Labs: done Images: done Referrals: complete Vaccines due: Hep A Screenings: colonoscopy Overdue care gaps: Not applicable documented in this encounter Plan of Treatment Upcoming Encounters Date Type Department Care Team (Late st Contact Info) Description 07/12/2025 8:00 AM EDT Office Visit [facility] DENTAL [address] [place] [address] [phone] Elaina Che 91 [place], [place] [phone] documented as of this encounter Visit Diagnoses Not on filedocumented in this encounter Additional Health Concerns Assessment Noted Time PHQ-9 Depression Total Score: 4 08/24/20 24 1:09 PM EDT documented as of this encounter Care Teams Mental Health Nurse Practitioner Relationship Specialty Start Date End Date Piyush Winkler CNP [address] [place] [address] PCP - General Family Medicine 07/02/25 documented as of this encounter
--- OUTSIDE RECORDS SUMMARY | 2025-07-05 12:01 | XMS_ITS | Encounter Summary ---
Author Organization [employer] Address [address] [facility] 7 [place] [address] Care Team Providers Care Hog Killer Name Role Phone Musa Borges MD Primary Care Prov ider Piyush Winkler CNP Primary Care Provider [phone] [phone] Reason for Visit * Reason Onset Date Comments Medication Question 10/08/2023 Encounter Details Date Type Department Care Team ([facility] st Contact Info) Description 10/08/2023 Telephone [facility] MED[facility]INE 230 [place] [address] Musa Borges MD 505 [place], [place] [phone] Medication Question Social History Tobacco Use Types [...] Miscellaneous Notes * Telephone Encounter - Carl Perez - 10/08/2023 8:32 AM EST TC from patient calling in regards to tele appt on 10/05 states PCP was suppose to prescribe medication for neck pain however insurance underwriter sales does not see anything on file please clarify. documented in this encounter Plan of Treatment Upcoming Encounters Date Type Department Care Team (Late st Contact Info) Description 07/12/2025 8:00 AM EDT Office Visit [facility] 91 [place] [address] Elaina Che 91 [place] [address] documented as of this encounter Visit Diagnoses Not on filedocumented in this encounter Additional Health Concerns Assessment Noted Time PHQ-9 Depression Total Score: 0 12/23/19 23 8:59 AM EST documented as of this encounter Care Teams Hog Killer Relationship Specialty Start Date End Date Musa Borges MD 505 [place] [address] PCP - General Internal Medicine 04/02/20 07/01/25 Piyush Winkler CNP 230 [place] [address] PCP - General Family Medicine 07/02/25 documented as of this encounter
--- OUTSIDE RECORDS SUMMARY | 2025-07-05 12:01 | XMS_ITS | Encounter Summary ---
Author Organization [employer] Address [address] [place] [address] 7 [place] [address] Care Team Providers Care Nutrition And Dietetics Instructor Name Role Phone Musa Borges MD Primary Care Prov ider Piyush Winkler CNP Primary Care Provider +1 [phone] Reason for Visit * Reason Comments Med Refill Encounter Details Date Type Department Care Team ([facility] Contact Info) Description 04/23/2025 Refill [facility] MED & PEDS 505 [place], [place] [phone] Musa Borges MD 505 [place] [address] Social History Tobacco Use Types Packs/Day Years [...] 07/12/2025 8:00 AM EDT Office Visit [facility] DENTAL 91 [place], [place] [phone] Elaina Che 91 [place], [place] [phone] documented as of this encounter Visit Diagnoses Not on filedocumented in this encounter Additional Health Concerns Assessment Noted Time PHQ-9 Depression Total Score: 4 08/24/20 24 1:09 PM EDT documented as of this encounter Care Teams Nutrition And Dietetics Instructor Relationship Specialty Start Date End Date Musa Borges MD 505 [place] [address] PCP - General Internal Medicine 04/02/20 07/01/25 Piyush Winkler CNP 230 [place] [address] PCP - General Family Medicine 07/02/25 documented as of this encounter
--- OUTSIDE RECORDS SUMMARY | 2025-07-05 12:01 | XMS_ITS | Encounter Summary ---
Author Organization [employer] Address [address] [place] [address] 7 [place] [address] Care Team Providers Care Scissors Sharpener Name Role Phone Musa Borges MD Primary Care Prov ider Piyush Winkler CNP Primary Care Provider +1 -[phone] Encounter Details Date Type Department Care Team ([facility] st Contact Info) Description 12/06/2024 Telephone [facility] MED & PEDS 505 [place], [place] [phone] Musa Borges MD 505 [place] [address] Social History Tobacco Use Types Packs/Day Years [...] Miscellaneous Notes * Telephone Encounter - Joanie Veronique - 12/06/2024 9:02 AM EST Tc from pt requesting to switch pcp. States feels like her medical needs are not being exceeded. documented in this encounter Plan of Treatment Upcoming Encounters Date Type Department Care Team (Late st Contact Info) Description 07/12/2025 8:00 AM EDT Office Visit [facility] 91 [place], [place] [phone] Elaina Che 91 [place] [address] documented as of this encounter Visit Diagnoses Not on filedocumented in this encounter Additional Health Concerns Assessment Noted Time PHQ-9 Depression Total Score: 4 08/24/20 24 1:09 PM EDT documented as of this encounter Care Teams Scissors Sharpener Relationship Specialty Start Date End Date Musa Borges MD 505 [place] [address] PCP - General Internal Medicine 04/02/20 07/01/25 Piyush Winkler CNP 230 [place] [address] PCP - General Family Medicine 07/02/25 documented as of this encounter
--- OUTSIDE RECORDS SUMMARY | 2025-07-05 12:01 | XMS_ITS | Encounter Summary ---
Author Organization [employer] Address [address] [place] [address] 7t [place] [address] Care Team Providers Care Parker Name Role Phone Piyush Winkler MJ Primary Care Provider +1 -[phone] Encounter Details Date Type Department Care Team (Latest Contact Info) Description 07/05/2025 Travel Social History Tobacco Use Types Packs/Day [...] Description 07/12/2025 8:00 AM EDT Office Visit [facility] DENTAL 91 [place], [place] [phone] Elaina Che 91 [place], [place] [phone] documented as of this encounter Visit Diagnoses Not on filedocumented in this encounter Additional Health Concerns Assessment Noted Time PHQ-9 Depression Total Score: 4 08/24/20 24 1:09 PM EDT documented as of this encounter Care Teams Parker Relationship Specialty Start Date End Date Piyush Winkler CNP [address] [place] [address] PCP - General Family Medicine 07/02/25 documented as of this encounter
--- OUTSIDE RECORDS SUMMARY | 2025-07-05 12:01 | XMS_ITS | Encounter Summary ---
Author Organization [employer] Address 75 [facility] 7t [place] [address] Care Team Providers Care Gas Station Supervisor Name Role Phone Piyush Winkler MJ Primary Care Provider +1 [phone] Encounter Details Date Type Department Care Team (Latest Contact Info) Description 07/03/2025 Travel Social History Tobacco Use Types Packs/Day [...] Description 07/12/2025 8:00 AM EDT Office Visit [facility] D[facility] 91 [place], [place] [phone] Elaina Che 91 [place], [place] [phone] documented as of this encounter Visit Diagnoses Not on filedocumented in this encounter Additional Health Concerns Assessment Noted Time PHQ-9 Depression Total Score: 4 08/24/20 24 1:09 PM EDT documented as of this encounter Care Teams Gas Station Supervisor Relationship Specialty Start Date End Date Piyush Winkler CNP [address] [place] [address] PCP - General Family Medicine 07/02/25 documented as of this encounter
--- OUTSIDE RECORDS SUMMARY | 2025-07-05 12:01 | XMS_ITS | Encounter Summary ---
Author Organization [employer] Address [address] [place] [address] 7 [place] [address] Care Team Providers Care Pluck Trimmer Name Role Phone Musa Borges MD Primary Care Prov ider Piyush Winkler CNP Primary Care Provider +1 -[phone] Reason for Visit * Reason Onset Date Comments Med Refill 04/10/2024 Encounter Details Date Type Department Care Team ([facility] st Contact Info) Description 04/10/2024 Refill [facility] MED & PEDS 505 [place] [address] Dyan Miller MD 505 [place] [address] Social History Tobacco Use Types Packs/Day Years [...] AM EDT documented as of this encounter Functional Status * Over the past 2 weeks, how often have you been bothered by any of the following problems? Question Answer Date of Assessment Author Patient Health Questionnaire-2 Score 0 0 03/2024 2:10 PM EDT Yumiko Rosenthal MA * Over the past 2 weeks, how often have you been bothered by any of the following problems? Question Answer Date of Assessment Author Little interest or pleasure in doing things Not at all 04/12/2024 2:10 PM Yumiko Lorenzo MA Feeling down, depressed, or hopeless Not at all 04/12/2024 2:[address] Yumiko Rosenthal MA Trouble falling or staying a sleep, or sleeping too much Not at all 04/12/2024 2:[address] Yumiko Rosenthal MA Feeling tired or having elissa le energy Not at all 04/12/2024 2:[address] Yumiko Rosenthal MA Poor appetite or overeating Not at all 04/12/2024 2: [address] Yumiko Rosenthal MA Feeling bad about yourself - or that you are a failure or have let yourself or your family down Not at all 04/12/2024 2:10 PM DEET Coral Rosenthal MA Trouble concentrating on thi ngs, such as reading the newspaper or watching television Not at all 04/12/2024 2:10 PM Yumiko Lorenzo MA Moving or speaking so slowly that other people could have noticed? Or the opposite - being so fidgety or restless that you have been moving around a lot more than usual. Not at all 04/12/2024 2:10 PM EDT Yumiko Rosenthal MA Thoughts that you would be b kt off or hurting yourself in some way Not at all 04/12/2024 2:10 PM EDT Yumiko Rosenthal MA Patient Health Questionnaire -9 Score 0 04/12/2024 2:10 PM EDT Yumiko Rosenthal MA documented as of this encounter Plan of Treatment Upcoming Encounters Date Type Department Care Team (Late st Contact Info) Description 07/12/2025 8:00 AM EDT Office Visit [facility] 91 [place], [place] [phone] Elaina Che 91 [place], [place] [phone] documented as of this encounter Visit Diagnoses Not on filedocumented in this encounter Additional Health Concerns Assessment Noted Time PHQ-9 Depression Total Score: 0 12/23/19 23 8:59 AM EST documented as of this encounter Care Teams Pluck Trimmer Relationship Specialty Start Date End Date Musa Borges MD [address] [place] [address] PCP - General Internal Medicine 04/02/20 07/01/25 Piyush Winkler CNP 230 [place] [address] PCP - General Family Medicine 07/02/25 documented as of this encounter
--- OUTSIDE RECORDS SUMMARY | 2025-07-05 12:01 | XMS_ITS | Clinical Summary ---
Author Organization [facility] Address [address] [place] [address] [address] [place] [address] Care Team Providers Care Palliative Senior Np Name Role Phone WinklerPiyush MJ Primary Care Provider [phone] Allergies No known active allergies Medications * This document contains information received from the source organization and may not represent a complete record from that organization. Fluocinolone Acetonide Scalp (Peralta-Smoothe/FS Scalp) 0.01 % oilIndications:Se borrheic dermatitis To apply to the affected area once or twice a week. 118 mL 1 03/30/20 23 Active ketoconazole (Nizoral) 2 % shampooIndication s:Seborrheic dermatitis Apply topically 2 (two) times a week. 120 mL 3 04/01/20 23 Active Spacer/Aero-Holdi ng Chambers (OptiChamber Elsa) miscIndications:I nfluenza-like symptoms 1 each every 4 (four) hours if needed (asthma). 1 each 04/13/20 23 Active solifenacin (VESIcare) 5 MG tablet Take 5 mg by mouth Once per day. 12/19/19 25 Active gabapentin (Neurontin) 300 MG capsule Take 1 capsule (300 mg) by mouth at bedtime. 90 capsule 3 01/17/20 25 026 Active dextran 70-hypromellose (artificial tears) 0.1-0.3 % ophthalmic solutionIndicatio ns:Dry eyes, bilateral Administer 1 drop into both eyes if needed in the morning, at noon, and at bedtime for dry eyes. 15 mL 6 02/10/20 25 026 Active Ventolin HFA 108 (90 Base) MCG/ACT inhaler INHALE TWO PUFFS EVERY 4 HOURS NEEDED FOR WHEEZING 18 g 05/23/20 25 Active gabapentin (Neurontin) 300 MG capsule Take 300 mg by mouth. 08/04/20 24 Active Artificial Tears ophthalmic solution PLACE ONE DROP IN EACH EYE THREE TIMES DAILY IN THE MORNING, AT NOON, AND AT BEDTIME NEEDED 02/10/20 25 Active GaviLyte-G 236 g solution DRINK 240 ML EVERY 10 MINUTES UNTIL FINISHED OR HASTA QUE EL LQUIDO RECTAL EST LINNEA 01/18/20 25 Active Blood Pressure Monitoring kitIndications:El evated BP without diagnosis of hypertension Check blood pressure twice daily, once in the morning and once in the evening. 1 kit 07/05/20 25 Active tetrahydrozoline (Visine Red Eye Comfort) 0.05 % ophthalmic solutionIndicatio ns:Seasonal allergies Administer 1 drop into both eyes 3 times daily. 30 mL 07/05/20 25 Active celecoxib (CeleBREX) 200 MG capsuleIndication s:Chronic low back pain, unspecified back pain laterality, unspecified whether sciatica present Take 1 capsule (200 mg) by mouth 2 times daily. 60 capsule 07/05/20 25 025 Active meclizine (Antivert) 25 MG tabletIndications :Benign paroxysmal positional vertigo due to bilateral vestibular disorder Take 1 tablet (25 mg) by mouth if needed each day for dizziness for up to 10 days. 10 tablet 1 07/05/20 25 025 Active acetic acid-hydrocortiso ne (Vosol-HC) otic solutionIndicatio ns:Acute otitis externa of both ears, unspecified type Administer 3 drops into each ear 3 times daily for 10 days. 10 mL 07/05/20 25 025 Active meloxicam (Mobic) 15 MG tabletIndications :Right lateral epicondylitis TAKE ONE TABLET BY MOUTH ONCE DAILY 30 tablet 1 05/18/20 25 025 Discontin ued(Ineff ective) cyclobenzaprine (Flexeril) 10 MG tablet TAKE ONE TABLET THREE TIMES DAILY FOR 10 DAYS 025 Discontin ued(Side effects) Active Problems Problem Noted Date Diagnosed Date Class 1 obesity 07/04/2025 Dermoid cyst 01/31/2025 Assessment & Plan (01/31/2025 7:14 PM EDT): On pubic area, recurrent infection Rx Duricef x 7 days and referred to general surgeon for excision. Advised to avoid shaving of the pubic area, apply Vaseline or Desitin ointment to affected area Reconsult as needed until she is seen by surgeon Lateral epicondylitis of right elbow 01/05/2025 Major depressive disorder with single episode Assessment [...] for additional 3 months and will reevaluate Vaginal cyst 07/18/2024 Assessment & Plan (07/18/2024 1:10 PM EDT): Will refer to jason, she prefers to be seen [facility] Bilateral carpal tunnel syndrome 12/15/2023 Assessment & [...] keep daily bp monitoring, encouraged weight loss Gastroenteritis 06/25/2023 Assessment & Plan (06/25/2023 11:41 [...] years, will place order for new labs. Chronic back pain 11/30/2018 Assessment & Plan [...] avoid heavy lifting Knee pain 11/30/2018 12/15/2023 Resolved Problems Problem Noted Date Diagnosed Date Resolved Date Screening for colon cancer 07/18/2024 0 07/04/2025 Assessment & Plan (01/16/2025 10:34 AM EDT): Scheduled for February, will follow up results Assessment & Plan (07/18/2024 1:07 PM EDT): Will place referral for screening colonoscopy Ear itching 07/18/2024 07/04/2025 Assessment & Plan (07/18/2024 1:13 PM EDT): Will prescribe drop to aid with iching, told to aviod using q-tips BV (bacterial vaginosis) 09/04/2023 Assessment & Plan (09/04/2023 2:47 PM EDT): Found on pap smear done by ob-grazing examiner on 09/01 with bv, complains of itching, no discharge, will treat with metronidazole x 7 days Dysuria 09/04/2023 07/04/2025 Assessment & Plan (09/04/2023 2:45 PM EDT): Patient complains of dysuria, no fever/chills, hematuria, could be related to bv, will order u/a with culture if >100,000 colonies will treat Itching 02/24/2023 07/04/2025 Assessment & Plan (02/24/2023 12:52 PM EDT): Patient with facial itching, refers gets red rash when active, mostly around her eyes, will refer to dermatology for evaluation Encounters Date Type Department Care Team Description 07/05/2025 9:15 AM EDT Office Visit [facility] [address] [place] [address] Piyush Winkler CNP Encounter to establish care (Primary Dx); Encounter for screening for malignant neoplasm of colon; Elevated BP without diagnosis of hypertension; Vaginal itching; Seasonal allergies; Chronic low back pain, unspecified back pain laterality, unspecified whether sciatica present; Chronic cough; Benign paroxysmal positional vertigo due to bilateral vestibular disorder; Acute otitis externa of both ears, unspecified type 07/05/2025 Telephone [facility] [address] [place] [address] Piyush Winkler CNP Colonoscopy 07/05/[address] [facility] [address] [place] [address] Piyush Winkler CNP chart prep 07/05/2025 Travel 07/04/[address] [facility] [address] [place] [address] Piyush Winkler CNP chart prep 07/03/2025 Travel 06/27/2025 Patient Outreach [facility] [address] [place] [phone] Musa Borges MD Pre-visit Planning (SDOH screening negative and Tobacco screening negative) 06/13/2025 Orders Only GENERIC EXTERNAL DATA DEPARTMENT Provider, Generic External Data 05/23/2025 Refill [facility] [address] [place] [phone] Lily Stokes MD 05/18/[address] [facility] [address] [place] [address] Muas Borges MD Right lateral epicondylitis 04/27/2025 Telephone [facility] [address] [place] [phone] Musa Borges MD Returning Call 04/25/[address] [facility] [address] [place] [address] Musa Borges MD Change PCP 04/23/[address] [facility] [address] [place] [address] Musa Borges MD 04/18/2025 Orders Only GENERIC EXTERNAL DATA DEPARTMENT Provider, Generic External Data from Last 3 Months Immunizations Immunization Administration Dates Next Due Hep A, Adult [...] Mass Index 30.18 07/05/2025 9:15 AM EDT Plan of Treatment Upcoming Encounters Date Type Department Care Team (Late st Contact Info) Description 07/12/2025 8:00 AM EDT Office Visit [facility] [address] [place] [address] [phone] Elaina Che [address], [place] [phone] Health Maintenance Due Date Last Done Comments CT Colonography 1980 Dental X-Ray: Full Mouth 1979 FIT DNA/Cologuard 1979 FIT 1980 FOBT 1980 Sigmoidoscopy 1980 Family Planning (PISQ) 1994 COVID-19 Vaccine ( season) 2024 09/26/2021, 02/17/2021, 01/20/2021 Dental Oral Exam 10/08/2024 04/06/2024 Dental X-Ray: Bitewings 04/07/2025 04/06/2024 Dental Prophylaxis 05/23/2025 11/22/2024, 0 04/06/2024, 03/08/2023 Influenza Vaccine (#1) 2025 , 09/28/2017, 08/04/2011 Depression Screening 08/24/2025 08/24/2024, 08/24/20 24 Disability Screening 10/20/2025 10/20/2024 Tobacco Screening 02/09/2026 02/09/2025 SDOH Screening 06/27/2026 06/27/2025 Alcohol/Substance Use Screening 07/05/2026 07/05/2025 Pap Smear 09/01/2026 09/01/2023, 08/14/2021 Mammogram 02/10/2027 02/10/2025, 03/0 11/2023, 01/01/2023, Additional history exists DTaP/Tdap/Td Vaccines (2 - Td or Tdap) 09/28/2027 09/28/2017, 12/13/2007 Cervical Cancer Screening 09/01/2028 HPV/Cotest 09/01/2028 09/01/2023, 08/14/2021 Zoster Vaccines (1 of 2) 2029 Colonoscopy 02/16/2030 Colorectal Cancer Screening 02/16/2030 RSV Patients and Patients Aged 60 years or older (1 - 1-dose 75+ series) 2054 Hepatitis A Vaccines Aged Out 05/03/2008, 12/13/19 08 No longer eligible based on patient's age to complete this topic Hepatitis B Vaccines Completed 03/19/2009, 05/03/2008, 12/13/2007 HIV Screening Completed 04/18/2025, 04/12/2023 Hepatitis C Screening Completed 04/18/2025, 023 HIB Vaccines Aged Out No longer eligi ble based on patient's age to complete this topic HPV Vaccines Aged Out No longer eligi ble based on patient's age to complete this topic IPV Vaccines Aged Out No longer eligi ble based on patient's age to complete this topic Meningococcal B Vaccine Aged Out No l onger eligible based on patient's age to complete this topic Meningococcal Vaccine Aged Out No kelsie solomon eligible based on patient's age to complete this topic Pneumococcal Vaccine: Pediatrics (0 to 5 Years) and At-Risk Patients (6 to 49) Years Aged Out No longer eligible based on patient's age to complete this topic RSV under 20 months Aged Out No longe r eligible based on patient's age to complete this topic Rotavirus Vaccines Aged Out No longer eligible based on patient's age to complete this topic Procedures Procedure Name Priority Date/Time Associated Diagnosis Comments GROSS AND MICROSCOPIC LEVEL 3 Routine 06/13/2025 2:03 PM EDT HIV 1/2 ANTIGEN/ANTIBODY, FOURTH GENERATION W/RFL Routine 04/18/2025 1:32 PM EDT HEPATITIS C AB W/REFL TO HCV RNA, QN, PCR Routine 04/18/2025 1:32 PM EDT HEPATITIS B CORE AB TOTAL Routine 04/18/2025 1:32 PM EDT SYPHILIS SCREEN Routine 04/18/2025 1:32 PM EDT CHLAMYDIA/N. GONORRHOEAE RNA, TMA, UROGENITAL Routine 04/18/2025 1:26 PM EDT BACTERIAL VAGINOSIS PANEL Routine 04/18/2025 12:47 PM EDT BI MAMMOGRAM SCREENING TOMOSYNTHESIS BILATERAL Routine 02/10/2025 10:01 AM EDT PROPHYLAXIS - ADULT Routine 11/22/2024 8 :00 AM EST BITEWINGS - 4 RADIOGRAPHIC IMAGES Routine 04/06/2024 10:00 AM EDT PERIODIC ORAL EVALUATION - ESTABLISHED PATIENT Routine 04/06/2024 10:00 AM EDT HPV MRNA E6/E7 REFLEX TO HPV 16, 18/45 Routine 09/01/2023 12:12 PM EDT PAP SMEAR Routine 09/01/2023 12:12 PM EDT from Last 3 Months or Most Recently Relevant to Health Maintenance Results * Gross and Microscopic Level 3 (06/13/2025 2:03 PM EDT) 06/13/2025 2:03 PM EDT 06/13/2025 2:43 PM EDT [facility] - 06/14/2025 10:05 AM EDT ----- ------- Name: Shira Aragon Age/Sex: 45/F : 1980 Unit#: [id number] Attend Dr: Chuy Quesada MD Re06/13/25 Status: DEP REF Location: [facility] Disch: ----- ------- SPEC : [id number] RECD: 06/13/25 STATUS: SAM GILLESPIE NUM: [id number] HERMILO: 06/13/[address] [facility] [address]: Chuy Quesada MD ENTERED: 06/13/25 SP TYPE: Surgical OTHR DR: Musa Borges MD ORDERED: Gross Micro L3 Diagnosis Vulva, right labia cyst, excision: Skin and subcutaneous tissue with marked fibrosis, inflammation, granulation tissue formation and features of ruptured epidermal inclusion cyst; no atypia or malignancy identified. Clinical History Vulvar cyst Microscopic Description Microscopic sections reviewed. Material Received Right labial cyst Gross Description Received in formalin labeled right labial cyst is an unoriented ellipse of skin measuring 2.4 x 1.6 cm which has been excised to a depth of 1.7 cm. The skin surface is meza and smooth with a dome-shaped, pink-white lesion measuring 0.6 x 0.5 cm which is surrounded by a border of uninvolved skin ranging from 0.2-0.8 cm. The undersurface is composed of soft, lobulated yellow adipose tissue. The margins of excision are inked blue. The longitudinal poles are submitted in cassette A1, 2 pieces. The remainder of the specimen is serially sectioned across the short axis revealing a cavity measuring 0.5 cm in diameter containing soft pink-white material. The specimen is entirely submitted in cassettes A2 and A3, 3 pieces each. ([facility]) IHC S/NG Disclaimer NOTE: Unless otherwise stated, all tissue is formalin-fixed and paraffin-embedded. Some or all of the immunohistochemical tests reported herein may have been developed and their performance characteristics determined by [facility]. They have not been cleared or approved by the U.S. Food and Drug Administration (FDA). However, the FDA has determined that such clearance or approval is not necessary. This laboratory is certified under the Clinical Laboratory Improvement Amendments of 1988 (CLIA) as qualified to perform high complexity clinical laboratory testing. CONTINUED ON NEXT PAGE ----- ------- Name: Shira Aragon Age/Sex: 45/F : 1980 Unit#: [id number] Attend Dr: Chuy Quesada MD Re06/13/25 Status: DEP [facility] Disch: ----- ------- SPEC : [id number] RECD: 06/13/25 STATUS: SAM GILLESPIE NUM: [id number] HERMILO: 06/13/[address] [facility] [address]: Chuy Quesada MD ENTERED: 06/13/25 SP TYPE: Surgical OTHR DR: Musa Borges MD ORDERED: Gross Micro L3 Copies To: Musa Borges MD [address] [address] Chuy Quesada MD [facility] [address] [place] [phone] ----- ------- Signed (signature on file) Landon Snider MD 06/14/25 1005 ----- ------- END OF REPORT Generic External Data Provider LAB CYTOLOGY ORDE RABLES Final Result Performing Organization Address [facility]/ZIP Co de Phone Number [facility] [address] [place] [address] [phone] * Syphilis Screen (04/18/2025 1:32 PM EDT) Syphilis Screen Nonreactive Nonreactive [facility] 04/18/2025 1:32 PM EDT 04/18/2025 1:32 PM EDT Generic External Data Provider LAB BLOOD ORDERAB LES Final Result Performing Organization Address [facility]/ZIP Co de Phone Number [facility] [address] [place] [phone] * Hepatitis C Antibody with Reflex to HCV, RNA, Quantitative, Real-Time PCR (04/18/2025 1:32 PM EDT) Hepatitis C Antibody Nonreactive Nonreactive [facility] Comment:Antibodies to HCV no t detected; does not exclude early acuteHCV infection. 04/18/2025 1:32 PM EDT 04/18/2025 1:32 PM EDT us Generic External Data Provider LAB BLOOD ORDERAB LES Final Result Performing Organization Address City/[facility]/ZIP Co de Phone Number [facility] [address] [place] [phone] * Hepatitis B Core Antibody, Total (04/18/2025 1:32 PM EDT) Hepatitis B Core Antibody Nonreactive Nonreactive [facility] 04/18/2025 1:32 PM EDT 04/18/2025 1:32 PM EDT Generic External Data Provider LAB BLOOD ORDERAB LES Final Result Performing Organization Address [facility] Co de Phone Number [facility] [address] [place] [phone] * HIV-1/2 Antigen and Antibodies, Fourth Generation, with Reflexes (04/18/2025 1:32 PM EDT) HIV AB/AG Nonreactive Nonreactive [facility] Comment:HIV-1 p24 Ag and/or HIV-1/HIV-2 Ab not detected.A test result that is nonreactive does not exclude thepossibility of exposure to or infection with HIV-1 and/orHIV-2. Nonreactive results in this assay for individualswith prior exposure to HIV-1 and/or HIV-2 may be due toantigen and antibody levels that are below the limit ofdetection of this assay.The Cubikal HIV Ag/Ab Combo assay result andsupplemental assay results should be interpreted inconjunction with the patient's clinical presentation,history and other laboratory results. If the results areinconsistent with clinical evidence, additional testing issuggested to confirm the result. 04/18/2025 1:32 PM EDT 04/18/2025 1:32 PM EDT us Generic External Data Provider LAB BLOOD ORDERAB LES Final Result [facility] [address] [place] [phone] * Chlamydia/N. Gonorrhoeae RNA, TMA, Urogenitial (04/18/2025 1:26 PM EDT) CT PCR NOT DETECTED Not Detect. [facility] Comment:A not detected test result does not exclude the possibilityof infection because test results can be affected byimproper specimen collection, concurrent antibiotic therapy,or the number of organisms in the specimen which may bebelow the sensitivity of the test. As with many diagnostictests, results from the Xpert CT/NG assay should beinterpreted in conjunction with other laboratory andclinical data available to the clinician.Xpert CT/NG performance has not been evaluated in patientsless than 14 years of age. The assay should not be used forthe evaluationof suspected sexual abuse or for other medico-legalindications. Additional testing is recommended in anycircumstance when false positive or false negative resultscould lead to adverse medical, social or psychologicalconsequences. NG PCR NOT DETECTED Not Detect. [facility] Comment:A not detected test result does not exclude the possibilityof infection because test results can be affected byimproper specimen collection, concurrent antibiotic therapy,or the number of organisms in the specimen which may bebelow the sensitivity of the test. As with many diagnostictests, results from the Xpert CT/NG assay should beinterpreted in conjunction with other laboratory andclinical data available to the clinician.Xpert CT/NG performance has not been evaluated in patientsless than 14 years of age. The assay should not be used forthe evaluationof suspected sexual abuse or for other medico-legalindications. Additional testing is recommended in anycircumstance when false positive or false negative resultscould lead to adverse medical, social or psychologicalconsequences. 04/18/2025 1:26 PM EDT 04/18/2025 1:48 PM EDT Narrative [facility] - 04/18/2025 4:52 PM EDT Vaginal Generic External Data Provider LAB MICROBIOLOGY - GENERAL ORDERABLES Final Result Performing Organization Address [facility] Co de Phone Number [facility] [address] [place] [phone] * Bacterial Vaginosis (04/18/2025 12:47 PM EDT) TRICHOMONAS VAGINALIS DETECTION BY PCR NOT DETECTED Not Detect [facility] BACTERIAL VAGINOSIS DETECTION BY PCR NEGATIVE Negative [facility] Comment:The BV organism targ ets of the Xpert Xpress MVP test can becommensal in women; Xpert Xpress MVP positive results forbacterial vaginosis should be considered in conjunction withother clinical and patient information to determine thedisease status. Organisms that are not detected by the XpertXpress MVP test have also been reported to be associatedwith BV and aerobic vaginitis.The Xpert Xpress MVP test performance has not been evaluatedin patients under the age of 14. HATTIE GROUP DETECTION BY PCR NOT DETECTED Not Detect [facility] Hattie glab krusei PCR NOT DETECTED Not Detect [facility] 04/18/2025 12:4 7 PM EDT 04/18/2025 1:55 PM EDT us Generic External Data Provider LAB MICROBIOLOGY - GENERAL ORDERABLES Final Result Performing Organization Address [facility] Co de Phone Number [facility] [address] [place] [phone] * BI Mammogram Screening Tomosynthesis Bilateral (02/10/2025 10:01 AM EDT) Anatomical Region Laterality Modality Breast Bilateral Mammography 02/10/2025 10:0 1 AM EDT Narrative 02/17/2025 7:16 PM EDT [address] [place] [address] Mammography Report Signed Patient: Shira Aragon MR#: [id number] 14 : 1980 Acct:[id number] Age/Sex: 44 / F ADM Date: 02/10/25 Loc: HO.MAMMO Attending Dr: uMsa Oviedo MD Ordering Physician: Musa Borges MD Res ults: 1Negative Date of Service: 02/10/25 Follow Up: 1 Year From Orig inal Mammogram Procedure(s): MM tomosynthesis screening BI Accession Number(s): [id number] cc: Musa Borges MD EXAMINATION: MM SCREENING [...] Irais Hodge DO 02/17/2025 07:13 PM EDT RP Dictated By: Irais Hodge DO Signed By: <Electronically signed by Irais Hodge DO in OV> 02/17/25 191 DD/ 1001 TD/TT: 02/10/25 1015 Silk Screen Operator: Procedure Note Donotuseinterpreter, Image - 02/17/[address] [place] [address] Mammography Report Signed Patient: Shira Aragon#: [id number] 14 : 1980Acct:[id number] Age/Sex: 44 / FADM Date: 02/10/25 Loc: HO.MAMMO Attending Dr: Musa Oviedo MD Ordering Physician: Musa Borges ults: 1Negative Date of Service: 02/10/25Follow Up: 1 Year From Orig ina Mammogram Procedure(s): MM tomosynthesis screening BI Accession Number(s): [id number] cc: Musa Borges MD EXAMINATION: MM SCREENING [...] 02/17/25 1913 DD/ 1001 TD/TT: 02/10/25 1015 Silk Screen Operator: Musa Oviedo MD IM BI PROCEDURES Final Result * HPV mRNA E6/E7 w/Reflex to HPV Genotypes 16, 18/45 (09/01/2023 12:12 PM EDT) HPV nRNA E6/E7 Not Detected Not Detected [facility] Comment:Methodology: Transcr iption-Mediated AmplificationThis assay detects E6/E7 viral messenger RNA (mRNA) from 14high-risk HPV types (16,18,31,33,35,39,45,51,52,56,58,59,66,68).Cervical sources are required for HPV testing.If a vaginal source from a patient who has had atotal hysterectomy with removal of cervix wassubmitted, please contact the testing laboratoryfor alternative testing options.For additional information, please refer tohttp://education.[employer]/faq/FFN544j7(This link if provided for information/educational purposes only.)THIS TEST WAS PERFORMED AT:[facility] [place] [phone] WOODY MD HPV mRNA E6/E7 [facility] HPV [facility] HPV 18/45 RNA [facility] 09/01/2023 12:1 2 PM EDT 09/02/2023 7:00 AM EDT [facility] External Provider LAB CYT OLOGY ORDERABLES Final Result [facility] [address] [place] [phone] * Pap Smear (09/01/2023 12:12 PM EDT) 09/01/2023 12:1 2 PM EDT 09/02/2023 7:00 AM EDT Narrative [facility] - 09/07/2023 2:16 PM EDT ----- ------- Name: Shira Aragon Age/Sex: 43/F : 1980 Unit#: [id number] Attend Dr: Karen Holbrook Re09/01/23 Status: DEP REF Location: [facility] Disch: ----- ------- SPEC : [id number] RECD: 09/02/23 STATUS: SAM GILLESPIE NUM: [id number] HERMILO: 09/01/[address] [facility] [address]: Karen Holbrook ENTERED: 09/02/23 SP TYPE: Pap Smr OTHR DR: Musa Borges MD ORDERED: Pap Smear Interpretation Satisfactory for evaluation. Coccobacilli consistent with shift in vaginal bushra. Negative for intraepithelial lesion or malignancy. HPV mRNA E6/E7: NOT DETECTED This assay detects E6/E7 viral messenger RNA (mRNA) from 14 high-risk HPV types (16, 18, 31, 33, 35, 39, 45, 51, 52, 56, 58, 59, 66, 68) HPV testing performed by [facility], [place], [place]. See reference laboratory pion of the EMR for entire report. Clinical Information LMP: 07/21/23 Previous PAP test: Unknown date/findings Other history: Abnormal uterine and vaginal bleeding, unspecified. Material Received ThinPrep-Cervical Copies To: Musa Borges MD [address] [place] [phone] [phone] Karen Holbrook CNM [address] [place] [address] Dr. Woo [address] [place] [phone] ----- ------- Signed (signature on file) Claudia David MD 09/07/23 1416 ----- ------- END OF REPORT [facility] External Provider LAB CYT LEONEL ORDERABLES Final Result [facility] [address] [place], [place] [phone] from Last 3 Months or Most Recently Relevant to Health Maintenance Insurance [facility] C3 DENTAL-[facility] MEDICAID STAND ADULT Care Teams Palliative Senior Np Relationship Specialty Start Date End Date Piyush Winkler CNP [address] [place] [address] PCP - General Family Medicine 07/02/25
[2025-07-05 14:52] LABS: MANUAL DIFF FLAG NO
[2025-07-05 15:00] LABS: Hematocrit 38.6 % (37.0-47.0); Hemoglobin 13.0 g/dl (12.0-16.0); Imm Gran Abs Auto 0.02 X10*3/uL (0.00-0.03); Imm Gran Pct Auto 0.3 % (0.0-0.4); Lymphocytes Absolute Auto 1.9 X10*3/uL (1.2-4.9); Mean Corpuscular HGB Conc 33.7 g/dl (31.0-35.0); Mean Corpuscular Hemoglobin 30.7 pg (27.0-33.0); Mean Corpuscular Volume 91.3 fL (80.0-98.0); NRBC Abs Auto 0.000 X10*3/uL (0.0-0.012); NRBC Pct Auto 0.0 /100WBC (0.0-0.2); Platelet Count 215 X10*3/uL (160-400); Red Blood Count 4.23 X10*6/uL (4.20-5.50); White Blood Count 6.3 X10*3/uL (4.8-10.8)
[2025-07-05 15:04] LABS: Hemoglobin A1C 111.4810 umol/L; Total Hemoglobin (HGBA1C) 3384.4123 umol/L
[2025-07-05 16:01] LABS: Alanine Aminotransferase 20 U/L (0-31); Albumin Level 4.4 g/dL (3.5-5.0); Alkaline Phosphatase 82 U/L (39-117); Anion Gap 11 (12-20); Aspartate Amino Transferase 29 U/L (5-31); Blood Urea Nitrogen 10 mg/dL (9-16); Calcium 9.4 mg/dL (8.4-10.2); Carbon Dioxide 27 mmol/L (22-29); Chloride 105 mmol/L (96-108); Cholesterol 157 mg/dL (<200); Estimated Glomerular Filt Rate > 60; HDL Cholesterol 53 mg/dL (>40); Potassium 3.5 mmol/L (3.3-5.1); Sodium 139 mmol/L (135-145); Total Protein 7.5 g/dL (6.5-8.0); Triglycerides 64 mg/dL (<150)
[2025-07-05 16:07] LABS: Bacterial Vaginosis PCR NEGATIVE (Negative); Candida Group PCR NOT DETECTED (Not Detect); Candida glab krusei PCR NOT DETECTED (Not Detect); Trichomonas vaginalis PCR NOT DETECTED (Not Detect)
== END 2025-07-05 10:39 | disposition home or self-care (01) ==
LOC: HO.CHCLDS 10:38
DX: N89.8 Other specified noninflammatory disorders of vagina (principal); Z76.89 Persons encountering health services in other specified circumstances
CPT/HCPCS: 80053; 80061; 81515; 83036; 84443; 85025

== ENCOUNTER 2025-08-07 08:34 | Outpatient (REF) | payer MEDICAID, SELFPAY | END 2025-08-07 08:35 | disposition home or self-care (01) | LOC: HO.LAB 08:34 | PROVIDERS: PCP Internal Medicine; Visit Provider Nurse Practitioner Family | DX: N39.0 Urinary tract infection, site not specified (principal); R39.15 Urgency of urination; R39.89 Other symptoms and signs involving the genitourinary system; R30.0 Dysuria; Z13.89 Encounter for screening for other disorder; Z79.899 Other long term (current) drug therapy | CPT/HCPCS: 51798; 81003; 87086; 87088; 87186; 99212 ==

== ENCOUNTER 2025-08-07 08:34 | Outpatient (AMB) | payer MEDICAID, SELFPAY ==
--- NOTE | 2025-08-07 08:36 | MHC.PC.OV ---
Intake Visit Reasons: 3m/PVR Intake Note: Patient is present for 3M/PVR Urology Medication:SOLIFENACIN Antibiotic Allergy:NONE Blood Thinner:NONE Last PVR:44ML'S Todays PVR:10ML'S [employer] Required: No Allergies No Known Allergies Allergy (Verified 08/07/25 09:12) Medication List - Last Reconciled 08/07/25 by TORRI Asencio celecoxib 200 mg PO DAILY gabapentin 300 mg PO BEDTIME meloxicam 15 mg PO DAILY solifenacin (Vesicare) 5 mg PO DAILY 90 days sulfamethoxazole-trimethoprim 800-160 mg (Bactrim DS) 1 tab PO BID 7 days HPI HPI Comments History of Present Illness Details Shira is a 44-year-old Maori-speaking female patient of Dr. Hallman. She presents to the office today for a follow up of her ongoing lower urinary tract symptoms. Of note patient was last seen approximately 1 month ago at which time her urine was sent out for further mircogen testing. These results were reviewed and communicated with the patient today. Microgen 04/01 Citrobacter koseri, Raoultella ornithinolytica, Streptococcus agalactiae, Proteus mirabilis, Klebsiella aerogenes, Enterococcus faecalis, and gardneralla vaginalis. She has since Augmentin as prescribed. She reports feeling episodes of urinary urgency, urinary frequency, and bladder pressure she had been experiencing has since subsided. She does report being on her menses at this time. In office urinalysis results reviewed with the patient today. PVR 44 mL. She currently denies any bothersome urinary issues or concerns. Previous workup has included a retroperitoneal ultrasound 10/29 noting bilateral kidneys no calculi, lesions, and or hydronephrosis. The bladder was within normal limits. She denies incontinence, nocturia, hematuria, foul smelling urine, changes to urinary stream, flank pain, fever, and or chills. We discussed potential causes of these lower urinary tract symptoms she was experiencing. We discussed potential near future cystoscopy if symptoms arise. We discussed further treatment options of these lower urinary tract symptoms and risks and benefits of these treatment options. All questions were answered. She otherwise offers no other issues or concerns at this time. [facility], [facility] Medical History Strain of right piriformis muscle (07/09/20) Sacroiliac joint dysfunction of right side (07/09/20) Greater trochanteric bursitis of both hips (07/09/20) Chronic low back pain (07/09/20) Recurrent UTI Chronic back pain Surgical History Hx of removal of cyst (06/13/25) Hx of tubal ligation Family History Maternal Grandfather Throat cancer Social History Alcohol intake: never Patient Tobacco Use Status: Never used Tobacco Female Reproductive History Menstrual Age of Menarche: 11 Physical exam (Primary Care) Tobacco/Smoking Status: Tobacco use Status Patient Tobacco Use Status Never used Tobacco 08/07/25 08:39 Office Procedures Post Void Residual Post Residual Void Post Void Residual (PVR): 10 18706-[id number] Void Residual by ultrasound Coding CPT Codes Post Residual Void - PVR CPT Code: 95692-Vfyy Void Residual by ultrasound ([id number]) Assessment & Plan Assessment & Plan Orders: Orders AMB Urinalysis Automated Today Z13.9 - Encounter for screening, unspecified Urine Culture Today N39.0 - Urinary tract infection, site not specified Medications: New sulfamethoxazole-trimethoprim 800-160 mg (Bactrim DS) 1 tab PO BID 14 tabs 0RF 7 days N39.0 - Urinary tract infection, site not specified Changed From solifenacin (Vesicare) 5 mg PO DAILY 30 days 30 tabs 3RF To solifenacin (Vesicare) 5 mg PO DAILY 90 tabs 3RF 90 days
--- OUTSIDE RECORDS SUMMARY | 2025-08-07 08:55 | XMS_ITS | Encounter Summary ---
Author Organization [employer] Address [address] [place] [address] 7 [place] [address] Care Team Providers Care Light Equipment Operator Name Role Phone Musa Borges MD Primary Care Prov ider Piyush Winkler CNP Primary Care Provider +1 [phone] Reason for Visit * Reason Onset Date Comments Med Refill 04/10/2024 Encounter Details Date Type Department Care Team ([facility] st Contact Info) Description 04/10/2024 Refill [facility] CHC MED & PEDS [address] [place], [place] [phone] Dyan Miller MD 505 [place] [address] Social History Tobacco Use Types Packs/Day Years [...] Care Team (Late st Contact Info) Description 01/14/2026 8:00 AM EDT Office Visit [facility] DENTAL [address] [place], [place] [phone] Elaina Che 91 [place], [place] [phone] documented as of this encounter Visit Diagnoses Not on filedocumented in this encounter Additional Health Concerns Assessment Noted Time PHQ-9 Depression Total Score: 0 12/23/19 23 8:59 AM EST documented as of this encounter Care Teams Light Equipment Operator Relationship Specialty Start Date End Date Musa Borges MD [address] [place] [address] PCP - General Internal Medicine 04/02/20 07/01/25 Piyush Winkler CNP [address] [place] [address] PCP - General Family Medicine 07/02/25 documented as of this encounter
--- OUTSIDE RECORDS SUMMARY | 2025-08-07 08:55 | XMS_ITS | Encounter Summary ---
Author Organization [employer] Address 75 [facility] 7 [place] [address] Care Team Providers Care Hands And Dial Inspector Name Role Phone Musa Borges MD Primary Care Prov ider Piyush Winkler CNP Primary Care Provider +1 [phone] Reason for Visit * Reason Onset Date Comments Medication Question 10/08/2023 Encounter Details Date Type Department Care Team ([facility] st Contact Info) Description 10/08/2023 Telephone [facility] MEDICINE [address] [place] [address] Musa Borges MD [address] [place], [place] [phone] Medication Question Social History Tobacco Use Types [...] to prescribe medication for neck pain however short story writer does not see anything on file please clarify. documented in this encounter Plan of Treatment Upcoming Encounters Date Type Department Care Team (Late st Contact Info) Description 01/14/2026 8:00 AM EDT Office Visit [facility] DENTAL [address] [place], [place] [phone] Elaina Che 91 [place], [place] [phone] documented as of this encounter Visit Diagnoses Not on filedocumented in this encounter Additional Health Concerns Assessment Noted Time PHQ-9 Depression Total Score: 0 12/23/19 23 8:59 AM EST documented as of this encounter Care Teams Hands And Dial Inspector Relationship Specialty Start Date End Date Musa Borges MD [address] [place] [address] PCP - General Internal Medicine 04/02/20 07/01/25 Piyush Winkler CNP [address] [place] [address] PCP - General Family Medicine 07/02/25 documented as of this encounter
--- OUTSIDE RECORDS SUMMARY | 2025-08-07 08:55 | XMS_ITS | Encounter Summary ---
Author Organization [employer] Address 75 [facility] 7 [place] [address] Care Team Providers Care Arbitrator Name Role Phone Musa Borges MD Primary Care Prov ider Piyush Winkler CNP Primary Care Provider +1 [phone] Encounter Details Date Type Department Care Team ([facility] st Contact Info) Description 12/01/2023 Orders Only [facility] CHC MED & PEDS [address] [place], [place] [phone] Musa Borges MD [address] [place], [place] [phone] Social History Tobacco Use Types Packs/Day Years [...] Description 01/14/2026 8:00 AM EDT Office Visit [facility] DENTAL [address] [place], [place] [phone] Elaina Che 91 [place], [place] [phone] documented as of this encounter Visit Diagnoses Not on filedocumented in this encounter Additional Health Concerns Assessment Noted Time PHQ-9 Depression Total Score: 0 12/23/19 23 8:59 AM EST documented as of this encounter Care Teams Arbitrator Relationship Specialty Start Date End Date Musa Borges MD [address] [place] [address] PCP - General Internal Medicine 04/02/20 07/01/25 Piyush Winkler CNP [address] [place] [address] PCP - General Family Medicine 07/02/25 documented as of this encounter
--- OUTSIDE RECORDS SUMMARY | 2025-08-07 08:55 | XMS_ITS | Encounter Summary ---
Author Organization [employer] Address 75 [facility] 7t [place] [address] Care Team Providers Care Domain Architect Name Role Phone Peterson Jacobjoni BARKER Primary Care Provider [phone] [phone] Encounter Details Date Type Department Care Team ([facility] st Contact Info) Description 07/13/2025 Orders Only [facility] CHC MED & PEDS [address] [place], [place] [phone] Provider, MD Onesimo Social History Tobacco Use Types Packs/Day Years [...] your housing situation today? I have alex betty 06/27/[address] you li [...] Description 01/14/2026 8:00 AM EDT Office Visit [facility] DENTAL [address] [place] [address] Elaina Che 91 [place] [address] documented as of this encounter Procedures Procedure Name Priority Date/Time Associated Diagnosis Comments HM COLONOSCOPY Routine 02/16/2025 9:17 AM EDT documented in this encounter Results * Hm Colonoscopy (02/16/2025 9:17 AM EDT) Historical Provider HEALTH MAINTENANCE Final Result documented in this encounter Visit Diagnoses Not on filedocumented in this encounter Additional Health Concerns Assessment Noted Time PHQ-9 Depression Total Score: 4 08/24/20 24 1:09 PM EDT documented as of this encounter Care Teams Domain Architect Relationship Specialty Start Date End Date Piyush Winkler CNP PCP - General Family Medicine 07/02/25 documented as of this encounter
--- OUTSIDE RECORDS SUMMARY | 2025-08-07 08:55 | XMS_ITS | Encounter Summary ---
Author Organization [employer] Address [address] [place] [address] 7 [place] [address] Care Team Providers Care Customer Records Division Supervisor Name Role Phone Musa Borges MD Primary Care Prov ider Piyush Winkler CNP Primary Care Provider [phone] [phone] Reason for Visit * Reason Onset Date Comments Nurse Triage 02/23/2024 Encounter Details Date Type Department Care Team ([facility] Contact Info) Description 02/23/2024 Telephone [facility] CHC MED & PEDS [address] [place], [place] [phone] Musa Borges MD [address] [place] [address] Nurse Triage Social History Tobacco Use Types [...] 02/23/2024 10:22 AM EDT Triage call with [employer] Teacher [place] [id number] Pt reports skin lump in area between right upper thigh and vulva. Pt reports this started 2 months ago. Pt popped it the first time just using hand. Pt reports it has returned, reddened , painful. Ptis given home care advice and agrees. Pt is advised to come to [facility] if unable to find relief with home care advised. Pt agrees with this plan and disposition. Hours of [facility] given, open till 8pm today , tomorrow [...] accepted this outcome Please contact pt at [phone] (Bangladeshi) documented in this encounter Plan of Treatment Upcoming Encounters Date Type Department Care Team (Late st Contact Info) Description 01/14/2026 8:00 AM EDT Office Visit [facility] DENTAL [address] [place] [address] Elaina Che 91 [place], [place] [phone] documented as of this encounter Visit Diagnoses Not on filedocumented in this encounter Additional Health Concerns Assessment Noted Time PHQ-9 Depression Total Score: 0 12/23/19 23 8:59 AM EST documented as of this encounter Care Teams Customer Records Division Supervisor Relationship Specialty Start Date End Date Musa Borges MD [address] [place] [address] PCP - General Internal Medicine 04/02/20 07/01/25 Piyush Winkler CNP [address] [place] [address] PCP - General Family Medicine 07/02/25 documented as of this encounter
--- OUTSIDE RECORDS SUMMARY | 2025-08-07 08:55 | XMS_ITS | Encounter Summary ---
Author Organization [employer] Address [address] [place] [address] Care Team Providers Care Bit Sander Name Role Phone Musa Borges MD Primary Care Prov ider Piyush Winkler CNP Primary Care Provider +1 [phone] Encounter Details Date Type Department Care Team (Late st Contact Info) Description 10/13/2022 Telephone [facility] ADULT DENTAL [address] [place] [address] Dental, Provider, DDS Social History Tobacco Use [...] Description 01/14/2026 8:00 AM EDT Office Visit [facility] DENTAL 91 [place], [place] [phone] Elaina Che 91 [place], [place] [phone] documented as of this encounter Visit Diagnoses Not on filedocumented in this encounter Care Teams Bit Sander Relationship Specialty Start Date End Date Musa Borges MD 505 [place] [address] PCP - General Internal Medicine 04/02/20 07/01/25 Piyush Winkler CNP [address] [place] [address] PCP - General Family Medicine 07/02/25 documented as of this encounter
--- OUTSIDE RECORDS SUMMARY | 2025-08-07 08:55 | XMS_ITS | Encounter Summary ---
Author Organization [employer] Address 75 [facility] 7 [place] [address] Care Team Providers Care Tufting Machine Operator Name Role Phone Peterson Jacobglendaeric MJ Primary Care Provider [phone] [phone] Reason for Visit * Reason Comments Med Refill Encounter Details Date Type Department Care Team ([facility] st Contact Info) Description 07/16/2025 Refill [facility] CHC MED & PEDS [address] [place], [place] [phone] Musa Borges MD 505 [place] [address] Right lateral epicondylitis Social History Tobacco Use Types Packs/Day Years [...] Description 01/14/2026 8:00 AM EDT Office Visit [facility] DENTAL [address] [place] [address] Elaina Che [address] [place] [address] documented as of this encounter Visit Diagnoses Diagnosis Right lateral epicondylitis documented in this encounter Additional Health Concerns Assessment Noted Time PHQ-9 Depression Total Score: 4 08/24/20 24 1:09 PM EDT documented as of this encounter Care Teams Tufting Machine Operator Relationship Specialty Start Date End Date Piyush Winkler CNP PCP - General Family Medicine 07/02/25 documented as of this encounter
--- OUTSIDE RECORDS SUMMARY | 2025-08-07 08:55 | XMS_ITS | Encounter Summary ---
Author Organization [employer] Address [address] [place] [address] Care Team Providers Care Laboratory Director Name Role Phone Musa Borges MD Primary Care Prov ider Piyush Winkler CNP Primary Care Provider [phone] [phone] Reason for Visit * Reason Comments Med Refill Encounter Details Date Type Department Care Team (Late st Contact Info) Description 11/14/2022 Refill [facility] [address] [place], [place] [phone] Musa Borges MD [address] [place], [place] [phone] Current mild episode of major depressive disorder [...] Description 01/14/2026 8:00 AM EDT Office Visit [facility] 91 [place], [place] [phone] Elaina Che 91 [place], [place] [phone] documented as of this encounter Visit Diagnoses Diagnosis Current mild episode of major depressive disorder without prior episode (CMS/HCC)- Primary documented in this encounter Care Teams Laboratory Director Relationship Specialty Start Date End Date Musa Borges MD 505 [facility] [place] [address] PCP - General Internal Medicine 04/02/20 07/01/25 Piyush Winkler CNP 505 [facility] [place] [address] PCP - General Family Medicine 07/02/25 documented as of this encounter
--- OUTSIDE RECORDS SUMMARY | 2025-08-07 08:55 | XMS_ITS | Encounter Summary ---
Author Organization [employer] Address [address] [place] [address] 7 [place] [address] Care Team Providers Care Chief Human Resources Officer Name Role Phone Musa Borges MD Primary Care Prov ider Piyush Winkler CNP Primary Care Provider +1 [phone] Encounter Details Date Type Department Care Team ([facility] st Contact Info) Description 12/06/2024 Telephone [facility] CHC MED & PEDS 505 [place], [place] [phone] Musa Borges MD [address] [place] [address] Social History Tobacco Use Types Packs/Day Years [...] Description 01/14/2026 8:00 AM EDT Office Visit [facility] DENTAL 91 [place], [place] [phone] Elaina Che 91 [place], [place] [phone] documented as of this encounter Visit Diagnoses Not on filedocumented in this encounter Additional Health Concerns Assessment Noted Time PHQ-9 Depression Total Score: 4 08/24/20 24 1:09 PM EDT documented as of this encounter Care Teams Chief Human Resources Officer Relationship Specialty Start Date End Date Musa Borges MD [address] [place] [address] PCP - General Internal Medicine 04/02/20 07/01/25 Piyush Winkler CNP [address] [place] [address] PCP - General Family Medicine 07/02/25 documented as of this encounter
--- OUTSIDE RECORDS SUMMARY | 2025-08-07 08:55 | XMS_ITS | Encounter Summary ---
Author Organization [employer] Address [address] [place] [address] 7 [place] [address] Care Team Providers Care Special Education Paraprofessional Name Role Phone Piyush Winkler CNP Primary Care Provider +1 [phone] Encounter Details Date Type Department Care Team (Latest Contact Info) Description 07/06/2025 Results Follow-Up [facility] CHC MED & PEDS [address] [place], [place] [phone] Piyush Winkler CNP [address] [place] [address] Bacterial Vaginosis Panel, CBC auto differential, Comprehensive Metabolic Panel, Additional followed-up results: 3 Social History Tobacco Use Types Packs/Day Years [...] Description 01/14/2026 8:00 AM EDT Office Visit [facility] DENTAL [address] [place] [address] Elaina Che [address] [place] [address] documented as of this encounter Visit Diagnoses Not on filedocumented in this encounter Additional Health Concerns Assessment Noted Time PHQ-9 Depression Total Score: 4 08/24/20 24 1:09 PM EDT documented as of this encounter Care Teams Special Education Paraprofessional Relationship Specialty Start Date End Date Piyush Winkler CNP PCP - General Family Medicine 07/02/25 documented as of this encounter
--- OUTSIDE RECORDS SUMMARY | 2025-08-07 08:55 | XMS_ITS | Encounter Summary ---
Author Organization [employer] [facility] Address [address] [place] [address] Care Team Providers Care Direct Chill Caster Name Role Phone Musa Borges MD Primary Care Prov ider Piyush Winkler CNP Primary Care Provider +1 -[phone] Encounter Details Date Type Department Care Team (Latest Contact Info) Description 08/04/2021 Abstract [facility] CONVERSIONS Dental, Provider, DDS Social History [...] Description 01/14/2026 8:00 AM EDT Office Visit [facility] DENTAL [address] [place], [place] [phone] Elaina Che 91 [place], [place] [phone] documented as of this encounter Visit Diagnoses Not on filedocumented in this encounter Care Teams Direct Chill Caster Relationship Specialty Start Date End Date Musa Borges MD 505 [place] [address] PCP - General Internal Medicine 04/02/20 07/01/25 Piyush Winkler CNP [address] [place] [address] PCP - General Family Medicine 07/02/25 documented as of this encounter
--- OUTSIDE RECORDS SUMMARY | 2025-08-07 08:55 | XMS_ITS | Encounter Summary ---
Author Organization [employer] Address [address] [place] [address] 7 [place] [address] Care Team Providers Care Moderate Needs Teacher Name Role Phone Musa Borges MD Primary Care Prov ider Piyush Winkler CNP Primary Care Provider +1 -[phone] Reason for Visit * Reason Comments Med Refill Encounter Details Date Type Department Care Team ([facility] Contact Info) Description 04/23/2025 Refill [facility] CHC MED & PEDS 505 [place], [place] [phone] Musa Borges MD [address] [place] [address] Social History Tobacco Use Types Packs/Day Years [...] Description 01/14/2026 8:00 AM EDT Office Visit [facility] DENTAL 91 [place], [place] [phone] Elaina Che 91 [place], [place] [phone] documented as of this encounter Visit Diagnoses Not on filedocumented in this encounter Additional Health Concerns Assessment Noted Time PHQ-9 Depression Total Score: 4 08/24/20 24 1:09 PM EDT documented as of this encounter Care Teams Moderate Needs Teacher Relationship Specialty Start Date End Date Musa Borges MD [address] [place] [address] PCP - General Internal Medicine 04/02/20 07/01/25 Piyush Winkler CNP [address] [place] [address] PCP - General Family Medicine 07/02/25 documented as of this encounter
--- OUTSIDE RECORDS SUMMARY | 2025-08-07 08:55 | XMS_ITS | Clinical Summary ---
Author Organization [employer] Address [address] [place] [address] 7 [place] [address] Care Team Providers Care Athletics Director Name Role Phone Piyush Winkler MJ Primary Care Provider [phone] Allergies No known active allergies Medications * This document contains information received from the source organization and may not represent a complete record from that organization. Fluocinolone Acetonide Scalp (Crownpoint-Smoothe/ FS Scalp) 0.01 % oilIndications: Seborrheic dermatitis To apply to the affected area once or twice a week. 118 mL 1 03/30/20 23 Active ketoconazole (Nizoral) 2 % shampooIndicati ons:Seborrheic dermatitis Apply topically 2 (two) times a week. 120 mL 3 04/01/20 23 Active Spacer/Aero-Hol ding Chambers (OptiChamber Elsa) miscIndications :Influenza-like symptoms 1 each every 4 (four) hours if needed (asthma). 1 each 04/13/20 23 Active solifenacin (VESIcare) 5 MG tablet Take 5 mg by mouth Once per day. 12/19/19 25 Active gabapentin (Neurontin) 300 MG capsule Take 1 capsule (300 mg) by mouth at bedtime. 90 capsule 3 01/17/20 25 026 Active dextran 70-hypromellose (artificial tears) 0.1-0.3 % ophthalmic solutionIndicat ions:Dry eyes, bilateral Administer 1 drop into both [...] LINNEA 01/18/20 25 Active Blood Pressure Monitoring kitIndications: Elevated BP without diagnosis of hypertension Check blood pressure twice daily, once in the morning and once in the evening. 1 kit 07/05/20 25 Active tetrahydrozolin e (Visine Red Eye Comfort) 0.05 % ophthalmic solutionIndicat ions:Seasonal allergies Administer 1 drop into both eyes 3 times daily. 30 mL 07/05/20 25 Active meclizine (Antivert) 25 MG tabletIndicatio ns:Benign paroxysmal positional vertigo due to bilateral vestibular disorder TAKE ONE TABLET DAILY NEEDED FOR DIZZINESS 10 tablet 1 07/30/20 25 Active celecoxib (CeleBREX) 200 MG capsuleIndicati ons:Chronic low back pain, unspecified back pain laterality, unspecified whether sciatica present Take 1 capsule (200 mg) by mouth 2 times daily. 60 capsule 07/05/20 25 025 meclizine (Antivert) 25 MG tabletIndicatio ns:Benign paroxysmal positional vertigo due to bilateral vestibular disorder Take 1 tablet (25 mg) by mouth if needed each day for dizziness for up to 10 days. 10 tablet 1 07/05/20 25 025 Discontinued(R eorder (will not trigger notification to Pharmacy)) acetic acid-hydrocorti sone (Vosol-HC) otic solutionIndicat ions:Acute otitis externa of both ears, unspecified type Administer 3 drops into each ear 3 times daily for 10 days. 10 mL 07/05/20 25 025 Active Problems Problem Noted Date Diagnosed [...] jason, she prefers to be seen at [facility] Bilateral carpal tunnel syndrome 12/15/2023 Assessment & [...] EDT): Found on pap smear done by ob-fountain worker on 09/01 with bv, complains of itching, [...] Encounters Date Type Department Care Team Description 07/29/2025 Refill [facility] [address] [place] [address] Piyush Winkler CNP Benign paroxysmal positional vertigo due to bilateral vestibular disorder 07/16/2025 Refill [facility] [address] [place] [address] Musa Borges MD Right lateral epicondylitis 07/13/2025 Orders Only [facility] [address] [place] [address] ProviderOnesimo MD 07/12/2025 8:00 AM EDT Office Visit [facility] [address] [place] [phone] Chinedu, Elaina 07/06/2025 Results Follow-Up [facility] [address] [place] [address] Piyush Winkler CNP Bacterial Vaginosis Panel, CBC auto differential, Comprehensive Metabolic Panel, Additional followed-up results: 3 07/05/2025 9:15 AM EDT Office Visit [facility] [address] [place] [address] Piyush Winkler CNP Encounter to establish care (Primary Dx); Encounter for screening for malignant neoplasm of colon; Elevated BP without diagnosis of hypertension; Vaginal itching; Seasonal allergies; Chronic low back pain, unspecified back pain laterality, unspecified whether sciatica present; Chronic cough; Benign paroxysmal positional vertigo due to bilateral vestibular disorder; Acute otitis externa of both ears, unspecified type 07/05/2025 Telephone [facility] [address] [place] [address] Piyush Winkler CNP Colonoscopy 07/05/2025 Telephone [facility] [address] [place] [address] Piyush Winkler CNP chart prep 07/05/2025 Travel 07/04/2025 Telephone [facility] [address] [place] [address] Piyush Winkler CNP chart prep 07/03/2025 Travel 06/27/2025 Patient Outreach [facility] [place] [facility] [address] [place] [phone] Musa Borges MD Pre-visit Planning (SDOH screening negative and Tobacco screening negative) 06/13/2025 Orders Only GENERIC EXTERNAL DATA DEPARTMENT Provider, Generic External Data 05/23/2025 Refill [facility] [facility] [address] [place] [address] Lily Stokes MD 05/18/2025 Refill [facility] [address] [place] [address] Musa Borges MD Right lateral epicondylitis from Last 3 Months Immunizations Immunization Administration [...] Sign Reading Time Taken Comments Blood Pressure 116/68 07/12/2025 8:20 AM EDT Pulse 78 07/05/2025 9:15 AM [...] Description 01/14/2026 8:00 AM EDT Office Visit [facility] [address] [place] [address] [phone] Elaina Che [address] [place] [address] [phone] Health Maintenance Due Date Last Done Comments CT Colonography 1979 Dental X-Ray: Full Mouth 1979 FIT DNA/Cologuard 1979 FIT 1980 FOBT 1980 Sigmoidoscopy 1980 Family Planning (PISQ) 1994 Dental X-Ray: Bitewings 04/07/2025 04/06/2024 COVID-19 Vaccine ( season) 2025 09/26/2021, 02/17/2021, 01/20/2021 Influenza Vaccine (#1) 2025 , 09/28/2017, 08/04/2011 Depression Screening 08/24/2025 08/24/2024, 08/24/20 Disability Screening 10/20/2025 10/20/2024 Dental Oral Exam 01/10/2026 07/12/2025, 04/06/2024 Dental Prophylaxis 01/10/2026 07/12/2025, 0 11/22/2024, 04/06/2024, Additional history exists Tobacco Screening 02/09/2026 02/09/2025 SDOH Screening 06/27/2026 06/27/2025 Alcohol/Substance Use Screening 07/05/2026 07/05/2025 Pap Smear 09/01/2026 09/01/2023, 08/14/2021 Mammogram 02/10/2027 02/10/2025, 03/0 11/2023, 01/01/2023, Additional history exists DTaP/Tdap/Td Vaccines (2 - Td or Tdap) 09/28/2027 09/28/2017, 12/13/2007 Cervical Cancer Screening 09/01/2028 HPV/Cotest 09/01/2028 09/01/2023, 08/14/2021 Zoster Vaccines (1 of 2) 2029 Colonoscopy 02/16/2030 02/16/2025 Colorectal Cancer Screening 02/16/2030 RSV Patients and [...] Procedure Name Priority Date/Time Associated Diagnosis Comments COMPREHENSIVE PERIODONTAL EVALUATION - NEW OR ESTABLISHED PATIENT Routine 07/12/2025 8:00 AM EDT PERIODIC ORAL EVALUATION - ESTABLISHED PATIENT Routine 07/12/2025 8:00 AM EDT PROPHYLAXIS - ADULT Routine 07/12/2025 8 :00 AM EDT CASE PRESENTATION, DETAILED AND EXTENSIVE TREATMENT PLANNING Routine 07/12/2025 8:00 AM EDT LIPID PANEL, STANDARD Routine 07/05/2025 10:41 AM EDT Encounter to establish care TSH W/REFLEX TO FT4 Routine 07/05/2025 1 0:41 AM EDT Encounter to establish care COMPREHENSIVE METABOLIC PANEL Routine 07/05/2025 10:41 AM EDT Encounter to establish care HEMOGLOBIN A1C Routine 07/05/2025 10:40 AM EDT Encounter to establish care CBC WITH AUTO DIFFERENTIAL Routine 07/05/2025 10:40 AM EDT Encounter to establish care BACTERIAL VAGINOSIS PANEL Routine 07/05/2025 9:48 AM EDT Vaginal itching GROSS AND MICROSCOPIC LEVEL 3 Routine 06/13/2025 2:03 PM EDT HEPATITIS C AB W/REFL TO HCV RNA, QN, PCR Routine 04/18/2025 1:32 PM EDT HIV 1/2 ANTIGEN/ANTIBODY, FOURTH GENERATION W/RFL Routine 04/18/2025 1:32 PM EDT HM COLONOSCOPY Routine 02/16/2025 9:17 AM EDT BI MAMMOGRAM SCREENING TOMOSYNTHESIS BILATERAL Routine 02/10/2025 10:01 AM EDT BITEWINGS - 4 RADIOGRAPHIC IMAGES Routine 04/06/2024 10:00 AM EDT HPV MRNA E6/E7 REFLEX TO HPV 16, 18/45 Routine 09/01/2023 12:12 PM EDT PAP SMEAR Routine 09/01/2023 12:12 PM EDT from Last 3 Months or Most Recently Relevant to Health Maintenance Results * TSH W/Reflex to FT4 (07/05/2025 10:41 AM EDT) TSH reflex Free T4 2.87 0.32 - 4.0 uIU/mL [facility] Blood Venous blood specimen / Unknown 07/05/2025 10:41 AM EDT 07/05/2025 2:41 PM EDT [facility] LAB BLOOD ORDERABLES Odilia l Result [facility] [address] [place] [phone] * Lipid Panel, Standard (07/05/2025 10:41 AM EDT) Triglycerides 64 <150 mg/dL [facility] Comment:Desirable Triglyceri de: less than 150 mg/dLBorderline High Triglyceride 150-199 mg/dLHigh Triglyceride: 200-499 mg/dLVery High Triglyceride: greater than or equal to 5OO mg/dL Cholesterol 157 <200 mg/dL [facility] Comment:Desirable Cholestero l: less than 200 mg/dLBorderline High Cholesterol: 200-239 mg/dLHigh Cholesterol: greater than 239 mg/dL LDL Cholesterol Calculated 92 <100 mg/dL [facility] Comment:Desirable LDL: less than 100 mg/dLNear Optimal/Above Optimal LDL: 110- 129 mg/dLBorderline High LDL: 130-159 mg/dLHigh LDL: 160-189 mg/dLVery High LDL: greater than or equal to 190 mg/dL HDL Cholesterol 53 >40 mg/dL [facility] Comment:Desirable HDL: great er than 40 mg/dL Note: This HDL assay may give artificially low results in patients with liver disease. Blood Venous blood specimen / Unknown 07/05/2025 10:41 AM EDT 07/05/2025 2:41 PM EDT [facility] LAB BLOOD ORDERABLES Odilia l Result [facility] [address] [place] [address] [phone] * (ABNORMAL) Comprehensive Metabolic Panel (07/05/2025 10:41 AM EDT) Sodium 139 135 - 145 mmol/L [facility] Potassium 3.5 3.3 - 5.1 mmol/L [facility] Chloride 105 96 - 108 mmol/L [facility] Carbon Dioxide 27 22 - 29 mmol/L [facility] Anion Gap 11(L) 12 - 20 [facility] Urea Nitrogen (BUN) 10 9 - 16 mg/dL [facility] Creatinine, Serum 0.91 0.5 - 1.4 mg/dL [facility] Estimated Glomerular Filt Rate >60 [facility] Comment:Chronic Kidney Disea se: Estimated GFR < 60 mL/min/1.65x4Lxngub Kidney Disease: Estimated GFR < 15 mL/min/1.73m2 Glucose 87 60 - 115 mg/dL [facility] Calcium 9.4 8.4 - 10.2 mg/dL [facility] Bilirubin, Total 0.4 0.0 - 1.0 mg/dL [facility] Aspartate Amino Transferase 29 5 - 31 U/L [facility] Alanine Aminotransferase 20 0 - 31 U/L [facility] Total Protein 7.5 6.5 - 8.0 g/dL [facility] Albumin Level 4.4 3.5 - 5.0 g/dL [facility] Alkaline Phosphatase 82 39 - 117 U/L [facility] Blood Venous blood specimen / Unknown 07/05/2025 10:41 AM EDT 07/05/2025 2:41 PM EDT Piyush Winkler [employer] LAB BLOOD ORDERABLES Odilia cevallos Result [facility] [address] [place] [phone] * (ABNORMAL) CBC auto differential (07/05/2025 10:40 AM EDT) White Blood Count 6.3 4.8 - 10.8 X10*3/uL [facility] Red Blood Count 4.23 4.20 - 5.50 X10*6/uL [facility] Hemoglobin 13.0 12.0 - 16.0 g/dl [facility] Hematocrit 38.6 37.0 - 47.0 % [facility] Mean Corpuscular Volume 91.3 80.0 - 98.0 fL [facility] Mean Corpuscular Hemoglobin 30.7 27.0 - 33.0 pg [facility] Mean Corpuscular HGB Conc 33.7 31.0 - 35.0 g/dl [facility] Red Cell Distribution Width 12.7 11.0 - 16.0 % [facility] Platelet Count 215 160 - 400 X10*3/uL [facility] Mean Platelet Volume 12.7(H) 9.4 - 12.3 fL [facility] Neutrophils Percent Auto 59.1 45 - 73 % [facility] Imm Gran Pct Auto 0.3 0.0 - 0.4 % [facility] Lymphocytes Percent Auto 29.9 20 - 40 % [facility] Monocytes Percent Auto 7.0 2 - 11 % [facility] Eosinophils Percent Auto 2.9 0 - 4 % [facility] Basophils Percent Auto 0.8 0 - 2 % [facility] NRBC Pct Auto 0.0 0.0 - 0.2 /100WBC [facility] Neutrophils Absolute Auto 3.7 2.0 - 8.3 x10*3/uL [facility] Imm Gran Abs Auto 0.02 0.00 - 0.03 X10*3/uL [facility] Lymphocytes Absolute Auto 1.9 1.2 - 4.9 X10*3/uL [facility] Monocytes Absolute Auto 0.4 0.1 - 1.2 X10*3/uL [facility] Eosinophils Absolute Auto 0.2 0.0 - 0.4 X10*3/uL [facility] Basophils Absolute Auto 0.1 0.0 - 0.2 X10*3/uL [facility] NRBC Abs Auto 0.000 0.0 - 0.012 X10*3/uL [facility] Blood Venous blood specimen / Unknown 07/05/2025 10:40 AM EDT 07/05/2025 2:41 PM EDT [facility] LAB BLOOD ORDERABLES Odilia cevallos Result [facility] [address] [place] [phone] * Hemoglobin A1c (07/05/2025 10:40 AM EDT) Hemoglobin A1c 5.2 <6.0 % [facility] Comment:Hemoglobin A1C Refer ence Range Adults: 4.8 - 6.0 % Non diabetic: < 6.0 % Goal: < 7.0 %Additional Action Suggested: > 8.0 %Note: Hemoglobin A1c results are invalid for patients with abnormal amounts of HbF. Blood transfusions may impact the HbA1c concentration in the patient sample. Estimated Average Glucose 103 mg/dL [facility] Comment:eAG = Estimated ave rage glucose which is %A1C expressed asaverage glucose, using the formula of the A1T-NerujqxWnhqtfq Glucose study (ADAG), Diabetes Care, Vol.31,#8,Jun. 2007 Blood Venous blood specimen / Unknown 07/05/2025 10:40 AM EDT 07/05/2025 2:41 PM EDT [facility] LAB BLOOD ORDERABLES Odilia l Result Performing Organization Address [facility] Co de Phone Number [facility] [address] [place] [address] [phone] * Bacterial Vaginosis Panel (07/05/2025 9:48 AM EDT) TRICHOMONAS VAGINALIS DETECTION BY PCR NOT DETECTED Not Detect [facility] BACTERIAL VAGINOSIS DETECTION BY PCR NEGATIVE Negative [facility] Comment:The BV organism targ ets [...] DETECTION BY PCR NOT DETECTED Not Detect [facility] Hattie glab krusei PCR NOT DETECTED Not Detect [facility] Swab Vaginal structure / Unknown 07/05/2025 9:48 AM EDT 07/05/2025 2:27 PM EDT [facility] LAB MICROBIOLOGY - GENERA L ORDERABLES Final Result Performing Organization Address [facility] Co de Phone Number [facility] [address] [place] [phone] * Gross and Microscopic Level 3 (06/13/2025 2:03 PM EDT) 06/13/2025 2:03 PM EDT 06/13/2025 2:43 PM EDT Narrative [facility] - 06/14/2025 10:05 AM EDT ----- ------- Name: Shira Aragon Age/Sex: 45/F : 1980 [id number] Unit#: [id number] Attend Dr: Chuy Quesada MD Re06/13/25 Status: DEP REF Location: [facility] Disch: ----- ------- SPEC : [id number] RECD: 06/13/25 STATUS: VLADISLAVJudith VERNA NUM: [id number] HERMILO: 06/13/[address] [facility] DR: Chuy Quesada MD ENTERED: 06/13/25 [...] cassettes A2 and A3, 3 pieces each. ([facility]) IHC S/NG Disclaimer NOTE: Unless otherwise stated, all tissue is formalin-fixed and paraffin-embedded. Some or all of the immunohistochemical tests reported herein may have been developed and their performance characteristics determined by [facility]. They have not been cleared [...] Shira Aragon Age/Sex: 45/F : 1980 Unit#: [id number] Attend Dr: Chuy Quesada MD Re06/13/25 Status: DEP REF Location: [facility] Disch: ----- ------- SPEC : [id number] RECD: 06/13/25 STATUS: SAM VERNA NUM: [id number] HERMILO: 06/13/[address] [facility] DR: Chuy Quesada MD ENTERED: 06/13/25 SP TYPE: Surgical OTHR DR: Musa Borges MD ORDERED: Gross Micro L3 Copies To: Musa Borges MD [address] [address] Chuy Quesada MD [facility] [address] [place] [address] ----- ------- Signed (signature on file) Landon Snider MD 06/14/25 1005 ----- ------- END OF REPORT Generic External Data Provider LAB CYTOLOGY ORDE RABLES Final Result Performing Organization Address [facility] Co de Phone Number [facility] [address] [place] [address] [phone] * Hepatitis C Antibody with Reflex to HCV, RNA, Quantitative, Real-Time PCR (04/18/2025 1:32 PM EDT) Hepatitis C Antibody Nonreactive Nonreactive [facility] Comment:Antibodies to HCV no t detected; does not exclude early acuteHCV infection. 04/18/2025 1:32 PM EDT 04/18/2025 1:32 PM EDT Generic External Data Provider LAB BLOOD ORDERAB LES Final Result Performing Organization Address [facility]/ZIP Co de Phone Number [facility] [address] [place] [address] [phone] * HIV-1/2 Antigen and Antibodies, Fourth Generation, with Reflexes (04/18/2025 1:32 PM EDT) HIV AB/AG Nonreactive Nonreactive [facility] Comment:HIV-1 p24 Ag and/or HIV-1/HIV-2 Ab not detected.A test result that is nonreactive does not exclude thepossibility of exposure to or infection with HIV-1 and/orHIV-2. Nonreactive results in this assay for individualswith prior exposure to HIV-1 and/or HIV-2 may be due toantigen and antibody levels that are below the limit ofdetection of this assay.[employer] [facility] [employer] HIV Ag/Ab Combo assay result andsupplemental assay results should be interpreted inconjunction with the patient's clinical presentation,history and other laboratory results. If the results areinconsistent with clinical evidence, additional testing issuggested to confirm the result. 04/18/2025 1:32 PM EDT 04/18/2025 1:32 PM EDT us Generic External Data Provider LAB BLOOD ORDERAB LES Final Result [facility] [address] [place] [address] [phone] * Hm Colonoscopy (02/16/2025 9:17 AM EDT) Historical Provider HEALTH MAINTENANCE Final Result * BI Mammogram Screening Tomosynthesis Bilateral (02/10/2025 10:01 AM EDT) Anatomical Region Laterality Modality Breast Bilateral Mammography 02/10/2025 10:0 1 AM EDT Narrative 02/17/2025 7:16 PM EDT [address] [place] [address] Mammography Report Signed Patient: Shira Aragon MR#: [id number] 14 : 1980 Acct:[id number] Age/Sex: 44 / F ADM Date: 02/10/25 Loc: HO.MAMMO Attending Dr: Musa Oviedo MD Ordering Physician: Musa Borges MD Res ults: 1Negative Date of Service: 02/10/25 Follow Up: 1 Year From Orig inal Mammogram Procedure(s): MM tomosynthesis screening BI Accession Number(s): [id number] cc: Musa Borges MD EXAMINATION: MM SCREENING [...] 02/17/25 1913 DD/ 1001 TD/TT: 02/10/25 1015 Filtration Supervisor: Procedure Note Donotuseinterpreter, Image - 02/17/2025 [facility] [address] [place] [address] Mammography Report Signed Patient: Shira Aragon#: [id number] 14 : 1980Acct:[id number] Age/Sex: 44 / FADM Date: 02/10/25 Loc: HO.MAMMO Attending Dr: Musa Oviedo MD Ordering Physician: Musa Borges ults: 1Negative Date of Service: 02/10/25Follow Up: 1 Year From Orig ina Mammogram Procedure(s): MM tomosynthesis screening BI Accession Number(s): [id number] cc: Musa Borges MD EXAMINATION: MM SCREENING [...] 02/17/25 1913 DD/ 1001 TD/TT: 02/10/25 1015 Filtration Supervisor: Musa Oviedo MD [facility] [place] PROCEDURES Final Result * HPV mRNA E6/E7 w/Reflex to HPV Genotypes 16, 18/45 (09/01/2023 12:12 PM EDT) HPV nRNA E6/E7 Not Detected Not Detected [facility] Comment:Methodology: Transcr iption-Mediated AmplificationThis assay detects E6/E7 viral messenger RNA (mRNA) from 14high-risk HPV types (16,18,31,33,35,39,45,51,52,56,58,59,66,68).Cervical sources are required for HPV testing.If a vaginal source from a patient who has had atotal hysterectomy with removal of cervix wassubmitted, please contact the testing laboratoryfor alternative testing options.For additional information, please refer [email or web address]/[email or web address](This link if provided for information/educational purposes only.)THIS TEST WAS PERFORMED AT:[employer] [place] [phone] WOODY MD HPV mRNA E6/E7 TNP [facility] HPV 16 RNA TNP [facility] HPV 18/45 RNA TNP [facility] 09/01/2023 12:1 2 PM EDT 09/02/2023 7:00 AM EDT [facility] External Provider LAB CYT OLOGY ORDERABLES Final Result [facility] [address] [place] [address] [phone] * Pap Smear (09/01/2023 12:12 PM EDT) 09/01/2023 12:1 2 PM EDT 09/02/2023 7:00 AM EDT Narrative [facility] - 09/07/2023 2:16 PM EDT ----- ------- Name: Shira Aragon Age/Sex: 43/F : 1980 Unit#: [id number] Attend Dr: Karen Holbrook Jade Re09/01/23 Status: DEP REF Location: [facility] Disch: ----- ------- SPEC : [id number] RECD: 09/02/23 STATUS: SAM GILLESPIE NUM: [id number] HERMILO: 09/01/[address] [facility] DR[facility] ENTERED: 09/02/23 SP TYPE: Pap Smr OTHR [...] 59, 66, 68) HPV testing performed by [employer], [place], [place]. See reference laboratory pion of the EMR for entire report. Clinical Information LMP: 07/21/23 Previous PAP test: Unknown date/findings Other history: Abnormal uterine and vaginal bleeding, unspecified. Material Received ThinPrep-Cervical Copies To: Musa Borges MD [address] [place] [phone] Woo [address] [place] [phone] ----- ------- Signed (signature on file) Claudia David MD 09/07/23 1416 ----- ------- END OF REPORT [facility] External Provider LAB CYT OLOGY ORDERABLES Final Result [facility] [address] [place] [address] [phone] from Last 3 Months or Most Recently Relevant to Health Maintenance Insurance [facility] C3 [facility]AL[facility] MEDICAID STAND ADULT Care Teams Athletics Director Relationship Specialty Start Date End Date Piyush Winkler CNP PCP - General Family Medicine 07/02/25
--- NOTE | 2025-08-07 09:16 | MHC.OFFVIS ---
Intake Visit Reasons: 3m/PVR Intake Note: patient presents today for: 3m/PVR urology medications: solifenacin blood thinners: none today's PVR: 10mls Cut Out Stitcher Required: Yes Cut Out Stitcher Services: Cut Out Stitcher Present Cut Out Stitcher Name: Alex Sanchez Accompanied by: Self / Same As Patient Allergies No Known Allergies Allergy (Verified 08/07/25 09:36) Medication List - Last Reconciled 08/07/25 by TORRI Asencio celecoxib 200 mg PO DAILY gabapentin 300 mg PO BEDTIME meloxicam 15 mg PO DAILY solifenacin (Vesicare) 5 mg PO DAILY 90 days sulfamethoxazole-trimethoprim 800-160 mg (Bactrim DS) 1 tab PO BID 7 days HPI Comments Details: Shira is a 45-year-old Indonesian-speaking female patient of Dr. Hallman. She presents to the office today for a follow up of her ongoing lower urinary tract symptoms. In discussion with the patient today she reports she had been doing extremely well with lower urinary tract symptoms she had been experiencing since her last office visit here however noted dysuria over the last 2 days. She reports knowing she had today's appointment and therefore she did not call the office. In office urinalysis results reviewed with the patient today 2+ leukocytes positive nitrates. We discussed potential for urinary tract infection given patient's lower urinary tract symptoms as well as positive nitrates on urinalysis today. She reports compliance with VESIcare as prescribed in discusses this has been helpful in episodes of bladder pressure she had been experiencing. She denies urinary urgency, urinary frequency, incontinence, nocturia, hematuria, foul smelling urine, changes to urinary stream, flank pain, fever, and or chills. She reports she is due to follow-up with her vulnerability assessment analyst as she has had amenorrhea. Previous workup has included a Microgen 04/01 Citrobacter koseri, Raoultella ornithinolytica, Streptococcus agalactiae, Proteus mirabilis, Klebsiella aerogenes, Enterococcus faecalis, and gardneralla vaginalis. She has since Augmentin as prescribed. Previous workup has also included a retroperitoneal ultrasound 10/29 noting bilateral kidneys no calculi, lesions, and or hydronephrosis. The bladder was within normal limits. All questions were answered. She otherwise offers no other issues or concerns at this time. [facility] Medical History Strain of right piriformis muscle (07/09/20) Sacroiliac joint dysfunction of right side (07/09/20) Greater trochanteric bursitis of both hips (07/09/20) Chronic low back pain (07/09/20) Recurrent UTI Chronic back pain Surgical History Hx of removal of cyst (06/13/25) Hx of tubal ligation Family History Maternal Grandfather Throat cancer Social History Alcohol intake: never Patient Tobacco Use Status: Never used Tobacco Female Reproductive History Menstrual Age of Menarche: 11 Review of Systems Const All systems reviewed & are unremarkable except as noted in HPI and below Physical Exam Const General: cooperative, healthy appearing, comfortable, no acute distress, well developed, alert and awake Nutritional Appearance: well nourished Orientation/consciousness: patient oriented x3 Limitations: language barrier HEENT Head: Yes normal to inspection and Yes normocephalic Eyes General: appearance normal, both eyes and all related structures Neck Neck: Yes normal visual inspection and Yes trachea midline Chest Chest palpation & inspection: normal inspection of the chest Resp Effort & Inspection: normal respiratory effort and able to speak in complete sentences Cardio Jugular venous distension: no JVD GI Inspection: Yes normal to inspection General: Yes no CVA tenderness Back/Spine/Pelvis Back: no CVA tenderness Skin General skin exam: no rashes or lesions noted Neuro General: patient oriented x3 Extrem General: Yes normal to inspection and Yes full ROM Psych Appearance: grossly normal and well kempt Mental Status: mental status grossly normal Speech and movement: Normal speech and movement present and Clear speech present Affect: normal affect Attitude: cooperative Thought process: Normal thought process present Thought content: Normal thought content present Insight: Fair insight present (Psych) Judgement: Fair judgement present (Psych) Office Procedures Post Void Residual Post Residual Void Post Void Residual (PVR): 10 72167-Lxwj Void Residual by ultrasound Post Void Residual Post Residual Void Post Void Residual (PVR): 10 39075-Pteg Void Residual by ultrasound Results AMB Urinalysis, Automated UA Leukoctes 125 Jaren/uL Last Edit by FIDELIA Kim on 08/07/25 09:20 UA Nitrite Last Edit by FIDELIA Kim on 08/07/25 09:20 UA Urobilinogen 0.2 mg/dL Last Edit by FIDELIA Kim on 08/07/25 09:20 UA Protein 15 mg/dL Last Edit by Alice Langford CCM on 08/07/25 09:20 UA pH 6.0 Last Edit by Alice Langford CCM on 08/07/25 09:20 UA Blood 0 Yariel/uL Last Edit by Alice Langford CCM on 08/07/25 09:20 UA Specific [place] 1.025 Last Edit by FIDELIA Kim on 08/07/25 09:20 UA Ketone Last Edit by FIDELIA Kim on 08/07/25 09:20 UA Bilirubin 0 mg/dL Last Edit by Alice Langford [facility] on 08/07/25 09:20 UA Glucose 0 mg/dL Last Edit by FIDELIA Kim on 08/07/25 09:20 Results Reviewed Results Reviewed: Laboratory Last Values Urine pH (Auto) 6.0 08/07/25 09:07 Specific [place] (Auto) 1.025 08/07/25 09:07 Urine Protein (Auto) 15 mg/dL 08/07/25 09:07 Glucose (UA)(Auto) 0 mg/dL 08/07/25 09:07 Urine Blood (Auto) 0 Yariel/uL 08/07/25 09:07 Urine Bilirubin (Auto) 0 mg/dL 08/07/25 09:07 Urine Urobilinogen (Auto) 0.2 mg/dL 08/07/25 09:07 Leukocyte Esterase (Auto) 125 Jaren/uL 08/07/25 09:07 Assessment & Plan Assessment & Plan (1) Dysuria: Code(s): R30.0 - Dysuria Category: Medical (2) Sensation of pressure in bladder area: Code(s): R39.89 - Other symptoms and signs involving the genitourinary system Category: Medical Plan In office urinalysis results reviewed with the patient today; as noted above; will send for urine culture. PVR 10 mL. Start Bactrim as discussed and prescribed. We discussed worsening symptoms. Continue VESIcare. We discussed potential causes of urinary tract infections as well as lower urinary tract symptoms she had previously been experiencing. All questions were answered. We discussed UTI prevention with D mannose supplement, vitamin-C, increasing fluid intake, behavioral therapy with timed voiding, perineal hygiene and postcoital voiding, and management of constipation with stool softeners and increased fiber intake. Follow-up in 3-6 months with PVR; or sooner with any issues, concerns, and or questions. Orders: Orders AMB Urinalysis Automated Today Z13.9 - Encounter for screening, unspecified Urine Culture Today N39.0 - Urinary tract infection, site not specified AMB Post Void Residual by ultrasound Today R39.15 - Urgency of urination Medications: New sulfamethoxazole-trimethoprim 800-160 mg (Bactrim DS) 1 tab PO BID 14 tabs 0RF 7 days N39.0 - Urinary tract infection, site not specified Changed From solifenacin (Vesicare) 5 mg PO DAILY 30 days 30 tabs 3RF To solifenacin (Vesicare) 5 mg PO DAILY 90 tabs 3RF 90 days Patient Instructions: The patient had an opportunity to ask questions regarding the treatment plan. All questions were answered. Physical exam, labs, and imaging were discussed and reviewed in detail. As well as risks, benefits, and discussion of treatment choices. No major barriers to understanding were identified. The patient expressed understanding and agreement with the above treatment plan. The patient was made aware they should contact our office by phone for worsening of their current condition, the appearance of new symptoms, or with any questions or concerns. Compliance is encouraged with any medications and follow up testing that is ordered. It is a privilege to be allowed the opportunity to participate in? your urological care.? Again, if you have any questions or concerns If you have any questions or concerns please do not hesitate to contact me. The office is [phone]. This note is constructed using voice recognition software. While every effort has been made to ensure accuracy title coordinator errors may have been included. Yours sincerely, TORRI Asencio Coding Level of Care Code Est Pt Level 4 (19955) Diagnoses Dysuria R30.0 Sensation of pressure in bladder area R39.89 CPT Codes Post Residual Void - PVR CPT Code: 97643-Eeug Void Residual by ultrasound ([id number]) Post Residual Void - PVR CPT Code: 97780-Zxwj Void Residual by ultrasound ([id number])
== END 2025-08-07 09:10 | disposition home or self-care (01) ==
PROVIDERS: PCP Internal Medicine; Visit Provider Nurse Practitioner Family
DX: R30.0 Dysuria (principal); R39.89 Other symptoms and signs involving the genitourinary system; Z13.9 Encounter for screening, unspecified
CPT/HCPCS: 99214

== ENCOUNTER 2025-10-10 08:44 | Outpatient (REF) | payer MEDICAID, SELFPAY ==
--- NOTE | 2025-10-10 | PFT_ITS ---
Indication cough Spirometry FEV1 to FVC 92%; FEV1 2.53 L; FVC 2.76 L. No significant response to bronchodilators noted. Lung Volumes Total lung capacity 82% predicted; expiratory reserve volume 38% predicted Diffusion Capacity DLCO 75% predicted Comparisons None Interpretation No obstructive nor restrictive ventilatory defects identified. No significant response to bronchodilators noted. Lung volumes are within normal limits except for decrease in the expiratory reserve volume secondary to an elevated BMI. The patient has a mild diffusion impairment. Need to correct for hemoglobin. No clear explanation for the patient has cough. If asthma is in the differential methacholine challenge may be helpful in assessing for hyperreactive airways. Clinical correlation warranted. MTDD
--- OUTSIDE RECORDS SUMMARY | 2025-10-10 09:01 | XMS_ITS | Encounter Summary ---
Author Organization [employer] Address [address] [place] [address] 7 [place] [address] Care Team Providers Care Business Systems Administrator Name Role Phone Musa Borges MD Primary Care Prov ider Piyush Winkler CNP Primary Care Provider [phone] Reason for Visit * Reason Comments Med Refill Encounter Details Date Type Department Care Team ([facility] Contact Info) Description 04/23/2025 Refill [facility] [address] [place], [place] [phone] Musa Borges MD [address] [place] [address] Social History Tobacco Use Types Packs/Day Years [...] Description 01/14/2026 8:00 AM EDT Office Visit [facility] D[facility] [address] [place], [place] [phone] Elaina Che [address] [place], [place] [phone] documented as of this encounter Visit Diagnoses Not on filedocumented in this encounter Additional Health Concerns Assessment Noted Time PHQ-9 Depression Total Score: 4 08/24/20 24 1:09 PM EDT documented as of this encounter Care Teams Business Systems Administrator Relationship Specialty Start Date End Date Musa Borges MD [address] [place] [address] PCP - General Internal Medicine 04/02/20 07/01/25 Piyush Winkler CNP [address] [place] [address] PCP - General Family Medicine 07/02/25 documented as of this encounter
--- OUTSIDE RECORDS SUMMARY | 2025-10-10 09:01 | XMS_ITS | Clinical Summary ---
Author Organization [employer] Address [address] [place] [address] 7t [place] [address] Care Team Providers Care Motor Analyst Name Role Phone Piyush Winkler MJ Primary Care Provider [phone] Allergies No known active allergies Medications * This document contains information received from the source organization and may not represent a complete record from that organization. Fluocinolone Acetonide Scalp (Meyers-Smoothe/FS Scalp) 0.01 % oilIndications:Se borrheic dermatitis To apply to the affected area once or twice a week. 118 mL 1 3 Active ketoconazole (Nizoral) 2 % shampooIndication s:Seborrheic dermatitis Apply topically 2 (two) times a week. 120 mL 3 3 Active Spacer/Aero-Holdi ng Chambers (OptiChamber Elsa) miscIndications:I nfluenza-like symptoms 1 each every 4 (four) hours if needed (asthma). 1 each 3 Active solifenacin (VESIcare) 5 MG tablet Take 5 mg by mouth Once per day. 5 Active gabapentin (Neurontin) 300 MG capsule Take 1 capsule (300 mg) by mouth at bedtime. 90 capsule 3 09/21/2025 1:59 PM EST 5 01/17/20 26 Active dextran 70-hypromellose (artificial tears) 0.1-0.3 % ophthalmic solutionIndicatio ns:Dry eyes, bilateral Administer 1 drop into both eyes if needed in the morning, at noon, and at bedtime for dry eyes. 15 mL 6 04/04/02/10/20 26 Active Ventolin HFA 108 (90 Base) MCG/ACT inhaler INHALE TWO PUFFS EVERY 4 HOURS NEEDED FOR WHEEZING 18 g 5 Active gabapentin (Neurontin) 300 MG capsule Take 300 mg by mouth. 4 Active Artificial Tears ophthalmic solution PLACE ONE DROP IN EACH EYE THREE TIMES DAILY IN THE MORNING, AT NOON, AND AT BEDTIME NEEDED Active GaviLyte-G 236 g solution DRINK 240 ML EVERY 10 MINUTES UNTIL FINISHED OR HASTA QUE EL LQUIDO RECTAL EST LINNEA 5 Active Blood Pressure Monitoring kitIndications:El evated BP without diagnosis of hypertension Check blood pressure twice daily, once in the morning and once in the evening. 1 kit 5 Active tetrahydrozoline (Visine Red Eye Comfort) 0.05 % ophthalmic solutionIndicatio ns:Seasonal allergies Administer 1 drop into both eyes 3 times daily. 30 mL 5 Active meclizine (Antivert) 25 MG tabletIndications :Benign paroxysmal positional vertigo due to bilateral vestibular disorder TAKE ONE TABLET DAILY NEEDED FOR DIZZINESS 10 tablet 1 5 Active Active Problems Problem Noted Date Diagnosed Date [...] jason, she prefers to be seen at [facility] Bilateral carpal tunnel syndrome 12/15/2023 Assessment [...] EDT): Found on pap smear done by ob-obstetrics gyn physician on 09/01 with bv, complains of itching, [...] Encounters Date Type Department Care Team Description 08/07/2025 Orders Only GENERIC EXTERNAL DATA DEPARTMENT Provider, Generic External Data 07/29/2025 Refill [facility] MED & PEDS [address] [place] [address] Piyush Winkler CNP Benign paroxysmal positional vertigo due to bilateral vestibular disorder 07/16/2025 Refill [facility] PED[facility] [address] [place] [address] Musa Borges MD Right lateral epicondylitis 07/13/2025 Orders Only [facility] [address] [place] [address] Provider, MD Onesimo 07/12/2025 8:00 AM EDT Office Visit [facility] D[facility] [address] [place] [phone] Elaina Che from Last 3 Months Immunizations Immunization Administration [...] Description 01/14/2026 8:00 AM EDT Office Visit [facility] [address] [place] [phone] Elaina Che [address] [place] [address] Health Maintenance Due Date Last [...] Procedure Name Priority Date/Time Associated Diagnosis Comments CULTURE, URINE, ROUTINE Routine 08/07/2025 8:34 AM EDT COMPREHENSIVE PERIODONTAL EVALUATION - NEW OR ESTABLISHED PATIENT Routine 07/12/2025 8:00 AM EDT PERIODIC ORAL EVALUATION - ESTABLISHED PATIENT Routine 07/12/2025 8:00 AM EDT PROPHYLAXIS - ADULT Routine 07/12/2025 8 :00 AM EDT CASE PRESENTATION, DETAILED AND EXTENSIVE TREATMENT PLANNING Routine 07/12/2025 8:00 AM EDT HEPATITIS C AB W/REFL TO HCV [...] Recently Relevant to Health Maintenance Results * Culture, Urine, Routine (08/07/2025 8:34 AM EDT) Urine Urine specimen obtained by clean catch procedure / Unknown 08/07/2025 8:34 AM EDT 08/07/2025 5:34 PM EDT Comment:[facility] - 08/09/2025 8:07 AM EDT Escherichia coli Quant > 100,000 cfu/mL Escherichia coli: Ampicillin <=2(S) Escherichia coli: Cefazolin (Urine) <=1(S) Escherichia coli: Cefepime <=0.12(S) Escherichia coli: Ceftriaxone <=0.25(S) Escherichia coli: Ciprofloxacin <=0.06(S) Escherichia coli: Gentamicin <=1(S) Escherichia coli: Nitrofurantoin <=16(S) Escherichia coli: Trimethoprim/Sulfamethoxazole <=20(S) Specimen Source: Urine clean catch Generic External Data Provider LAB MICROBIOLOGY - GENERAL ORDERABLES Final Result Performing Organization Address [facility] Co de Phone Number [facility] [address] [place] [phone] * Hepatitis C Antibody with Reflex to HCV, RNA, Quantitative, Real-Time PCR (04/18/2025 1:32 PM EDT) Hepatitis C Antibody Nonreactive Nonreactive [facility] Comment:Antibodies to HCV no t detected; does not exclude early acuteHCV infection. 04/18/2025 1:32 PM EDT 04/18/2025 1:32 PM EDT [employer] External Data Provider LAB BLOOD ORDERAB LES Final Result Performing Organization Address [facility] de Phone Number [facility] [address] [place] [phone] * HIV-1/2 Antigen and Antibodies, Fourth Generation, with Reflexes (04/18/2025 1:32 PM EDT) HIV AB/AG Nonreactive Nonreactive [facility] Comment:HIV-1 p24 Ag and/or HIV-1/HIV-2 Ab not detected.A test result that is nonreactive does not exclude thepossibility of exposure to or infection with HIV-1 and/orHIV-2. Nonreactive results in this assay for individualswith prior exposure to HIV-1 and/or HIV-2 may be due toantigen and antibody levels that are below the limit ofdetection of this assay.The [employer] HIV Ag/Ab Combo assay result andsupplemental assay results should be interpreted inconjunction with the patient's clinical presentation,history and other laboratory results. If the results areinconsistent with clinical evidence, additional testing issuggested to confirm the result. 04/18/2025 1:32 PM EDT 04/18/2025 1:32 PM EDT us Generic External Data Provider LAB BLOOD ORDERAB LES Final Result [facility] [address] [place] [address] [phone] * Hm Colonoscopy (02/16/2025 9:17 AM EDT) Historical Provider HEALTH MAINTENANCE Final Result * BI Mammogram Screening Tomosynthesis Bilateral (02/10/2025 10:01 AM EDT) Anatomical Region Laterality Modality Breast Bilateral Mammography 02/10/2025 10:0 1 AM EDT Narrative 02/17/2025 7:16 PM EDT [address] [place] [address] Mammography Report Signed Patient: Shira Aragon MR#: [id number] 14 : 1980 Acct:[id number] Age/Sex: 44 / F ADM Date: 02/10/25 Loc: HO.MAMMO Attending Dr: Musa Oviedo MD Ordering Physician: Musa Borges MD Res ults: 1Negative Date of Service: 02/10/25 Follow Up: 1 Year From Orig ina Mammogram Procedure(s): MM tomosynthesis screening BI Accession Number(s): [id number] cc: Musa Borges MD EXAMINATION: MM SCREENING [...] 02/17/25 1913 DD/ 1001 TD/TT: 02/10/25 1015 Drapery Counselor: Procedure Note Donotuseinterpreter, Image - [facility]/17/20[facility] [address] [place] [address] Mammography Report Signed Patient: Shira AragonMR#: [id number] 14 : 1980Acct:[id number] Age/Sex: 44 / FADM Date: 02/10/25 Loc: HO.MAMMO Attending Dr: Musa Oviedo MD Ordering Physician: Musa Borges ults: 1Negative Date of Service: 02/10/25Follow Up: 1 Year From Orig inal Mammogram Procedure(s): MM tomosynthesis screening BI Accession Number(s): [id number] cc: Musa Borges MD EXAMINATION: MM SCREENING [...] 02/17/25 1913 DD/ 1001 TD/TT: 02/10/25 1015 Drapery Counselor: Musa Oviedo MD IMG BI PROCEDURES Final Result * HPV mRNA E6/E7 w/Reflex to HPV Genotypes 16, 18/45 (09/01/2023 12:12 PM EDT) HPV nRNA E6/E7 Not Detected Not Detected [facility] Comment:Methodology: Transcr iption-Mediated AmplificationThis assay detects E6/E7 viral messenger RNA (mRNA) from 14high-risk HPV types (16,18,31,33,35,39,45,51,52,56,58,59,66,68).Cervical sources are required for HPV testing.If a vaginal source from a patient who has had atotal hysterectomy with removal of cervix wassubmitted, please contact the testing laboratoryfor alternative testing options.For additional information, please refer [email or web address]/[email or web address](This link if provided for information/educational purposes only.)THIS TEST WAS PERFORMED AT:[facility] [place] [phone] WOODY MD HPV mRNA E6/E7 [facility] HPV 16 RNA [facility] HPV 18/45 RNA [facility] 09/01/2023 12:1 2 PM EDT 09/02/2023 7:00 AM EDT [facility] External Provider LAB CYT OLOGY ORDERABLES Final Result [facility] [address] [place] [address] [phone] * Pap Smear (09/01/2023 12:12 PM EDT) 09/01/2023 12:1 2 PM EDT 09/02/2023 7:00 AM EDT [facility] - 09/07/2023 2:16 PM EDT ----- ------- Name: Shira Aragon Age/Sex: 43/F : 1980 Unit#: [id number] Attend Dr: Karen Holbrook CNM Re09/01/23 Status: DEP REF Location: [facility] Disch: ----- ------- SPEC : [id number] RECD: 09/02/23 STATUS: SAM GILLESPIE NUM: [id number] HERMILO: 09/01/23 [facility] DR: Karen Holbrook ENTERED: 09/02/23 SP [...] 59, 66, 68) HPV testing performed by [email or web address], [place], [place]. See reference laboratory pion of the EMR for entire report. Clinical Information LMP: 07/21/23 Previous PAP test: Unknown date/findings Other history: Abnormal uterine and vaginal bleeding, unspecified. Material Received ThinPrep-Cervical Copies To: Musa Borges MD [address] [place] [address] [address] Woo [address] [place] [phone] ----- ------- Signed (signature on file) Claudia David MD 09/07/23 1416 ----- ------- END OF REPORT [facility] External Provider LAB CYT [facility] ORDERABLES Final Result [facility] [address] [place] [phone] from Last 3 Months or Most Recently Relevant to Health Maintenance Insurance [facility] [place] Care Teams Motor Analyst Relationship Specialty Start Date End Date Piyush Winkler CNP PCP - General Family Medicine 07/02/25
--- OUTSIDE RECORDS SUMMARY | 2025-10-10 09:01 | XMS_ITS | Encounter Summary ---
Author Organization [employer] Address [address] [facility] 7 [place] [address] Care Team Providers Care Marketing Development Manager Name Role Phone Musa Borges MD Primary Care Prov ider Piyush Winkler CNP Primary Care Provider [phone] Reason for Visit * Reason Onset Date Comments Medication Question 10/08/2023 Encounter Details Date Type Department Care Team ([facility] st Contact Info) Description 10/08/2023 Telephone [facility] MED[facility] [address] [place] [address] Musa Borges MD [address] [place], [place] [phone] Medication Question Social History Tobacco Use Types [...] to prescribe medication for neck pain however communications writer does not see anything on file please clarify. documented in this encounter Plan of Treatment Upcoming Encounters Date Type Department Care Team (Late st Contact Info) Description 01/14/2026 8:00 AM EDT Office Visit [facility] [address] [place], [place] [phone] Elaina Che [address] [place], [place] [phone] documented as of this encounter Visit Diagnoses Not on filedocumented in this encounter Additional Health Concerns Assessment Noted Time PHQ-9 Depression Total Score: 0 12/23/19 23 8:59 AM EST documented as of this encounter Care Teams Marketing Development Manager Relationship Specialty Start Date End Date Musa Borges MD [address] [place] [address] PCP - General Internal Medicine 04/02/20 07/01/25 Piyush Winkler CNP [address] [place] [address] PCP - General Family Medicine 07/02/25 documented as of this encounter
--- OUTSIDE RECORDS SUMMARY | 2025-10-10 09:01 | XMS_ITS | Encounter Summary ---
Author Organization [facility] [employer] Address [address] [place] [address] 7 [place] [address] Care Team Providers Care Erecting Crane Operator Name Role Phone Musa Borges MD Primary Care Prov ider Piyush Winkler CNP Primary Care Provider +1 [phone] Reason for Visit * Reason Onset Date Comments Med Refill 04/10/2024 Encounter Details Date Type Department Care Team ([facility] st Contact Info) Description 04/10/2024 Refill [facility] CHC MED & PEDS [address] [place], [place] [phone] Dyan Miller MD [address] [place] [address] Social History Tobacco Use Types Packs/Day Years [...] Description 01/14/2026 8:00 AM EDT Office Visit [facility] D[facility]AL [address] [place], [place] [phone] Elaina Che [address] [place], [place] [phone] documented as of this encounter Visit Diagnoses Not on filedocumented in this encounter Additional Health Concerns Assessment Noted Time PHQ-9 Depression Total Score: 0 12/23/19 23 8:59 AM EST documented as of this encounter Care Teams Erecting Crane Operator Relationship Specialty Start Date End Date Musa Borges MD [address] [place] [address] PCP - General Internal Medicine 04/02/20 07/01/25 Piyush Winkler CNP [address] [place] [address] PCP - General Family Medicine 07/02/25 documented as of this encounter
--- OUTSIDE RECORDS SUMMARY | 2025-10-10 09:01 | XMS_ITS | Encounter Summary ---
Author Organization [employer] Address [address] [place] [address] Care Team Providers Care Primary School Teacher Librarian Name Role Phone Musa Borges MD Primary Care Prov ider Piyush Winkler CNP Primary Care Provider +1 [phone] Reason for Visit * Reason Comments Med Refill Encounter Details Date Type Department Care Team (Late st Contact Info) Description 11/14/2022 Refill [facility] MEDICINE [address] [place], [place] [phone] Musa Borges MD [address] [place], [place] [phone] Current mild episode of major depressive disorder [...] Description 01/14/2026 8:00 AM EDT Office Visit [facility] D[facility] [address] [place], [place] [phone] Elaina Che [address] [place], [place] [phone] documented as of this encounter Visit Diagnoses Diagnosis Current mild episode of major depressive disorder without prior episode (CMS/HCC)- Primary documented in this encounter Care Teams Primary School Teacher Librarian Relationship Specialty Start Date End Date Musa Borges MD 505 [facility] [place] [address] PCP - General Internal Medicine 04/02/20 07/01/25 Piyush Winkler CNP 505 [facility] [place] [address] PCP - General Family Medicine 07/02/25 documented as of this encounter
--- OUTSIDE RECORDS SUMMARY | 2025-10-10 09:01 | XMS_ITS | Encounter Summary ---
Author Organization [employer] Address [address] [place] [address] Care Team Providers Care Pony Rougher Name Role Phone Musa Borges MD Primary Care Prov ider Piyush Winkler CNP Primary Care Provider [phone] Encounter Details Date Type Department Care Team (Late st Contact Info) Description 10/13/2022 Telephone [facility] ADULT DENTAL [address] [place] [address] Dental, Provider, DDS Social History Tobacco Use [...] 8:00 AM EDT Office Visit [facility] [address] [place], [place] [phone] Elaina Che [address] [place], [place] [phone] documented as of this encounter Visit Diagnoses Not on filedocumented in this encounter Care Teams Pony Rougher Relationship Specialty Start Date End Date Musa Borges MD [address] [place] [address] PCP - General Internal Medicine 04/02/20 07/01/25 Piyush Winkler CNP [address] [place] [address] PCP - General Family Medicine 07/02/25 documented as of this encounter
--- OUTSIDE RECORDS SUMMARY | 2025-10-10 09:01 | XMS_ITS | Encounter Summary ---
Author Organization [employer] Address [address] [facility] 7t [place] [address] Care Team Providers Care Ultrasonic Solderer Name Role Phone Peterson Jacobjoni BARKER Primary Care Provider [phone] [phone] Encounter Details Date Type Department Care Team ([facility] st Contact Info) Description 07/13/2025 Orders Only [facility] CHC MED & PEDS [address] [place], [place] [phone] Provider, MD Onesimo Social History Tobacco Use [...] Description 01/14/2026 8:00 AM EDT Office Visit [facility] DENTAL [address] [place] [address] Elaina Che [address] [place] [address] documented as of this encounter Procedures Procedure [...] documented as of this encounter Care Teams Ultrasonic Solderer Relationship Specialty Start Date End Date Piyush Winkler CNP PCP - General Family Medicine 07/02/25 documented as of this encounter
--- OUTSIDE RECORDS SUMMARY | 2025-10-10 09:01 | XMS_ITS | Encounter Summary ---
Author Organization [employer] Address [address] [facility] 7 [place] [address] Care Team Providers Care Laboratory Apparatus Glass Blower Name Role Phone Peterson Jacobglendaeric MJ Primary Care Provider [phone] [phone] Reason for Visit * Reason Comments Med Refill Encounter Details Date Type Department Care Team ([facility] st Contact Info) Description 07/16/2025 Refill [facility] CHC MED & PEDS [address] [place], [place] [phone] Musa Borges MD [address] [place] [address] Right lateral epicondylitis Social History Tobacco Use [...] Description 01/14/2026 8:00 AM EDT Office Visit [facility] DENTAL [address] [place] [address] Elaina Che [address] [place] [address] documented as of this encounter Visit Diagnoses Diagnosis Right lateral epicondylitis documented in this encounter Additional Health Concerns Assessment Noted Time PHQ-9 Depression Total Score: 4 08/24/20 24 1:09 PM EDT documented as of this encounter Care Teams Laboratory Apparatus Glass Blower Relationship Specialty Start Date End Date Piyush Winkler CNP PCP - General Family Medicine 07/02/25 documented as of this encounter
--- OUTSIDE RECORDS SUMMARY | 2025-10-10 09:01 | XMS_ITS | Encounter Summary ---
Author Organization [employer] Address [address] [place] [address] 7 [place] [address] Care Team Providers Care Box Hinge And Lock Attacher Name Role Phone Musa Borges MD Primary Care Prov ider Piyush Winkler CNP Primary Care Provider [phone] [phone] Encounter Details Date Type Department Care Team ([facility] st Contact Info) Description 12/06/2024 Telephone [facility] CHC MED & PEDS [address] [place], [place] [phone] Musa Borges MD [address] [place] [address] Social History Tobacco Use Types Packs/Day Years [...] Description 01/14/2026 8:00 AM EDT Office Visit [facility] DENTAL [address] [place], [place] [phone] Elaina Che 91 [place], [place] [phone] documented as of this encounter Visit Diagnoses Not on filedocumented in this encounter Additional Health Concerns Assessment Noted Time PHQ-9 Depression Total Score: 4 08/24/20 24 1:09 PM EDT documented as of this encounter Care Teams Box Hinge And Lock Attacher Relationship Specialty Start Date End Date Musa Borges MD [address] [place] [address] PCP - General Internal Medicine 04/02/20 07/01/25 Piyush Winkler CNP [address] [place] [address] PCP - General Family Medicine 07/02/25 documented as of this encounter
--- OUTSIDE RECORDS SUMMARY | 2025-10-10 09:01 | XMS_ITS | Encounter Summary ---
Author Organization [employer] Address [address] [place] [address] 7 [place] [address] Care Team Providers Care Community Health Advocate Name Role Phone Musa Borges MD Primary Care Prov ider Piyush Winkler CNP Primary Care Provider [phone] [phone] Reason for Visit * Reason Onset Date Comments Nurse Triage 02/23/2024 Encounter Details Date Type Department Care Team ([facility] Contact Info) Description 02/23/2024 Telephone [facility] CHC MED & PEDS [address] [place], [place] [phone] Musa Borges MD [address] [place] [address] Nurse Triage Social History Tobacco Use Types [...] 02/23/2024 10:22 AM EDT Triage call with [employer] Stable Cleaner ID [id number] Pt reports skin lump in area between right upper thigh and vulva. Pt reports this started 2 months ago. Pt popped it the first time just using hand. Pt reports it has returned, reddened , painful. Ptis given home care advice and agrees. Pt is advised to come to [facility] if unable to find relief with home care advised. Pt agrees with this plan and disposition. Hours of [facility] given, open till 8pm today , [...] accepted this outcome Please contact pt at [phone] (Estonian) documented in this encounter Plan of Treatment Upcoming Encounters Date Type Department Care Team (Late st Contact Info) Description 01/14/2026 8:00 AM EDT Office Visit [facility] DENTAL [address] [place] [address] Elaina Che 91 [place], [place] [phone] documented as of this encounter Visit Diagnoses Not on filedocumented in this encounter Additional Health Concerns Assessment Noted Time PHQ-9 Depression Total Score: 0 12/23/19 23 8:59 AM EST documented as of this encounter Care Teams Community Health Advocate Relationship Specialty Start Date End Date Musa Borges MD [address] [place] [address] PCP - General Internal Medicine 04/02/20 07/01/25 Piyush Winkler CNP [address] [place] [address] PCP - General Family Medicine 07/02/25 documented as of this encounter
--- OUTSIDE RECORDS SUMMARY | 2025-10-10 09:01 | XMS_ITS | Encounter Summary ---
Author Organization [employer] [facility] Address [address] [place] [address] Care Team Providers Care Door To Door Sales Representative Name Role Phone Musa Borges MD Primary Care Prov ider Piyush Winkler CNP Primary Care Provider [phone] [phone] Encounter Details Date Type Department Care Team (Latest Contact Info) Description 08/04/2021 Abstract [facility] CONVERSIONS Dental, Provider, DDS Social History [...] Office Visit [facility] DENTAL [address] [place], [place] [phone] Elaina Che [address] [place], [place] [phone] documented as of this encounter Visit Diagnoses Not on filedocumented in this encounter Care Teams Door To Door Sales Representative Relationship Specialty Start Date End Date Musa Borges MD [address] [place] [address] PCP - General Internal Medicine 04/02/20 07/01/25 Piyush Winkler CNP [address] [place] [address] PCP - General Family Medicine 07/02/25 documented as of this encounter
--- OUTSIDE RECORDS SUMMARY | 2025-10-10 09:01 | XMS_ITS | Encounter Summary ---
Author Organization [employer] Address [address] [facility] 7 [place] [address] Care Team Providers Care Flight Mechanic Name Role Phone Musa Borges MD Primary Care Prov ider Piyush Winkler CNP Primary Care Provider [phone] [phone] Encounter Details Date Type Department Care Team ([facility] st Contact Info) Description 12/01/2023 Orders Only [facility] CHC MED & PEDS [address] [place], [place] [phone] Musa Borges MD [address] [place], [place] [phone] Social History Tobacco Use Types Packs/Day Years [...] 01/14/2026 8:00 AM EDT Office Visit [facility] DENTAL [address] [place], [place] [phone] Elaina Che 91 [place], [place] [phone] documented as of this encounter Visit Diagnoses Not on filedocumented in this encounter Additional Health Concerns Assessment Noted Time PHQ-9 Depression Total Score: 0 12/23/19 23 8:59 AM EST documented as of this encounter Care Teams Flight Mechanic Relationship Specialty Start Date End Date Musa Borges MD [address] [place] [address] PCP - General Internal Medicine 04/02/20 07/01/25 Piyush Winkler CNP [address] [place] [address] PCP - General Family Medicine 07/02/25 documented as of this encounter
[2025-10-10 09:44] VITALS: PULSE 71
== END 2025-10-10 08:45 | disposition home or self-care (01) ==
LOC: HO.RESP 08:44
DX: R05.3 Chronic cough (principal)
CPT/HCPCS: 94060; 94640; 94727; 94729

== ENCOUNTER → 2025-10-10 08:58 | Outpatient (BNV) | payer MEDICAID, SELFPAY | PROVIDERS: Visit Provider Hospitalist | DX: R05.9 Cough, unspecified (principal) | CPT/HCPCS: 94060; 94727; 94729 ==